=== PATIENT | female | born 1955 | race Caucasian/White ===

== ENCOUNTER → 2016-04-15 | Outpatient (REF) | payer MEDICARE, OTHER ==
[~2016-04-15] MED LIST: /MIRT30TA PO; /ONDA4TA OR; /ONDA4TA PO; /PANT40TA OR; /PANT40TA PO; ACET50TA GT; ACET50TA PO; ACET65TA OR; AMBI10TA OR; AMBI10TA PO; AUGM875T27 PO; BAYE325T13 PO; BUDE150T OR; Bentyl OR; CIPR500T4 OR; CIPR500T89 PO; ESTR1TAB PO; ESTR625TA OR; ESTR62CR PV; FERR325T PO; FLAG500T OR; FLAG500T PO; FLORASTOR PO; HYOMAX OR; LOPE2TAB PO; LOPERAMIDE PO; MAGIC MOUTH WASH PO; MESAPOW PO; MS C15TA5 OR; OXYCODONE PO; PERC7.5T8 OR; POTA20TA2 PO; PRED10TA2 OR; PRED10TA2 PO; PRED20TA OR; PRED20TA PO; PRED5TAB OR; Prednisone OR; SING5CHW PO; TRAM50TA2 PO; TYLE325T5 PO; TYLE650T25 PO; Tylenol PM OR; VANC25CA PO; VICO5TAB OR; VITA-122 PO; VITA25003 SL; VITA500T PO; VITAD1000T OR; VITAMIN B COMPLE1 PO; Vitamin D-3 PO; WELLTAB4 PO; ZANT150T PO; ZOFR4SOL PO; [UNRECOGNIZED DRUG - CODE] PO; [UNRECOGNIZED DRUG - REMARK] OR; asacol PO; bacid PO
== END ==
LOC: M SFHCPLAZ 08:51
PROVIDERS: ATTEND Nurse Practitioner Family
DX: E78.5 Hyperlipidemia, unspecified (principal); E55.9 Vitamin D deficiency, unspecified

== ENCOUNTER → 2016-04-16 | Outpatient (REF) | payer MEDICARE, OTHER ==
[2016-04-16 16:48] LABS: ALBUMIN 4.2 GM/DL (3.2-5.2); ALKALINE PHOSPHATASE 79 U/L (45-117); ALT/SGPT 23 U/L (12-78); ANION GAP 12 MEQ/L (8-16); AST/SGOT 14 U/L (15-37); BILIRUBIN,TOTAL 0.5 MG/DL (0.2-1.0); BLOOD UREA NITROGEN 15 MG/DL (7-18); CARBON DIOXIDE LEVEL 25 MEQ/L (21-32); CHLORIDE LEVEL 105 MEQ/L (98-107); CREATININE FOR GFR 0.79 MG/DL (0.55-1.02); GLOMERULAR FILTRATION RATE > 60.0 (>45); GLUCOSE, FASTING 82 MG/DL (80-110); POTASSIUM SERUM 3.9 MEQ/L (3.5-5.1); SODIUM LEVEL 142 MEQ/L (136-145); TOTAL PROTEIN 7.2 GM/DL (6.4-8.2)
[2016-04-16 16:50] LABS: BASO % 0.3 % (0.0-1.0); EOS # 0.1 K/mm3 (0.0-0.50); EOS % 1.1 % (0.0-3.0); LARGE UNSTAINED CELL # 0.2 K/mm3 (0.0-0.4); LARGE UNSTAINED CELL % 2.1 % (0.0-4.0); LYMPH # 2.5 K/mm3 (1.5-4.5); LYMPH % 32.6 % (24.0-44.0); MEAN CORPUSCULAR HEMOGLOBIN 31.7 pg (27.0-33.0); MEAN CORPUSCULAR HGB CONC 33.9 g/dl (32.0-36.5); MEAN CORPUSCULAR VOLUME 93.4 fl (80.0-96.0); MONO # 0.4 K/mm3 (0.0-0.8); MONO % 5.7 % (0.0-5.0); NEUTROPHILS # 4.5 K/mm3 (1.8-7.7); NEUTROPHILS % 58.2 % (36.0-66.0); PLATELET COUNT, AUTOMATED 244 k/mm3 (150-450); WHITE BLOOD COUNT 7.6 K/mm3 (4.0-10.0)
[2016-04-16 20:00] LABS: ERYTHROCYTE SEDIMENTATION RATE 4 mm/hr (0-30)
== END ==
LOC: M LABDRAW1 15:45
PROVIDERS: ATTEND Psychiatry & Neurology Neurology
DX: G37.9 Demyelinating disease of central nervous system, unspecified (principal); Z79.899 Other long term (current) drug therapy

== ENCOUNTER → 2016-07-17 | Outpatient (CLI) | payer MEDICARE, OTHER ==
--- NOTE | 2016-07-18 09:55 | RADONC ---
RADIATION ONCOLOGY FOLLOWUP NOTE DATE: 07/17/2016 CHART NUMBER: [id number]. DIAGNOSIS: Left breast cancer. STAGE: IIA, [id number]. ECOG PERFORMANCE STATUS: 0. FOLLOWUP NOTE: Ms. Nguyen is a very pleasant, 60-year-old white female with the diagnosis of a stage IIA, [id number] moderately differentiated invasive ductal carcinoma of the left breast who is presenting to us today for routine followup visit 3 years post completion of external beam radiation therapy. The patient presents today reporting that she is doing quite well with no complaints at this time related to her radiation therapy or disease. She has no breast or bone pain. REVIEW OF SYSTEMS: The patient's review of systems is noncontributory. Denies nausea, vomiting, fevers, chills, night sweats, diplopia, headaches, anxiety or depression, anorexia, weight loss, visual disturbances, chest pain, urinary or bowel difficulties, bone pain, or neurological problems. PHYSICAL EXAMINATION: The patient is a well-developed, well-nourished, 60-year-old female in no acute distress. HEENT exam is normocephalic, atraumatic. Extraocular movements are intact. There is no palpable cervical, supraclavicular, infraclavicular, axillary, or inguinal lymphadenopathy present. Lungs are clear to auscultation and percussion. Heart has a regular rate and rhythm. Abdomen is benign with no hepatosplenomegaly, masses, or tenderness. Breast examination reveals no masses or discharge bilaterally. Skeletal examination reveals no tenderness to pressure or percussion of the bony skeleton. Extremities reveal no clubbing, cyanosis, or edema. Neurologic exam is grossly intact, as is the remainder of the physical examination. The patient's review of systems is noncontributory. She denies standard review of systems. ASSESSMENT: The patient is clinically LISA at this time and will be seen by us again in 6 months for further followup. She will also continue to be followed by her other physicians as well. cc: MD Eros Vieira MD *Grover Newman DO
== END ==
LOC: M ONCR 13:34
PROVIDERS: ATTEND Radiology Radiation Oncology
DX: C50.412 Malignant neoplasm of upper-outer quadrant of left female breast (principal)

== ENCOUNTER → 2016-08-29 | Outpatient (REF) | payer MEDICARE, OTHER ==
[2016-08-29 13:43] LABS: BASO % 0.2 % (0.0-1.0); EOS # 0.1 K/mm3 (0.0-0.50); EOS % 1.3 % (0.0-3.0); LARGE UNSTAINED CELL # 0.1 K/mm3 (0.0-0.4); LYMPH # 2.5 K/mm3 (1.5-4.5); LYMPH % 26.6 % (24.0-44.0); MEAN CORPUSCULAR HEMOGLOBIN 31.8 pg (27.0-33.0); MEAN CORPUSCULAR HGB CONC 33.9 g/dl (32.0-36.5); MEAN CORPUSCULAR VOLUME 93.9 fl (80.0-96.0); MONO # 0.5 K/mm3 (0.0-0.8); MONO % 5.5 % (0.0-5.0); NEUTROPHILS % 65.4 % (36.0-66.0); PLATELET COUNT, AUTOMATED 302 k/mm3 (150-450); RED CELL DISTRIBUTION WIDTH 12.1 % (11.5-14.5); WHITE BLOOD COUNT 9.2 K/mm3 (4.0-10.0)
[2016-08-29 14:09] LABS: ALBUMIN 3.7 GM/DL (3.2-5.2); ALBUMIN/GLOBULIN RATIO 1.16 (1.00-1.93); ALKALINE PHOSPHATASE 78 U/L (45-117); ALT/SGPT 23 U/L (12-78); AMYLASE 57 U/L (25-115); ANION GAP 8 MEQ/L (8-16); AST/SGOT 20 U/L (15-37); BILIRUBIN,TOTAL 0.4 MG/DL (0.2-1.0); BLOOD UREA NITROGEN 15 MG/DL (7-18); CALCIUM LEVEL 8.4 MG/DL (8.8-10.2); CARBON DIOXIDE LEVEL 28 MEQ/L (21-32); CHLORIDE LEVEL 103 MEQ/L (98-107); CREATININE FOR GFR 0.85 MG/DL (0.55-1.02); GLOMERULAR FILTRATION RATE > 60.0 (>45); GLUCOSE, FASTING 101 MG/DL (80-110); SODIUM LEVEL 139 MEQ/L (136-145); TOTAL PROTEIN 6.9 GM/DL (6.4-8.2)
== END ==
LOC: M SFHCPLAZ 08-28 16:26
PROVIDERS: ATTEND Nurse Practitioner Family
DX: R10.9 Unspecified abdominal pain (principal); R53.83 Other fatigue

== ENCOUNTER → 2016-09-05 | Outpatient (REF) | payer MEDICARE, OTHER | LOC: M SFHCPLAZ 10:21 | PROVIDERS: ATTEND Nurse Practitioner Family | DX: E55.9 Vitamin D deficiency, unspecified (principal); R53.83 Other fatigue; K51.20 Ulcerative (chronic) proctitis without complications ==

== ENCOUNTER → 2016-10-01 | Outpatient (REF) | payer MEDICARE, OTHER ==
[~2016-10-01] MED LIST changes: +AFLU1INJ; +DULO1CAP2; +NORCOTAB PO; +TAMO20TA4
== END ==
LOC: M SFHCWAGY 12:02
PROVIDERS: ATTEND Nurse Practitioner Family
DX: Z12.72 Encounter for screening for malignant neoplasm of vagina (principal); R87.615 Unsatisfactory cytologic smear of cervix
CPT/HCPCS: 81002; G0101; G0123

== ENCOUNTER → 2016-10-09 | Outpatient (REF) | payer MEDICARE, OTHER | LOC: M SMT 16:52 | PROVIDERS: ATTEND Urology | DX: R31.9 Hematuria, unspecified (principal) | CPT/HCPCS: 81001; 88108; G0463 ==

== ENCOUNTER → 2016-10-17 | Outpatient (CLI) | payer MEDICARE, OTHER ==
[2016-10-17 13:45] LABS: ANION GAP 6 MEQ/L (8-16); BLOOD UREA NITROGEN 12 MG/DL (7-18); CALCIUM LEVEL 8.9 MG/DL (8.8-10.2); CARBON DIOXIDE LEVEL 30 MEQ/L (21-32); CHLORIDE LEVEL 103 MEQ/L (98-107); CREATININE FOR GFR 0.82 MG/DL (0.55-1.02); GLOMERULAR FILTRATION RATE > 60.0 (>45); GLUCOSE, FASTING 105 MG/DL (80-110); POTASSIUM SERUM 4.3 MEQ/L (3.5-5.1); SODIUM LEVEL 139 MEQ/L (136-145)
== END ==
LOC: M SMT 09:14
PROVIDERS: ATTEND Urology
DX: R31.0 Gross hematuria (principal)

== ENCOUNTER → 2016-10-23 | Outpatient (CLI) | payer MEDICARE, OTHER ==
[~2016-10-23] MED LIST changes: +ISOVUE-370 76% 100ML VIAL (Q9967) As Ordered ONE
--- NOTE | 2016-10-23 15:19 | REP ---
CT UROGRAM WITHOUT AND WITH IV CONTRAST: HISTORY: Hematuria. Comparison CT study is from May 10, 2013. CT CONTRAST DOSE: 100 mL of Isovue [address] FINDINGS: Preliminary digital slate picker radiograph is unremarkable. The lung bases are clear. The liver and spleen contain a few granulomatous calcifications but are otherwise intact. There is some layering slightly dense material in the dependent portion the gallbladder suggesting gallstones. This is reported on the right upper quadrant sonography from October 2015. No pancreatic lesion is seen. No adrenal lesion is observed on either side. There is an accessory splenule at the inferior spleen tip unchanged. There is a tiny 2 mm intrarenal calculus at the mid pole level of the right kidney on noncontrast study. No other intrarenal calculus is observed. No hydronephrosis is seen. This calcification is not apparent on the 2013 prior study. The kidneys enhance symmetrically with contrast. There is a tiny 4 mm cyst in the anterior cortex of the mid pole of the right kidney. No renal mass lesion is observed. No ureteral mass is observed. No filling defect is seen in the collecting system on renal delay study. The ureters describe a normal course to the urinary bladder. No bladder mass is apparent. The patient is status post hysterectomy. The patient is also status post colectomy with ileorectal anastomosis. No bony destructive lesion is seen. No abdominal wall defect is observed. IMPRESSION: 1. 2 mm intrarenal calculus mid pole level right kidney seen on noncontrast study. 2. No hydronephrosis. No other urinary tract finding. 3. Status post colectomy. 4.: Cholelithiasis. Signed by Jean Carlos Spear MD 10/23/2016 03:58 P
== END ==
LOC: M RAD 13:45
PROVIDERS: ATTEND Urology
DX: R31.0 Gross hematuria (principal)
CPT/HCPCS: 74178; Q9967

== ENCOUNTER → 2016-12-17 | Outpatient (CLI) | payer MEDICARE, OTHER ==
[~2016-12-17] MED LIST changes: -ISOVUE-370 76% 100ML VIAL (Q9967) As Ordered ONE
--- NOTE | 2017-01-02 00:50 | ECWPNPC ---
PATIENT NAME: RENÉE SOARES : 1955 GENDER: FEMALE VISIT DATE: 12/17/2016 DISCHARGE DATE: 12/17/16 1119 VISIT LOCKED DATE TIME: PHYSICIAN: ROLAND HULL PHYSICIAN PAGER NO: [phone] RESOURCE: ROLAND HULL REASON FOR APPOINTMENT 1. NECK/LBP HISTORY OF PRESENT ILLNESS NEW PATIENT CONSULT: WHEN DID YOUR PAIN FIRST START? . BRIEFLY DESCRIBE HOW YOUR PAIN STARTED? . HOW DOES YOUR PAIN CHANGE WITH TIME? . DOES YOUR PAIN AWAKEN YOU FROM SLEEP? . HOW MANY HOURS OF SLEEP DO YOU NORMALLY GET? . ANY DIAGNOSTIC TESTING? . FACILITY WHERE TESTS WERE DONE? ____. PAIN TREATMENT TREATMENT YES CANCER HAVE YOU EVER HAD ANY TYPE OF CANCER?NO NO. PAIN SCREENING: PATIENT HAS A COMPLAINT OF ACUTE OR CHRONIC PAIN :YES FALL RISK SCREENING: SCREENING :NO FALLS IN THE PAST YEAR BLACKMAN INVENTORY: QUESTIONNAIRE ASSESSEDTBD SCORE VALUE CALCULATED TBD TODAY'S VISIT: NOTES: REFERRED BY DR WAI HURTADO FOR CHRONIC NECK AND LOW BACK PAIN. PCP IS [facility]. ONSET OF PAIN WAS AROUND 2012. INITIALLY PAIN WAS ACHING, AND NOW HAS INCREASED WITH BURNING AND SHOOTING PAIN AND RECENTLY PAIN WAS HAVING SHOOTING PAIN TO RIGHT SHOULDER . WENT TO PT BUT NOT HELPFUL AND DID NOT GET A HEP. TREATES USUALLY WITH HEAT, ICE, IBU. 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 NO SIG RELIEF WHEN LAYING DONE. PAIN IS AFFECTING SLEEP. 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 HAD EPISODES OF ALL OVER PAIN FOR A PERIOD OF TIME. NO SPECIFIC WEAKNESS IN THE UPPER EXTREMITIES. NECK MOVEMENT UNCOMFORTABLE AND FEELS RESTRICTED. CURRENT MEDICATIONS TAKING ZOFRAN ODT 4 MG TABLET DISPERSIBLE 1 TABLET ON THE TONGUE AND ALLOW TO DISSOLVE ORALLY EVERY 8 HRS NEEDED TAKING AMBIEN 5 MG TABLET 1/2 TAB ORAL AT NIGHT TAKING TAMOXIFEN CITRATE 20 MG TABLET 1 TABLET ORALLY ONCE A DAY TAKING LOPERAMIDE HCL 2 MG CAPSULE 2 TABS ORALLY TWICE DAILY NEEED TAKING VITAMIN D-3 5000 UNIT TABLET 1 TAB ORALLY DAILY TAKING IBUPROFEN 800 MG TABLET 1 TABLET WITH FOOD OR MILK ORALLY TWICE A DAY NEEDED TAKING SYMBICORT 80-4.5 MCG/ACT AEROSOL 2 PUFFS INHALATION ONCE DAILY (USES THIS NEEDED) TAKING FLONASE ALLERGY RELIEF 50 MCG/ACT SUSPENSION 1 SPRAY IN EACH NOSTRIL NASALLY ONCE A DAY NEEDED TAKING CYMBALTA 30 MG CAPSULE DELAYED RELEASE PARTICLES 1 CAPSULE ORALLY ONCE A DAY, NOTES: ARONOWITZ/ INCREASED 60 MGS NOT-TAKING ZYRTEC ALLERGY 10 MG TABLET 1 TABLET ORALLY ONCE A DAY NOT-TAKING MACROBID 100 MG CAPSULE 1 CAPSULE WITH FOOD 1 HOUR PRIOR TO YOUR CYSTOSCOPY ORALLY ONCE MEDICATION LIST REVIEWED AND RECONCILED WITH THE PATIENT PAST MEDICAL HISTORY C DIFF COLITIS- DR MEIER (NO LONGER FOLLOWS WITH DR. 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 S/P RESECTION DR CARUSO. CHEMOTHERAPY DR COWAN- COMPLETED 08/10 TREATMENTS. RAD RX PER DR ROMANO ONCOLOGY DR VANN CHRONIC COUGH- DR HUNT 01/17 DONAVAN 02/02/13 NML( FEV1 2.51 (90%)/FVC2.94(82%). PFTS/METHACHOLINE CHALLENGE UNREMARKABLE- NO PULM EXPLANATION FOR COUGH 09/18. COUGH RESOLVED WITH ADVAIR PER CHROSTOWSKI 01/18. PANCREATIC MASS 2.5 CM/PRIOR FNA ATYPICAL CELLS/SUBSEQUENT EUS MASS SMALLER/LAST CT WITH CONTRAST MASS NOT DETECTED- FOLLOWED BY DR MAYORGA- GASTRO MICHAEL. FNA 11/18NEG PER PT CT A&P WITH CONTRAST NO ACUTE PATHOLOGY 05/21 BONE SCAN- OA/FIBROMYALGIA WITH CHRONIC PAIN-LYRICA- PER [facility]- DR SAINI 07/19 DEPRESSION/ANXIETY- ONESIMO LDL 95 04/20 PNEUMOVAX- 2013- [facility] PER PT. CT MAXILLOFACIAL 03/19-MILD MUCOSAL THICKENING MAXILLARY SINUSES CTD/CHRONIC PAIN- [facility] SYR- PLAQUENIL ETT 04/21 [facility]- NEG ISCHEMIA KIDNEY STONE 2015 ALLERGIES SULFA (FOR ALLERGY USE ONLY): FLU LIKE SX'S: ALLERGY AMOXICILLIN: C DIFF: CONTRAINDICATION BACTRIM: ANAPHYLAXIS SURGICAL HISTORY TUBAL LIGATION HYSTERECTOMY WITH BILATERAL OOPHORECTOMY BREAST BIOPSY-LEFT SALPINGECTOMY FOR TUBAL COLONOSCOPY EGD DR MUKESH RODRIGUEZ [address] RITA TUTTLE 04/18 ILEOSTOMY, 3 DIFFERENT OPERATIONS- 06/04/11 REANASTOMOSIS OF SMALL BOWEL. 01/[address] CARUSO 10/2012 LYMPH NODE REMOVAL FROM LEFT BREAST DR CARUSO 11/2012 ILEAL POUCH [id number] 01/26/15 RIGHT ESWL 06/08/15 FAMILY HISTORY FATHER: 66 YRS, PR, HYPERTENSION, IDDM, KIDNEY STONES MOTHER: 86 YRS, MELANOMA, OF COLON CANCER SIBLINGS: 2 SISTERS-LUNG AND PANCREATIC CA 5 BROTHER(S) , 3 SISTER(S) . 1 SON(S) , 1 DAUGHTER(S) - HEALTHY. BROTHER MVA, BROTHER PR @ LATE 40'S, TOBACCO USE. DENIES FAMILY HX OF BREAST OR OVARIAN CANCER. SOCIAL HISTORY GENERAL: TOBACCO USE ARE YOU A:FORMER SMOKER HOW LONG HAS IT BEEN SINCE YOU LAST SMOKED?> 10 YEARS RECREATIONAL DRUG USE DRUG USE?NO CHURCH [id number] SABIANISM LANGUAGE LANGUAGES SPOKEN:FAROESE LEARNING BARRIERS / SPECIAL NEEDS BARRIERS TO LEARNING?NO HEARING IMPAIRED?NO VISION IMPAIRED?YES GLASSES FOR READING COGNITIVELY IMPAIRED?NO READINESS TO LEARN?YES LEARNING PREFERENCES?NO LEARNING CAPABILITIES PRESENT?YES EMOTIONAL BARRIERS?NO SPECIAL DEVICES?NO SCRAP BUNCH MAKER NEEDED?NO PAIN CLINIC PFS, CLERGY, PUBLIC HEALTH REFERRALS PFS REFERRAL NEEDED?NO CLERGY REFERRAL NEEDED?NO PUBLIC HEALTH REFERRAL NEEDED?NO WAS THE PROVIDER NOTIFIED OF ANY PERTINENT INFO?NO HAS THE PATIENT BEEN EDUCATED REGARDING HIS/HER PLAN OF CARE?YES HAS THE PATIENT BEEN EDUCATED REGARDING PAIN, THE RISK FOR PAIN, THE IMPORTANCE OF EFFECTIVE PAIN MANAGEMENT, AND THE PAIN ASSESSMENT PROCESS?YES PATIENT: ____. ADVANCE DIRECTIVES HEALTH CARE PROXY?NO WOULD YOU LIKE MORE INFORMATION?NO DO YOU HAVE A DNR?NO WOULD YOU LIKE MORE INFORMATION?NO LIVING WILL?NO WOULD YOU LIKE MORE INFORMATION?NO POWER OF DISTRIBUTION CENTER SUPERVISOR?NO WOULD YOU LIKE MORE INFORMATION?NO HOSPITALIZATION/MAJOR DIAGNOSTIC PROCEDURE RELATED TO SURGERIES LEUKOPENIA 01/17 REVIEW OF SYSTEMS REVIEWED BY: PROVIDER: ROLAND MOREL . CONSTITUTIONAL: ANY CHANGE IN YOUR MEDICAL CONDITION? NO . CHILLS NO . FEVER NO . INFECTION: DO YOU HAVE NEW INFECTIONS? NO . DO YOU HAVE HISTORY OF MRSA? NO . MUSCULOSKELETAL: ANY NEW PATTERNS OF PAIN OR NUMBNESS? NO . SYTEMIC LUPUS NO . GASTROENTEROLOGY: GENERAL HX OF COLITIS - AGGRAVATED BY DIET. ONSET 2009. HAS SEEN WITH DR ARGUETA IN PAST . ANY NEW CHANGE IN BOWEL CONTROL? NO . BARRETTS ESOPHAGUS NO . CIRRHOSIS NO . HEPATITIS NO . LIVER FAILURE NO . ACID REFLUX NO . UNEXPLAINED WEIGHT LOSS NO . GENITOURINARY: ANY NEW CHANGE IN BLADDER CONTROL? NO . IS THERE A CHANCE YOU COULD BE ? NO . HEMATOLOGY/LYMPH: DO YOU TAKE ANY BLOOD THINNERS? (FOR EXAMPLE- COUMADIN, PLAVIX, AGGRENOX, PLATEL, PRADAXA, OR XARELTO) NO . WHEN WAS YOUR LAST DOSE? DATE: TIME: . LOW PLATELET COUNT NO . SICKLE CELL DISEASE NO . VON WILLIEBRANDS NO . FACTOR V LEIDEN NO . THALLASEMIA NO . ANEMIA NO . EASY BRUISING NO . NEUROLOGY: ANY NEW SEIZURES? NO HX SEIZURES . MYAASTHENIA GRAVIS NO . MIGRAINES INTERMITTANT . CARDIOLOGY: DO YOU HAVE A PACEMAKER OR DEFIBRILLATOR? NO . ANGINA NO . HEART ATTACK NO . HEART SURGERY NO . CONGESTIVE HEART FAILURE/FLUID OVERLOAD NO . CHEST PAIN NO . HIGH BLOOD PRESSURE NO . IRREGULAR HEART BEAT NO . RESPIRATORY: HAVE YOU BEEN SICK IN THE PAST WEEK? NO . FEVER NO . FLU LIKE SYMPTOMS? NO . CPAP NO . BYPAP NO . ASTHMA PROBABLE - ADVAIR HAS CLEARED SYMPTOMS . EMPHYSEMA NO . CHRONIC LUNG DISEASES NO . SHORTNESS OF BREATH ON EXERTION YES . DO YOU USE ANY TYPE OF TOBACCO (SMOKE, SMOKELESS, CHEW)? NO . COUGH YES - THICK GREEN MUCOUS X FEW WEEKS . SNORING NO . INTEGUMENTARY: DO YOU HAVE ANY RASHES OR OPEN SORES? NO . ALLERGIC/IMMUNO: ARE YOU ALLERGIC TO SHELLFISH OR IV DYE? NO . ANY NEW ALLERGIES? NO . PSYCHIATRIC: DO YOU HAVE THOUGHTS OF HURTING YOURSELF OR SOMEONE ELSE? NO . ARE YOU ABUSED, NEGLECTED, OR IN AN UNSAFE ENVIRONMENT? NO . ENDOCRINOLOGY: ARE YOU DIABETIC? NO . THYROID DISORDER NO . OTHER: DO YOU NEED ANY PRESCRIPTIONS? NO . IF YES, PLEASE LIST: ____ . ANY NEW PROBLEMS WITH YOUR MEDICATIONS? NO . WHEN DID YOU LAST EAT? ____ . WHEN DID YOU LAST DRINK? ____ . WHAT DID YOU LAST DRINK? ____ . NAME OF PERSON DRIVING YOU HOME? ____ . DO YOU HAVE ANY OTHER QUESTIONS OR CONCERNS NO . VITAL SIGNS WT 161 LBS, HT 65.5 IN, BMI 26.38 INDEX, BP 161/74 MM HG, HR 90 /MIN, RR 18 /MIN, TEMP 96.9 F, OXYGEN SAT % 97%, SAFE IN ENV? (Y/N) YES, NA INITIALS MI 09:56, REVIEWED BY: ESAU. EXAMINATION GENERAL EXAMINATION: PSYCHALERT , ORIENTED X 3 , APPROPRIATE MOOD AND AFFECT . HEENT:NORMOCEPHALIC, NO LYMPHADENOPATHY, NO THYROMEGLY. LUNGS:CLEAR TO AUSCULTATION BILATERALLY, NO WHEEZES, RALES OR RHONCHI. HEART:HEART RATE REGULAR, NORMAL S1S2, NO MURMURS, CLICK OR RUBS. MUSCULOSKELETAL:MUSCLE STRENGTH TESTING 5/5 BILATERAL UPPER AND LOWER EXTREMITIES., TRIGGER POINTS AND TIGHT FIBROUS BANDS IDENTIFIED BILATERALLY OVER TRAPEZIUS MUSCLES.:R>L . DECREASED ROM WITH NECK FLEXION, EXTENSION AND ROTATION. ABLE TO FLEX SPINE TO 90 DEGREES, EXTEND TO 10 DEGREES. NO PAIN WIT SLR. POSTURE UPRIGHT, GAIT NONANTALGIC.. EXTREMITIES:NO EDEMA. NEUROLOGIC EXAM:CN'S II-XII GROSSLY INTACT DTR'S 3+ BILATERAL UPPER EXTREMITIES /4+ BILATERAL LOWER EXTREMITIES WITH CLONUS . NO SENSORY DEFICEIT. DIAGNOSTIC TESTS REVIEWEDMRI OD CERVICAL SPINE COMPLETED 05/01/16 DEMONSTRATES MODERATE CERVICAL SPONDYLOSIS AT C5-6 AND C6-7. THERE IS DEFORMITY OF THE LEFT SIDE OF THE VENTRAL SPINAL CORD IT CROSSES THE C5-6 LEVEL. THERE IS MODERAT FORAMINAL NARROWING BILATERALLY AT C5-6 AND C6-7 BUT NO OVERT NERVE ROOT COMPRESSION. THERE ARE OSTEOARTHRITIC CHANGES IN THE FACET JOINTS THROUGHOUT THE CERVICAL SPINE. NO EVIDENCE OF MEMYLINATING DISEASE NOTED.. ASSESSMENTS MYALGIA - M79.1 (PRIMARY) ARTHROPATHY OF CERVICAL FACET JOINT - M12.88 TREATMENT MYALGIA TRIGGER POINT 3 + ROLAND BARRETO 12/17/2016 11:07:00 AM > NECK AND SHOULDERS NOTES: DISCUSSION HELD RELATED TO OPTIONS FOR INTERVENTAL TREATMENT. AT THIS TIME PT WOULD LIKE TO TRY TRIGGER POINTS AND SEE HOW THIS HELPS WITH HER PAIN. PREVENTIVE MEDICINE PAIN CLINIC TEACHING: PROCEDURE TEACHING TRIGGER POINT INJECTION TEACHING DONE. QUESTIONS ANSWERED AND PATIENT VERBALIZES UNDERSTANDING.. PROCEDURE CODES FA211 ESTABILISHED PATIENT [facility] CHARGE Y1762 PAIN ASSESS POS TOOL F/U PLAN DOC G8427 DOC MEDS VERIFIED W/PT OR RE DISPOSITION & COMMUNICATION FOLLOW UP AFTER INJECTION - SCHED FOR INJ KARINA (REASON: CHECK AUTH FOR TPI) ELECTRONICALLY SIGNED BY GENOVEVA BENITEZ ON 01/01/2017 AT 08:52 AM EDT DISCLAIMER : THIS IS A VISIT SUMMARY EXTRACTED FROM THE [employer] CHART. IT IS NOT A COPY OF THE [employer] PROGRESS NOTE. BARBARA
== END ==
LOC: M PAIN 10:00
PROVIDERS: ATTEND Nurse Practitioner Family
DX: G89.29 Other chronic pain (principal); M12.88 Other specific arthropathies, not elsewhere classified, other specified site; M79.1 Myalgia; F32.9 Major depressive disorder, single episode, unspecified; E78.5 Hyperlipidemia, unspecified; E55.9 Vitamin D deficiency, unspecified; J30.9 Allergic rhinitis, unspecified; K51.20 Ulcerative (chronic) proctitis without complications; Z88.2 Allergy status to sulfonamides; Z88.1 Allergy status to other antibiotic agents; Z79.899 Other long term (current) drug therapy; Z87.891 Personal history of nicotine dependence

== ENCOUNTER → 2016-12-25 | Outpatient (CLI) | payer MEDICARE, OTHER ==
[~2016-12-25] MED LIST changes: +BUPIVACAINE HCL 0.25% 10 ML VIAL As Ordered ONE; +BUPIVACAINE HCL 0.25% 30 ML VIAL As Ordered ONE; +TRIAMCINOLONE ACETONIDE SUSP 40 MG/ML VIAL (J3301) As Ordered ONE
--- NOTE | 2016-12-25 23:35 | ECWPNPC ---
PATIENT NAME: RENÉE SOARES : 1955 GENDER: FEMALE VISIT DATE: 12/25/2016 DISCHARGE DATE: 12/25/16 1540 VISIT LOCKED DATE TIME: PHYSICIAN: REINA REED PHYSICIAN PAGER NO: [phone] RESOURCE: REINA REED REASON FOR APPOINTMENT 1. TPI, NECK/ SHOULDERS HISTORY OF PRESENT ILLNESS HISTORY OF PRESENT ILLNESS: PAIN THE PATIENT DESCRIBES THE PAIN... FALL RISK SCREENING: SCREENING :NO FALLS IN THE PAST YEAR CURRENT MEDICATIONS TAKING ZOFRAN ODT 4 MG TABLET DISPERSIBLE 1 TABLET ON THE TONGUE AND ALLOW TO DISSOLVE ORALLY EVERY 8 HRS NEEDED, NOTES: > 1 MONTH TAKING AMBIEN 5 MG TABLET 1/2 TAB ORAL AT NIGHT, NOTES: 12/24/162099 TAKING TAMOXIFEN CITRATE 20 MG TABLET 1 TABLET ORALLY ONCE A DAY, NOTES: 12/24/162099 TAKING LOPERAMIDE HCL 2 MG CAPSULE 2 TABS ORALLY TWICE DAILY NEEED, NOTES: 12/25/16 1100 TAKING VITAMIN D-3 5000 UNIT TABLET 1 TAB ORALLY DAILY, NOTES: 12/24/162099 TAKING IBUPROFEN 800 MG TABLET 1 TABLET WITH FOOD OR MILK ORALLY TWICE A DAY NEEDED, NOTES: 12/23/162099 TAKING SYMBICORT 80-4.5 MCG/ACT AEROSOL 2 PUFFS INHALATION ONCE DAILY (USES THIS NEEDED), NOTES: 12/24/162099 TAKING FLONASE ALLERGY RELIEF 50 MCG/ACT SUSPENSION 1 SPRAY IN EACH NOSTRIL NASALLY ONCE A DAY NEEDED, NOTES: 12/23/16 0800 TAKING CYMBALTA 30 MG CAPSULE DELAYED RELEASE PARTICLES 1 CAPSULE ORALLY ONCE A DAY, NOTES: 12/24/162099 NOT-TAKING ZYRTEC ALLERGY 10 MG TABLET 1 TABLET ORALLY ONCE A DAY NOT-TAKING MACROBID 100 MG CAPSULE 1 CAPSULE WITH FOOD 1 HOUR PRIOR TO YOUR CYSTOSCOPY ORALLY ONCE MEDICATION LIST REVIEWED AND RECONCILED WITH THE PATIENT PAST MEDICAL HISTORY C DIFF COLITIS- DR MEIER (NO LONGER FOLLOWS WITH DR. 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 S/P RESECTION DR CARUSO. CHEMOTHERAPY DR COWAN- COMPLETED 5/6 TREATMENTS. RAD RX PER DR ROMANO ONCOLOGY DR VANN CHRONIC COUGH- DR HUNT 01/17 DONAVAN 02/02/13 NML( FEV1 2.51 (90%)/FVC2.94(82%). PFTS/METHACHOLINE CHALLENGE UNREMARKABLE- NO PULM EXPLANATION FOR COUGH 09/18. COUGH RESOLVED WITH ADVAIR PER VANESA 01/18. PANCREATIC MASS 2.5 CM/PRIOR FNA ATYPICAL CELLS/SUBSEQUENT EUS MASS SMALLER/LAST CT WITH CONTRAST MASS NOT DETECTED- FOLLOWED BY DR MAYORGA- GASTRO SYR. FNA 11/18NEG PER PT CT A&P WITH CONTRAST NO ACUTE PATHOLOGY 05/21 BONE SCAN- OA/FIBROMYALGIA WITH CHRONIC PAIN-LYRICA- PER [facility]- DR SAINI 07/19 DEPRESSION/ANXIETY- ALPHONSONOWIVANI LDL 95 04/20 PNEUMOVAX- 2013- [facility] PER PT. CT MAXILLOFACIAL 03/19-MILD MUCOSAL THICKENING MAXILLARY SINUSES CTD/CHRONIC PAIN- RHEUM SYR- PLAQUENIL ETT 04/21 [place]- NEG ISCHEMIA KIDNEY STONE 2015 ALLERGIES SULFA (FOR ALLERGY USE ONLY): FLU LIKE SX'S: ALLERGY AMOXICILLIN: C DIFF: CONTRAINDICATION BACTRIM: ANAPHYLAXIS REVIEW OF SYSTEMS REVIEWED BY: PROVIDER: . CONSTITUTIONAL: ANY CHANGE IN YOUR MEDICAL CONDITION? NO . CHILLS NO . FEVER NO . INFECTION: DO YOU HAVE NEW INFECTIONS? NO . DO YOU HAVE HISTORY OF MRSA? NO . MUSCULOSKELETAL: ANY NEW PATTERNS OF PAIN OR NUMBNESS? NO . GASTROENTEROLOGY: ANY NEW CHANGE IN BOWEL CONTROL? NO . GENITOURINARY: ANY NEW CHANGE IN BLADDER CONTROL? NO . IS THERE A CHANCE YOU COULD BE ? NO . HEMATOLOGY/LYMPH: DO YOU TAKE ANY BLOOD THINNERS? (FOR EXAMPLE- COUMADIN, PLAVIX, AGGRENOX, PLATEL, PRADAXA, OR XARELTO) NO . WHEN WAS YOUR LAST DOSE? DATE: TIME: . NEUROLOGY: HAVE YOU FALLEN IN THE PAST 6 MONTHS? NO . ANY NEW EXTREMITY NUMBNESS OR WEAKNESS? NO . CARDIOLOGY: DO YOU HAVE A PACEMAKER OR DEFIBRILLATOR? NO . RESPIRATORY: HAVE YOU BEEN SICK IN THE PAST WEEK? NO . FEVER NO . FLU LIKE SYMPTOMS? NO . COUGH NO . INTEGUMENTARY: DO YOU HAVE ANY RASHES OR OPEN SORES? NO . ALLERGIC/IMMUNO: ARE YOU ALLERGIC TO SHELLFISH OR IV DYE? NO . ANY NEW ALLERGIES? NO . PSYCHIATRIC: DO YOU HAVE THOUGHTS OF HURTING YOURSELF OR SOMEONE ELSE? NO . ARE YOU ABUSED, NEGLECTED, OR IN AN UNSAFE ENVIRONMENT? NO . ENDOCRINOLOGY: ARE YOU DIABETIC? NO . OTHER: DO YOU NEED ANY PRESCRIPTIONS? NO . IF YES, PLEASE LIST: ____ . ANY NEW PROBLEMS WITH YOUR MEDICATIONS? NO . WHEN DID YOU LAST EAT? ____12/25/16 0700 . WHEN DID YOU LAST DRINK? ____12/25/16 1100 . WHAT DID YOU LAST DRINK? ____WATER . NAME OF PERSON DRIVING YOU HOME? ____CHRISTINA . DO YOU HAVE ANY OTHER QUESTIONS OR CONCERNS NO . VITAL SIGNS WT 160 LBS, HT 65.5 IN, BMI 26.22 INDEX, BP 157/89 MM HG, HR 89 /MIN, RR 18 /MIN, TEMP 98.8 F, OXYGEN SAT % 99%, SAFE IN ENV? (Y/N) YES, NA INITIALS NH 13:33, REVIEWED BY: LEIF. ASSESSMENTS MYALGIA - M79.1 PROCEDURES PN TRIGGER POINT INJECTION WITH STEROIDS PRE PROCEDURE DIAGNOSIS 1. MYALGIA 2. PAIN AT BILATERAL NECK AND SHOULDER POST PROCEDURE DIAGNOSIS 1. MYALGIA 2. PAIN AT BILATERAL NECK AND SHOULDER PROCEDURE TRIGGER POINT INJECTION AT BILATERAL NECK AND SHOULDER SURGEON DR. REINA REED GAS APPLIANCE ADJUSTER NONE ANESTHESIA LOCAL PRE PROCEDURE NOTE 61 YEAR-OLD PATIENT WITH HISTORY OF CHRONIC PAIN AT BILATERAL NECK AND SHOULDER . I EVALUATED THE PATIENT AND REVIEWED THE CHART. THERE IS EVIDENCE OF BANDS OF TISSUE WITH RESTRICTION OF MOVEMENT AND PRESENCE OF TRIGGER POINT AT THE AFFECTED AREA. I WENT OVER THE RISKS, ALTERNATIVES, AND BENEFITS ASSOCIATED WITH THIS PROCEDURE. THE PATIENT WOULD LIKE TO PROCEED AND GAVE CONSENT TO PERFORM THE PROCEDURE. THE PATIENT DENIES UNEXPLAINABLE WEIGHT LOSS, FEVER, CHILLS, OR NEW CHANGES IN URINARY OR BOWEL CONTROL. DESCRIPTION OF PROCEDURE THE PATIENT WAS BROUGHT TO THE PROCEDURE ROOM AND PLACED IN THE SITTING PRONE POSITION. THE AREA WAS CLEANED WITH ALCOHOL. THE PROCEDURE WAS DONE USING ASEPTIC STERILE TECHNIQUE. I CHECKED LATERALITY AND THE LEVEL WHERE THE PROCEDURE WAS GOING TO BE PERFORMED WITH THE PATIENT AND THE SUPPORTING STAFF AT THE MOMENT OF THE TIME OUT IN THE PROCEDURE ROOM. USING A 25-GAUGE NEEDLE, TRIGGER POINTS WERE INJECTED AT BOTH SHOULDERS AND RIGHT AND LEFT NECK AREA WITH A TOTAL OF 40 ML OF BUPIVACAINE 0.25% AND KENALOG 40 MG. THERE WAS NO EVIDENCE OF BLOOD, PARESTHESIA OR CEREBROSPINAL FLUID DURING THE PROCEDURE. THE PATIENT WAS SENT TO THE RECOVERY ROOM. THE PATIENT WAS MOVING THE EXTREMITIES AND DOING WELL. THERE WAS NO COMPLICATION DURING THE PROCEDURE. POST PROCEDURE NOTE THE PATIENT WILL BE SEEN IN A FOLLOW UP IN THE NEXT FEW WEEKS. INSTRUCTIONS WERE GIVEN, QUESTIONS WERE ANSWERED, AND THE PATIENT EXPRESSED UNDERSTANDING AND AGREED WITH THE PLAN. PROCEDURE CODES 78407 INJECT TRIGGER POINTS 3/> DISPOSITION & COMMUNICATION FOLLOW UP 3 WEEKS ELECTRONICALLY SIGNED BY REINA REED MD ON 12/25/2016 AT 09:37 PM EDT DISCLAIMER : THIS IS A VISIT SUMMARY EXTRACTED FROM THE [employer] CHART. IT IS NOT A COPY OF THE [employer] PROGRESS NOTE. BARBARA
== END ==
LOC: M PAIN 13:45
PROVIDERS: ATTEND Anesthesiology
DX: G89.29 Other chronic pain (principal); M54.2 Cervicalgia; M25.511 Pain in right shoulder; M25.512 Pain in left shoulder; M79.1 Myalgia; F32.9 Major depressive disorder, single episode, unspecified; E78.5 Hyperlipidemia, unspecified; E55.9 Vitamin D deficiency, unspecified; J30.9 Allergic rhinitis, unspecified; K51.20 Ulcerative (chronic) proctitis without complications; Z88.2 Allergy status to sulfonamides; Z88.1 Allergy status to other antibiotic agents; Z79.899 Other long term (current) drug therapy
CPT/HCPCS: 20553; J3301

== ENCOUNTER 2017-01-10 07:48 | Emergency (ER) | payer MEDICARE, OTHER ==
[~2017-01-10] VITALS: Ht 165.1 cm; Wt 71.8 kg
[~2017-01-10 07:48] MED LIST changes: -AFLU1INJ; -BUPIVACAINE HCL 0.25% 10 ML VIAL As Ordered ONE; -BUPIVACAINE HCL 0.25% 30 ML VIAL As Ordered ONE; -DULO1CAP2; -NORCOTAB PO; -TAMO20TA4; -TRIAMCINOLONE ACETONIDE SUSP 40 MG/ML VIAL (J3301) As Ordered ONE
[2017-01-10] MEDS ORDERED: TAMO20TA4 (08:02)
[2017-01-10] MEDS ORDERED: AFLU1INJ (08:02)
[2017-01-10] MEDS ORDERED: DULO1CAP2 (08:02)
[2017-01-10] MEDS ORDERED: NS 1,000 ML IV SCH (08:10)
[2017-01-10] MEDS ORDERED: ONDANSETRON 4MG/2ML VIAL (J2405) IV ONE (08:15)
[2017-01-10] MEDS ORDERED: MORPHINE 4 MG/ML 1ML SYRINGE IV PRN (08:15)
[2017-01-10 08:33] LABS: BASO % 0.4 % (0.0-1.0); EOS # 0.1 10^3/uL (0.0-0.50); EOS % 0.8 % (0.0-3.0); IMMATURE GRANULOCYTE % 0.2 % (0-0); LYMPH # 2.7 10^3/uL (1.5-4.5); LYMPH % 31.9 % (24.0-44.0); MEAN CORPUSCULAR HEMOGLOBIN 31.1 pg (27.0-33.0); MEAN CORPUSCULAR HGB CONC 33.7 g/dl (32.0-36.5); MEAN CORPUSCULAR VOLUME 92.4 fl (80.0-96.0); MONO # 0.7 10^3/uL (0.0-0.8); MONO % 8.2 % (0.0-5.0); NEUTROPHILS % 58.5 % (36.0-66.0); PLATELET COUNT, AUTOMATED 239 10^3/uL (150-450); RED CELL DISTRIBUTION WIDTH 12.2 % (11.5-14.5); WHITE BLOOD COUNT 8.6 10^3/uL (4.0-10.0)
[2017-01-10 09:01] LABS: ALBUMIN 3.6 GM/DL (3.2-5.2); ALBUMIN/GLOBULIN RATIO 1.06 (1.00-1.93); ALKALINE PHOSPHATASE 72 U/L (45-117); ALT/SGPT 34 U/L (12-78); ANION GAP 8 MEQ/L (8-16); AST/SGOT 23 U/L (15-37); BILIRUBIN,DIRECT < 0.1 MG/DL (0.0-0.2); BILIRUBIN,TOTAL 0.4 MG/DL (0.2-1.0); BLOOD UREA NITROGEN 14 MG/DL (7-18); CALCIUM LEVEL 8.5 MG/DL (8.8-10.2); CARBON DIOXIDE LEVEL 25 MEQ/L (21-32); CHLORIDE LEVEL 106 MEQ/L (98-107); CREATININE FOR GFR 0.84 MG/DL (0.55-1.02); GLOMERULAR FILTRATION RATE > 60.0 (>45); GLUCOSE, FASTING 85 MG/DL (80-110); SODIUM LEVEL 139 MEQ/L (136-145)
[2017-01-10] MEDS ORDERED: diphenhydrAMINE INJ 50MG/ML VIAL (J1200) IV ONE (09:15)
--- NOTE | 2017-01-10 09:16 | REP ---
Abdominal series: Three views. History: Abdominal pain. Findings: Upright chest radiograph shows no evidence of infiltrate or free subdiaphragmatic air. There is fibrotic tenting and slight elevation of the left hemidiaphragm. There are surgical clips visible in the left axilla. Granulomatous lymph node residuals are seen in the left hilus and left mediastinum. Supine and erect views of the abdomen demonstrate surgical sutures in the central pelvis suggesting previous colectomy. No bowel loop dilation is seen. No air fluid level is seen. Psoas margins and flank stripes are intact. No mass, organomegaly, or pathologic calcification is seen. Impression: Postoperative changes in the abdomen and left axilla. Unremarkable bowel gas pattern otherwise. The patient appears to be status post colectomy. Signed by Jean Carlos Spear MD 01/10/2017 03:49 P
--- NOTE | 2017-01-10 10:09 | REP ---
Abdominal right upper quadrant ultrasound: Comparison is the CT of the abdomen pelvis dated 10/23/2016. There is a negative Narayan's sign to transducer pressure. There are numerous gravel like gallbladder calculi. There is no gallbladder wall thickening or pericholecystic fluid. There is no intrahepatic or extrahepatic biliary duct dilatation, the common duct measures 3.7 mm in diameter. The hepatic parenchyma is mildly echogenic compatible with hepato steatosis. There is no hepatic mass. The pancreas is obscured by bowel gas. The right kidney is normal size measuring 11.4 cm craniocaudad length. The tiny 2 ml nonobstructive right renal calculus identified on the comparison CT is not identified on the ultrasound today. There is questionably a small 1.6 cm parapelvic cyst. There is no right upper quadrant free fluid. Impression: Cholelithiasis. No evidence of acute cholecystitis or biliary duct dilatation by ultrasound. 1.1 cm right renal parapelvic cyst. The nonobstructive right renal calculus identified on the comparison CT is not visualized by ultrasound. Hepato steatosis. Signed by Luis Felipe Bolaños MD 01/10/2017 10:00 A
[2017-01-10] MEDS ORDERED: GASTROGRAFIN SOLUTION 30ML PO ONE (11:25)
[2017-01-10] MEDS ORDERED: GASTROGRAFIN SOLUTION 30ML (Q9963) PO ONE (11:55)
[2017-01-10] MEDS ORDERED: ISOVUE-370 76% 100ML VIAL (Q9967) As Ordered ONE (12:37)
--- NOTE | 2017-01-10 13:13 | REP ---
CT of the abdomen pelvis with IV and oral contrast: Comparison is 10/23/2016. The patient is a history of ulcerative colitis and has had a total colectomy with anastomosis of the small bowel to the rectosigmoid colon. This is unchanged. In addition, the patient's history of breast carcinoma with left axilla lymph node dissection, total hysterectomy and history of pancreatitis. The visualized lung go are clear. The hepatic parenchyma, gallbladder, pancreas and spleen are unremarkable except for calcified granulomas in the spleen. This is unchanged. The adrenals and kidneys are unremarkable. There is no hydronephrosis. The abdominal aorta is unremarkable. There is no aneurysm. There is no bowel distension or obstruction. There is no ascites. No inflammatory changes in the mesentery. Pelvis: The bladder, vaginal cuff and adnexa are unremarkable. The sigmoid at the rectosigmoid area is unremarkable. There is no adenopathy. Impression: There are no inflammatory changes, ascites, adenopathy or mass. There is no bowel distension or obstruction. There are postsurgical changes as described. Otherwise, negative CT study of the abdomen and pelvis. Signed by Luis Felipe Bolaños MD 01/10/2017 01:05 P
[2017-01-10 15:08] LABS: BASO # 0.1 10^3/uL (0.0-0.2); BASO % 0.6 % (0.0-1.0); EOS # 0.1 10^3/uL (0.0-0.50); EOS % 0.9 % (0.0-3.0); IMMATURE GRANULOCYTE % 0.1 % (0-0); LYMPH # 2.9 10^3/uL (1.5-4.5); LYMPH % 33.3 % (24.0-44.0); MEAN CORPUSCULAR HEMOGLOBIN 31.1 pg (27.0-33.0); MEAN CORPUSCULAR HGB CONC 33.1 g/dl (32.0-36.5); MEAN CORPUSCULAR VOLUME 93.9 fl (80.0-96.0); MONO # 0.6 10^3/uL (0.0-0.8); MONO % 7.2 % (0.0-5.0); NEUTROPHILS % 57.9 % (36.0-66.0); PLATELET COUNT, AUTOMATED 218 10^3/uL (150-450); RED CELL DISTRIBUTION WIDTH 12.1 % (11.5-14.5); WHITE BLOOD COUNT 8.7 10^3/uL (4.0-10.0)
[2017-01-10 15:12] LABS: ADD MORPHOLOGY? NO
[2017-01-10] MEDS ORDERED: NORCOTAB PO (15:22)
[2017-01-10 15:45] VITALS: BP 148/70
--- NOTE | 2017-01-11 05:34 | ECGEPIP ---
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
--- NOTE | 2017-01-11 05:36 | ECGEPIP ---
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
== END 2017-01-10 15:48 | disposition home or self-care (01) ==
LOC: M ED 07:48
DX: K80.50 Calculus of bile duct without cholangitis or cholecystitis without obstruction (principal); K76.0 Fatty (change of) liver, not elsewhere classified; Z87.442 Personal history of urinary calculi; J45.909 Unspecified asthma, uncomplicated; Z79.899 Other long term (current) drug therapy; Z88.1 Allergy status to other antibiotic agents; Z88.2 Allergy status to sulfonamides
CPT/HCPCS: 36415; 74022; 74177; 76705; 80048; 80076; 82550; 82553; 83605; 83690; 84484; 85025; 93005; 93041; 96374; 96375; 99285; J1200; J2405; Q9963; Q9967

== ENCOUNTER → 2017-01-22 | Outpatient (CLI) | payer MEDICARE, OTHER ==
[~2017-01-22] MED LIST changes: +AFLU1INJ; +DULO1CAP2; +NORCOTAB PO; +TAMO20TA4
--- NOTE | 2017-01-23 06:14 | RADONC ---
RADIATION ONCOLOGY FOLLOWUP NOTE DATE: 01/22/2017 CHART NUMBER: [id number]. DIAGNOSIS: Left breast cancer. STAGE: IIA, [id number]. ECOG PERFORMANCE STATUS: Zero. FOLLOWUP NOTE: Ms. Nguyen is a very pleasant, 61-year-old white female with the diagnosis of a stage IIA, [id number] moderately differentiated invasive ductal carcinoma of the left breast who is presenting to us today for routine followup visit 3-1/2 years post completion of external beam radiation therapy. The patient presents today reporting that she is doing quite well with no complaints at this time related to her radiation therapy or disease. She has no breast or bone pain. REVIEW OF SYSTEMS: The patient's review of systems is noncontributory. Denies nausea, vomiting, fevers, chills, night sweats, diplopia, headaches, anxiety or depression, anorexia, weight loss, visual disturbances, chest pain, urinary or bowel difficulties, bone pain, or neurological problems. PHYSICAL EXAMINATION: The patient is a well-developed, well-nourished, 61-year-old white female in no acute distress. HEENT exam is normocephalic, atraumatic. Extraocular movements are intact. There is no palpable cervical, supraclavicular, infraclavicular, axillary, or inguinal lymphadenopathy present. Lungs are clear to auscultation and percussion. Heart has a regular rate and rhythm. Abdomen is benign with no hepatosplenomegaly, masses, or tenderness. Breast examination reveals no masses or discharge bilaterally. Skeletal examination reveals no tenderness to pressure or percussion of the bony skeleton. Extremities reveal no clubbing, cyanosis, or edema. Neurologic exam is grossly intact, as is the remainder of the physical examination. ASSESSMENT: The patient is clinically LISA at this time and will be seen by us again in 6 months for further followup. She will also continue be followed by her other physicians as well. cc: MD Eros Vieira MD Joseph Wetterhahn, MD
== END ==
LOC: M ONCR 13:13
PROVIDERS: ATTEND Radiology Radiation Oncology
DX: C50.412 Malignant neoplasm of upper-outer quadrant of left female breast (principal)

== ENCOUNTER → 2017-02-05 | Outpatient (CLI) | payer MEDICARE, OTHER ==
--- NOTE | 2017-03-06 02:09 | ECWPNPC ---
PATIENT NAME: RENÉE SOARES : 1955 GENDER: FEMALE VISIT DATE: 02/05/2017 DISCHARGE DATE: 02/05/17 1456 VISIT LOCKED DATE TIME: PHYSICIAN: ROLAND HULL PHYSICIAN PAGER NO: [phone] RESOURCE: ROLAND HULL REASON FOR APPOINTMENT 1. POST TPI HISTORY OF PRESENT ILLNESS TODAY'S VISIT: NOTES: S/P TPI 12/25/16 NOTED IMPROVEMT IN BURNING AT 100% X 5 DAYS THEN STARTED TO SLOWLY RETURN. PAIN IS THE WORST WHEN REACHING FORWARD, OR WITH OVER THE COMPUTER. NO CHANGE IN SLEEP. . CURRENT MEDICATIONS TAKING ZOFRAN ODT 4 MG TABLET DISPERSIBLE 1 TABLET ON THE TONGUE AND ALLOW TO DISSOLVE ORALLY EVERY 8 HRS NEEDED TAKING AMBIEN 5 MG TABLET 1/2 TAB ORAL AT NIGHT TAKING TAMOXIFEN CITRATE 20 MG TABLET 1 TABLET ORALLY ONCE A DAY TAKING LOPERAMIDE HCL 2 MG CAPSULE 2 TABS ORALLY TWICE DAILY NEEED TAKING VITAMIN D-3 5000 UNIT TABLET 1 TAB ORALLY DAILY TAKING IBUPROFEN 800 MG TABLET 1 TABLET WITH FOOD OR MILK ORALLY TWICE A DAY NEEDED TAKING SYMBICORT 80-4.5 MCG/ACT AEROSOL 2 PUFFS INHALATION ONCE DAILY (USES THIS NEEDED) TAKING FLONASE ALLERGY RELIEF 50 MCG/ACT SUSPENSION 1 SPRAY IN EACH NOSTRIL NASALLY ONCE A DAY NEEDED TAKING CYMBALTA 30 MG CAPSULE DELAYED RELEASE PARTICLES 1 CAPSULE ORALLY ONCE A DAY TAKING ZYRTEC ALLERGY 10 MG TABLET 1 TABLET ORALLY ONCE A DAY TAKING MACROBID 100 MG CAPSULE 1 CAPSULE WITH FOOD 1 HOUR PRIOR TO YOUR CYSTOSCOPY ORALLY ONCE MEDICATION LIST REVIEWED AND RECONCILED WITH THE PATIENT PAST MEDICAL HISTORY C DIFF COLITIS- DR MEIER (NO LONGER FOLLOWS WITH DR. 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 S/P RESECTION DR CARUSO. CHEMOTHERAPY DR COWAN- COMPLETED 5/6 TREATMENTS. RAD RX PER DR ROMANO ONCOLOGY DR VANN CHRONIC COUGH- DR HUNT 01/17 DONAVAN 02/02/13 NML( FEV1 2.51 (90%)/FVC2.94(82%). PFTS/METHACHOLINE CHALLENGE UNREMARKABLE- NO PULM EXPLANATION FOR COUGH 09/18. COUGH RESOLVED WITH ADVAIR PER VANESA 01/18. PANCREATIC MASS 2.5 CM/PRIOR FNA ATYPICAL CELLS/SUBSEQUENT EUS MASS SMALLER/LAST CT WITH CONTRAST MASS NOT DETECTED- FOLLOWED BY DR MAYORGA- GASTRO SYR. FNA 11/18NEG PER PT CT A&P WITH CONTRAST NO ACUTE PATHOLOGY 05/21 BONE SCAN- OA/FIBROMYALGIA WITH CHRONIC PAIN-[place]RICA- PER [facility]- DR SAINI 07/19 DEPRESSION/ANXIETY- ARONOWIVANI LDL 95 04/20 PNEUMOVAX- 2013- [facility] PER PT. CT MAXILLOFACIAL 03/19-MILD MUCOSAL THICKENING MAXILLARY SINUSES CTD/CHRONIC PAIN- RHEUM SYR- PLAQUENIL ETT 04/21 [place]- NEG ISCHEMIA KIDNEY STONE 2016 GALL STONES 2016 ALLERGIES SULFA (FOR ALLERGY USE ONLY): FLU LIKE SX'S: ALLERGY AMOXICILLIN: C DIFF: CONTRAINDICATION BACTRIM: ANAPHYLAXIS SURGICAL HISTORY TUBAL LIGATION HYSTERECTOMY WITH BILATERAL OOPHORECTOMY BREAST BIOPSY-LEFT SALPINGECTOMY FOR TUBAL COLONOSCOPY EGD DR MUKESH RODRIGUEZ 2011 TOTAL COLECTOMY [facility] 04/18 ILEOSTOMY, 3 DIFFERENT OPERATIONS- 06/04/11 REANASTOMOSIS OF SMALL BOWEL. 01/[address] CARUSO 10/2012 LYMPH NODE REMOVAL FROM LEFT BREAST DR CARUSO 11/2012 ILEAL POUCH [id number] 01/26/15 RIGHT ESWL 06/08/15 HOSPITALIZATION/MAJOR DIAGNOSTIC PROCEDURE RELATED TO SURGERIES LEUKOPENIA 01/17 REVIEW OF SYSTEMS FOLLOW-UP ROS: CARDIOLOGY: NO LEG SWELLING, NEGATIVE FOR, CHEST PAIN . GI/ NEGATIVE FOR LOSS OF BOWEL OR BALDDER CONTROL . PSYCHOLOGY: SLEEP DISTURBANCE . PULMONOLOGY: NEGATIVE FOR, COUGH, SHORTNESS OF BREATH . VITAL SIGNS WT 158 LBS, HT 65.5 IN, BMI 25.89 INDEX, BP 149/76 MM HG, HR 86 /MIN, RR 18 /MIN, TEMP 98.2 F, OXYGEN SAT % 96, REVIEWED BY: NL. EXAMINATION GENERAL EXAMINATION: PSYCHALERT , ORIENTED X 3 , APPROPRIATE MOOD AND AFFECT . LUNGS:CLEAR TO AUSCULTATION BILATERALLY, NO WHEEZES, RALES OR RHONCHI. HEART:HEART RATE REGULAR, NORMAL S1S2, NO MURMURS, CLICK OR RUBS. MUSCULOSKELETAL:MUSCLE STRENGTH TESTING 5/5 BILATERAL UPPER AND LOWER EXTREMITIES., TRIGGER POINTS AND TIGHT FIBROUS BANDS IDENTIFIED BILATERALLY OVER TRAPEZIUS MUSCLES.:R>L . DECREASED ROM WITH NECK FLEXION, EXTENSION AND ROTATION. . ASSESSMENTS MYALGIA - M79.1 (PRIMARY) ARTHROPATHY OF CERVICAL FACET JOINT - M12.88 TREATMENT MYALGIA CERVICAL FACET JOINT RIGHT NOTES: DO EXERCISES AND STRETCHES. DO MASSAGE.,FACET JOINT INJECTION MATERIAL WAS PRINTED,FACET JOINT INJECTION: YOUR EXPERIENCE MATERIAL WAS PRINTED. PREVENTIVE MEDICINE PAIN CLINIC TEACHING: PROCEDURE TEACHING PRE-PROCEDURE TEACHING DONE. QUESTIONS ANSWERED AND PATIENT VERBALIZES UNDERSTANDING.. PROCEDURE CODES FA211 ESTABILISHED PATIENT [facility] CHARGE G8730 PAIN ASSESS POS TOOL F/U PLAN DOC G8427 DOC MEDS VERIFIED W/PT OR RE DISPOSITION & COMMUNICATION FOLLOW UP AFTER INJECTION (REASON: CHECK AIT FOR CERVICAL FACET BLOCK) ELECTRONICALLY SIGNED BY GENOVEVA BENITEZ ON 03/03/2017 AT 07:22 PM EST DISCLAIMER : THIS IS A VISIT SUMMARY EXTRACTED FROM THE [employer] CHART. IT IS NOT A COPY OF THE [employer] PROGRESS NOTE. BARBARA
== END | disposition home or self-care (01) ==
LOC: M PAIN 13:30
PROVIDERS: ATTEND Nurse Practitioner Family
DX: G89.29 Other chronic pain (principal); M79.1 Myalgia; M12.88 Other specific arthropathies, not elsewhere classified, other specified site; Z79.899 Other long term (current) drug therapy; Z79.51 Long term (current) use of inhaled steroids; Z88.1 Allergy status to other antibiotic agents; Z88.2 Allergy status to sulfonamides

== ENCOUNTER → 2017-02-17 | Outpatient (CLI) | payer MEDICARE, OTHER ==
[~2017-02-17] MED LIST changes: +BUPIVACAINE HCL 0.25% 30 ML VIAL As Ordered ONE; +ISOVUE-M 300 61% 15ML VIAL (Q9967) As Ordered ONE; +LIDOCAINE 1% SDV INJ 30 ML VIAL As Ordered ONE; +TRIAMCINOLONE ACETONIDE SUSP 40 MG/ML VIAL (J3301) As Ordered ONE; +diazePAM 5 MG TAB As Ordered ONE; +oxyCODONE 5MG TAB As Ordered ONE
--- NOTE | 2017-02-17 17:36 | REP ---
C-ARM VIEWS CERVICAL SPINE: CLINICAL HISTORY: Pain. Two C-ARM views are performed during injection by Dr. Becerra. Two needles are seen in the cervical region on the right and two are seen on the left. 29 seconds of fluoroscopy time was utilized. Signed by Luis Felipe Pena MD 02/18/2017 01:22 P
--- NOTE | 2017-03-04 01:57 | ECWPNPC ---
PATIENT NAME: RENÉE SOARES : 1955 GENDER: FEMALE VISIT DATE: 02/17/2017 DISCHARGE DATE: 02/17/17 1325 VISIT LOCKED DATE TIME: PHYSICIAN: REINA REED PHYSICIAN PAGER NO: [phone] RESOURCE: REINA REED REASON FOR APPOINTMENT 1. CERVICAL FACET HISTORY OF PRESENT ILLNESS HISTORY OF PRESENT ILLNESS: PAIN THE PATIENT DESCRIBES THE PAIN... FALL RISK SCREENING: SCREENING :NO FALLS IN THE PAST YEAR CURRENT MEDICATIONS TAKING ZOFRAN ODT 4 MG TABLET DISPERSIBLE 1 TABLET ON THE TONGUE AND ALLOW TO DISSOLVE ORALLY EVERY 8 HRS NEEDED, NOTES: 02-16-172099 TAKING AMBIEN 5 MG TABLET 1/2 TAB ORAL AT NIGHT, NOTES: 02-16-172099 TAKING TAMOXIFEN CITRATE 20 MG TABLET 1 TABLET ORALLY ONCE A DAY, NOTES: 02-16-172099 TAKING LOPERAMIDE HCL 2 MG CAPSULE 2 TABS ORALLY TWICE DAILY NEEED, NOTES: 02-17-17899 TAKING VITAMIN D-3 5000 UNIT TABLET 1 TAB ORALLY DAILY, NOTES: 02-16-172099 TAKING IBUPROFEN 800 MG TABLET 1 TABLET WITH FOOD OR MILK ORALLY TWICE A DAY NEEDED, NOTES: 02-15-172099 TAKING SYMBICORT 80-4.5 MCG/ACT AEROSOL 2 PUFFS INHALATION ONCE DAILY (USES THIS NEEDED), NOTES: 02-16-172099 TAKING FLONASE ALLERGY RELIEF 50 MCG/ACT SUSPENSION 1 SPRAY IN EACH NOSTRIL NASALLY ONCE A DAY NEEDED, NOTES: 02-16-17899 TAKING CYMBALTA 30 MG CAPSULE DELAYED RELEASE PARTICLES 1 CAPSULE ORALLY ONCE A DAY, NOTES: 02-16-17899 TAKING ZYRTEC ALLERGY 10 MG TABLET 1 TABLET ORALLY ONCE A DAY, NOTES: 02-15-17 08 NOT-TAKING MACROBID 100 MG CAPSULE 1 CAPSULE WITH FOOD 1 HOUR PRIOR TO YOUR CYSTOSCOPY ORALLY ONCE MEDICATION LIST REVIEWED AND RECONCILED WITH THE PATIENT PAST MEDICAL HISTORY C DIFF COLITIS- DR MEIER (NO LONGER FOLLOWS WITH DR. 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 S/P RESECTION DR CARUSO. CHEMOTHERAPY DR COWAN- COMPLETED 5/6 TREATMENTS. RAD RX PER DR ROMANO ONCOLOGY DR VANN CHRONIC COUGH- DR HUNT 01/17 DONAVAN 02/02/13 NML( FEV1 2.51 (90%)/FVC2.94(82%). PFTS/METHACHOLINE CHALLENGE UNREMARKABLE- NO PULM EXPLANATION FOR COUGH 09/18. COUGH RESOLVED WITH ADVAIR PER VANESA 01/18. PANCREATIC MASS 2.5 CM/PRIOR FNA ATYPICAL CELLS/SUBSEQUENT EUS MASS SMALLER/LAST CT WITH CONTRAST MASS NOT DETECTED- FOLLOWED BY DR MAYORGA- GASTRO SYR. FNA 11/18NEG PER PT CT A&P WITH CONTRAST NO ACUTE PATHOLOGY 05/21 BONE SCAN- OA/FIBROMYALGIA WITH CHRONIC PAIN-LYRICA- PER [facility] SYR- DR SAINI 07/19 DEPRESSION/ANXIETY- ONESIMO LDL 95 04/20 PNEUMOVAX- 2013- [facility] PER PT. CT MAXILLOFACIAL 03/19-MILD MUCOSAL THICKENING MAXILLARY SINUSES CTD/CHRONIC PAIN- RHEUM SYR- PLAQUENIL ETT 04/21 [facility]- NEG ISCHEMIA KIDNEY STONE 2016 GALL STONES 2016 ALLERGIES SULFA (FOR ALLERGY USE ONLY): FLU LIKE SX'S: ALLERGY AMOXICILLIN: C DIFF: CONTRAINDICATION BACTRIM: ANAPHYLAXIS REVIEW OF SYSTEMS REVIEWED BY: PROVIDER: . CONSTITUTIONAL: ANY CHANGE IN YOUR MEDICAL CONDITION? NO . CHILLS NO . FEVER NO . INFECTION: DO YOU HAVE NEW INFECTIONS? NO . DO YOU HAVE HISTORY OF MRSA? NO . MUSCULOSKELETAL: ANY NEW PATTERNS OF PAIN OR NUMBNESS? NO . GASTROENTEROLOGY: ANY NEW CHANGE IN BOWEL CONTROL? NO . GENITOURINARY: ANY NEW CHANGE IN BLADDER CONTROL? NO . IS THERE A CHANCE YOU COULD BE ? NO . HEMATOLOGY/LYMPH: DO YOU TAKE ANY BLOOD THINNERS? (FOR EXAMPLE- COUMADIN, PLAVIX, AGGRENOX, PLATEL, PRADAXA, OR XARELTO) NO . WHEN WAS YOUR LAST DOSE? DATE: TIME: . NEUROLOGY: HAVE YOU FALLEN IN THE PAST 6 MONTHS? YES . ANY NEW EXTREMITY NUMBNESS OR WEAKNESS? NO . CARDIOLOGY: DO YOU HAVE A PACEMAKER OR DEFIBRILLATOR? NO . RESPIRATORY: HAVE YOU BEEN SICK IN THE PAST WEEK? NO . FEVER NO . FLU LIKE SYMPTOMS? NO . COUGH NO . INTEGUMENTARY: DO YOU HAVE ANY RASHES OR OPEN SORES? NO . ALLERGIC/IMMUNO: ARE YOU ALLERGIC TO SHELLFISH OR IV DYE? NO . ANY NEW ALLERGIES? NO . PSYCHIATRIC: DO YOU HAVE THOUGHTS OF HURTING YOURSELF OR SOMEONE ELSE? NO . ARE YOU ABUSED, NEGLECTED, OR IN AN UNSAFE ENVIRONMENT? NO . ENDOCRINOLOGY: ARE YOU DIABETIC? NO . OTHER: DO YOU NEED ANY PRESCRIPTIONS? NO . IF YES, PLEASE LIST: ____ . ANY NEW PROBLEMS WITH YOUR MEDICATIONS? NO . WHEN DID YOU LAST EAT? 2100 . WHEN DID YOU LAST DRINK? 0830 . WHAT DID YOU LAST DRINK? WATER . NAME OF PERSON DRIVING YOU HOME? RAMON . DO YOU HAVE ANY OTHER QUESTIONS OR CONCERNS NO . VITAL SIGNS WT 159 LBS, HT 65.5 IN, BMI 26.05 INDEX, BP 149/84 MM HG, HR 89 /MIN, RR 18 /MIN, TEMP 98.6 F, OXYGEN SAT % 97%, NA INITIALS SC 10:57, REVIEWED BY: LS. ASSESSMENTS SPONDYLOSIS OF CERVICAL REGION WITHOUT MYELOPATHY OR RADICULOPATHY - M47.812 (PRIMARY) PROCEDURES PN CERVICAL FACET BLOCK LOW BILATERAL CERVICAL PRE PROCEDURE DIAGNOSIS CERVICAL SPONDYLOSIS POST PROCEDURE DIAGNOSIS CERVICAL SPONDYLOSIS PROCEDURE BILATERAL C5-C6 AND BILATERAL C6-C7 CERVICAL FACET BLOCK SURGEON DR. 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 I EVALUATE THE PATIENT AND REVIEWED THE CHART. I WENT OVER THE RISKS, ALTERNATIVES, AND BENEFITS ASSOCIATED WITH THIS PROCEDURE. THE PATIENT WOULD LIKE TO PROCEED AND GIVE CONSENT TO PERFORMED THE PROCEDURE. THE PATIENT DENIES UNEXPLAINABLE WEIGHT LOSS, FEVER, CHILLS, OR NEW CHANGES IN URINARY OR BOWEL CONTROL. DESCRIPTION OF PROCEDURE THE PATIENT WAS BROUGHT TO THE PROCEDURE ROOM AND PLACED IN THE PRONE POSITION. THE CERVICOTHORACIC AREA WAS CLEANED WITH CHLORAPREP SOLUTION AND DRAPED ASEPTICALLY. THE PROCEDURE WAS DONE UNDER STERILE CONDITIONS. I CHECKED LATERALITY AND THE LEVEL WHERE THE PROCEDURE WAS GOING TO BE PERFORMED WITH THE PATIENT AND THE SUPPORTING STAFF AT THE MOMENT OF THE TIME OUT IN THE PROCEDURE ROOM. UNDER FLUOROSCOPIC GUIDANCE, TARGET POINT WAS SELECTED AT THE RIGHT AND LEFT C5-C6 AND RIGHT AND LEFT C6-C7 CERVICAL FACET JOINT. TARGET POINTS WERE SELECTED AFTER LATERAL ROTATION AND TILT OF THE MAGNIFIER OF THE C-ARM. LIDOCAINE 0.5% WAS USED TO NUMB THE SKIN AND THE SUBCUTANEOUS TISSUE BELOW IT. SPINAL NEEDLES, 22-GAUGE, WERE ADVANCED UNDER FLUOROSCOPIC GUIDANCE AND FOLLOWING PATIENT FEEDBACK UNTIL THE TARGETS WERE TOUCHED. THE POSITION OF THE NEEDLES WAS VERIFIED WITH AP AND LATERAL VIEWS. AFTER PROPER POSITION OF THE NEEDLES WAS ACHIEVED, ISOVUE M DYE 30, 0.1 ML WAS INJECTED SHOWING SPREAD OF THE DYE. THEN A SOLUTION OF 0.9 ML OF BUPIVACAINE 0.125% AND KENALOG 10 MG WAS INJECTED AT EACH SITE. THERE WAS NO EVIDENCE OF BLOOD, PARESTHESIA OR CEREBROSPINAL FLUID DURING THE PROCEDURE. THE PATIENT WAS SENT TO THE RECOVERY ROOM. THE PATIENT WAS MOVING THE EXTREMITIES AND DOING WELL. THERE WAS NO COMPLICATION DURING THE PROCEDURE. FLUOROSCOPY TIME WAS 29 SECONDS POST PROCEDURE NOTE THE PATIENT WILL BE SEEN IN A FOLLOW UP IN THE NEXT FEW WEEKS. INSTRUCTIONS WERE GIVEN, QUESTIONS WERE ANSWERED, AND THE PATIENT EXPRESSED UNDERSTANDING AND AGREES WITH THE PLAN. I, JODY JONAS, DOCUMENTED THE ABOVE INFORMATION ACTING A SCRIBE FOR DR. REED. I HAVE REVIEWED THE ABOVE DOCUMENT, WRITTEN BY JODY COTTRELLIBVeronica AND I VERIFY THAT IT IS [facility]NO[facility] FACET BLOCK (PAIN)[id number] PROCEDURE CODES 29268 INJ PARAVERT F JNT C/T 1 LEV, MODIFIERS: 50 12019 INJ PARAVERT F JNT C/T 2 LEV, MODIFIERS: 50 6045F RADXPS IN END [id number] PXD DISPOSITION & COMMUNICATION FOLLOW UP 3 WEEKS ELECTRONICALLY SIGNED BY REINA REED MD ON 03/03/2017 AT 11:06 AM EST DISCLAIMER : THIS IS A VISIT SUMMARY EXTRACTED FROM THE [employer] CHART. IT IS NOT A COPY OF THE [employer] PROGRESS NOTE. MTDD
== END ==
LOC: M PAIN 10:45
PROVIDERS: ATTEND Anesthesiology
DX: G89.29 Other chronic pain (principal); M47.812 Spondylosis without myelopathy or radiculopathy, cervical region; K51.90 Ulcerative colitis, unspecified, without complications; D64.9 Anemia, unspecified; Z85.3 Personal history of malignant neoplasm of breast; Z92.21 Personal history of antineoplastic chemotherapy; Z92.3 Personal history of irradiation; R05 Cough; F41.9 Anxiety disorder, unspecified; F32.9 Major depressive disorder, single episode, unspecified; Z87.442 Personal history of urinary calculi; Z88.2 Allergy status to sulfonamides; Z88.0 Allergy status to penicillin; Z88.1 Allergy status to other antibiotic agents; Z79.899 Other long term (current) drug therapy
CPT/HCPCS: 64490; 64491; J3301; Q9967

== ENCOUNTER → 2017-03-03 | Outpatient (CLI) | payer MEDICARE, OTHER ==
[~2017-03-03] MED LIST changes: -BUPIVACAINE HCL 0.25% 30 ML VIAL As Ordered ONE; -ISOVUE-M 300 61% 15ML VIAL (Q9967) As Ordered ONE; -LIDOCAINE 1% SDV INJ 30 ML VIAL As Ordered ONE; -TRIAMCINOLONE ACETONIDE SUSP 40 MG/ML VIAL (J3301) As Ordered ONE; -diazePAM 5 MG TAB As Ordered ONE; -oxyCODONE 5MG TAB As Ordered ONE
--- NOTE | 2017-03-22 00:36 | ECWPNPC ---
PATIENT NAME: RENÉE SOARES : 1955 GENDER: FEMALE VISIT DATE: 03/03/2017 DISCHARGE DATE: 03/03/17 1218 VISIT LOCKED DATE TIME: PHYSICIAN: ORLAND HULL PHYSICIAN PAGER NO: [phone] RESOURCE: ROLAND HULL REASON FOR APPOINTMENT 1. POST FACET HISTORY OF PRESENT ILLNESS HISTORY OF PRESENT ILLNESS: PAIN THE PATIENT DESCRIBES THE PAIN... FALL RISK SCREENING: SCREENING :NO FALLS IN THE PAST YEAR TODAY'S VISIT: NOTES: S/P BILATERAL CERVICAL THORACIC FACET BLOCK COMPLETED ON 02/17/17. PAIN LEVEL PRIOR 05/17 AND POST 0. HAS NO ADVERSE EFFECTS FROM INJECTIONS. NOTES IMPROVEMENT IN NECK FLEXION/EXTENSION AND ROTATIONDID NOTE ELEVATED BLOOD PRESSURE.. CURRENT MEDICATIONS TAKING ZOFRAN ODT 4 MG TABLET DISPERSIBLE 1 TABLET ON THE TONGUE AND ALLOW TO DISSOLVE ORALLY EVERY 8 HRS NEEDED, NOTES: 02-16-172099 TAKING AMBIEN 5 MG TABLET 1/2 TAB ORAL AT NIGHT, NOTES: 02-16-172099 TAKING TAMOXIFEN CITRATE 20 MG TABLET 1 TABLET ORALLY ONCE A DAY, NOTES: 02-16-172099 TAKING LOPERAMIDE HCL 2 MG CAPSULE 2 TABS ORALLY TWICE DAILY NEEED, NOTES: 02-17-17899 TAKING VITAMIN D-3 5000 UNIT TABLET 1 TAB ORALLY DAILY, NOTES: 02-16-172099 TAKING IBUPROFEN 800 MG TABLET 1 TABLET WITH FOOD OR MILK ORALLY TWICE A DAY NEEDED, NOTES: 02-15-172099 TAKING SYMBICORT 80-4.5 MCG/ACT AEROSOL 2 PUFFS INHALATION ONCE DAILY (USES THIS NEEDED), NOTES: 02-16-172099 TAKING FLONASE ALLERGY RELIEF 50 MCG/ACT SUSPENSION 1 SPRAY IN EACH NOSTRIL NASALLY ONCE A DAY NEEDED, NOTES: 02-16-17899 TAKING CYMBALTA 30 MG CAPSULE DELAYED RELEASE PARTICLES 1 CAPSULE ORALLY ONCE A DAY, NOTES: 02-16-17899 TAKING ZYRTEC ALLERGY 10 MG TABLET 1 TABLET ORALLY ONCE A DAY, NOTES: 02-15-17799 UNKNOWN MACROBID 100 MG CAPSULE 1 CAPSULE WITH FOOD 1 HOUR PRIOR TO YOUR CYSTOSCOPY ORALLY ONCE PAST MEDICAL HISTORY C DIFF COLITIS- DR MEIER (NO LONGER FOLLOWS WITH DR. 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 S/P RESECTION DR CARUSO. CHEMOTHERAPY DR COWAN- COMPLETED 5 TREATMENTS. RAD RX PER DR ROMANO ONCOLOGY DR VANN CHRONIC COUGH- DR HUNT 01/17 DONAVAN 02/02/13 NML( FEV1 2.51 (90%)/FVC2.94(82%). PFTS/METHACHOLINE CHALLENGE UNREMARKABLE- NO PULM EXPLANATION FOR COUGH 09/18. COUGH RESOLVED WITH ADVAIR PER VANESA 01/18. PANCREATIC MASS 2.5 CM/PRIOR FNA ATYPICAL CELLS/SUBSEQUENT EUS MASS SMALLER/LAST CT WITH CONTRAST MASS NOT DETECTED- FOLLOWED BY DR MAYORGA- GASTRO SYR. FNA 11/18NEG PER PT CT A&P WITH CONTRAST NO ACUTE PATHOLOGY 05/21 BONE SCAN- OA/FIBROMYALGIA WITH CHRONIC PAIN-LYRICA- PER [facility]- DR SAINI 07/19 DEPRESSION/ANXIETY- ALPHONSONOWITZ LDL 95 04/20 PNEUMOVAX- 2013- [facility] PER PT. CT MAXILLOFACIAL 03/19-MILD MUCOSAL THICKENING MAXILLARY SINUSES CTD/CHRONIC PAIN- RHEUM SYR- PLAQUENIL ETT 04/21 [facility]- NEG ISCHEMIA KIDNEY STONE 2016 GALL STONES 2017 ALLERGIES SULFA (FOR ALLERGY USE ONLY): FLU LIKE SX'S: ALLERGY AMOXICILLIN: C DIFF: CONTRAINDICATION BACTRIM: ANAPHYLAXIS SOCIAL HISTORY GENERAL: TOBACCO USE ARE YOU A:FORMER SMOKER HOW LONG HAS IT BEEN SINCE YOU LAST SMOKED?> 10 YEARS ALCOHOL SCREENING DID YOU HAVE A DRINK CONTAINING ALCOHOL IN THE PAST YEAR?YES HOW OFTEN DID YOU HAVE A DRINK CONTAINING ALCOHOL IN THE PAST YEAR?MONTHLY OR LESS (1 POINT) HOW MANY DRINKS DID YOU HAVE ON A TYPICAL DAY WHEN YOU WERE DRINKING IN THE PAST YEAR?3 OR 4 (1 POINT) HOW OFTEN DID YOU HAVE SIX OR MORE DRINKS ON ONE OCCASION IN THE PAST YEAR?NEVER (0 POINTS) POINTS2 INTERPRETATIONNEGATIVE RECREATIONAL DRUG USE DRUG USE?NO CAFFEINE CAFFEINE USE?YES HOW OFTEN AND HOW MUCH? COFFEE 2 CUPS IN THE AM OCCUPATION: RETIRED. DIET: REGULAR. EXERCISE: NO REGULAR EXERCISE. MARITAL STATUS: . TAOISM [id number] JEW LANGUAGE LANGUAGES SPOKEN:TURKMEN EDUCATION LEVEL OF EDUCATION:NOT FINISHED COLLEGE LEARNING BARRIERS / SPECIAL NEEDS BARRIERS TO LEARNING?NO HEARING IMPAIRED?NO VISION IMPAIRED?YES GLASSES FOR READING COGNITIVELY IMPAIRED?NO READINESS TO LEARN?YES LEARNING PREFERENCES?NO LEARNING CAPABILITIES PRESENT?YES EMOTIONAL BARRIERS?NO SPECIAL DEVICES?NO STEAM TABLE WORKER NEEDED?NO PAIN CLINIC PFS, CLERGY, PUBLIC HEALTH REFERRALS PFS REFERRAL NEEDED?NO CLERGY REFERRAL NEEDED?NO PUBLIC HEALTH REFERRAL NEEDED?NO WAS THE PROVIDER NOTIFIED OF ANY PERTINENT INFO?NO HAS THE PATIENT BEEN EDUCATED REGARDING HIS/HER PLAN OF CARE?YES HAS THE PATIENT BEEN EDUCATED REGARDING PAIN, THE RISK FOR PAIN, THE IMPORTANCE OF EFFECTIVE PAIN MANAGEMENT, AND THE PAIN ASSESSMENT PROCESS?YES PATIENT: ____. ADVANCE DIRECTIVES HEALTH CARE PROXY?NO WOULD YOU LIKE MORE INFORMATION?NO DO YOU HAVE A DNR?NO WOULD YOU LIKE MORE INFORMATION?NO LIVING WILL?NO WOULD YOU LIKE MORE INFORMATION?NO POWER OF IRRIGATION TECHNICIAN?NO WOULD YOU LIKE MORE INFORMATION?NO TRAVEL OUTSIDE US: NO. DOMESTIC VIOLENCE DO YOU FEEL SAFE IN YOUR ENVIRONMENT?YES REVIEW OF SYSTEMS FOLLOW-UP ROS: PSYCHOLOGY: SLEEP DISTURBANCE - AWAKENS FREQ EVEN WITH AMBIEN . REVIEWED BY: PROVIDER: . CONSTITUTIONAL: ANY CHANGE IN YOUR MEDICAL CONDITION? NO . CHILLS NO . FEVER NO . INFECTION: DO YOU HAVE NEW INFECTIONS? NO . DO YOU HAVE HISTORY OF MRSA? NO . MUSCULOSKELETAL: ANY NEW PATTERNS OF PAIN OR NUMBNESS? NO . GASTROENTEROLOGY: ANY NEW CHANGE IN BOWEL CONTROL? NO . GENITOURINARY: ANY NEW CHANGE IN BLADDER CONTROL? NO . IS THERE A CHANCE YOU COULD BE ? NO . HEMATOLOGY/LYMPH: DO YOU TAKE ANY BLOOD THINNERS? (FOR EXAMPLE- COUMADIN, PLAVIX, AGGRENOX, PLATEL, PRADAXA, OR XARELTO) NO . WHEN WAS YOUR LAST DOSE? DATE: TIME: . NEUROLOGY: HAVE YOU FALLEN IN THE PAST 6 MONTHS? NO . ANY NEW EXTREMITY NUMBNESS OR WEAKNESS? NO . CARDIOLOGY: DO YOU HAVE A PACEMAKER OR DEFIBRILLATOR? NO . RESPIRATORY: HAVE YOU BEEN SICK IN THE PAST WEEK? NO . FEVER NO . FLU LIKE SYMPTOMS? NO . COUGH NO . INTEGUMENTARY: DO YOU HAVE ANY RASHES OR OPEN SORES? NO . ALLERGIC/IMMUNO: ARE YOU ALLERGIC TO SHELLFISH OR IV DYE? NO . ANY NEW ALLERGIES? NO . PSYCHIATRIC: DO YOU HAVE THOUGHTS OF HURTING YOURSELF OR SOMEONE ELSE? NO . ARE YOU ABUSED, NEGLECTED, OR IN AN UNSAFE ENVIRONMENT? NO . ENDOCRINOLOGY: ARE YOU DIABETIC? NO . OTHER: DO YOU NEED ANY PRESCRIPTIONS? NO . IF YES, PLEASE LIST: ____ . ANY NEW PROBLEMS WITH YOUR MEDICATIONS? NO . WHEN DID YOU LAST EAT? ____ . WHEN DID YOU LAST DRINK? ____ . WHAT DID YOU LAST DRINK? ____ . NAME OF PERSON DRIVING YOU HOME? ____ . DO YOU HAVE ANY OTHER QUESTIONS OR CONCERNS NO . VITAL SIGNS WT 159.0 LBS, HT 65.5 IN, BMI 26.05 INDEX, BP 176/82 MM HG, HR 76 /MIN, RR 16 /MIN, TEMP 98.6 F, OXYGEN SAT % 99%, NA INITIALS TL 1153ELEVATED BP 176/82, RN N.L. AWARE- TLBP RECHECK 188/89 PT IS F/U WITH DEMAND PLANNER. EXAMINATION GENERAL EXAMINATION: PSYCHALERT , ORIENTED X 3 , APPROPRIATE MOOD AND AFFECT . LUNGS:CLEAR TO AUSCULTATION BILATERALLY, NO WHEEZES, RALES OR RHONCHI. HEART:HEART RATE REGULAR, NORMAL S1S2, NO MURMURS, CLICK OR RUBS. MUSCULOSKELETAL:MUSCLE STRENGTH TESTING 5/5 BILATERAL UPPER AND LOWER EXTREMITIES. TENDERNESS BILATERALLY OVER TRAPEZIUS MUSCLES.:R>L . IMPROVED ROM WITH NECK FLEXION, EXTENSION AND ROTATION. . ASSESSMENTS MYALGIA - M79.1 (PRIMARY) ARTHROPATHY OF CERVICAL FACET JOINT - M12.88 TREATMENT MYALGIA NOTES: CONTINUE GENTLE STRETCHES AND EXERCISE. PROCEDURE CODES FA211 ESTABILISHED PATIENT [facility] CHARGE G8730 PAIN ASSESS POS TOOL F/U PLAN DOC G8427 DOC MEDS VERIFIED W/PT OR RE DISPOSITION & COMMUNICATION FOLLOW UP SEPTEMBER (REASON: NECK PAIN) ELECTRONICALLY SIGNED BY GENOVEVA BENITEZ ON 03/21/2017 AT 07:44 PM EST DISCLAIMER : THIS IS A VISIT SUMMARY EXTRACTED FROM THE [employer] CHART. IT IS NOT A COPY OF THE [employer] PROGRESS NOTE. BARBARA
== END ==
LOC: M PAIN 11:15
PROVIDERS: ATTEND Nurse Practitioner Family
DX: G89.29 Other chronic pain (principal); M47.812 Spondylosis without myelopathy or radiculopathy, cervical region; M12.88 Other specific arthropathies, not elsewhere classified, other specified site; M79.1 Myalgia; F32.9 Major depressive disorder, single episode, unspecified; E78.5 Hyperlipidemia, unspecified; E55.9 Vitamin D deficiency, unspecified; J30.9 Allergic rhinitis, unspecified; K51.20 Ulcerative (chronic) proctitis without complications; I10 Essential (primary) hypertension; Z88.1 Allergy status to other antibiotic agents; Z88.2 Allergy status to sulfonamides; Z79.1 Long term (current) use of non-steroidal anti-inflammatories (NSAID); Z79.899 Other long term (current) drug therapy; Z87.891 Personal history of nicotine dependence

== ENCOUNTER → 2017-03-17 | Outpatient (REF) | payer MEDICARE, OTHER ==
[2017-03-17 13:26] LABS: ALBUMIN 3.8 GM/DL (3.2-5.2); ALBUMIN/GLOBULIN RATIO 1.31 (1.00-1.93); ALKALINE PHOSPHATASE 64 U/L (45-117); ALT/SGPT 29 U/L (12-78); ANION GAP 10 MEQ/L (8-16); AST/SGOT 18 U/L (7-37); BILIRUBIN,TOTAL 0.6 MG/DL (0.2-1.0); BLOOD UREA NITROGEN 16 MG/DL (7-18); CALCIUM LEVEL 8.5 MG/DL (8.8-10.2); CARBON DIOXIDE LEVEL 23 MEQ/L (21-32); CHLORIDE LEVEL 107 MEQ/L (98-107); CREATININE FOR GFR 0.89 MG/DL (0.55-1.02); GLOMERULAR FILTRATION RATE > 60.0 (>45); GLUCOSE, FASTING 88 MG/DL (80-110); MAGNESIUM LEVEL 2.2 MG/DL (1.8-2.4); POTASSIUM SERUM 4.2 MEQ/L (3.5-5.1); SODIUM LEVEL 140 MEQ/L (136-145); TOTAL PROTEIN 6.7 GM/DL (6.4-8.2)
== END ==
LOC: M LABDRAW1 11:42
PROVIDERS: ATTEND Nurse Practitioner Family
DX: I10 Essential (primary) hypertension (principal)

== ENCOUNTER → 2017-03-21 | Outpatient (REF) | payer MEDICARE, OTHER ==
[2017-03-21 12:37] LABS: FREE T4 0.93 NG/DL (0.76-1.46)
== END ==
LOC: M SFHCPLAZ 09:59
PROVIDERS: ATTEND Nurse Practitioner Family
DX: R31.9 Hematuria, unspecified (principal); E55.9 Vitamin D deficiency, unspecified; I10 Essential (primary) hypertension; R25.2 Cramp and spasm

== ENCOUNTER → 2017-04-14 | Outpatient (REF) | payer MEDICARE, OTHER | LOC: M LAB REF 13:45 | DX: C83.10 Mantle cell lymphoma, unspecified site (principal); E55.9 Vitamin D deficiency, unspecified | CPT/HCPCS: 82306 ==

== ENCOUNTER → 2017-04-17 | Outpatient (CLI) | payer MEDICARE, OTHER | LOC: M WHC 10:18 | DX: Z13.820 Encounter for screening for osteoporosis (principal); M81.8 Other osteoporosis without current pathological fracture | CPT/HCPCS: 77080 ==

== ENCOUNTER → 2017-04-18 | Outpatient (REF) | payer MEDICARE, OTHER ==
[2017-04-18 13:49] LABS: BASO % 0.3 % (0.0-1.0); EOS # 0.1 10^3/uL (0.0-0.50); EOS % 0.9 % (0.0-3.0); HEMATOCRIT 42.9 % (36.0-47.0); HEMOGLOBIN 14.1 g/dl (12.0-16.0); IMMATURE GRANULOCYTE % 0.2 % (0-0); LYMPH # 2.7 10^3/uL (1.5-4.5); LYMPH % 30.5 % (24.0-44.0); MEAN CORPUSCULAR HEMOGLOBIN 31.5 pg (27.0-33.0); MEAN CORPUSCULAR HGB CONC 32.9 g/dl (32.0-36.5); MEAN CORPUSCULAR VOLUME 95.8 fl (80.0-96.0); MONO # 0.6 10^3/uL (0.0-0.8); MONO % 7.2 % (0.0-5.0); NEUTROPHILS # 5.4 10^3/uL (1.8-7.7); NEUTROPHILS % 60.9 % (36.0-66.0); PLATELET COUNT, AUTOMATED 288 10^3/uL (150-450); RED BLOOD COUNT 4.48 10^6/uL (4.00-5.40); RED CELL DISTRIBUTION WIDTH 12.6 % (11.5-14.5); WHITE BLOOD COUNT 8.9 10^3/uL (4.0-10.0)
[2017-04-18 14:00] LABS: ALBUMIN 4.3 GM/DL (3.2-5.2); ALBUMIN/GLOBULIN RATIO 1.23 (1.00-1.93); ALKALINE PHOSPHATASE 73 U/L (45-117); ALT/SGPT 29 U/L (12-78); ANION GAP 9 MEQ/L (8-16); AST/SGOT 20 U/L (7-37); BILIRUBIN,TOTAL 0.5 MG/DL (0.2-1.0); BLOOD UREA NITROGEN 14 MG/DL (7-18); CARBON DIOXIDE LEVEL 29 MEQ/L (21-32); CHLORIDE LEVEL 102 MEQ/L (98-107); CREATININE FOR GFR 0.83 MG/DL (0.55-1.02); GLOMERULAR FILTRATION RATE > 60.0 (>45); GLUCOSE, FASTING 75 MG/DL (80-110); POTASSIUM SERUM 4.2 MEQ/L (3.5-5.1); SODIUM LEVEL 140 MEQ/L (136-145); TOTAL PROTEIN 7.8 GM/DL (6.4-8.2)
[2017-04-18 16:49] LABS: TOTAL 25(OH) VITAMIN D 39.8 NG/ML (30.0-100.0)
[2017-04-18 16:50] LABS: VITAMIN B12 LEVEL 666 PG/ML (247-911)
== END ==
LOC: M SFHCPLAZ 10:35
DX: I10 Essential (primary) hypertension (principal); R41.3 Other amnesia; E55.9 Vitamin D deficiency, unspecified; R53.83 Other fatigue
CPT/HCPCS: 82607

== ENCOUNTER → 2017-06-09 | Outpatient (REF) | payer MEDICARE, OTHER ==
[2017-06-09 11:50] LABS: BASO % 0.5 % (0.0-1.0); EOS # 0.1 10^3/uL (0.0-0.50); EOS % 1.1 % (0.0-3.0); HEMATOCRIT 40.1 % (36.0-47.0); HEMOGLOBIN 13.3 g/dl (12.0-16.0); IMMATURE GRANULOCYTE % 0.1 % (0-3.0); LYMPH # 2.8 10^3/uL (1.5-4.5); LYMPH % 31.8 % (24.0-44.0); MEAN CORPUSCULAR HEMOGLOBIN 31.5 pg (27.0-33.0); MEAN CORPUSCULAR HGB CONC 33.2 g/dl (32.0-36.5); MONO # 0.7 10^3/uL (0.0-0.8); MONO % 7.7 % (0.0-5.0); NEUTROPHILS # 5.2 10^3/uL (1.8-7.7); NEUTROPHILS % 58.8 % (36.0-66.0); PLATELET COUNT, AUTOMATED 237 10^3/uL (150-450); RED BLOOD COUNT 4.22 10^6/uL (4.00-5.40); RED CELL DISTRIBUTION WIDTH 12.2 % (11.5-14.5); WHITE BLOOD COUNT 8.8 10^3/uL (4.0-10.0)
[2017-06-09 12:03] LABS: D-DIMER QUANT 287.7 ng/ml (<500)
[2017-06-09 12:29] LABS: CHOLESTEROL LEVEL 188 MG/DL (<200); CHOLESTEROL RISK RATIO 3.357 (<5); FREE T4 0.88 NG/DL (0.76-1.46); HDL CHOLESTEROL 56 MG/DL (>40); LDL CHOLESTEROL 96.2 MG/DL (<100); NON-HDL-C 132 MG/DL; TRIGLYCERIDES LEVEL 179 MG/DL (<150)
[2017-06-09 12:56] LABS: TOTAL 25(OH) VITAMIN D 28.7 NG/ML (30.0-100.0)
== END ==
LOC: M SFHCPLAZ 10:42
DX: R07.89 Other chest pain (principal); E78.5 Hyperlipidemia, unspecified; R53.83 Other fatigue; E55.9 Vitamin D deficiency, unspecified
CPT/HCPCS: 84443

== ENCOUNTER → 2017-06-24 | Outpatient (CLI) | payer MEDICARE, OTHER | LOC: M PAIN 14:00 | DX: M79.1 Myalgia (principal); M12.88 Other specific arthropathies, not elsewhere classified, other specified site; M79.602 Pain in left arm; E78.5 Hyperlipidemia, unspecified; I10 Essential (primary) hypertension; F32.9 Major depressive disorder, single episode, unspecified; F41.9 Anxiety disorder, unspecified; K86.89 Other specified diseases of pancreas; K51.919 Ulcerative colitis, unspecified with unspecified complications; E55.9 Vitamin D deficiency, unspecified; Z79.899 Other long term (current) drug therapy; Z88.8 Allergy status to other drugs, medicaments and biological substances; Z86.19 Personal history of other infectious and parasitic diseases; Z87.891 Personal history of nicotine dependence; Z85.3 Personal history of malignant neoplasm of breast | CPT/HCPCS: G0463 ==

== ENCOUNTER 2017-06-25 08:34 | Outpatient (RCR) | payer MEDICARE, OTHER | END 2017-07-05 | LOC: M PT 08:34 | DX: Z51.89 Encounter for other specified aftercare (principal); R60.0 Localized edema; Z85.3 Personal history of malignant neoplasm of breast | CPT/HCPCS: 97110 ==

== ENCOUNTER → 2017-06-26 | Outpatient (CLI) | payer MEDICARE, OTHER | LOC: M RAD 12:02 | DX: I82.612 Acute embolism and thrombosis of superficial veins of left upper extremity (principal) | CPT/HCPCS: 93971 ==

== ENCOUNTER 2017-07-07 09:51 | Outpatient (RCR) | payer MEDICARE, OTHER | END 2017-08-04 | LOC: M PT 09:51 | DX: Z51.89 Encounter for other specified aftercare (principal); R60.0 Localized edema | CPT/HCPCS: 97110 ==

== ENCOUNTER → 2017-07-14 | Outpatient (CLI) | payer MEDICARE, OTHER ==
[~2017-07-14] MED LIST changes: -/MIRT30TA PO; -/ONDA4TA OR; -/ONDA4TA PO; -/PANT40TA OR; -/PANT40TA PO; -ACET50TA GT; -ACET50TA PO; -ACET65TA OR; -AFLU1INJ; -AMBI10TA OR; -AMBI10TA PO; -AUGM875T27 PO; -BAYE325T13 PO; -BUDE150T OR; +BUPIVACAINE HCL 0.25% 30 ML VIAL As Ordered; -Bentyl OR; -CIPR500T4 OR; -CIPR500T89 PO; -DULO1CAP2; -ESTR1TAB PO; -ESTR625TA OR; -ESTR62CR PV; -FERR325T PO; -FLAG500T OR; -FLAG500T PO; -FLORASTOR PO; -HYOMAX OR; +ISOVUE-M 300 61% 15ML VIAL (Q9967) As Ordered; +LIDOCAINE 1% SDV INJ 30 ML VIAL As Ordered; -LOPE2TAB PO; -LOPERAMIDE PO; -MAGIC MOUTH WASH PO; -MESAPOW PO; -MS C15TA5 OR; -NORCOTAB PO; -OXYCODONE PO; -PERC7.5T8 OR; -POTA20TA2 PO; -PRED10TA2 OR; -PRED10TA2 PO; -PRED20TA OR; -PRED20TA PO; -PRED5TAB OR; -Prednisone OR; -SING5CHW PO; -TAMO20TA4; -TRAM50TA2 PO; +TRIAMCINOLONE ACETONIDE SUSP 40 MG/ML VIAL (J3301) As Ordered; -TYLE325T5 PO; -TYLE650T25 PO; -Tylenol PM OR; -VANC25CA PO; -VICO5TAB OR; -VITA-122 PO; -VITA25003 SL; -VITA500T PO; -VITAD1000T OR; -VITAMIN B COMPLE1 PO; -Vitamin D-3 PO; -WELLTAB4 PO; -ZANT150T PO; -ZOFR4SOL PO; -[UNRECOGNIZED DRUG - CODE] PO; -[UNRECOGNIZED DRUG - REMARK] OR; -asacol PO; -bacid PO; +diazePAM 5 MG TAB As Ordered; +diphenhydrAMINE 25 MG CAP As Ordered; +oxyCODONE 5MG TAB As Ordered
== END ==
LOC: M PAIN 13:45
DX: G89.29 Other chronic pain (principal); M47.812 Spondylosis without myelopathy or radiculopathy, cervical region; M79.7 Fibromyalgia; F41.9 Anxiety disorder, unspecified; F32.9 Major depressive disorder, single episode, unspecified; Z79.82 Long term (current) use of aspirin; Z79.899 Other long term (current) drug therapy; Z88.1 Allergy status to other antibiotic agents; Z88.2 Allergy status to sulfonamides; Z85.3 Personal history of malignant neoplasm of breast
CPT/HCPCS: J3301

== ENCOUNTER → 2017-07-23 | Outpatient (CLI) | payer MEDICARE, OTHER | LOC: M ONCR 14:03 | DX: C50.412 Malignant neoplasm of upper-outer quadrant of left female breast (principal) | CPT/HCPCS: G0463 ==

== ENCOUNTER → 2017-07-28 | Outpatient (CLI) | payer MEDICARE, OTHER | LOC: M PAIN 09:30 | DX: M47.812 Spondylosis without myelopathy or radiculopathy, cervical region (principal); F41.9 Anxiety disorder, unspecified; F32.9 Major depressive disorder, single episode, unspecified; Z79.82 Long term (current) use of aspirin; Z79.899 Other long term (current) drug therapy; Z88.1 Allergy status to other antibiotic agents; Z88.2 Allergy status to sulfonamides; Z87.891 Personal history of nicotine dependence; Z85.3 Personal history of malignant neoplasm of breast | CPT/HCPCS: G0463 ==

== ENCOUNTER → 2017-08-11 | Outpatient (REF) | payer MEDICARE, OTHER ==
[2017-08-11 12:53] LABS: BASO % 0.4 % (0.0-1.0); EOS # 0.1 10^3/uL (0.0-0.50); EOS % 1.1 % (0.0-3.0); HEMATOCRIT 41.5 % (36.0-47.0); HEMOGLOBIN 13.6 g/dl (12.0-15.5); IMMATURE GRANULOCYTE % 0.1 % (0-3.0); LYMPH % 35.6 % (24.0-44.0); MEAN CORPUSCULAR HEMOGLOBIN 31.9 pg (27.0-33.0); MEAN CORPUSCULAR HGB CONC 32.8 g/dl (32.0-36.5); MEAN CORPUSCULAR VOLUME 97.2 fl (80.0-96.0); MONO # 0.8 10^3/uL (0.0-0.8); MONO % 9.4 % (0.0-5.0); NEUTROPHILS # 4.6 10^3/uL (1.8-7.7); NEUTROPHILS % 53.4 % (36.0-66.0); PLATELET COUNT, AUTOMATED 264 10^3/uL (150-450); RED BLOOD COUNT 4.27 10^6/uL (4.00-5.40); RED CELL DISTRIBUTION WIDTH 12.9 % (11.5-14.5); WHITE BLOOD COUNT 8.5 10^3/uL (4.0-10.0)
[2017-08-11 13:16] LABS: AMYLASE 52 U/L (25-115)
[2017-08-11 13:16] LABS: LIPASE 108 U/L (73-393)
[2017-08-11 13:18] LABS: ALBUMIN/GLOBULIN RATIO 1.21 (1.00-1.93); ALKALINE PHOSPHATASE 73 U/L (45-117); ALT/SGPT 27 U/L (12-78); ANION GAP 7 MEQ/L (8-16); AST/SGOT 19 U/L (7-37); BILIRUBIN,TOTAL 0.3 MG/DL (0.2-1.0); BLOOD UREA NITROGEN 11 MG/DL (7-18); CALCIUM LEVEL 8.8 MG/DL (8.8-10.2); CARBON DIOXIDE LEVEL 27 MEQ/L (21-32); CHLORIDE LEVEL 109 MEQ/L (98-107); GLOMERULAR FILTRATION RATE > 60.0 (>45); GLUCOSE, FASTING 88 MG/DL (70-100); POTASSIUM SERUM 4.1 MEQ/L (3.5-5.1); SODIUM LEVEL 143 MEQ/L (136-145); TOTAL PROTEIN 7.3 GM/DL (6.4-8.2)
[2017-08-11 13:33] LABS: TOTAL 25(OH) VITAMIN D 34.2 NG/ML (30.0-100.0)
== END ==
LOC: M SFHCPLAZ 09:24
DX: I10 Essential (primary) hypertension (principal); K80.20 Calculus of gallbladder without cholecystitis without obstruction; Z79.899 Other long term (current) drug therapy
CPT/HCPCS: 82150

== ENCOUNTER → 2017-08-22 | Outpatient (CLI) | payer MEDICARE, OTHER | LOC: M RAD 07:50 | DX: K80.20 Calculus of gallbladder without cholecystitis without obstruction (principal) | CPT/HCPCS: 76705 ==

== ENCOUNTER → 2017-09-17 | Outpatient (CLI) | payer MEDICARE, OTHER ==
[~2017-09-17] MED LIST changes: -diphenhydrAMINE 25 MG CAP As Ordered
== END ==
LOC: M PAIN 08:30
DX: G89.29 Other chronic pain (principal); M47.812 Spondylosis without myelopathy or radiculopathy, cervical region; M54.2 Cervicalgia; I10 Essential (primary) hypertension; J45.909 Unspecified asthma, uncomplicated; E55.9 Vitamin D deficiency, unspecified; Z79.82 Long term (current) use of aspirin; Z79.899 Other long term (current) drug therapy; Z88.8 Allergy status to other drugs, medicaments and biological substances; Z85.3 Personal history of malignant neoplasm of breast
CPT/HCPCS: J3301

== ENCOUNTER → 2017-11-05 | Outpatient (CLI) | payer MEDICARE, OTHER | LOC: M PAIN 09:15 | DX: M47.812 Spondylosis without myelopathy or radiculopathy, cervical region (principal); M79.7 Fibromyalgia; F32.9 Major depressive disorder, single episode, unspecified; F41.9 Anxiety disorder, unspecified; J45.20 Mild intermittent asthma, uncomplicated; Z79.82 Long term (current) use of aspirin; Z79.899 Other long term (current) drug therapy; Z88.1 Allergy status to other antibiotic agents; Z88.2 Allergy status to sulfonamides; Z92.21 Personal history of antineoplastic chemotherapy; Z85.3 Personal history of malignant neoplasm of breast; Z87.19 Personal history of other diseases of the digestive system; Z90.710 Acquired absence of both cervix and uterus; Z87.891 Personal history of nicotine dependence | CPT/HCPCS: G0463 ==

== ENCOUNTER → 2018-01-12 | Outpatient (CLI) | payer MEDICARE, OTHER ==
[2018-01-12 11:06] LABS: BASO % 0.4 % (0.0-1.0); EOS # 0.1 10^3/uL (0.0-0.50); EOS % 1.2 % (0.0-3.0); HEMATOCRIT 42.8 % (36.0-47.0); IMMATURE GRANULOCYTE % 0.3 % (0-3.0); LYMPH # 2.7 10^3/uL (1.5-4.5); LYMPH % 28.2 % (24.0-44.0); MEAN CORPUSCULAR HEMOGLOBIN 31.3 pg (27.0-33.0); MEAN CORPUSCULAR HGB CONC 32.7 g/dl (32.0-36.5); MEAN CORPUSCULAR VOLUME 95.7 fl (80.0-96.0); MONO # 0.7 10^3/uL (0.0-0.8); MONO % 7.8 % (0.0-5.0); NEUTROPHILS # 5.9 10^3/uL (1.8-7.7); NEUTROPHILS % 62.1 % (36.0-66.0); PLATELET COUNT, AUTOMATED 310 10^3/uL (150-450); RED BLOOD COUNT 4.47 10^6/uL (4.00-5.40); RED CELL DISTRIBUTION WIDTH 11.8 % (11.5-14.5); WHITE BLOOD COUNT 9.5 10^3/uL (4.0-10.0)
[2018-01-12 11:36] LABS: ALBUMIN 3.8 GM/DL (3.2-5.2); ALBUMIN/GLOBULIN RATIO 1.12 (1.00-1.93); ALKALINE PHOSPHATASE 71 U/L (45-117); ALT/SGPT 28 U/L (12-78); ANION GAP 5 MEQ/L (8-16); AST/SGOT 18 U/L (7-37); BILIRUBIN,TOTAL 0.5 MG/DL (0.2-1.0); BLOOD UREA NITROGEN 13 MG/DL (7-18); CALCIUM LEVEL 9.1 MG/DL (8.8-10.2); CARBON DIOXIDE LEVEL 31 MEQ/L (21-32); CHLORIDE LEVEL 106 MEQ/L (98-107); CREATININE FOR GFR 0.74 MG/DL (0.55-1.30); FREE THYROXINE INDEX 2.5 % (1.3-4.8); GLOMERULAR FILTRATION RATE > 60.0 (>45); GLUCOSE, FASTING 82 MG/DL (70-100); POTASSIUM SERUM 4.6 MEQ/L (3.5-5.1); SODIUM LEVEL 142 MEQ/L (136-145); T UPTAKE 29 % (30-39); THYROXINE (T4) 8.5 UG/DL (4.5-12.0); TOTAL PROTEIN 7.2 GM/DL (6.4-8.2)
[2018-01-12 12:08] LABS: CONTROL LINE MONO RF C INT CTR LINE PRESENT; MONO REFLEX EBV COMP NEGATIVE (NEGATIVE)
[2018-01-14 00:07] LABS: EBV AB TO NUCLEAR ANTIGEN <18.0 U/mL (0.0-17.9); EBV VIRAL CAPSID AG IgG >600.0 U/mL (0.0-17.9); EBV VIRAL CAPSID AG IgM <36.0 U/mL (0.0-35.9); Lyme Disease IgG/IgM Antibodie <0.91 ISR (0.00-0.90); Lyme Disease IgM Ab Quantitati <0.80 index (0.00-0.79)
== END ==
LOC: M LAB 10:02
DX: M79.10 Myalgia, unspecified site (principal); Z79.899 Other long term (current) drug therapy
CPT/HCPCS: 84443

== ENCOUNTER → 2018-01-12 | Outpatient (CLI) | payer MEDICARE, OTHER | LOC: M PAIN 08:30 | DX: M79.18 Myalgia, other site (principal); D64.9 Anemia, unspecified; J45.909 Unspecified asthma, uncomplicated; Z85.3 Personal history of malignant neoplasm of breast; Z92.3 Personal history of irradiation; Z92.21 Personal history of antineoplastic chemotherapy; F32.9 Major depressive disorder, single episode, unspecified; F41.9 Anxiety disorder, unspecified; Z88.0 Allergy status to penicillin; Z88.2 Allergy status to sulfonamides; Z79.899 Other long term (current) drug therapy | CPT/HCPCS: 84443; G0463 ==

== ENCOUNTER → 2018-01-14 | Outpatient (CLI) | payer MEDICARE, OTHER | LOC: M ONCR 13:18 | DX: C50.412 Malignant neoplasm of upper-outer quadrant of left female breast (principal) | CPT/HCPCS: G0463 ==

== ENCOUNTER → 2018-02-04 | Outpatient (CLI) | payer MEDICARE, OTHER | LOC: M PAIN 09:30 | DX: M50.20 Other cervical disc displacement, unspecified cervical region (principal); M47.812 Spondylosis without myelopathy or radiculopathy, cervical region; M54.12 Radiculopathy, cervical region; K51.20 Ulcerative (chronic) proctitis without complications; M79.7 Fibromyalgia; G47.33 Obstructive sleep apnea (adult) (pediatric); F32.9 Major depressive disorder, single episode, unspecified; F41.9 Anxiety disorder, unspecified; J45.20 Mild intermittent asthma, uncomplicated; Z79.899 Other long term (current) drug therapy; Z88.1 Allergy status to other antibiotic agents; Z88.2 Allergy status to sulfonamides; Z85.3 Personal history of malignant neoplasm of breast; Z92.3 Personal history of irradiation; Z87.891 Personal history of nicotine dependence | CPT/HCPCS: G0463 ==

== ENCOUNTER → 2018-02-24 | Outpatient (CLI) | payer MEDICARE, OTHER | LOC: M PAIN 11:15 | DX: M47.812 Spondylosis without myelopathy or radiculopathy, cervical region (principal); K51.90 Ulcerative colitis, unspecified, without complications; D64.9 Anemia, unspecified; Z85.3 Personal history of malignant neoplasm of breast; Z92.21 Personal history of antineoplastic chemotherapy; Z92.3 Personal history of irradiation; R05 Cough; M79.7 Fibromyalgia; F41.9 Anxiety disorder, unspecified; F32.9 Major depressive disorder, single episode, unspecified; Z87.442 Personal history of urinary calculi; J45.909 Unspecified asthma, uncomplicated; Z90.49 Acquired absence of other specified parts of digestive tract; Z87.891 Personal history of nicotine dependence; Z98.0 Intestinal bypass and anastomosis status; Z88.0 Allergy status to penicillin; Z88.2 Allergy status to sulfonamides; Z79.899 Other long term (current) drug therapy | CPT/HCPCS: J3301 ==

== ENCOUNTER → 2018-04-13 | Outpatient (CLI) | payer MEDICARE, OTHER ==
[~2018-04-13] MED LIST changes: +/MIRT30TA PO; +/ONDA4TA OR; +/ONDA4TA PO; +/PANT40TA OR; +/PANT40TA PO; +ACET50TA GT; +ACET50TA PO; +ACET65TA OR; +AFLU1INJ; +AMBI10TA OR; +AMBI10TA PO; +ANAS1TAB2 PO; +AUGM875T27 PO; +BAYE325T13 PO; +BUDE150T OR; -BUPIVACAINE HCL 0.25% 30 ML VIAL As Ordered; +Bentyl OR; +CIPR500T4 OR; +CIPR500T89 PO; +DULO1CAP2; +DULO1CAP3 PO; +ESTR1TAB PO; +ESTR625TA OR; +ESTR62CR PV; +FERR325T PO; +FLAG500T OR; +FLAG500T PO; +FLORASTOR PO; +GABA-843 PO; +HYOMAX OR; -ISOVUE-M 300 61% 15ML VIAL (Q9967) As Ordered; -LIDOCAINE 1% SDV INJ 30 ML VIAL As Ordered; +LISI10TA4 PO; +LOPE2CAP PO; +LOPE2TAB PO; +LOPERAMIDE PO; +MAGIC MOUTH WASH PO; +MESAPOW PO; +MS C15TA5 OR; +NORCOTAB PO; +ONDA4TAB5 PO; +OXYCODONE PO; +PERC7.5T8 OR; +POTA20TA2 PO; +PRED10TA2 OR; +PRED10TA2 PO; +PRED20TA OR; +PRED20TA PO; +PRED5TAB OR; +Prednisone OR; +SING5CHW PO; +TAMO20TA8; +TRAM50TA2 PO; -TRIAMCINOLONE ACETONIDE SUSP 40 MG/ML VIAL (J3301) As Ordered; +TYLE325T5 PO; +TYLE650T25 PO; +Tylenol PM OR; +VANC25CA PO; +VICO5TAB OR; +VITA-122 PO; +VITA25003 SL; +VITA500T PO; +VITAD1000T OR; +VITAD1000T PO; +VITAMIN B COMPLE1 PO; +Vitamin D-3 PO; +WELLTAB4 PO; +ZANT150T PO; +ZOFR4SOL PO; +ZOLP5TAB PO; +[UNRECOGNIZED DRUG - CODE] PO; +[UNRECOGNIZED DRUG - REMARK] OR; +asacol PO; +bacid PO; -diazePAM 5 MG TAB As Ordered; -oxyCODONE 5MG TAB As Ordered
--- NOTE | 2018-04-13 13:34 | REP ---
WHOLE BODY RADIONUCLIDE BONE SCAN: HISTORY: Breast carcinoma. Bone pain. Bilateral alcantara to ankle pain. COMPARISON STUDY: May 19, 2013. TECHNIQUE: 22.0 mCi technetium 99m MDP is injected and standard whole body bone scan imaging was acquired. SCINTIGRAPHIC FINDINGS: There is a normal distribution of skeletal tracer with uptake in bilateral kidneys and in the urinary bladder. Mild arthritic uptake is seen in the acromioclavicular joints bilaterally. There is mild arthritic uptake in the left ankle. These findings are unchanged. There is no evidence to suggest skeletal metastatic disease. IMPRESSION: No evidence of bony metastasis. Electronically Signed by Jean Carlos Spear MD 04/13/2018 07:27 P
== END ==
LOC: M RAD 08:28
PROVIDERS: ATTEND Internal Medicine Medical Oncology
DX: C50.919 Malignant neoplasm of unspecified site of unspecified female breast (principal); M89.9 Disorder of bone, unspecified
CPT/HCPCS: 78306; A9503

== ENCOUNTER → 2018-05-05 | Outpatient (CLI) | payer MEDICARE, OTHER ==
--- NOTE | 2018-05-18 00:25 | ECWPNPC ---
PATIENT NAME: RENÉE SOARES : 1955 GENDER: FEMALE VISIT DATE: 05/05/2018 DISCHARGE DATE: 05/05/18 1029 VISIT LOCKED DATE TIME: PHYSICIAN: ZANDRA CHRISTIANSEN RESOURCE: ZANDRA CHRISTIANSEN HISTORY OF PRESENT ILLNESS HISTORY OF PRESENT ILLNESS: HERE FOR POST PROCEDURE F/U.HAD BILAT. C3/4 C4/5 THERAPEUTIC BLOCK ON 2017.REPORTING SIGNIFICANT REDUCTION IN PAIN THAT CONTINUES TODAY.SHE FEELS PAIN IS GRADUALLY RETURNING TO BASELINE.RATING PAIN VAS 3/10. PAIN THE PATIENT DESCRIBES THE PAIN... FALL RISK SCREENING: SCREENING :NO FALLS IN THE PAST YEAR CURRENT MEDICATIONS TAKING LOPERAMIDE HCL 2 MG CAPSULE 2 TABS ORALLY TWICE DAILY NEEED TAKING VITAMIN D (CHOLECALCIFEROL) 1000 UNIT CAPSULE 1 CAPSULE ORALLY ONCE A DAY TAKING AMBIEN 5 MG TABLET 1/2 TAB ORAL AT NIGHT TAKING ANASTROZOLE 1 MG TABLET 1 TABLET ORALLY ONCE A DAY TAKING LISINOPRIL 10 MG TABLET 1 TABLET ORALLY ONCE A DAY TAKING CYMBALTA 30 MG CAPSULE DELAYED RELEASE PARTICLES 1 CAPSULE ORALLY ONCE A DAY TDD=90 MG TAKING DULOXETINE HCL 60 MG CAPSULE DELAYED RELEASE PARTICLES 1 CAPSULE ORALLY ONCE A DAY TDD=90 MG TAKING GABAPENTIN 300 MG CAPSULE TAKE ONE TABLET BY MOUTH AT NIGHT FOR FIVE DAYS THEN TWICE A DAY FOR FIVE DAYS THEN ONE TABLET THREE TIMES A DAY. ORAL TID NOT-TAKING VSL#3 - PACKET ORALLY NOT-TAKING GABAPENTIN 100 MG CAPSULE 1 CAPSULE ORALLY THREE TIMES A DAY, NOTES: 02/24/18 AM DISCONTINUED LISINOPRIL 10MG TABLET TAKE 1 TABLET DAILY MEDICATION LIST REVIEWED AND RECONCILED WITH THE PATIENT PAST MEDICAL HISTORY C DIFF COLITIS- DR MEIER (NO LONGER FOLLOWS WITH DR. 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 S/P RESECTION DR CARUSO. CHEMOTHERAPY DR COWAN- COMPLETED 5/6 TREATMENTS. RAD RX PER DR ROMANO ONCOLOGY DR VANN CHRONIC COUGH- DR HUNT 01/17 DONAVAN 02/02/13 NML( FEV1 2.51 (90%)/FVC2.94(82%). PFTS/METHACHOLINE CHALLENGE UNREMARKABLE- NO PULM EXPLANATION FOR COUGH 09/18. COUGH RESOLVED WITH ADVAIR PER VANESA 01/18. PANCREATIC MASS 2.5 CM/PRIOR FNA ATYPICAL CELLS/SUBSEQUENT EUS MASS SMALLER/LAST CT WITH CONTRAST MASS NOT DETECTED- FOLLOWED BY DR MAYORGA- GASTRO SYR. FNA 11/18NEG PER PT CT A&P WITH CONTRAST NO ACUTE PATHOLOGY 05/21 BONE SCAN- OA/FIBROMYALGIA WITH CHRONIC PAIN-LYRICA- PER [facility]- DR SAINI 07/19 DEPRESSION/ANXIETY- ALPHONSONOWIVANI LDL 95 04/20 PNEUMOVAX- 2013- [facility] PER PT. CT MAXILLOFACIAL 03/19-MILD MUCOSAL THICKENING MAXILLARY SINUSES CTD/CHRONIC PAIN- RHEUM SYR (NO LONGER FOLLOWS) ETT 04/21 [facility]- NEG ISCHEMIA KIDNEY STONE 2015 GALL STONES 2016 NEUROLOGY: DR. Milton BEE SMALL VESSEL ISCHEMIC DISEASE MILD ASTHMA- FOLLOWS WITH DR. ALEXIS ALLERGIES SULFA (FOR ALLERGY USE ONLY): FLU LIKE SX'S: ALLERGY AMOXICILLIN: C DIFF: CONTRAINDICATION BACTRIM: ANAPHYLAXIS SURGICAL HISTORY TUBAL LIGATION HYSTERECTOMY WITH BILATERAL OOPHORECTOMY BREAST BIOPSY-LEFT SALPINGECTOMY FOR TUBAL COLONOSCOPY EGD DR MUKESH RODRIGUEZ [address] SALINAS [place] 04/18 ILEOSTOMY, 3 DIFFERENT OPERATIONS- 06/04/11 REANASTOMOSIS OF SMALL BOWEL. 01/[address] CARUSO 10/2012 LYMPH NODE REMOVAL FROM LEFT BREAST DR CARUSO 11/2012 ILEAL POUCH [id number] 01/26/15 RIGHT ESWL 06/08/15 POUCH ENDOSCOPY-DR. SALINAS, REPEAT 2 YEARS 01/2018 FAMILY HISTORY FATHER: 66 YRS, [place], HYPERTENSION, IDDM, KIDNEY STONES MOTHER: 86 YRS, MELAN[place], OF COLON CANCER SIBLINGS: 2 SISTERS-LUNG AND PANCREATIC CA 5 BROTHER(S) , 3 SISTER(S) . 1 SON(S) , 1 DAUGHTER(S) - HEALTHY. BROTHER MVA, BROTHER [place] @ LATE 40'S, TOBACCO USE. DENIES FAMILY HX OF BREAST OR OVARIAN CANCER. SOCIAL HISTORY GENERAL: TOBACCO USE ARE YOU A:FORMER SMOKER HOW LONG HAS IT BEEN SINCE YOU LAST SMOKED?> 10 YEARS ALCOHOL SCREENING DID YOU HAVE A DRINK CONTAINING ALCOHOL IN THE PAST YEAR?YES HOW OFTEN DID YOU HAVE SIX OR MORE DRINKS ON ONE OCCASION IN THE PAST YEAR?NEVER (0 POINTS) HOW MANY DRINKS DID YOU HAVE ON A TYPICAL DAY WHEN YOU WERE DRINKING IN THE PAST YEAR?3 OR 4 (1 POINT) HOW OFTEN DID YOU HAVE A DRINK CONTAINING ALCOHOL IN THE PAST YEAR?MONTHLY OR LESS (1 POINT) POINTS2 INTERPRETATIONNEGATIVE RECREATIONAL DRUG USE DRUG USE?NO CAFFEINE CAFFEINE USE?YES HOW OFTEN AND HOW MUCH? COFFEE 2 CUPS IN THE AM SEXUAL HX HAD SEX IN THE LAST 12 MONTHS (VAGINAL, ORAL, OR ANAL)?NO LMP:N/A HAVE YOU EVER HAD AN STD?YES OTHER?NO HERPES?YES SYPHILIS?NO GC?NO CHLAMYDIA?NO HIV / HEP-C SCREENING HIV TEST OFFERED TO PATIENT:YES DATE OFFERED:08/28/2016 TEST ACCEPTED:NO HEP-C TEST OFFERED TO PATIENT:YES DATE OFFERED:08/28/2016 REASON:PATIENT DECLINED TEST ACCEPTED:NO REASON:PATIENT DECLINED MUSLIM [id number] CHRISTIANITY LANGUAGE LANGUAGES SPOKEN:MOHAWK EDUCATION LEVEL OF EDUCATION:NOT FINISHED COLLEGE LEARNING BARRIERS / SPECIAL NEEDS CHANGE FROM LAST VISIT?NO BARRIERS TO LEARNING?NO HEARING IMPAIRED?NO VISION IMPAIRED?YES GLASSES FOR READING COGNITIVELY IMPAIRED?NO READINESS TO LEARN?YES LEARNING PREFERENCES?NO LEARNING CAPABILITIES PRESENT?YES EMOTIONAL BARRIERS?NO SPECIAL DEVICES?NO OPTICAL STORE MANAGER NEEDED?NO DOMESTIC VIOLENCE DO YOU FEEL SAFE IN YOUR ENVIRONMENT?YES OCCUPATION: RETIRED. DIET: REGULAR. EXERCISE: NO REGULAR EXERCISE. MARITAL STATUS: . PAIN CLINIC PFS, CLERGY, PUBLIC HEALTH REFERRALS PFS REFERRAL NEEDED?NO CLERGY REFERRAL NEEDED?NO PUBLIC HEALTH REFERRAL NEEDED?NO WAS THE PROVIDER NOTIFIED OF ANY PERTINENT INFO? N/A HAS THE PATIENT BEEN EDUCATED REGARDING HIS/HER PLAN OF CARE?YES HAS THE PATIENT BEEN EDUCATED REGARDING PAIN, THE RISK FOR PAIN, THE IMPORTANCE OF EFFECTIVE PAIN MANAGEMENT, AND THE PAIN ASSESSMENT PROCESS?YES ADVANCE DIRECTIVE ADVANCE DIRECTIVE DISCUSSED WITH PATIENT:YES PT. HAS HCP--, BRIGID [phone] 02/24/18 REVIEWED WITH PT. AD. HOSPITALIZATION/MAJOR DIAGNOSTIC PROCEDURE RELATED TO SURGERIES LEUKOPENIA 01/17 REVIEW OF SYSTEMS REVIEWED BY: PROVIDER: ZANDRA MOREL . CONSTITUTIONAL: ANY CHANGE IN YOUR MEDICAL CONDITION? NO . CHILLS NO . FEVER NO . INFECTION: DO YOU HAVE NEW INFECTIONS? NO . DO YOU HAVE HISTORY OF MRSA? NO . MUSCULOSKELETAL: ANY NEW PATTERNS OF PAIN OR NUMBNESS? NO . GASTROENTEROLOGY: ANY NEW CHANGE IN BOWEL CONTROL? NO . GENITOURINARY: ANY NEW CHANGE IN BLADDER CONTROL? YES, PT C/O URGENCY X MONTHS GETTING WORSE, NOT EVEYDAY. PT STATES SHE HAS APPT W WOMAN TO WOMAN TO ADDRESS THIS ISSUE . IS THERE A CHANCE YOU COULD BE ? NO . HEMATOLOGY/LYMPH: DO YOU TAKE ANY BLOOD THINNERS? (FOR EXAMPLE- COUMADIN, PLAVIX, AGGRENOX, PLATEL, PRADAXA, OR XARELTO) NO . WHEN WAS YOUR LAST DOSE? DATE: TIME: . NEUROLOGY: HAVE YOU FALLEN IN THE PAST 12 MONTHS? NO . ANY NEW EXTREMITY NUMBNESS OR WEAKNESS? NO . CARDIOLOGY: DO YOU HAVE A PACEMAKER OR DEFIBRILLATOR? NO . RESPIRATORY: HAVE YOU BEEN SICK IN THE PAST WEEK? NO . FEVER NO . FLU LIKE SYMPTOMS? NO . COUGH NO . INTEGUMENTARY: DO YOU HAVE ANY RASHES OR OPEN SORES? NO . ALLERGIC/IMMUNO: ARE YOU ALLERGIC TO IV DYE? NO . ANY NEW ALLERGIES? NO . PSYCHIATRIC: DO YOU HAVE THOUGHTS OF HURTING YOURSELF OR SOMEONE ELSE? NO . ARE YOU ABUSED, NEGLECTED, OR IN AN UNSAFE ENVIRONMENT? NO . ENDOCRINOLOGY: ARE YOU DIABETIC? NO . OTHER: DO YOU NEED ANY PRESCRIPTIONS? NO . IF YES, PLEASE LIST: ____ . ANY NEW PROBLEMS WITH YOUR MEDICATIONS? NO . WHEN DID YOU LAST EAT? ____ . WHEN DID YOU LAST DRINK? ____ . WHAT DID YOU LAST DRINK? ____ . NAME OF PERSON DRIVING YOU HOME? ____ . DO YOU HAVE ANY OTHER QUESTIONS OR CONCERNS NO . VITAL SIGNS WT 160 LBS, HT 65.5 IN, BMI 26.22 INDEX, BP 137/66 MM HG, HR 84 /MIN, RR 16 /MIN, TEMP 98.9 F, OXYGEN SAT % 98%, NA INITIALS SC 09:18, REVIEWED BY: EM. EXAMINATION GENERAL EXAMINATION: LUNGS:LUNG SOUNDS ARE CLEAR . HEART:HEART RATE REGULAR . MUSCULOSKELETAL:*, MUSCLE STRENGTH TESTING 5/5 BILATERAL UPPER EXTREMITIES. . CERVICAL+ FOR PAIN WITH PALPATION OF CERVICAL SPINE. + FOR PAIN WITH PALPATION OF CERVICAL PARASPINALS.SPECIFIC POINT TENDERNESS NOTED OV C4/5-/C5/6 CERVICAL FACETS WITH EXTENSION AND FACET LOADING. . DIAGNOSTIC TESTS REVIEWEDCERVICAL MRI -05/01/16. ASSESSMENTS SPONDYLOSIS OF CERVICAL REGION WITHOUT MYELOPATHY OR RADICULOPATHY - M47.812 (PRIMARY) TREATMENT SPONDYLOSIS OF CERVICAL REGION WITHOUT MYELOPATHY OR RADICULOPATHY NOTES: C4/5-C6/7 BILAT. THERAPEUTIC FACET BLOCK. PREVENTIVE MEDICINE PAIN CLINIC TEACHING: PROCEDURE TEACHING REVIEWED INFORMATION ON FACET BLOCK PROCEDURE WITH PATIENT. ALSO REVIEWED PRE-PROCEDURE INSTRUCTIONS. PATIENT VERBALIZED AN UNDERSTANDING. JEFEROSITA Thrasher 05/05/2018 10:25:39 AM > . PROCEDURE CODES FA211 ESTABILISHED PATIENT [facility] CHARGE DISPOSITION & COMMUNICATION FOLLOW UP POST (REASON: C4/5-C6/7 BILAT. THERAPEUTIC FACET BLOCK) ELECTRONICALLY SIGNED BY MARIA TERESA LITTLE ON 05/17/2018 AT 02:34 PM EST DISCLAIMER : THIS IS A VISIT SUMMARY EXTRACTED FROM THE [employer] CHART. IT IS NOT A COPY OF THE [employer] PROGRESS NOTE. BARBARA
== END ==
LOC: M PAIN 09:30
PROVIDERS: ATTEND Nurse Practitioner Family
DX: M47.812 Spondylosis without myelopathy or radiculopathy, cervical region (principal); D64.9 Anemia, unspecified; Z85.3 Personal history of malignant neoplasm of breast; R05 Cough; F32.9 Major depressive disorder, single episode, unspecified; F41.9 Anxiety disorder, unspecified; Z87.442 Personal history of urinary calculi; Z90.49 Acquired absence of other specified parts of digestive tract; Z90.710 Acquired absence of both cervix and uterus; Z87.891 Personal history of nicotine dependence; Z88.0 Allergy status to penicillin; Z88.2 Allergy status to sulfonamides; Z79.899 Other long term (current) drug therapy

== ENCOUNTER → 2018-05-19 | Outpatient (CLI) | payer MEDICARE, OTHER ==
[~2018-05-19] MED LIST changes: +BUPIVACAINE HCL 0.25% 30 ML VIAL As Ordered ONE; +EFFE37.5 PO; +ISOVUE-M 300 61% 15ML VIAL (Q9967) As Ordered ONE; +LIDOCAINE 1% SDV INJ 30 ML VIAL As Ordered ONE; +TRIAMCINOLONE ACETONIDE SUSP 40 MG/ML VIAL (J3301) As Ordered ONE; +diazePAM 5 MG TAB As Ordered ONE; +oxyCODONE 5MG TAB As Ordered ONE
--- NOTE | 2018-05-20 13:46 | REP ---
FLUOROSCOPIC GUIDANCE FOR BILATERAL CERVICAL FACET BLOCK: 05/19/2018. Clinical history: Neck pain. Findings: Two images from C-arm fluoroscopy provided to Dr. Dennison of the pain clinic for bilateral cervical facet block at C5-6 and C6-7 levels with contrast adjacent to the needle tips. Fluoroscopy time: 4 seconds. Electronically Signed by Jamin Garcias MD 05/20/2018 03:27 P
--- NOTE | 2018-06-03 23:52 | ECWPNPC ---
PATIENT NAME: RENÉE SOARES : 1955 GENDER: FEMALE VISIT DATE: 05/19/2018 DISCHARGE DATE: 05/19/18 1034 VISIT LOCKED DATE TIME: PHYSICIAN: REINA REED MD RESOURCE: REINA REED MD REASON FOR APPOINTMENT 1. CERVICAL THERAPEUTIC FACET BLOCK HISTORY OF PRESENT ILLNESS HISTORY OF PRESENT ILLNESS: PAIN THE PATIENT DESCRIBES THE PAIN... FALL RISK SCREENING: SCREENING :NO FALLS IN THE PAST YEAR CURRENT MEDICATIONS TAKING LOPERAMIDE HCL 2 MG CAPSULE 2 TABS ORALLY TWICE DAILY NEEED, NOTES: 05/18 2099 TAKING VITAMIN D (CHOLECALCIFEROL) 1000 UNIT CAPSULE 1 CAPSULE ORALLY ONCE A DAY, NOTES: 05/18 799 TAKING AMBIEN 5 MG TABLET 1/2 TAB ORAL AT NIGHT, NOTES: 05/18 2114 TAKING ANASTROZOLE 1 MG TABLET 1 TABLET ORALLY ONCE A DAY, NOTES: 05/18 799 TAKING LISINOPRIL 10 MG TABLET 1 TABLET ORALLY ONCE A DAY, NOTES: 05/18 799 TAKING CYMBALTA 30 MG CAPSULE DELAYED RELEASE PARTICLES 1 CAPSULE ORALLY ONCE A DAY TDD=90 MG, NOTES: 05/18 2099 TAKING DULOXETINE HCL 60 MG CAPSULE DELAYED RELEASE PARTICLES 1 CAPSULE ORALLY ONCE A DAY TDD=90 MG, NOTES: 05/18 2099 TAKING GABAPENTIN 300 MG CAPSULE TAKE ONE TABLET BY MOUTH AT NIGHT FOR FIVE DAYS THEN TWICE A DAY FOR FIVE DAYS THEN ONE TABLET THREE TIMES A DAY. ORAL TID, NOTES: 05/18 2099 DISCONTINUED VSL#3 - PACKET ORALLY DISCONTINUED GABAPENTIN 100 MG CAPSULE 1 CAPSULE ORALLY THREE TIMES A DAY, NOTES: 02/24/18 AM MEDICATION LIST REVIEWED AND RECONCILED WITH THE PATIENT PAST MEDICAL HISTORY C DIFF COLITIS- DR MEIER (NO LONGER FOLLOWS WITH DR. 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 S/P RESECTION DR CARUSO. CHEMOTHERAPY DR COWAN- COMPLETED 5/6 TREATMENTS. RAD RX PER DR ROMANO ONCOLOGY DR VANN CHRONIC COUGH- DR HUNT 01/17 DONAVAN 02/02/13 NML( FEV1 2.51 (90%)/FVC2.94(82%). PFTS/METHACHOLINE CHALLENGE UNREMARKABLE- NO PULM EXPLANATION FOR COUGH 09/18. COUGH RESOLVED WITH ADVAIR PER CHROSTOWSKI 01/18. PANCREATIC MASS 2.5 CM/PRIOR FNA ATYPICAL CELLS/SUBSEQUENT EUS MASS SMALLER/LAST CT WITH CONTRAST MASS NOT DETECTED- FOLLOWED BY DR MAYORGA- GASTRO SYR. FNA 11/18NEG PER PT CT A&P WITH CONTRAST NO ACUTE PATHOLOGY 05/21 BONE SCAN- OA/FIBROMYALGIA WITH CHRONIC PAIN-[place]RICA- PER [facility]- DR SAINI 07/19 DEPRESSION/ANXIETY- ONESIMO LDL 95 04/20 PNEUMOVAX- 2013- [facility] PER PT. CT MAXILLOFACIAL 03/19-MILD MUCOSAL THICKENING MAXILLARY SINUSES CTD/CHRONIC PAIN- RHEUM SYR (NO LONGER FOLLOWS) ETT 04/21 [facility]- NEG ISCHEMIA KIDNEY STONE 2015 GALL STONES 2016 NEUROLOGY: DR. Milton BEE SMALL VESSEL ISCHEMIC DISEASE MILD ASTHMA- FOLLOWS WITH DR. ALEXIS CERVIAL DISC DISPLACEMENT , CERVICAL RADICULOPATHY MERMORY IMPAIRMENT PAIN LEFT ARM LYMPHYDEMA AND DVT LEFT ARM ALLERGIES SULFA (FOR ALLERGY USE ONLY): FLU LIKE SX'S: ALLERGY AMOXICILLIN: C DIFF: CONTRAINDICATION BACTRIM: ANAPHYLAXIS SURGICAL HISTORY TUBAL LIGATION HYSTERECTOMY WITH BILATERAL OOPHORECTOMY BREAST BIOPSY-LEFT SALPINGECTOMY FOR TUBAL COLONOSCOPY EGD DR MUKESH RODRIGUEZ [address] SALINAS LAMBROOK 04/18 ILEOSTOMY, 3 DIFFERENT OPERATIONS- 06/04/11 REANASTOMOSIS OF SMALL BOWEL. 01/[address] CARUSO 10/2012 LYMPH NODE REMOVAL FROM LEFT BREAST DR CARUSO 11/2012 ILEAL POUCH [id number] 01/26/15 RIGHT ESWL 06/08/15 POUCH ENDOSCOPY-DR. SALINAS, REPEAT 2 YEARS 01/2018 FAMILY HISTORY FATHER: 66 YRS, [place], HYPERTENSION, IDDM, KIDNEY STONES MOTHER: 86 YRS, MELANOMA, OF COLON CANCER SIBLINGS: 2 SISTERS-LUNG AND PANCREATIC CA 5 BROTHER(S) , 3 SISTER(S) . 1 SON(S) , 1 DAUGHTER(S) - HEALTHY. BROTHER MVA, BROTHER IA @ LATE 40'S, TOBACCO USE. DENIES FAMILY HX OF BREAST OR OVARIAN CANCER. SOCIAL HISTORY GENERAL: TOBACCO USE ARE YOU A:FORMER SMOKER HOW LONG HAS IT BEEN SINCE YOU LAST SMOKED?> 10 YEARS ALCOHOL SCREENING DID YOU HAVE A DRINK CONTAINING ALCOHOL IN THE PAST YEAR?YES HOW OFTEN DID YOU HAVE SIX OR MORE DRINKS ON ONE OCCASION IN THE PAST YEAR?NEVER (0 POINTS) HOW MANY DRINKS DID YOU HAVE ON A TYPICAL DAY WHEN YOU WERE DRINKING IN THE PAST YEAR?3 OR 4 (1 POINT) HOW OFTEN DID YOU HAVE A DRINK CONTAINING ALCOHOL IN THE PAST YEAR?MONTHLY OR LESS (1 POINT) POINTS2 INTERPRETATIONNEGATIVE RECREATIONAL DRUG USE DRUG USE?NO CAFFEINE CAFFEINE USE?YES HOW OFTEN AND HOW MUCH? COFFEE 2 CUPS IN THE AM SEXUAL HX HAD SEX IN THE LAST 12 MONTHS (VAGINAL, ORAL, OR ANAL)?NO LMP:N/A HAVE YOU EVER HAD AN STD?YES OTHER?NO HERPES?YES SYPHILIS?NO GC?NO CHLAMYDIA?NO HIV / HEP-C SCREENING HIV TEST OFFERED TO PATIENT:YES DATE OFFERED:08/28/2016 TEST ACCEPTED:NO HEP-C TEST OFFERED TO PATIENT:YES DATE OFFERED:08/28/2016 REASON:PATIENT DECLINED TEST ACCEPTED:NO REASON:PATIENT DECLINED CAODAISM [id number] MUSLIM LANGUAGE LANGUAGES SPOKEN:SLOVENIAN EDUCATION LEVEL OF EDUCATION:NOT FINISHED COLLEGE LEARNING BARRIERS / SPECIAL NEEDS CHANGE FROM LAST VISIT?NO BARRIERS TO LEARNING?NO HEARING IMPAIRED?NO VISION IMPAIRED?YES GLASSES FOR READING COGNITIVELY IMPAIRED?NO READINESS TO LEARN?YES LEARNING PREFERENCES?NO LEARNING CAPABILITIES PRESENT?YES EMOTIONAL BARRIERS?NO SPECIAL DEVICES?NO ENTERPRISE INFRASTRUCTURE ARCHITECT NEEDED?NO DOMESTIC VIOLENCE DO YOU FEEL SAFE IN YOUR ENVIRONMENT?YES OCCUPATION: RETIRED. DIET: REGULAR. EXERCISE: NO REGULAR EXERCISE. MARITAL STATUS: . PAIN CLINIC PFS, CLERGY, PUBLIC HEALTH REFERRALS PFS REFERRAL NEEDED?NO CLERGY REFERRAL NEEDED?NO PUBLIC HEALTH REFERRAL NEEDED?NO WAS THE PROVIDER NOTIFIED OF ANY PERTINENT INFO? N/A HAS THE PATIENT BEEN EDUCATED REGARDING HIS/HER PLAN OF CARE?YES HAS THE PATIENT BEEN EDUCATED REGARDING PAIN, THE RISK FOR PAIN, THE IMPORTANCE OF EFFECTIVE PAIN MANAGEMENT, AND THE PAIN ASSESSMENT PROCESS?YES ADVANCE DIRECTIVE ADVANCE DIRECTIVE DISCUSSED WITH PATIENT:YES PT. HAS HCP--, BRIGID [phone] 02/24/18 REVIEWED WITH PT. AD05/19/18 REVIEWED WITH PT. AD. HOSPITALIZATION/MAJOR DIAGNOSTIC PROCEDURE RELATED TO SURGERIES LEUKOPENIA 01/17 REVIEW OF SYSTEMS REVIEWED BY: PROVIDER: . CONSTITUTIONAL: ANY CHANGE IN YOUR MEDICAL CONDITION? NO . CHILLS NO . FEVER NO . INFECTION: DO YOU HAVE NEW INFECTIONS? NO . DO YOU HAVE HISTORY OF MRSA? NO . MUSCULOSKELETAL: ANY NEW PATTERNS OF PAIN OR NUMBNESS? NO . GASTROENTEROLOGY: ANY NEW CHANGE IN BOWEL CONTROL? NO . GENITOURINARY: ANY NEW CHANGE IN BLADDER CONTROL? NO . IS THERE A CHANCE YOU COULD BE ? NO . HEMATOLOGY/LYMPH: DO YOU TAKE ANY BLOOD THINNERS? (FOR EXAMPLE- COUMADIN, PLAVIX, AGGRENOX, PLATEL, PRADAXA, OR XARELTO) NO . WHEN WAS YOUR LAST DOSE? DATE: TIME: . NEUROLOGY: HAVE YOU FALLEN IN THE PAST 12 MONTHS? NO . ANY NEW EXTREMITY NUMBNESS OR WEAKNESS? YES, INCREASE IN STIFFNESS IN HANDS FOR THE PAST 2 WEEKS . CARDIOLOGY: DO YOU HAVE A PACEMAKER OR DEFIBRILLATOR? NO . RESPIRATORY: HAVE YOU BEEN SICK IN THE PAST WEEK? NO . FEVER NO . FLU LIKE SYMPTOMS? NO . COUGH NO . INTEGUMENTARY: DO YOU HAVE ANY RASHES OR OPEN SORES? NO . ALLERGIC/IMMUNO: ARE YOU ALLERGIC TO IV DYE? NO . ANY NEW ALLERGIES? NO . PSYCHIATRIC: DO YOU HAVE THOUGHTS OF HURTING YOURSELF OR SOMEONE ELSE? NO . ARE YOU ABUSED, NEGLECTED, OR IN AN UNSAFE ENVIRONMENT? NO . ENDOCRINOLOGY: ARE YOU DIABETIC? NO . OTHER: DO YOU NEED ANY PRESCRIPTIONS? NO . IF YES, PLEASE LIST: ____ . ANY NEW PROBLEMS WITH YOUR MEDICATIONS? NO . WHEN DID YOU LAST EAT? 05/18 1829 . WHEN DID YOU LAST DRINK? 05/18 2114 . WHAT DID YOU LAST DRINK? WATER . NAME OF PERSON DRIVING YOU HOME? MARSHALL . DO YOU HAVE ANY OTHER QUESTIONS OR CONCERNS NO . VITAL SIGNS WT 164.8 LBS, HT 65.5 IN, BMI 27.00 INDEX, BP 171/76 MM HG, HR 82 /MIN, RR 16 /MIN, TEMP 97.5 F, OXYGEN SAT % 100, SAFE IN ENV? (Y/N) Y, NA INITIALS SC, REVIEWED BY: AD. ASSESSMENTS SPONDYLOSIS OF CERVICAL REGION WITHOUT MYELOPATHY OR RADICULOPATHY - M47.812 (PRIMARY) TREATMENT SPONDYLOSIS OF CERVICAL REGION WITHOUT MYELOPATHY OR RADICULOPATHY [facility] FACET BLOCK (PAIN)[id number] PROCEDURES PN CERVICAL FACET BLOCK LOW BILATERAL CERVICAL PRE PROCEDURE DIAGNOSIS CERVICAL SPONDYLOSIS POST PROCEDURE DIAGNOSIS CERVICAL SPONDYLOSIS PROCEDURE BILATERAL C4-C5 AND BILATERAL C5-C6 CERVICAL FACET BLOCK SURGEON DR. 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 I EVALUATE THE PATIENT AND REVIEWED THE CHART. I WENT OVER THE RISKS, ALTERNATIVES, AND BENEFITS ASSOCIATED WITH THIS PROCEDURE. THE PATIENT WOULD LIKE TO PROCEED AND GIVE CONSENT TO PERFORMED THE PROCEDURE. THE PATIENT DENIES UNEXPLAINABLE WEIGHT LOSS, FEVER, CHILLS, OR NEW CHANGES IN URINARY OR BOWEL CONTROL. DESCRIPTION OF PROCEDURE THE PATIENT WAS BROUGHT TO THE PROCEDURE ROOM AND PLACED IN THE PRONE POSITION. THE CERVICOTHORACIC AREA WAS CLEANED WITH CHLORAPREP SOLUTION AND DRAPED ASEPTICALLY. THE PROCEDURE WAS DONE UNDER STERILE CONDITIONS. I CHECKED LATERALITY AND THE LEVEL WHERE THE PROCEDURE WAS GOING TO BE PERFORMED WITH THE PATIENT AND THE SUPPORTING STAFF AT THE MOMENT OF THE TIME OUT IN THE PROCEDURE ROOM. UNDER FLUOROSCOPIC GUIDANCE, TARGET POINT WAS SELECTED AT THE RIGHT AND LEFT C4-C5 AND RIGHT AND LEFT C5-C6 CERVICAL FACET JOINT. TARGET POINTS WERE SELECTED AFTER LATERAL ROTATION AND TILT OF THE MAGNIFIER OF THE C-ARM. LIDOCAINE 0.5% WAS USED TO NUMB THE SKIN AND THE SUBCUTANEOUS TISSUE BELOW IT. SPINAL NEEDLES, 22-GAUGE, WERE ADVANCED UNDER FLUOROSCOPIC GUIDANCE AND FOLLOWING PATIENT FEEDBACK UNTIL THE TARGETS WERE TOUCHED. THE POSITION OF THE NEEDLES WAS VERIFIED WITH AP AND LATERAL VIEWS. AFTER PROPER POSITION OF THE NEEDLES WAS ACHIEVED, ISOVUE M DYE 30, 0.1 ML WAS INJECTED SHOWING SPREAD OF THE DYE. THEN A SOLUTION OF 0.9 ML OF BUPIVACAINE 0.125% AND KENALOG 10 MG WAS INJECTED AT EACH SITE. THERE WAS NO EVIDENCE OF BLOOD, PARESTHESIA OR CEREBROSPINAL FLUID DURING THE PROCEDURE. THE PATIENT WAS SENT TO THE RECOVERY ROOM. THE PATIENT WAS MOVING THE EXTREMITIES AND DOING WELL. THERE WAS NO COMPLICATION DURING THE PROCEDURE. FLUOROSCOPY TIME WAS 10 SECONDS POST PROCEDURE NOTE THE PATIENT WILL BE SEEN IN A FOLLOW UP IN THE NEXT FEW WEEKS. INSTRUCTIONS WERE GIVEN, QUESTIONS WERE ANSWERED, AND THE PATIENT EXPRESSED UNDERSTANDING AND AGREES WITH THE PLAN. I, MYRANDA LISA, DOCUMENTED THE ABOVE INFORMATION ACTING A SCRIBE FOR DR. REED. I HAVE REVIEWED THE ABOVE DOCUMENT, WRITTEN BY MYRANDA LISA SCRIBVeronica AND I VERIFY THAT IT IS ACCURATE. PROCEDURE CODES 6045F RADXPS IN END [id number] PXD [id number] INJ PARAVERT F JNT C/T 1 LEV, MODIFIERS: 50 [id number] INJ PARAVERT F JNT C/T 2 LEV, MODIFIERS: 50 DISPOSITION & COMMUNICATION FOLLOW UP 3 WEEKS ELECTRONICALLY SIGNED BY REINA REED MD, MD ON 06/03/2018 AT 06:38 AM EST DISCLAIMER : THIS IS A VISIT SUMMARY EXTRACTED FROM THE [email or web address] CHART. IT IS NOT A COPY OF THE [email or web address] PROGRESS NOTE. BARBARA
== END ==
LOC: M PAIN 08:45
PROVIDERS: ATTEND Anesthesiology
DX: G89.29 Other chronic pain (principal); M47.812 Spondylosis without myelopathy or radiculopathy, cervical region; F32.9 Major depressive disorder, single episode, unspecified; F41.9 Anxiety disorder, unspecified; J45.20 Mild intermittent asthma, uncomplicated; Z88.8 Allergy status to other drugs, medicaments and biological substances; Z88.1 Allergy status to other antibiotic agents; Z88.2 Allergy status to sulfonamides; Z87.891 Personal history of nicotine dependence; Z92.21 Personal history of antineoplastic chemotherapy; Z85.3 Personal history of malignant neoplasm of breast; Z87.19 Personal history of other diseases of the digestive system
CPT/HCPCS: 64490; 64491; J3301; Q9967

== ENCOUNTER → 2018-07-01 | Outpatient (REF) | payer MEDICARE, OTHER ==
[~2018-07-01] MED LIST changes: -/MIRT30TA PO; -/ONDA4TA OR; -/ONDA4TA PO; -/PANT40TA OR; -/PANT40TA PO; -ACET50TA GT; -ACET50TA PO; -BUPIVACAINE HCL 0.25% 30 ML VIAL As Ordered ONE; +HYDR-3715 PO; -ISOVUE-M 300 61% 15ML VIAL (Q9967) As Ordered ONE; -LIDOCAINE 1% SDV INJ 30 ML VIAL As Ordered ONE; +MAPA500T17 GT; +MAPA500T17 PO; +MIRT1TAB21 PO; -NORCOTAB PO; +ONDA-1 OR; +ONDA-1 PO; +PROT1TAB2 OR; +PROT1TAB2 PO; -TRIAMCINOLONE ACETONIDE SUSP 40 MG/ML VIAL (J3301) As Ordered ONE; -diazePAM 5 MG TAB As Ordered ONE; -oxyCODONE 5MG TAB As Ordered ONE
[2018-07-01 12:29] LABS: ALBUMIN 4.4 GM/DL (3.2-5.2); ALT/SGPT 32 U/L (12-78); BILIRUBIN,TOTAL 0.7 MG/DL (0.2-1.0); BLOOD UREA NITROGEN 18 MG/DL (7-18); CALCIUM LEVEL 9.4 MG/DL (8.8-10.2); CARBON DIOXIDE LEVEL 29 MEQ/L (21-32); CHLORIDE LEVEL 104 MEQ/L (98-107); CHOLESTEROL LEVEL 289 MG/DL (<200); CHOLESTEROL RISK RATIO 3.524 (<5); CREATININE FOR GFR 0.85 MG/DL (0.55-1.30); GLOMERULAR FILTRATION RATE > 60.0 (>45); GLUCOSE, FASTING 97 MG/DL (70-100); HDL CHOLESTEROL 82 MG/DL (>40); LDL CHOLESTEROL 177 MG/DL (<100); NON-HDL-C 207 MG/DL; POTASSIUM SERUM 4.2 MEQ/L (3.5-5.1); SODIUM LEVEL 140 MEQ/L (136-145); TOTAL PROTEIN 7.6 GM/DL (6.4-8.2); TRIGLYCERIDES LEVEL 148 MG/DL (<150)
[2018-07-01 12:37] LABS: TOTAL 25(OH) VITAMIN D 31.3 NG/ML (30.0-100.0)
== END ==
LOC: M SFHCPLAZ 08:43
PROVIDERS: ATTEND Nurse Practitioner Family
DX: Z01.419 Encounter for gynecological examination (general) (routine) without abnormal findings (principal); I10 Essential (primary) hypertension; E78.5 Hyperlipidemia, unspecified; E55.9 Vitamin D deficiency, unspecified
CPT/HCPCS: 36415; 80053; 80061; 82306; G0101

== ENCOUNTER → 2018-07-16 | Outpatient (CLI) | payer MEDICARE, OTHER ==
--- NOTE | 2018-08-03 00:21 | ECWPNPC ---
PATIENT NAME: RENÉE SOARES : 1955 GENDER: FEMALE VISIT DATE: 07/16/2018 DISCHARGE DATE: 07/16/18 1015 VISIT LOCKED DATE TIME: PHYSICIAN: ZANDRA CHRISTIANSEN RESOURCE: ZANDRA CHRISTIANSEN REASON FOR APPOINTMENT 1. NECK HISTORY OF PRESENT ILLNESS HISTORY OF PRESENT ILLNESS: HERE FOR POST PROCEDURE F/U.HAD BILAT. C4/5-C5/6 THERAPEUTIC FACET BLOCK ON 05/19/18.REPORTING SIGNIFICANT REDUCTION IN NECK PAIN CONTINUES TODAY.RATING NECK PAIN 10.CHIEF AREA OF PAIN IS RIGHT HIP.PAIN IS AGGREATED BY WALKING.DENIES INJURY. PAIN THE PATIENT DESCRIBES THE PAIN... FALL RISK SCREENING: SCREENING :NO FALLS REPORTED IN THE LAST YEAR CURRENT MEDICATIONS TAKING AMBIEN 5 MG TABLET 1/2 TAB ORAL AT NIGHT TAKING GABAPENTIN 300 MG CAPSULE TAKE ONE TABLET BY MOUTH AT NIGHT FOR FIVE DAYS THEN TWICE A DAY FOR FIVE DAYS THEN ONE TABLET THREE TIMES A DAY. ORAL TID TAKING DULOXETINE HCL 60 MG CAPSULE DELAYED RELEASE PARTICLES 1 CAPSULE ORALLY ONCE A DAY TDD=90 MG TAKING ONE DAILY FOR WOMEN - TABLET DIRECTED ORALLY TAKING LOPERAMIDE HCL 2 MG CAPSULE 2 TABS ORALLY TWICE DAILY NEEED TAKING CYMBALTA 30 MG CAPSULE DELAYED RELEASE PARTICLES 1 CAPSULE ORALLY ONCE A DAY TAKING VITAMIN D (CHOLECALCIFEROL) 1000 UNIT CAPSULE 1 CAPSULE ORALLY ONCE A DAY TAKING LISINOPRIL 10 MG TABLET 1 TABLET ORALLY ONCE A DAY NOT-TAKING ANASTROZOLE 1 MG TABLET 1 TABLET ORALLY ONCE A DAY NOT-TAKING TAMIFLU 75 MG CAPSULE 1 CAPSULE ORALLY DAILY MEDICATION LIST REVIEWED AND RECONCILED WITH THE PATIENT PAST MEDICAL HISTORY C DIFF COLITIS- DR MEIER (NO LONGER FOLLOWS WITH DR. 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 S/P RESECTION DR CARUSO. CHEMOTHERAPY DR COWAN- COMPLETED 5 TREATMENTS. RAD RX PER DR ROMANO ONCOLOGY DR VANN CHRONIC COUGH- DR HUNT 01/17 DONAVAN 02/02/13 NML( FEV1 2.51 (90%)/FVC2.94(82%). PFTS/METHACHOLINE CHALLENGE UNREMARKABLE- NO PULM EXPLANATION FOR COUGH 09/18. COUGH RESOLVED WITH ADVAIR PER VANESA 01/18. PANCREATIC MASS 2.5 CM/PRIOR FNA ATYPICAL CELLS/SUBSEQUENT EUS MASS SMALLER/LAST CT WITH CONTRAST MASS NOT DETECTED- FOLLOWED BY DR MAYORGA- GASTRO SYR. FNA 11/18NEG PER PT CT A&P WITH CONTRAST NO ACUTE PATHOLOGY 05/21 BONE SCAN- OA/FIBROMYALGIA WITH CHRONIC PAIN-[place]- PER [facility]- DR SAINI 07/19 DEPRESSION/ANXIETY- ALPHONSONOWIVANI LDL 95 04/20 PNEUMOVAX- 2013- [facility] PER PT. CT MAXILLOFACIAL 03/19-MILD MUCOSAL THICKENING MAXILLARY SINUSES CTD/CHRONIC PAIN- RHEUM SYR (NO LONGER FOLLOWS) ETT 04/21 [place]- NEG ISCHEMIA KIDNEY STONE 2015 GALL STONES 2016 NEUROLOGY: DR. Milton BEE SMALL VESSEL ISCHEMIC DISEASE MILD ASTHMA- FOLLOWS WITH DR. ALEXIS CERVIAL DISC DISPLACEMENT , CERVICAL RADICULOPATHY MERMORY IMPAIRMENT LYMPHYDEMA AND DVT LEFT ARM POUCH ENDOSCOPY: 2018 DR. SALINAS-Q 2 YEARS; BIOPSY NEGATIVE DYSTHYMIA OTHER AND UNSPECIFIED HYPERLIPIDEMIA DEPRESSIVE DISORDER, NOT ELSEWHERE CLASSIFIED ILEOSTOMY STATUS ULCERATIVE (CHRONIC) PROCTITIS CHRONIC PAIN COUGH CHRONIC COUGH UNSPECIFIED DIFFUSE CONNECTIVE TISSUE DISEASE ALLERGIES SULFA (FOR ALLERGY USE ONLY): FLU LIKE SX'S - ALLERGY AMOXICILLIN: C DIFF - CONTRAINDICATION BACTRIM: ANAPHYLAXIS SURGICAL HISTORY TUBAL LIGATION HYSTERECTOMY WITH BILATERAL OOPHORECTOMY BREAST BIOPSY-LEFT SALPINGECTOMY FOR TUBAL COLONOSCOPY EGD DR MUKESH RODRIUGEZ [address] SALINAS ROSICLARE 04/18 ILEOSTOMY, 3 DIFFERENT OPERATIONS- 06/04/11 REANASTOMOSIS OF SMALL BOWEL. 01/[address] CARUSO 10/2012 LYMPH NODE REMOVAL FROM LEFT BREAST DR CARUSO 11/2012 ILEAL POUCH [id number] 01/26/15 RIGHT ESWL 06/08/15 POUCH ENDOSCOPY-DR. SALINAS, REPEAT 2 YEARS 01/2018 FAMILY HISTORY FATHER: 66 YRS, [place], HYPERTENSION, IDDM, KIDNEY STONES MOTHER: 86 YRS, MELANOMA, OF COLON CANCER 70'S SIBLINGS: 2 SISTERS-LUNG AND PANCREAS 70'S 5 BROTHER(S) , 3 SISTER(S) . 1 SON(S) , 1 DAUGHTER(S) - HEALTHY. BROTHER MVA, BROTHER UT @ LATE 40\\\\\\\\\\\\\\\'S, TOBACCO USE. DENIES FAMILY HX OF BREAST OR OVARIAN CANCER. SOCIAL HISTORY GENERAL: TOBACCO USE ARE YOU A:FORMER SMOKER HOW LONG HAS IT BEEN SINCE YOU LAST SMOKED?> 10 YEARS LATEX QUESTIONNAIRE LATEX ALLERGY : HAVE YOU EVER DEVELOPED ANY TYPE OF REACTION AFTER HANDLING LATEX PRODUCTS SUCH RUBBER GLOVES, CONDOMS, DIAPHRAGMS, BALLOONS, SOCKS, OR UNDERWEAR?NO LATEX ALLERGY : HAVE YOU EVER DEVELOPED ANY TYPE OF REACTION DURING OR AFTER DENTAL APPOINTMENT, VAGINAL/RECTAL EXAMINATION, SURGICAL PROCEDURE, OR ANY OTHER EXPOSURE?NO DATE ASKED : 07/08/2018 LATEX RISK : HAVE YOU EVER HAD ANY DIFFICULTY BREATHING OR HIVES AFTER EATING OR HANDLING ANY FRUITS, OR VEGETABLES; SUCH KIWI, BANANAS, STONE FRUITS, OR CHESTNUTSNO LATEX RISK : DO YOU HAVE A PREVIOUS PERSONAL HISTORY OF MORE THAN NINE SURGERIES, SPINA BIFIDA, OR REPEATED CATHERTIZATIONS? NO LATEX RISK : ARE YOU FREQUENTLY EXPOSED TO LATEX PRODUCTS IN YOUR OCCUPATION?NO ALCOHOL SCREENING DID YOU HAVE A DRINK CONTAINING ALCOHOL IN THE PAST YEAR?YES HOW OFTEN DID YOU HAVE SIX OR MORE DRINKS ON ONE OCCASION IN THE PAST YEAR?NEVER (0 POINTS) HOW MANY DRINKS DID YOU HAVE ON A TYPICAL DAY WHEN YOU WERE DRINKING IN THE PAST YEAR?3 OR 4 (1 POINT) HOW OFTEN DID YOU HAVE A DRINK CONTAINING ALCOHOL IN THE PAST YEAR?MONTHLY OR LESS (1 POINT) POINTS2 INTERPRETATIONNEGATIVE RECREATIONAL DRUG USE DRUG USE?NO CAFFEINE CAFFEINE USE?YES 1 CUP COFFEE SEXUAL HX HAD SEX IN THE LAST 12 MONTHS (VAGINAL, ORAL, OR ANAL)?NO LMP:N/A HAVE YOU EVER HAD AN STD?YES OTHER?NO HERPES?YES SYPHILIS?NO GC?NO CHLAMYDIA?NO HIV / HEP-C SCREENING HIV TEST OFFERED TO PATIENT:YES DATE OFFERED:08/28/2016 TEST ACCEPTED:NO HEP-C TEST OFFERED TO PATIENT:YES DATE OFFERED:08/28/2016 REASON:PATIENT DECLINED TEST ACCEPTED:NO REASON:PATIENT DECLINED RESTORATIONISM [id number] CONFUCIANIST LANGUAGE LANGUAGES SPOKEN:SAMI EDUCATION LEVEL OF EDUCATION:NOT FINISHED COLLEGE LEARNING BARRIERS / SPECIAL NEEDS CHANGE FROM LAST VISIT?NO BARRIERS TO LEARNING?NO HEARING IMPAIRED?YES HAS NOTICED SOME HEARING LOSS VISION IMPAIRED?YES GLASSES FOR READING COGNITIVELY IMPAIRED?NO READINESS TO LEARN?YES LEARNING PREFERENCES?NO LEARNING CAPABILITIES PRESENT?YES EMOTIONAL BARRIERS?NO SPECIAL DEVICES?NO MARKET MASTER NEEDED?NO DOMESTIC VIOLENCE DO YOU FEEL SAFE IN YOUR ENVIRONMENT?YES OCCUPATION: RETIRED. DIET: REGULAR. EXERCISE: YOGA. MARITAL STATUS: . 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 PAIN CLINIC PFS, CLERGY, PUBLIC HEALTH REFERRALS PFS REFERRAL NEEDED?NO CLERGY REFERRAL NEEDED?NO PUBLIC HEALTH REFERRAL NEEDED?NO WAS THE PROVIDER NOTIFIED OF ANY PERTINENT INFO? N/A HAS THE PATIENT BEEN EDUCATED REGARDING HIS/HER PLAN OF CARE?YES HAS THE PATIENT BEEN EDUCATED REGARDING PAIN, THE RISK FOR PAIN, THE IMPORTANCE OF EFFECTIVE PAIN MANAGEMENT, AND THE PAIN ASSESSMENT PROCESS?YES ADVANCE DIRECTIVE ADVANCE DIRECTIVE DISCUSSED WITH PATIENT:YES PT. HAS HCP--, BRIGID [phone] 02/24/18 REVIEWED WITH PT. AD05/19/18 REVIEWED WITH PT. BRUNAEVIEWED WITH PATIENT 07/16/18 0941 JS. HOSPITALIZATION/MAJOR DIAGNOSTIC PROCEDURE RELATED TO SURGERIES LEUKOPENIA 01/17 REVIEW OF SYSTEMS REVIEWED BY: PROVIDER: ZANDRA MOREL . CONSTITUTIONAL: ANY CHANGE IN YOUR MEDICAL CONDITION? NO . CHILLS NO . FEVER NO . INFECTION: DO YOU HAVE NEW INFECTIONS? NO . DO YOU HAVE HISTORY OF MRSA? NO . MUSCULOSKELETAL: ANY NEW PATTERNS OF PAIN OR NUMBNESS? YES, STATES NEW PAIN TO RIGHT HIP . GASTROENTEROLOGY: ANY NEW CHANGE IN BOWEL CONTROL? NO . GENITOURINARY: ANY NEW CHANGE IN BLADDER CONTROL? NO . IS THERE A CHANCE YOU COULD BE ? NO . HEMATOLOGY/LYMPH: DO YOU TAKE ANY BLOOD THINNERS? (FOR EXAMPLE- COUMADIN, PLAVIX, AGGRENOX, PLATEL, PRADAXA, OR XARELTO) NO . WHEN WAS YOUR LAST DOSE? DATE: TIME: . NEUROLOGY: HAVE YOU FALLEN IN THE PAST 12 MONTHS? NO . ANY NEW EXTREMITY NUMBNESS OR WEAKNESS? NO . CARDIOLOGY: DO YOU HAVE A PACEMAKER OR DEFIBRILLATOR? NO . RESPIRATORY: HAVE YOU BEEN SICK IN THE PAST WEEK? NO . FEVER NO . FLU LIKE SYMPTOMS? NO . COUGH NO . INTEGUMENTARY: DO YOU HAVE ANY RASHES OR OPEN SORES? NO . ALLERGIC/IMMUNO: ARE YOU ALLERGIC TO IV DYE? NO . ANY NEW ALLERGIES? NO . PSYCHIATRIC: DO YOU HAVE THOUGHTS OF HURTING YOURSELF OR SOMEONE ELSE? NO . ARE YOU ABUSED, NEGLECTED, OR IN AN UNSAFE ENVIRONMENT? NO . ENDOCRINOLOGY: ARE YOU DIABETIC? NO . OTHER: DO YOU NEED ANY PRESCRIPTIONS? NO . IF YES, PLEASE LIST: ____ . ANY NEW PROBLEMS WITH YOUR MEDICATIONS? NO . WHEN DID YOU LAST EAT? ____ . WHEN DID YOU LAST DRINK? ____ . WHAT DID YOU LAST DRINK? ____ . NAME OF PERSON DRIVING YOU HOME? ____ . DO YOU HAVE ANY OTHER QUESTIONS OR CONCERNS YES, STATES SHE CONCERNED ABOUT NEW RIGHT HIP PAIN THAT STARTED ABOUT 2 WEEKS AGO. STATES IT IS INTERMITTENT BUT DOES WAKE HER AT NIGHT . VITAL SIGNS WT 161.8 LBS, HT 65.5 IN, BMI 26.51 INDEX, BP 131/71 MM HG, HR 94 /MIN, RR 18 /MIN, TEMP 97.8 F, OXYGEN SAT % 97%, SAFE IN ENV? (Y/N) YES, NA INITIALS SC 09:40, REVIEWED BY: STACIA. EXAMINATION GENERAL EXAMINATION: GENERAL APPEARANCE:AWAKE,ALERT ,PLEAASANT . PSYCHAFFECT NORMAL . LUNGS:LUNG WATSON ARE CLEAR TO AUSCULTATION BILATERALLY. GOOD MOVEMENT OF AIR . HEART:S1, S2 IN A REGULAR RATE AND RHYTHM. NO SIGNIFICANT MURMURS, RUBS OR GALLOPS NOTED . HIP / THIGH: HIP: RIGHT. INSPECTION: UNREMARKABLE. PALPATION: TENDERNESS OVER TROCHANTERIC BURSA. ASSESSMENTS TROCHANTERIC BURSITIS OF RIGHT HIP - M70.61 (PRIMARY) SPONDYLOSIS OF CERVICAL REGION WITHOUT MYELOPATHY OR RADICULOPATHY - M47.812 TREATMENT TROCHANTERIC BURSITIS OF RIGHT HIP GIANLUCA HIP COMPLETE (AP/LAT)[id number] NOTES: TAKE IBUPROFEN 800MG 3X DAILY W FOOD X 10DAYS. PROCEDURE CODES FA211 ESTABILISHED PATIENT [facility] CHARGE DISPOSITION & COMMUNICATION FOLLOW UP 6WKS ELECTRONICALLY SIGNED BY MARIA TERESA LITTLE ON 08/02/2018 AT 11:34 AM EDT DISCLAIMER : THIS IS A VISIT SUMMARY EXTRACTED FROM THE [employer] CHART. IT IS NOT A COPY OF THE [employer] PROGRESS NOTE. BARBARA
== END ==
LOC: M PAIN 09:15
PROVIDERS: ATTEND Nurse Practitioner Family
DX: M70.61 Trochanteric bursitis, right hip (principal); M47.812 Spondylosis without myelopathy or radiculopathy, cervical region; M79.7 Fibromyalgia; F32.9 Major depressive disorder, single episode, unspecified; F41.9 Anxiety disorder, unspecified; I67.9 Cerebrovascular disease, unspecified; E78.5 Hyperlipidemia, unspecified; Z79.899 Other long term (current) drug therapy; Z88.1 Allergy status to other antibiotic agents; Z88.2 Allergy status to sulfonamides; Z86.19 Personal history of other infectious and parasitic diseases; Z87.19 Personal history of other diseases of the digestive system; Z85.3 Personal history of malignant neoplasm of breast; Z92.21 Personal history of antineoplastic chemotherapy; Z92.3 Personal history of irradiation; Z93.2 Ileostomy status; Z87.891 Personal history of nicotine dependence

== ENCOUNTER → 2018-08-20 | Outpatient (REF) | payer MEDICARE, OTHER | LOC: M SFHCPLAZ 18:12 | PROVIDERS: ATTEND Dermatology | DX: L57.0 Actinic keratosis (principal) ==

== ENCOUNTER → 2018-09-03 | Outpatient (CLI) | payer MEDICARE, OTHER ==
--- NOTE | 2018-09-15 02:51 | ECWPNPC ---
PATIENT NAME: RENÉE SOARES : 1955 GENDER: FEMALE VISIT DATE: 09/03/2018 DISCHARGE DATE: 09/03/18 1022 VISIT LOCKED DATE TIME: PHYSICIAN: ZANDRA CHRISTIANSEN RESOURCE: ZANDRA CHRISTIANSEN REASON FOR APPOINTMENT 1. NECK HISTORY OF PRESENT ILLNESS HISTORY OF PRESENT ILLNESS: HERE FOR F/U OF CHRONIC NECK AND LBP.PAIN HAS FLARED UP IN LOW BACK AND NECK OVER THE PAST MONTH.RATING PAIN VAS 8/10.ASKING FOR INJECTIONS.CHIEF AREA OF PAIN IS LOW BACK W RADIATION INTO LEFT THIGH.REVIEWED MRI L/S SPINE AND DISCUSSED TREATMENT OPTIONS. PAIN THE PATIENT DESCRIBES THE PAIN... FALL RISK SCREENING: SCREENING :NO FALLS REPORTED IN THE LAST YEAR CURRENT MEDICATIONS TAKING AMBIEN 5 MG TABLET 1/2 TAB ORAL AT NIGHT TAKING GABAPENTIN 300 MG CAPSULE TAKE ONE TABLET BY MOUTH AT NIGHT FOR FIVE DAYS THEN TWICE A DAY FOR FIVE DAYS THEN ONE TABLET THREE TIMES A DAY. ORAL TID TAKING ONE DAILY FOR WOMEN - TABLET DIRECTED ORALLY TAKING LOPERAMIDE HCL 2 MG CAPSULE 2 TABS ORALLY TWICE DAILY NEEED TAKING VITAMIN D (CHOLECALCIFEROL) 1000 UNIT CAPSULE 1 CAPSULE ORALLY ONCE A DAY TAKING LISINOPRIL 10 MG TABLET 1 TABLET ORALLY ONCE A DAY TAKING DULOXETINE HCL 60 MG CAPSULE DELAYED RELEASE PARTICLES 1 CAPSULE ORALLY ONCE A DAY TDD=90 MG TAKING CYMBALTA 30 MG CAPSULE DELAYED RELEASE PARTICLES 1 CAPSULE ORALLY ONCE A DAY TAKING EFUDEX 5 % CREAM 1 APPLICATION TO AFFECTED AREA EXTERNALLY TWICE A DAY TO NOSE LESION X 2 WEEKS THEN STOP NOT-TAKING ANASTROZOLE 1 MG TABLET 1 TABLET ORALLY ONCE A DAY NOT-TAKING TAMIFLU 75 MG CAPSULE 1 CAPSULE ORALLY DAILY MEDICATION LIST REVIEWED AND RECONCILED WITH THE PATIENT PAST MEDICAL HISTORY C DIFF COLITIS- DR MEIER (NO LONGER FOLLOWS WITH DR. 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 S/P RESECTION DR CARUSO. CHEMOTHERAPY DR COWAN- COMPLETED 5/6 TREATMENTS. RAD RX PER DR ROMANO ONCOLOGY DR VANN CHRONIC COUGH- DR HUNT 01/17 DONAVAN 02/02/13 NML( FEV1 2.51 (90%)/FVC2.94(82%). PFTS/METHACHOLINE CHALLENGE UNREMARKABLE- NO PULM EXPLANATION FOR COUGH 09/18. COUGH RESOLVED WITH ADVAIR PER VANESA 01/18. PANCREATIC MASS 2.5 CM/PRIOR FNA ATYPICAL CELLS/SUBSEQUENT EUS MASS SMALLER/LAST CT WITH CONTRAST MASS NOT DETECTED- FOLLOWED BY DR MAYORGA- GASTRO SYR. FNA 11/18NEG PER PT CT A&P WITH CONTRAST NO ACUTE PATHOLOGY 05/21 BONE SCAN- OA/FIBROMYALGIA WITH CHRONIC PAIN-LYRICA- PER [facility] SYR- DR SAINI 07/19 DEPRESSION/ANXIETY- ALPHONSONOWIVANI LDL 95 04/20 PNEUMOVAX- 2013- [facility] PER PT. CT MAXILLOFACIAL 03/19-MILD MUCOSAL THICKENING MAXILLARY SINUSES CTD/CHRONIC PAIN- RHEUM SYR (NO LONGER FOLLOWS) ETT 04/21 [facility]- NEG ISCHEMIA KIDNEY STONE 2015 GALL STONES 2016 NEUROLOGY: DR. Milton BEE SMALL VESSEL ISCHEMIC DISEASE MILD ASTHMA- FOLLOWS WITH DR. ALEXIS CERVIAL DISC DISPLACEMENT , CERVICAL RADICULOPATHY MERMORY IMPAIRMENT LYMPHYDEMA AND DVT LEFT ARM POUCH ENDOSCOPY: 2018 DR. SALINAS-Q 2 YEARS; BIOPSY NEGATIVE DYSTHYMIA OTHER AND UNSPECIFIED HYPERLIPIDEMIA DEPRESSIVE DISORDER, NOT ELSEWHERE CLASSIFIED ILEOSTOMY STATUS ULCERATIVE (CHRONIC) PROCTITIS CHRONIC PAIN COUGH CHRONIC COUGH UNSPECIFIED DIFFUSE CONNECTIVE TISSUE DISEASE ALLERGIES SULFA (FOR ALLERGY USE ONLY): FLU LIKE SX'S - ALLERGY AMOXICILLIN: C DIFF - CONTRAINDICATION BACTRIM: ANAPHYLAXIS SURGICAL HISTORY TUBAL LIGATION HYSTERECTOMY WITH BILATERAL OOPHORECTOMY BREAST BIOPSY-LEFT SALPINGECTOMY FOR TUBAL COLONOSCOPY EGD DR MUKESH RODRIGUEZ [address] SALINAS [place] 04/18 ILEOSTOMY, 3 DIFFERENT OPERATIONS- 06/04/11 REANASTOMOSIS OF SMALL BOWEL. 01/[address] CARUSO 10/2012 LYMPH NODE REMOVAL FROM LEFT BREAST DR CARUSO 11/2012 ILEAL POUCH [id number] 01/26/15 RIGHT ESWL 06/08/15 POUCH ENDOSCOPY-DR. SALINAS, REPEAT 2 YEARS 01/2018 PRECANCEROUS LESION REMOVED FROM NOSE 08/2018 FAMILY HISTORY FATHER: 66 YRS, NV, HYPERTENSION, IDDM, KIDNEY STONES MOTHER: 86 YRS, MELANOMA, OF COLON CANCER 70'S SIBLINGS: 2 SISTERS-LUNG AND PANCREAS 70'S 5 BROTHER(S) , 3 SISTER(S) . 1 SON(S) , 1 DAUGHTER(S) - HEALTHY. BROTHER MVA, BROTHER NV @ LATE 40\\\\\\\\\\\\\\\'S, TOBACCO USE. DENIES FAMILY HX OF BREAST OR OVARIAN CANCER.DENIES FAMILY HX OF MELANOMA. SISTER HAD PANCREATIC CANCER. SOCIAL HISTORY GENERAL: TOBACCO USE ARE YOU A:FORMER SMOKER HOW LONG HAS IT BEEN SINCE YOU LAST SMOKED?> 10 YEARS HIV / HEP-C SCREENING HIV TEST OFFERED TO PATIENT:YES DATE OFFERED:08/28/2016 TEST ACCEPTED:NO HEP-C TEST OFFERED TO PATIENT:YES DATE OFFERED:08/28/2016 REASON:PATIENT DECLINED TEST ACCEPTED:NO REASON:PATIENT DECLINED OTHERS AT HOME: SPOUSE, DAUGHTER R DEVELOPER. EDUCATION LEVEL OF EDUCATION:NOT FINISHED COLLEGE DIET: REGULAR. LANGUAGE LANGUAGES SPOKEN:PORTUGUESE DOMESTIC VIOLENCE DO YOU FEEL SAFE IN YOUR ENVIRONMENT?YES RECREATIONAL DRUG USE DRUG USE?NO EXERCISE: YOGA. LEARNING BARRIERS / SPECIAL NEEDS CHANGE FROM LAST VISIT?NO BARRIERS TO LEARNING?NO HEARING IMPAIRED?YES HAS NOTICED SOME HEARING LOSS VISION IMPAIRED?YES GLASSES FOR READING COGNITIVELY IMPAIRED?NO READINESS TO LEARN?YES LEARNING PREFERENCES?NO LEARNING CAPABILITIES PRESENT?YES EMOTIONAL BARRIERS?NO SPECIAL DEVICES?NO CYCLE CONSULTANT NEEDED?NO PAIN CLINIC PFS, CLERGY, PUBLIC HEALTH REFERRALS PFS REFERRAL NEEDED?NO CLERGY REFERRAL NEEDED?NO PUBLIC HEALTH REFERRAL NEEDED?NO WAS THE PROVIDER NOTIFIED OF ANY PERTINENT INFO? N/A HAS THE PATIENT BEEN EDUCATED REGARDING HIS/HER PLAN OF CARE?YES HAS THE PATIENT BEEN EDUCATED REGARDING PAIN, THE RISK FOR PAIN, THE IMPORTANCE OF EFFECTIVE PAIN MANAGEMENT, AND THE PAIN ASSESSMENT PROCESS?YES LATEX QUESTIONNAIRE LATEX ALLERGY : HAVE YOU EVER DEVELOPED ANY TYPE OF REACTION AFTER HANDLING LATEX PRODUCTS SUCH RUBBER GLOVES, CONDOMS, DIAPHRAGMS, BALLOONS, SOCKS, OR UNDERWEAR?NO LATEX ALLERGY : HAVE YOU EVER DEVELOPED ANY TYPE OF REACTION DURING OR AFTER DENTAL APPOINTMENT, VAGINAL/RECTAL EXAMINATION, SURGICAL PROCEDURE, OR ANY OTHER EXPOSURE?NO DATE ASKED : 07/08/2018 LATEX RISK : HAVE YOU EVER HAD ANY DIFFICULTY BREATHING OR HIVES AFTER EATING OR HANDLING ANY FRUITS, OR VEGETABLES; SUCH KIWI, BANANAS, STONE FRUITS, OR CHESTNUTSNO LATEX RISK : DO YOU HAVE A PREVIOUS PERSONAL HISTORY OF MORE THAN NINE SURGERIES, SPINA BIFIDA, OR REPEATED CATHERTIZATIONS? NO LATEX RISK : ARE YOU FREQUENTLY EXPOSED TO LATEX PRODUCTS IN YOUR OCCUPATION?NO CAFFEINE CAFFEINE USE?YES 1 CUP COFFEE ADVANCE DIRECTIVE ADVANCE DIRECTIVE DISCUSSED WITH PATIENT:YES PT. 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 ALCOHOL SCREENING DID YOU HAVE A DRINK CONTAINING ALCOHOL IN THE PAST YEAR?YES HOW OFTEN DID YOU HAVE SIX OR MORE DRINKS ON ONE OCCASION IN THE PAST YEAR?NEVER (0 POINTS) HOW MANY DRINKS DID YOU HAVE ON A TYPICAL DAY WHEN YOU WERE DRINKING IN THE PAST YEAR?3 OR 4 (1 POINT) HOW OFTEN DID YOU HAVE A DRINK CONTAINING ALCOHOL IN THE PAST YEAR?MONTHLY OR LESS (1 POINT) POINTS2 INTERPRETATIONNEGATIVE OCCUPATION: RETIRED. SEXUAL HX HAD SEX IN THE LAST 12 MONTHS (VAGINAL, ORAL, OR ANAL)?NO LMP:N/A HAVE YOU EVER HAD AN STD?YES OTHER?NO HERPES?YES SYPHILIS?NO GC?NO CHLAMYDIA?NO 02/24/18 REVIEWED WITH PT. AD05/19/18 REVIEWED WITH PT. KRUNAL WITH PATIENT 07/16/18 0941 JS. HOSPITALIZATION/MAJOR DIAGNOSTIC PROCEDURE RELATED TO SURGERIES LEUKOPENIA 01/17 REVIEW OF SYSTEMS REVIEWED BY: PROVIDER: ZANDRA MOREL . CONSTITUTIONAL: ANY CHANGE IN YOUR MEDICAL CONDITION? YES, PRECANCEROUS LESION REMOVED FROM NOSE 08/2018 . CHILLS NO . FEVER NO . INFECTION: DO YOU HAVE NEW INFECTIONS? NO . DO YOU HAVE HISTORY OF MRSA? NO . MUSCULOSKELETAL: ANY NEW PATTERNS OF PAIN OR NUMBNESS? YES, BILAT HAND NUMBNESS . GASTROENTEROLOGY: ANY NEW CHANGE IN BOWEL CONTROL? YES, LEAKAGE UNEXPECTEDLY, S/P LARGE INTESINE REMOVED . GENITOURINARY: ANY NEW CHANGE IN BLADDER CONTROL? YES, URGENCY S/P LARGE BOWEL REMOVED. PT STATES SHE SAW OBGYN FOR THIS AND WAS TOLD HER BLADDER SINKING DOWN . IS THERE A CHANCE YOU COULD BE ? NO . HEMATOLOGY/LYMPH: DO YOU TAKE ANY BLOOD THINNERS? (FOR EXAMPLE- COUMADIN, PLAVIX, AGGRENOX, PLATEL, PRADAXA, OR XARELTO) NO . WHEN WAS YOUR LAST DOSE? DATE: TIME: . NEUROLOGY: HAVE YOU FALLEN IN THE PAST 12 MONTHS? NO . ANY NEW EXTREMITY NUMBNESS OR WEAKNESS? YES, BILAT HAND NUMBNESS, BILAT LEG WEAKNESS. PT C/O LEFT SCIATICA PAIN . CARDIOLOGY: DO YOU HAVE A PACEMAKER OR DEFIBRILLATOR? NO . RESPIRATORY: HAVE YOU BEEN SICK IN THE PAST WEEK? NO . FEVER NO . FLU LIKE SYMPTOMS? NO . COUGH NO . INTEGUMENTARY: DO YOU HAVE ANY RASHES OR OPEN SORES? YES, ON BUTTOCKS PT STATES FROM LEAKAGE . ALLERGIC/IMMUNO: ARE YOU ALLERGIC TO IV DYE? NO . ANY NEW ALLERGIES? NO . PSYCHIATRIC: DO YOU HAVE THOUGHTS OF HURTING YOURSELF OR SOMEONE ELSE? NO . ARE YOU ABUSED, NEGLECTED, OR IN AN UNSAFE ENVIRONMENT? NO . ENDOCRINOLOGY: ARE YOU DIABETIC? NO . OTHER: DO YOU NEED ANY PRESCRIPTIONS? NO . IF YES, PLEASE LIST: ____ . ANY NEW PROBLEMS WITH YOUR MEDICATIONS? NO . WHEN DID YOU LAST EAT? ____ . WHEN DID YOU LAST DRINK? ____ . WHAT DID YOU LAST DRINK? ____ . NAME OF PERSON DRIVING YOU HOME? ____ . DO YOU HAVE ANY OTHER QUESTIONS OR CONCERNS YES, RECEIVED SHINGLES 07/2018, WHY DO I HAVE SO MUCH PAIN WHEN I TAKE SO MUCH MEDICINE? . VITAL SIGNS WT 161 LBS, HT 65.5 IN, BMI 26.38 [place] [address] MM HG, HR 92 /MIN, RR 18 /MIN, TEMP 98.1 F, OXYGEN SAT % 98%, NA INITIALS AW 0931, REVIEWED BY: EM. EXAMINATION GENERAL EXAMINATION: LUNGS: LUNG SOUNDS ARE CLEAR . HEART: HEART RATE REGULAR . MUSCULOSKELETAL:*, MUSCLE STRENGTH TESTING 5/5 BILATERAL LOWER EXTREMITIES., ,PALPATION: POSITIVE FOR PAIN OVER L/S SPINE. POSITIVE FOR PAIN OVER L/S PARSPINALS.SPECIFIC POINT TENDERNESS OVER BILAT L4/5-L5/S1 LUMBR FACETS WITH FACET LOADING . DIAGNOSTIC TESTS REVIEWED MRI L/S SPINE-05/01/16. 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 PROCEDURE CODES FA211 ESTABILISHED PATIENT [facility] FAC[facility] CHARGE DISPOSITION & COMMUNICATION FOLLOW UP PUT ON CX LIST-F/U POST Melonie DE PAZ (REASON: BILAT L4/5-L5/S1 THERAPEUTIC BLOCK) ELECTRONICALLY SIGNED BY MARIA TERESA LITTLE ON 09/14/2018 AT 07:58 AM EDT DISCLAIMER : THIS IS A VISIT SUMMARY EXTRACTED FROM THE [employer] CHART. IT IS NOT A COPY OF THE [employer] PROGRESS NOTE. MTDD
== END ==
LOC: M PAIN 09:15
PROVIDERS: ATTEND Nurse Practitioner Family
DX: M43.07 Spondylolysis, lumbosacral region (principal); G89.29 Other chronic pain; Z86.19 Personal history of other infectious and parasitic diseases; M79.7 Fibromyalgia; Z86.59 Personal history of other mental and behavioral disorders; J45.909 Unspecified asthma, uncomplicated; Z87.891 Personal history of nicotine dependence; Z88.1 Allergy status to other antibiotic agents; Z88.2 Allergy status to sulfonamides; Z79.899 Other long term (current) drug therapy

== ENCOUNTER → 2018-09-09 | Outpatient (CLI) | payer MEDICARE, OTHER ==
--- NOTE | 2018-09-09 11:20 | RADONC ---
RADIATION THERAPY FOLLOWUP NOTE: DATE: 09/09/2018 CHART NUMBER: [id number] DIAGNOSIS: Left breast cancer. STAGE: II A, T1C N1a M0 ECOG PERFORMANCE STATUS: 0. Mrs. Nguyen is a very pleasant 63-year-old lady with a diagnosis of stage II A, T1c N1a M0 moderately differentiated invasive ductal carcinoma of the left breast who presents today for followup visit 5-1/2 years status post completion of her external adjuvant radiotherapy. She has no complaints referable to her disease or to her treatments. REVIEW OF SYSTEMS: She specifically denies any nausea, vomiting, coughing, sputum production or hemoptysis. Her energy level is excellent. She is able to maintain most day-to-day activities without any alteration of her lifestyle. She also denies fevers, chills, night sweats, diplopia, headaches, anxiety, depression, anorexia, weight loss, visual disturbances, chest pain, urinary or bowel difficulties, bone pain. But she does note a very transient occasional left breast sharp pain, which lasts only a few seconds and most likely represents healing. EXAMINATION FINDINGS: She is a well-developed, well-nourished female in no acute distress. HEENT: Normocephalic. EOMs intact. PERRLA. Fundi benign. LYMPHATICS: No palpable peripheral lymphadenopathy is appreciated. BREASTS EXAMINATION: Breasts are bilaterally symmetric with no dominant masses. LUNGS: Clear to auscultation and percussion. HEART: Regular without murmurs. ABDOMEN: Without evidence of hepatomegaly, masses, deep abdominal tenderness. EXTREMITIES: Without cyanosis, clubbing to edema. NEUROLOGIC: Examination grossly physiologic and nonfocal. IMPRESSION: No evidence of disease. Her most recent mammogram on 09/29/2017 showed no evidence of tumor recurrence. PLAN: We would like her to return on a p.r.n. basis and we have given her a prescription to obtain a bilateral screening mammography as a followup. It is also my understanding that she will reconnect with medical oncology with an appointment to see a physician in that department. Thank you for allowing us the opportunity of participation in the joint followup care of this lyndon lady. cc: MD Eros Canseco MD Joseph F. Wetterhahn, MD MTDD
== END ==
LOC: M ONCR 08:59
PROVIDERS: ATTEND Radiology Radiation Oncology
DX: C50.412 Malignant neoplasm of upper-outer quadrant of left female breast (principal)

== ENCOUNTER → 2018-10-02 | Outpatient (CLI) | payer MEDICARE, OTHER ==
--- NOTE | 2018-10-02 10:38 | REP ---
BILATERAL SCREENING DIGITAL MAMMOGRAM WITH 3D TOMOSYNTHESIS: There are no palpable abnormalities or other breast complaints. The the patient states she had a clinical breast examination in August 2018. The patient underwent a lumpectomy in the left breast for breast carcinoma in November 2012, followed by chemo radiation. The Tyrer Cuzick Score is: NA. Comparison is 09/21/2013. The The breasts are heterogeneously dense, which could obscure small masses. There is no dominant mass, micro calcific cluster or architectural distortion that would indicate malignancy. There is chronic postsurgical and postradiation deformity of the left breast, unchanged. There is chronic left breast skin thickening, likely postradiation change. There are no additional findings on 3D tomosynthesiss. There is no change from the prior study. Impression: BIRADS/ACR category 2 mammogram, benign findings. Recommendation: Routine annual screening mammography. This mammogram was interpreted with the aid of a FDA approved computer-aided detection system. A. Negative mammogram reports should not delay biopsy if a dominant or clinically suspicious mass is present. B. Not all breast cancers are identified by mammography or tomosynthesis. C. Adenosis and dense breasts may obscure an underlying neoplasm. Patient letter M1 dense breasts. Electronically Signed by Luis Felipe Bolaños MD 10/02/2018 10:29 A
== END ==
LOC: M RAD 09:28
PROVIDERS: ATTEND Internal Medicine Medical Oncology
DX: Z12.31 Encounter for screening mammogram for malignant neoplasm of breast (principal); Z86.018 Personal history of other benign neoplasm; Z92.21 Personal history of antineoplastic chemotherapy

== ENCOUNTER → 2018-11-10 | Outpatient (CLI) | payer MEDICARE, OTHER ==
[~2018-11-10] MED LIST changes: +BUPIVACAINE HCL 0.25% 30 ML VIAL As Ordered ONE; +CHOL100029 PO; +DIPH2.5T15 PO; -DULO1CAP2; -DULO1CAP3 PO; +DULO1CAP5; +DULO1CAP6 PO; +ISOVUE-M 200 41% 20ML VIAL (Q9966) As Ordered ONE; +LIDOCAINE 1% SDV INJ 30 ML VIAL As Ordered ONE; +ONDA-83 PO; -ONDA4TAB5 PO; +TRIAMCINOLONE ACETONIDE SUSP 40 MG/ML VIAL (J3301) As Ordered ONE; -VITAD1000T PO; +diazePAM 5 MG TAB As Ordered ONE; +oxyCODONE 5MG TAB As Ordered ONE
--- NOTE | 2018-11-11 07:32 | REP ---
C-ARM VIEWS, LOWER LUMBAR SPINE: CLINICAL HISTORY: Pain. Two C-ARM views are performed during injection by Dr. Becerra. Two needles are seen along the lower lumbar facets and contrast is injected. 34 seconds of fluoroscopy time is utilized. Electronically Signed by Luis Felipe Pena MD 11/12/2018 12:15 A
--- NOTE | 2018-11-18 01:17 | ECWPNPC ---
PATIENT NAME: RENÉE SOARES : 1955 GENDER: FEMALE VISIT DATE: 11/10/2018 DISCHARGE DATE: 11/10/18 1426 VISIT LOCKED DATE TIME: PHYSICIAN: REINA REED MD RESOURCE: REINA REED MD REASON FOR APPOINTMENT 1. BILAT L4/5-L5/S1 THERAPEUTIC BLOCK HISTORY OF PRESENT ILLNESS HISTORY OF PRESENT ILLNESS: PAIN THE PATIENT DESCRIBES THE PAIN... FALL RISK SCREENING: SCREENING :NO FALLS REPORTED IN THE LAST YEAR CURRENT MEDICATIONS TAKING GABAPENTIN 300 MG CAPSULE TAKE ONE TABLET BY MOUTH AT NIGHT FOR FIVE DAYS THEN TWICE A DAY FOR FIVE DAYS THEN ONE TABLET THREE TIMES A DAY. ORAL TID, NOTES: 11-10-18599 TAKING LOPERAMIDE HCL 2 MG CAPSULE 3 TABS ORALLY THREE DAILY NEEED, NOTES: 11-10-18599 TAKING VITAMIN D (CHOLECALCIFEROL) 1000 UNIT CAPSULE 1 CAPSULE ORALLY ONCE A DAY, NOTES: 11-09-182099 TAKING LISINOPRIL 10 MG TABLET 1 TABLET ORALLY ONCE A DAY, NOTES: 11-09-182099 TAKING DULOXETINE HCL 60 MG CAPSULE DELAYED RELEASE PARTICLES 1 CAPSULE ORALLY ONCE A DAY TDD=90 MG, NOTES: 11-10-18599 TAKING CYMBALTA 30 MG CAPSULE DELAYED RELEASE PARTICLES 1 CAPSULE ORALLY ONCE A DAY, NOTES: 11-09-182099 TAKING MELATONIN ER 10 MG TABLET EXTENDED RELEASE DIRECTED ORALLY , NOTES: 11-09-182099 TAKING VENLAFAXINE HCL 37.5 MG TABLET 1 TABLET WITH FOOD ORALLY ONCE A DAY, NOTES: 11-09-182099 TAKING IBUPROFEN 800 MG TABLET 1 TABLET WITH FOOD OR MILK NEEDED ORALLY TWO TIMES A DAY NEEDED, NOTES: 11-09-18899 TAKING PANTOTHENIC ACID 500 MG TABLET DIRECTED ORALLY DAILY, NOTES: 11-10-18599 NOT-TAKING AMBIEN 5 MG TABLET 1/2 TAB ORAL AT NIGHT NOT-TAKING ONE DAILY FOR WOMEN - TABLET DIRECTED ORALLY NOT-TAKING EFUDEX 5 % CREAM 1 APPLICATION TO AFFECTED AREA EXTERNALLY TWICE A DAY TO NOSE LESION X 2 WEEKS THEN STOP NOT-TAKING LISINOPRIL 10 MG TABLET TAKE 1 TABLET DAILY NOT-TAKING ANASTROZOLE 1 MG TABLET 1 TABLET ORALLY ONCE A DAY NOT-TAKING TAMIFLU 75 MG CAPSULE 1 CAPSULE ORALLY DAILY MEDICATION LIST REVIEWED AND RECONCILED WITH THE PATIENT PAST MEDICAL HISTORY C DIFF COLITIS- DR MEIER (NO LONGER FOLLOWS WITH DR. 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 S/P RESECTION DR CARUSO. CHEMOTHERAPY DR COWAN- COMPLETED 08/10 TREATMENTS. RAD RX PER DR ROMANO ONCOLOGY DR VANN CHRONIC COUGH- DR HUNT 01/17 DONAVAN 02/02/13 NML( FEV1 2.51 (90%)/FVC2.94(82%). PFTS/METHACHOLINE CHALLENGE UNREMARKABLE- NO PULM EXPLANATION FOR COUGH 09/18. COUGH RESOLVED WITH ADVAIR PER VANESA 01/18. PANCREATIC MASS 2.5 CM/PRIOR FNA ATYPICAL CELLS/SUBSEQUENT EUS MASS SMALLER/LAST CT WITH CONTRAST MASS NOT DETECTED- FOLLOWED BY DR MAYORGA- GASTRO SYR. FNA 11/18NEG PER PT CT A&P WITH CONTRAST NO ACUTE PATHOLOGY 05/21 BONE SCAN- OA/FIBROMYALGIA WITH CHRONIC PAIN-[place]- PER [facility] S[facility]- DR SAINI 07/19 DEPRESSION/ANXIETY- ALPHONSONOWIVANI LDL 95 04/20 PNEUMOVAX- 2013- [facility] PER PT. CT MAXILLOFACIAL 03/19-MILD MUCOSAL THICKENING MAXILLARY SINUSES CTD/CHRONIC PAIN- RHEUM SYR (NO LONGER FOLLOWS) ETT 04/21 [facility]- NEG ISCHEMIA KIDNEY STONE 2016 GALL STONES 2016 NEUROLOGY: DR. Milton BEE SMALL VESSEL ISCHEMIC DISEASE MILD ASTHMA- FOLLOWS WITH DR. ALEXIS CERVIAL DISC DISPLACEMENT , CERVICAL RADICULOPATHY MERMORY IMPAIRMENT LYMPHYDEMA AND DVT LEFT ARM POUCH ENDOSCOPY: 2018 DR. SALINAS-Q 2 YEARS; BIOPSY NEGATIVE DYSTHYMIA OTHER AND UNSPECIFIED HYPERLIPIDEMIA DEPRESSIVE DISORDER, NOT ELSEWHERE CLASSIFIED ILEOSTOMY STATUS ULCERATIVE (CHRONIC) PROCTITIS CHRONIC PAIN COUGH CHRONIC COUGH UNSPECIFIED DIFFUSE CONNECTIVE TISSUE DISEASE ALLERGIES SULFA (FOR ALLERGY USE ONLY): FLU LIKE SX'S - ALLERGY AMOXICILLIN: C DIFF - CONTRAINDICATION BACTRIM: ANAPHYLAXIS SURGICAL HISTORY TUBAL LIGATION HYSTERECTOMY WITH BILATERAL OOPHORECTOMY BREAST BIOPSY-LEFT SALPINGECTOMY FOR TUBAL COLONOSCOPY EGD DR MUKESH RODRIGUEZ [address] RITA TUTTLE 04/18 ILEOSTOMY, 3 DIFFERENT OPERATIONS- 06/04/11 REANASTOMOSIS OF SMALL BOWEL. 01/[address] CARUSO 10/2012 LYMPH NODE REMOVAL FROM LEFT BREAST DR CARUSO 11/2012 ILEAL POUCH [id number] 01/26/15 RIGHT ESWL 06/08/15 POUCH ENDOSCOPY-DR. SALINAS, REPEAT 2 YEARS 01/2018 PRECANCEROUS LESION REMOVED FROM NOSE 08/2018 FAMILY HISTORY FATHER: 66 YRS, [place], HYPERTENSION, IDDM, KIDNEY STONES MOTHER: 86 YRS, MELANOMA, OF COLON CANCER 70'S SIBLINGS: 2 SISTERS-LUNG AND PANCREAS 70'S 5 BROTHER(S) , 3 SISTER(S) . 1 SON(S) , 1 DAUGHTER(S) - HEALTHY. BROTHER MVA, BROTHER [place] @ LATE 40\\\\\\\\\\\\\\\'S, TOBACCO USE. DENIES FAMILY HX OF BREAST OR OVARIAN CANCER.DENIES FAMILY HX OF MELANOMA. SISTER HAD PANCREATIC CANCER. SOCIAL HISTORY GENERAL: TOBACCO USE ARE YOU A:FORMER SMOKER HOW LONG HAS IT BEEN SINCE YOU LAST SMOKED?> 10 YEARS HIV / HEP-C SCREENING HIV TEST OFFERED TO PATIENT:YES DATE OFFERED:08/28/2016 TEST ACCEPTED:NO HEP-C TEST OFFERED TO PATIENT:YES DATE OFFERED:08/28/2016 REASON:PATIENT DECLINED TEST ACCEPTED:NO REASON:PATIENT DECLINED OTHERS AT HOME: SPOUSE, DAUGHTER CHARGE MANAGER. EDUCATION LEVEL OF EDUCATION:NOT FINISHED COLLEGE DIET: REGULAR. LANGUAGE LANGUAGES SPOKEN:KYRGYZ DOMESTIC VIOLENCE DO YOU FEEL SAFE IN YOUR ENVIRONMENT?YES RECREATIONAL DRUG USE DRUG USE?NO EXERCISE: YOGA. LEARNING BARRIERS / SPECIAL NEEDS CHANGE FROM LAST VISIT?NO BARRIERS TO LEARNING?NO HEARING IMPAIRED?YES HAS NOTICED SOME HEARING LOSS VISION IMPAIRED?YES GLASSES FOR READING COGNITIVELY IMPAIRED?NO READINESS TO LEARN?YES LEARNING PREFERENCES?NO LEARNING CAPABILITIES PRESENT?YES EMOTIONAL BARRIERS?NO SPECIAL DEVICES?NO RETAIL CASHIER NEEDED?NO PAIN CLINIC PFS, CLERGY, PUBLIC HEALTH REFERRALS PFS REFERRAL NEEDED?NO CLERGY REFERRAL NEEDED?NO PUBLIC HEALTH REFERRAL NEEDED?NO WAS THE PROVIDER NOTIFIED OF ANY PERTINENT INFO? N/A HAS THE PATIENT BEEN EDUCATED REGARDING HIS/HER PLAN OF CARE?YES HAS THE PATIENT BEEN EDUCATED REGARDING PAIN, THE RISK FOR PAIN, THE IMPORTANCE OF EFFECTIVE PAIN MANAGEMENT, AND THE PAIN ASSESSMENT PROCESS?YES LATEX QUESTIONNAIRE LATEX ALLERGY : HAVE YOU EVER DEVELOPED ANY TYPE OF REACTION AFTER HANDLING LATEX PRODUCTS SUCH RUBBER GLOVES, CONDOMS, DIAPHRAGMS, BALLOONS, SOCKS, OR UNDERWEAR?NO LATEX ALLERGY : HAVE YOU EVER DEVELOPED ANY TYPE OF REACTION DURING OR AFTER DENTAL APPOINTMENT, VAGINAL/RECTAL EXAMINATION, SURGICAL PROCEDURE, OR ANY OTHER EXPOSURE?NO DATE ASKED : 07/08/2018 LATEX RISK : HAVE YOU EVER HAD ANY DIFFICULTY BREATHING OR HIVES AFTER EATING OR HANDLING ANY FRUITS, OR VEGETABLES; SUCH KIWI, BANANAS, STONE FRUITS, OR CHESTNUTSNO LATEX RISK : DO YOU HAVE A PREVIOUS PERSONAL HISTORY OF MORE THAN NINE SURGERIES, SPINA BIFIDA, OR REPEATED CATHERIZATIONS? NO LATEX RISK : ARE YOU FREQUENTLY EXPOSED TO LATEX PRODUCTS IN YOUR OCCUPATION?NO CAFFEINE CAFFEINE USE?NO ADVANCE DIRECTIVE ADVANCE DIRECTIVE DISCUSSED WITH PATIENT:YES PT. HAS HCP--, BRIGID [phone] RESTORATIONISM [id number] RESTORATION MARITAL STATUS: . ALCOHOL SCREENING DID YOU HAVE A DRINK CONTAINING ALCOHOL IN THE PAST YEAR?YES HOW OFTEN DID YOU HAVE SIX OR MORE DRINKS ON ONE OCCASION IN THE PAST YEAR?NEVER (0 POINTS) HOW MANY DRINKS DID YOU HAVE ON A TYPICAL DAY WHEN YOU WERE DRINKING IN THE PAST YEAR?3 OR 4 (1 POINT) HOW OFTEN DID YOU HAVE A DRINK CONTAINING ALCOHOL IN THE PAST YEAR?MONTHLY OR LESS (1 POINT) POINTS2 INTERPRETATIONNEGATIVE OCCUPATION: RETIRED. SEXUAL HX HAD SEX IN THE LAST 12 MONTHS (VAGINAL, ORAL, OR ANAL)?NO LMP:N/A HAVE YOU EVER HAD AN STD?YES OTHER?NO HERPES?YES SYPHILIS?NO GC?NO CHLAMYDIA?NO 02/24/18 REVIEWED WITH PT. AD05/19/18 REVIEWED WITH PTRandee HECTOR WITH PATIENT 07/16/18 0941 JS. HOSPITALIZATION/MAJOR DIAGNOSTIC PROCEDURE RELATED TO SURGERIES LEUKOPENIA 01/17 REVIEW OF SYSTEMS REVIEWED BY: PROVIDER: . CONSTITUTIONAL: ANY CHANGE IN YOUR MEDICAL CONDITION? NO . CHILLS NO . FEVER NO . INFECTION: DO YOU HAVE NEW INFECTIONS? NO . DO YOU HAVE HISTORY OF MRSA? NO . MUSCULOSKELETAL: ANY NEW PATTERNS OF PAIN OR NUMBNESS? YES - BOTH ARMS . GASTROENTEROLOGY: ANY NEW CHANGE IN BOWEL CONTROL? YES - INCREASED FREQUENCY. REPORTED TO DR. REED. . GENITOURINARY: ANY NEW CHANGE IN BLADDER CONTROL? YES - INCREASED URGENCY. REPORTED TO DR. REED. . IS THERE A CHANCE YOU COULD BE ? NO . HEMATOLOGY/LYMPH: DO YOU TAKE ANY BLOOD THINNERS? (FOR EXAMPLE- COUMADIN, PLAVIX, AGGRENOX, PLATEL, PRADAXA, OR XARELTO) NO . WHEN WAS YOUR LAST DOSE? DATE: TIME: . NEUROLOGY: HAVE YOU FALLEN IN THE PAST 12 MONTHS? NO . ANY NEW EXTREMITY NUMBNESS OR WEAKNESS? YES - BILATERAL ARM NUMBNESS. REPORTED TO DR. REED. . CARDIOLOGY: DO YOU HAVE A PACEMAKER OR DEFIBRILLATOR? NO . RESPIRATORY: HAVE YOU BEEN SICK IN THE PAST WEEK? NO . FEVER NO . FLU LIKE SYMPTOMS? NO . COUGH NO . INTEGUMENTARY: DO YOU HAVE ANY RASHES OR OPEN SORES? YES - PERIANAL AREA REDDENED. REPORTED TO DR. REED. . ALLERGIC/IMMUNO: ARE YOU ALLERGIC TO IV DYE? NO . ANY NEW ALLERGIES? NO. HAD SECOND SHINGLES VACCINE EARLY OCTOBER. WANTS TO HAVE PROCEDURE TODAY. . PSYCHIATRIC: DO YOU HAVE THOUGHTS OF HURTING YOURSELF OR SOMEONE ELSE? NO . ARE YOU ABUSED, NEGLECTED, OR IN AN UNSAFE ENVIRONMENT? NO . ENDOCRINOLOGY: ARE YOU DIABETIC? NO . OTHER: DO YOU NEED ANY PRESCRIPTIONS? NO . IF YES, PLEASE LIST: ____ . ANY NEW PROBLEMS WITH YOUR MEDICATIONS? NO . WHEN DID YOU LAST EAT? 11-09-181999 . WHEN DID YOU LAST DRINK? 11-10-181044 . WHAT DID YOU LAST DRINK? WATER . NAME OF PERSON DRIVING YOU HOME? DAUGHTER . DO YOU HAVE ANY OTHER QUESTIONS OR CONCERNS NO . VITAL SIGNS WT 158 LBS, HT 65.5 IN, BMI 25.89 INDEX, BP 112/62 MM HG, HR 94 /MIN, RR 18 /MIN, TEMP 96.0 F, OXYGEN SAT % 97%, NA INITIALS SC 11:25, REVIEWED BY: LS. ASSESSMENTS SPONDYLOSIS OF LUMBAR REGION WITHOUT MYELOPATHY OR RADICULOPATHY - M47.816 (PRIMARY) SPONDYLOSIS OF LUMBOSACRAL REGION WITHOUT MYELOPATHY OR RADICULOPATHY - M47.817 PROCEDURES PN LUMBAR FACET BLOCK THERAPEUTIC PRE PROCEDURE DIAGNOSIS LUMBAR SPONDYLOSIS, LUMBOSACRAL SPONDYLOSIS POST PROCEDURE DIAGNOSIS LUMBAR SPONDYLOSIS, LUMBOSACRAL SPONDYLOSIS PROCEDURE BILATERAL L4-L5 AND BILATERAL L5-S1 LUMBAR FACET THERAPEUTIC BLOCK SURGEON DR. REINA REED HIGHWAY CONSTRUCTION INSPECTOR NONE ANESTHESIA LOCAL PRE PROCEDURE NOTE THE PATIENT HAS A HISTORY OF CHRONIC LOW BACK PAIN. I EVALUATE THE PATIENT AND REVIEWED THE CHART. I WENT OVER THE RISKS, ALTERNATIVES, AND BENEFITS ASSOCIATED WITH THIS PROCEDURE. THE PATIENT WOULD LIKE TO PROCEED AND GIVE CONSENT TO PERFORMED THE PROCEDURE. THE PATIENT DENIES UNEXPLAINABLE WEIGHT LOSS, FEVER, CHILLS, OR NEW CHANGES IN URINARY OR BOWEL CONTROL DESCRIPTION OF PROCEDURE THE PATIENT WAS BROUGHT TO THE PROCEDURE ROOM AND PLACED IN THE PRONE POSITION. THE LUMBOSACRAL AREA WAS CLEANED WITH CHLORAPREP SOLUTION AND DRAPED ASEPTICALLY. THE PROCEDURE WAS DONE UNDER STERILE CONDITIONS. I CHECKED LATERALITY AND THE LEVEL WHERE THE PROCEDURE WAS GOING TO BE PERFORMED WITH THE PATIENT AND THE SUPPORTING STAFF AT THE MOMENT OF THE TIME OUT IN THE PROCEDURE ROOM. UNDER FLUOROSCOPIC GUIDANCE, THE TARGET POINT WAS SELECTED AT THE RIGHT AND LEFT L4-L5 AND RIGHT AND LEFT L5-S1 FACET JOINT. TARGET POINT WAS SELECTED AFTER LATERAL ROTATION AND TILT OF THE MAGNIFIER OF THE C-ARM. LIDOCAINE 0.5% WAS USED TO NUMB THE SKIN AND THE SUBCUTANEOUS TISSUE BELOW IT. SPINAL NEEDLES, 22-GAUGE, WERE ADVANCED UNDER FLUOROSCOPIC GUIDANCE AND FOLLOWING PATIENT FEEDBACK UNTIL THE TARGETS WERE TOUCHED. THE POSITION OF THE NEEDLES WAS VERIFIED WITH AP AND LATERAL VIEWS. AFTER PROPER POSITION OF THE NEEDLES WAS ACHIEVED, ISOVUE M-200 DYE WAS INJECTED SHOWING ADEQUATE SPREAD OF THE DYE. THEN A SOLUTION OF 1.9 ML OF BUPIVACAINE 0.125% OF KENALOG 10 MG WAS INJECTED AT EACH SITE. THERE WAS NO EVIDENCE OF BLOOD, PARESTHESIA OR CEREBROSPINAL FLUID DURING THE PROCEDURE. THE PATIENT WAS SENT TO THE RECOVERY ROOM. THE PATIENT WAS MOVING THE EXTREMITIES AND DOING WELL. THERE WAS NO COMPLICATION DURING THE PROCEDURE. FLUOROSCOPY TIME WAS 34 SECONDS POST PROCEDURE NOTE THE PATIENT WILL BE SEEN IN A FOLLOW UP IN THE NEXT FEW WEEKS. INSTRUCTIONS WERE GIVEN, QUESTIONS WERE ANSWERED, AND THE PATIENT EXPRESSED UNDERSTANDING AND AGREES WITH THE PLAN. I, MYRANDA LISA, DOCUMENTED THE ABOVE INFORMATION ACTING A SCRIBE FOR DR. REED. I HAVE REVIEWED THE ABOVE DOCUMENT, WRITTEN BY MYRANDA LISA SCRIBVeronica AND I VERIFY THAT IT IS ACCURATE. DIAGNOSTIC IMAGING [facility] FACET BLOCK (PAIN)[id number] PROCEDURE CODES 6045F RADXPS IN END [id number] PXD [id number] INJ PARAVERT F JNT L/S 1 LEV, MODIFIERS: 50 [id number] INJ PARAVERT F JNT L/S 2 LEV, MODIFIERS: 50 DISPOSITION & COMMUNICATION FOLLOW UP 3 WEEKS ELECTRONICALLY SIGNED BY REINA REED MD, MD ON 11/17/2018 AT 01:48 PM EDT DISCLAIMER : THIS IS A VISIT SUMMARY EXTRACTED FROM THE [employer] CHART. IT IS NOT A COPY OF THE [employer] PROGRESS NOTE. MYRAD
== END ==
LOC: M PAIN 11:15
PROVIDERS: ATTEND Anesthesiology
DX: M47.816 Spondylosis without myelopathy or radiculopathy, lumbar region (principal); M47.817 Spondylosis without myelopathy or radiculopathy, lumbosacral region; K51.90 Ulcerative colitis, unspecified, without complications; Z85.3 Personal history of malignant neoplasm of breast; Z92.21 Personal history of antineoplastic chemotherapy; Z92.3 Personal history of irradiation; R05 Cough; M79.7 Fibromyalgia; F32.9 Major depressive disorder, single episode, unspecified; F41.9 Anxiety disorder, unspecified; J45.909 Unspecified asthma, uncomplicated; M50.20 Other cervical disc displacement, unspecified cervical region; F34.1 Dysthymic disorder; E78.5 Hyperlipidemia, unspecified; Z87.442 Personal history of urinary calculi; Z93.2 Ileostomy status; Z90.49 Acquired absence of other specified parts of digestive tract; Z90.710 Acquired absence of both cervix and uterus; Z87.891 Personal history of nicotine dependence; Z88.2 Allergy status to sulfonamides; Z88.0 Allergy status to penicillin; Z79.899 Other long term (current) drug therapy
CPT/HCPCS: 64493; 64494; J3301; Q9966

== ENCOUNTER → 2018-11-25 | Outpatient (CLI) | payer MEDICARE, OTHER ==
[~2018-11-25] MED LIST changes: -BUPIVACAINE HCL 0.25% 30 ML VIAL As Ordered ONE; -CHOL100029 PO; -DIPH2.5T15 PO; -ISOVUE-M 200 41% 20ML VIAL (Q9966) As Ordered ONE; -LIDOCAINE 1% SDV INJ 30 ML VIAL As Ordered ONE; -ONDA-83 PO; +ONDA4TAB5 PO; -TRIAMCINOLONE ACETONIDE SUSP 40 MG/ML VIAL (J3301) As Ordered ONE; +VITAD1000T PO; -diazePAM 5 MG TAB As Ordered ONE; -oxyCODONE 5MG TAB As Ordered ONE
--- NOTE | 2018-11-27 01:56 | ECWPNPC ---
PATIENT NAME: RENÉE SOARES : 1955 GENDER: FEMALE VISIT DATE: 11/25/2018 DISCHARGE DATE: 11/25/18 1112 VISIT LOCKED DATE TIME: PHYSICIAN: ISHA BENNETT RESOURCE: ISHA BENNETT REASON FOR APPOINTMENT 1. POST PROC HISTORY OF PRESENT ILLNESS HISTORY OF PRESENT ILLNESS: PAIN THE PATIENT DESCRIBES THE PAIN... 63 YEAR OLD FEMALE IN FOR POST FACET BLOCK FOLLOW UP. PRIOR TO THE PROCEDURE SHE WOULD RATE HER PAIN AT A 10/10 AND AFTER IT WENT DOWN TO A 0/10. SHE RATES HER PAIN AT A 2/10 CURRENTLY AND DESCRIBES IT ACHING. FALL RISK SCREENING: SCREENING :NO FALLS REPORTED IN THE LAST YEAR CURRENT MEDICATIONS TAKING GABAPENTIN 300 MG CAPSULE TAKE ONE TABLET BY MOUTH AT NIGHT FOR FIVE DAYS THEN TWICE A DAY FOR FIVE DAYS THEN ONE TABLET THREE TIMES A DAY. ORAL TID TAKING LOPERAMIDE HCL 2 MG CAPSULE 3 TABS ORALLY THREE DAILY NEEED TAKING VITAMIN D (CHOLECALCIFEROL) 1000 UNIT CAPSULE 1 CAPSULE ORALLY ONCE A DAY TAKING LISINOPRIL 10 MG TABLET 1 TABLET ORALLY ONCE A DAY TAKING DULOXETINE HCL 60 MG CAPSULE DELAYED RELEASE PARTICLES 1 CAPSULE ORALLY ONCE A DAY TDD=90 MG TAKING CYMBALTA 30 MG CAPSULE DELAYED RELEASE PARTICLES 1 CAPSULE ORALLY ONCE A DAY TAKING MELATONIN ER 10 MG TABLET EXTENDED RELEASE DIRECTED ORALLY TAKING VENLAFAXINE HCL 37.5 MG TABLET 1 TABLET WITH FOOD ORALLY ONCE A DAY TAKING IBUPROFEN 800 MG TABLET 1 TABLET WITH FOOD OR MILK NEEDED ORALLY TWO TIMES A DAY NEEDED TAKING PANTOTHENIC ACID 500 MG TABLET DIRECTED ORALLY DAILY NOT-TAKING AMBIEN 5 MG TABLET 1/2 TAB ORAL AT NIGHT NOT-TAKING ONE DAILY FOR WOMEN - TABLET DIRECTED ORALLY NOT-TAKING EFUDEX 5 % CREAM 1 APPLICATION TO AFFECTED AREA EXTERNALLY TWICE A DAY TO NOSE LESION X 2 WEEKS THEN STOP NOT-TAKING LISINOPRIL 10 MG TABLET TAKE 1 TABLET DAILY NOT-TAKING ANASTROZOLE 1 MG TABLET 1 TABLET ORALLY ONCE A DAY NOT-TAKING TAMIFLU 75 MG CAPSULE 1 CAPSULE ORALLY DAILY MEDICATION LIST REVIEWED AND RECONCILED WITH THE PATIENT PAST MEDICAL HISTORY C DIFF COLITIS- DR MEIER (NO LONGER FOLLOWS WITH DR. 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 S/P RESECTION DR CARUSO. CHEMOTHERAPY DR COWAN- COMPLETED 5 TREATMENTS. RAD RX PER DR ROMANO ONCOLOGY DR VANN CHRONIC COUGH- DR HUNT 01/17 DONAVAN 02/02/13 NML( FEV1 2.51 (90%)/FVC2.94(82%). PFTS/METHACHOLINE CHALLENGE UNREMARKABLE- NO PULM EXPLANATION FOR COUGH 09/18. COUGH RESOLVED WITH ADVAIR PER VANESA 01/18. PANCREATIC MASS 2.5 CM/PRIOR FNA ATYPICAL CELLS/SUBSEQUENT EUS MASS SMALLER/LAST CT WITH CONTRAST MASS NOT DETECTED- FOLLOWED BY DR MAYORGA- GASTRO SYR. FNA 11/18NEG PER PT CT A&P WITH CONTRAST NO ACUTE PATHOLOGY 05/21 BONE SCAN- OA/FIBROMYALGIA WITH CHRONIC PAIN-[place]- PER [facility]- DR SAINI 07/19 DEPRESSION/ANXIETY- ONESIMO LDL 95 04/20 PNEUMOVAX- 2012- [facility] PER PT. CT MAXILLOFACIAL 03/19-MILD MUCOSAL THICKENING MAXILLARY SINUSES CTD/CHRONIC PAIN- RHEUM SYR (NO LONGER FOLLOWS) ETT 04/21 [facility]- NEG ISCHEMIA KIDNEY STONE 2016 GALL STONES 2016 NEUROLOGY: DR. Milton BEE SMALL VESSEL ISCHEMIC DISEASE MILD ASTHMA- FOLLOWS WITH DR. ALEXIS CERVIAL DISC DISPLACEMENT , CERVICAL RADICULOPATHY MERMORY IMPAIRMENT LYMPHYDEMA AND DVT LEFT ARM POUCH ENDOSCOPY: 2018 DR. SALINAS-Q 2 YEARS; BIOPSY NEGATIVE DYSTHYMIA OTHER AND UNSPECIFIED HYPERLIPIDEMIA DEPRESSIVE DISORDER, NOT ELSEWHERE CLASSIFIED ILEOSTOMY STATUS ULCERATIVE (CHRONIC) PROCTITIS CHRONIC PAIN COUGH CHRONIC COUGH UNSPECIFIED DIFFUSE CONNECTIVE TISSUE DISEASE ALLERGIES SULFA (FOR ALLERGY USE ONLY): FLU LIKE SX'S - ALLERGY AMOXICILLIN: C DIFF - CONTRAINDICATION BACTRIM: ANAPHYLAXIS SURGICAL HISTORY TUBAL LIGATION HYSTERECTOMY WITH BILATERAL OOPHORECTOMY BREAST BIOPSY-LEFT SALPINGECTOMY FOR TUBAL COLONOSCOPY EGD DR MUKESH RODRIGUEZ [address] SALINAS DILLEY 04/18 ILEOSTOMY, 3 DIFFERENT OPERATIONS- 06/04/11 REANASTOMOSIS OF SMALL BOWEL. 01/[address] CARUSO 10/2012 LYMPH NODE REMOVAL FROM LEFT BREAST DR CARUSO 11/2012 ILEAL POUCH [id number] 01/26/15 RIGHT ESWL 06/08/15 POUCH ENDOSCOPY-DR. SALINAS, REPEAT 2 YEARS 01/2018 PRECANCEROUS LESION REMOVED FROM NOSE 08/2018 FAMILY HISTORY FATHER: 66 YRS, [place], HYPERTENSION, IDDM, KIDNEY STONES MOTHER: 86 YRS, MELANOMA, OF COLON CANCER 70'S SIBLINGS: 2 SISTERS-LUNG AND PANCREAS 70'S 5 BROTHER(S) , 3 SISTER(S) . 1 SON(S) , 1 DAUGHTER(S) - HEALTHY. BROTHER MVA, BROTHER [place] @ LATE 40\\\\\\\\\\\\\\\'S, TOBACCO USE. DENIES FAMILY HX OF BREAST OR OVARIAN CANCER.DENIES FAMILY HX OF MELANOMA. SISTER HAD PANCREATIC CANCER. 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 EDUCATION LEVEL OF EDUCATION:NOT FINISHED COLLEGE DIET: REGULAR. LANGUAGE LANGUAGES SPOKEN:BRITISH DOMESTIC VIOLENCE DO YOU FEEL SAFE IN YOUR ENVIRONMENT?YES RECREATIONAL DRUG USE DRUG USE?NO EXERCISE: YOGA. LEARNING BARRIERS / SPECIAL NEEDS CHANGE FROM LAST VISIT?NO BARRIERS TO LEARNING?NO HEARING IMPAIRED?YES HAS NOTICED SOME HEARING LOSS VISION IMPAIRED?YES GLASSES FOR READING COGNITIVELY IMPAIRED?NO READINESS TO LEARN?YES LEARNING PREFERENCES?NO LEARNING CAPABILITIES PRESENT?YES EMOTIONAL BARRIERS?NO SPECIAL DEVICES?NO STAFF DEVELOPER NEEDED?NO PAIN CLINIC PFS, CLERGY, PUBLIC HEALTH REFERRALS PFS REFERRAL NEEDED?NO CLERGY REFERRAL NEEDED?NO PUBLIC HEALTH REFERRAL NEEDED?NO WAS THE PROVIDER NOTIFIED OF ANY PERTINENT INFO? N/A HAS THE PATIENT BEEN EDUCATED REGARDING HIS/HER PLAN OF CARE?YES HAS THE PATIENT BEEN EDUCATED REGARDING PAIN, THE RISK FOR PAIN, THE IMPORTANCE OF EFFECTIVE PAIN MANAGEMENT, AND THE PAIN ASSESSMENT PROCESS?YES LATEX QUESTIONNAIRE LATEX ALLERGY : HAVE YOU EVER DEVELOPED ANY TYPE OF REACTION AFTER HANDLING LATEX PRODUCTS SUCH RUBBER GLOVES, CONDOMS, DIAPHRAGMS, BALLOONS, SOCKS, OR UNDERWEAR?NO LATEX ALLERGY : HAVE YOU EVER DEVELOPED ANY TYPE OF REACTION DURING OR AFTER DENTAL APPOINTMENT, VAGINAL/RECTAL EXAMINATION, SURGICAL PROCEDURE, OR ANY OTHER EXPOSURE?NO DATE ASKED : 07/08/2018 LATEX RISK : HAVE YOU EVER HAD ANY DIFFICULTY BREATHING OR HIVES AFTER EATING OR HANDLING ANY FRUITS, OR VEGETABLES; SUCH KIWI, BANANAS, STONE FRUITS, OR CHESTNUTSNO LATEX RISK : DO YOU HAVE A PREVIOUS PERSONAL HISTORY OF MORE THAN NINE SURGERIES, SPINA BIFIDA, OR REPEATED CATHERIZATIONS? NO LATEX RISK : ARE YOU FREQUENTLY EXPOSED TO LATEX PRODUCTS IN YOUR OCCUPATION?NO CAFFEINE CAFFEINE USE?NO ADVANCE DIRECTIVE ADVANCE DIRECTIVE DISCUSSED WITH PATIENT:YES PT. HAS HCP--, BRIGID [phone] MANDAEN [id number] CHRISTIAN MARITAL STATUS: . ALCOHOL SCREENING DID YOU HAVE A DRINK CONTAINING ALCOHOL IN THE PAST YEAR?YES HOW OFTEN DID YOU HAVE SIX OR MORE DRINKS ON ONE OCCASION IN THE PAST YEAR?NEVER (0 POINTS) HOW MANY DRINKS DID YOU HAVE ON A TYPICAL DAY WHEN YOU WERE DRINKING IN THE PAST YEAR?3 OR 4 (1 POINT) HOW OFTEN DID YOU HAVE A DRINK CONTAINING ALCOHOL IN THE PAST YEAR?MONTHLY OR LESS (1 POINT) POINTS2 INTERPRETATIONNEGATIVE OCCUPATION: RETIRED. SEXUAL HX HAD SEX IN THE LAST 12 MONTHS (VAGINAL, ORAL, OR ANAL)?NO LMP:N/A HAVE YOU EVER HAD AN STD?YES OTHER?NO HERPES?YES SYPHILIS?NO GC?NO CHLAMYDIA?NO 02/24/18 REVIEWED WITH PT. AD05/19/18 REVIEWED WITH PT. ADRRONDAIEWED WITH PATIENT 07/16/18 0941 JSREVIEWED WITH PATIENT 11/24/18 1038 NLJ. HOSPITALIZATION/MAJOR DIAGNOSTIC PROCEDURE RELATED TO SURGERIES LEUKOPENIA 01/17 REVIEW OF SYSTEMS REVIEWED BY: PROVIDER: MILTON TOMAS . CONSTITUTIONAL: ANY CHANGE IN YOUR MEDICAL CONDITION? NO . CHILLS NO . FEVER NO . INFECTION: DO YOU HAVE NEW INFECTIONS? NO . DO YOU HAVE HISTORY OF MRSA? NO . MUSCULOSKELETAL: ANY NEW PATTERNS OF PAIN OR NUMBNESS? NO . GASTROENTEROLOGY: ANY NEW CHANGE IN BOWEL CONTROL? NO . GENITOURINARY: ANY NEW CHANGE IN BLADDER CONTROL? NO . IS THERE A CHANCE YOU COULD BE ? NO . HEMATOLOGY/LYMPH: DO YOU TAKE ANY BLOOD THINNERS? (FOR EXAMPLE- COUMADIN, PLAVIX, AGGRENOX, PLATEL, PRADAXA, OR XARELTO) NO . WHEN WAS YOUR LAST DOSE? DATE: TIME: . NEUROLOGY: HAVE YOU FALLEN IN THE PAST 12 MONTHS? NO . ANY NEW EXTREMITY NUMBNESS OR WEAKNESS? NO . CARDIOLOGY: DO YOU HAVE A PACEMAKER OR DEFIBRILLATOR? NO . RESPIRATORY: HAVE YOU BEEN SICK IN THE PAST WEEK? NO . FEVER NO . FLU LIKE SYMPTOMS? NO . COUGH NO . INTEGUMENTARY: DO YOU HAVE ANY RASHES OR OPEN SORES? NO . ALLERGIC/IMMUNO: ARE YOU ALLERGIC TO IV DYE? NO . ANY NEW ALLERGIES? NO . PSYCHIATRIC: DO YOU HAVE THOUGHTS OF HURTING YOURSELF OR SOMEONE ELSE? NO . ARE YOU ABUSED, NEGLECTED, OR IN AN UNSAFE ENVIRONMENT? NO . ENDOCRINOLOGY: ARE YOU DIABETIC? NO . OTHER: DO YOU NEED ANY PRESCRIPTIONS? YES . IF YES, PLEASE LIST: ____GABAPENTIN AND DULOXETINE . ANY NEW PROBLEMS WITH YOUR MEDICATIONS? NO . WHEN DID YOU LAST EAT? ____ . WHEN DID YOU LAST DRINK? ____ . WHAT DID YOU LAST DRINK? ____ . NAME OF PERSON DRIVING YOU HOME? ____ . DO YOU HAVE ANY OTHER QUESTIONS OR CONCERNS NO- STATES LESI WORKED WELL, STATES PAIN STILL REMIANS 0/10 IN BACK . VITAL SIGNS WT 158.6 LBS, HT 65.5 IN, BMI 25.99 INDEX, BP 135/75 MM HG, HR 83 /MIN, RR 18 /MIN, TEMP 96.4 F, OXYGEN SAT % 97%, SAFE IN ENV? (Y/N) YES, NA INITIALS AW 1039, REVIEWED BY: SILVANO. EXAMINATION GENERAL EXAMINATION: GENERALNO ACUTE DISTRESS, WELL NOURISHED AND HYDRATED. PSYCHAPPROPRIATE MOOD AND AFFECT . LUNGS:CLEAR TO AUSCULTATION BILATERALLY, NO WHEEZES, RHONCHI, RALES. HEART:NO MURMURS, REGULAR RATE AND RHYTHM. ASSESSMENTS SPONDYLOSIS OF LUMBOSACRAL REGION WITHOUT MYELOPATHY OR RADICULOPATHY - M47.817 (PRIMARY) CERVICAL DISC DISPLACEMENT - M50.20 TREATMENT SPONDYLOSIS OF LUMBOSACRAL REGION WITHOUT MYELOPATHY OR RADICULOPATHY CLINICAL NOTES: 63 YEAR OLD FEMALE IN FOR POST FACET BLOCK FOLLOW UP. GIVEN PRESENTING SYMPTOMS AND RESULTS OF PHYSICAL EXAMINATION RECOMMENDED FOLLOW UP IN 2 MONTHS. PATIENT HAS EXPRESSED UNDERSTANDING OF AND WAS IN AGREEMENT WITH TREATMENT PLAN. GIVEN TIME TO ASK QUESTIONS AND EXPRESS CONCERNS. CERVICAL DISC DISPLACEMENT REFILL DULOXETINE HCL CAPSULE DELAYED RELEASE PARTICLES, 60 MG, 1 CAPSULE, ORALLY, ONCE A DAY TDD=90 MG, 30 DAY(S), 30, REFILLS 3 OTHERS REFILL GABAPENTIN CAPSULE, 300 MG, 1 CAPSULE, ORAL, TID, 30 DAYS, 90 CAPSULE PROCEDURE CODES FA211 ESTABILISHED PATIENT FORMERLY [facility] CHARGE DISPOSITION & COMMUNICATION FOLLOW UP 2 MONTHS (REASON: CHRONIC PAIN ) ELECTRONICALLY SIGNED BY MARIA TERESA GARCIA ON 11/26/2018 AT 08:56 AM EDT DISCLAIMER : THIS IS A VISIT SUMMARY EXTRACTED FROM THE [employer] CHART. IT IS NOT A COPY OF THE [employer] PROGRESS NOTE. BARBARA
== END ==
LOC: M PAIN 10:30
PROVIDERS: ATTEND Family Medicine
DX: M47.817 Spondylosis without myelopathy or radiculopathy, lumbosacral region (principal); M50.20 Other cervical disc displacement, unspecified cervical region; Z86.59 Personal history of other mental and behavioral disorders; J45.909 Unspecified asthma, uncomplicated; Z87.891 Personal history of nicotine dependence; Z88.1 Allergy status to other antibiotic agents; Z88.2 Allergy status to sulfonamides; Z79.899 Other long term (current) drug therapy

== ENCOUNTER → 2019-01-07 | Outpatient (CLI) | payer MEDICARE, OTHER ==
[~2019-01-07] MED LIST changes: +CHOL100029 PO; +DIPH2.5T15 PO; +ONDA-83 PO; -ONDA4TAB5 PO; -VITAD1000T PO
[2019-01-07 14:15] LABS: BLOOD UREA NITROGEN 18 MG/DL (7-18); CALCIUM LEVEL 9.2 MG/DL (8.8-10.2); CARBON DIOXIDE LEVEL 28 MEQ/L (21-32); CHLORIDE LEVEL 104 MEQ/L (98-107); CHOLESTEROL LEVEL 239 MG/DL (<200); CHOLESTEROL RISK RATIO 3.676 (<5); CREATININE FOR GFR 0.79 MG/DL (0.55-1.30); GLOMERULAR FILTRATION RATE > 60.0 (>45); GLUCOSE, FASTING 85 MG/DL (70-100); HDL CHOLESTEROL 65 MG/DL (>40); LDL CHOLESTEROL 148 MG/DL (<100); NON-HDL-C 174 MG/DL; POTASSIUM SERUM 4.4 MEQ/L (3.5-5.1); SODIUM LEVEL 139 MEQ/L (136-145); TOTAL 25(OH) VITAMIN D 36.7 NG/ML (30.0-100.0); TRIGLYCERIDES LEVEL 129 MG/DL (<150)
== END ==
LOC: M LAB 12:39
PROVIDERS: ATTEND Nurse Practitioner Family
DX: E78.5 Hyperlipidemia, unspecified (principal); I10 Essential (primary) hypertension; E55.9 Vitamin D deficiency, unspecified

== ENCOUNTER → 2019-01-11 | Outpatient (REF) | payer MEDICARE, OTHER ==
[~2019-01-11] MED LIST changes: -DIPH2.5T15 PO; -ONDA-83 PO; +ONDA4TAB5 PO
[2019-01-11 13:53] LABS: MALB URINE SIEMENS 81.8 MG/L
== END ==
LOC: M LABDRAWP 09:33
PROVIDERS: ATTEND Nurse Practitioner Family
DX: I10 Essential (primary) hypertension (principal)
CPT/HCPCS: 82043; G0463

== ENCOUNTER → 2019-01-25 | Outpatient (CLI) | payer MEDICARE, OTHER ==
--- NOTE | 2019-01-27 01:33 | ECWPNPC ---
PATIENT NAME: RENÉE SOARES : 1955 GENDER: FEMALE VISIT DATE: 01/25/2019 DISCHARGE DATE: 01/25/19943 VISIT LOCKED DATE TIME: PHYSICIAN: ISHA BENNETT RESOURCE: ISHA BENNETT REASON FOR APPOINTMENT 1. MEDICARE/ BACK, STUCK IN TRAFFIC- SHE IS ON HER WAY HISTORY OF PRESENT ILLNESS HISTORY OF PRESENT ILLNESS: PAIN THE PATIENT DESCRIBES THE PAIN... 63-YEAR-OLD FEMALE IN FOR CHRONIC PAIN FOLLOW-UP. SHE RATES HER PAIN CURRENTLY AT A 3 OUT OF 10 AND DESCRIBES IT ACHING, AND SORE. SHE FEELS THE FACET BLOCK THAT WAS DONE ON HER BACK IS STILL WORKING WELL HOWEVER THE FACET BLOCK THAT WAS DONE ON HER NECK IS STARTING TO WEAR OFF ALTHOUGH SHE DECLINES PROCEDURES AT THIS TIME. FALL RISK SCREENING: SCREENING :NO FALLS REPORTED IN THE LAST YEAR CURRENT MEDICATIONS TAKING CYMBALTA 30 MG CAPSULE DELAYED RELEASE PARTICLES 1 CAPSULE ORALLY ONCE A DAY TAKING VITAMIN D (CHOLECALCIFEROL) 1000 UNIT CAPSULE 1 CAPSULE ORALLY ONCE A DAY TAKING LISINOPRIL 10 MG TABLET 1 TABLET ORALLY ONCE A DAY TAKING MELATONIN ER 10 MG TABLET EXTENDED RELEASE DIRECTED ORALLY TAKING VENLAFAXINE HCL 37.5 MG TABLET 1 TABLET WITH FOOD ORALLY ONCE A DAY TAKING IBUPROFEN 800 MG TABLET 1 TABLET WITH FOOD OR MILK NEEDED ORALLY TWO TIMES A DAY NEEDED TAKING DULOXETINE HCL 60 MG CAPSULE DELAYED RELEASE PARTICLES 1 CAPSULE ORALLY ONCE A DAY TDD=90 MG TAKING GABAPENTIN 300 MG CAPSULE 1 CAPSULE ORAL TID TAKING LOMOTIL 2.5-0.025 MG TABLET 1 TABLET NEEDED ORALLY FOUR TIMES A DAY TAKING FIBER - TABLET DIRECTED ORALLY NOT-TAKING ONE DAILY FOR WOMEN - TABLET DIRECTED ORALLY NOT-TAKING EFUDEX 5 % CREAM 1 APPLICATION TO AFFECTED AREA EXTERNALLY TWICE A DAY TO NOSE LESION X 2 WEEKS THEN STOP DISCONTINUED LOPERAMIDE HCL 2 MG CAPSULE 2 TABS ORALLY TWICE DAILY NEEED MEDICATION LIST REVIEWED AND RECONCILED WITH THE PATIENT PAST MEDICAL HISTORY C DIFF COLITIS- DR MEIER (NO LONGER FOLLOWS WITH DR. 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 S/P RESECTION DR CARUSO. CHEMOTHERAPY DR COWAN- COMPLETED 5/6 TREATMENTS. RAD RX PER DR ROMANO ONCOLOGY DR VANN CHRONIC COUGH- DR HUNT 01/17 DONAVAN 02/02/13 NML( FEV1 2.51 (90%)/FVC2.94(82%). PFTS/METHACHOLINE CHALLENGE UNREMARKABLE- NO PULM EXPLANATION FOR COUGH 09/18. COUGH RESOLVED WITH ADVAIR PER VANESA 01/18. PANCREATIC MASS 2.5 CM/PRIOR FNA ATYPICAL CELLS/SUBSEQUENT EUS MASS SMALLER/LAST CT WITH CONTRAST MASS NOT DETECTED- FOLLOWED BY DR MAYORGA- GASTRO SYR. FNA 11/18NEG PER PT CT A&P WITH CONTRAST NO ACUTE PATHOLOGY 05/21 BONE SCAN- OA/FIBROMYALGIA WITH CHRONIC PAIN-[place]- PER [facility] SYR- DR SAINI 07/19 DEPRESSION/ANXIETY- ARONOWITZ LDL 95 04/20 PNEUMOVAX- 2012- [facility] PER PT. CT MAXILLOFACIAL 03/19-MILD MUCOSAL THICKENING MAXILLARY SINUSES CTD/CHRONIC PAIN- RHEUM SYR (NO LONGER FOLLOWS) ETT 04/21 [place]- NEG ISCHEMIA KIDNEY STONE 2015 GALL STONES 2016 NEUROLOGY: DR. Milton BEE SMALL VESSEL ISCHEMIC DISEASE MILD ASTHMA- FOLLOWS WITH DR. ALEXIS CERVIAL DISC DISPLACEMENT , CERVICAL RADICULOPATHY MERMORY IMPAIRMENT LYMPHYDEMA AND DVT LEFT ARM POUCH ENDOSCOPY: 2018 DR. SALINAS-Q 2 YEARS; BIOPSY NEGATIVE DYSTHYMIA OTHER AND UNSPECIFIED HYPERLIPIDEMIA ULCERATIVE (CHRONIC) PROCTITIS CHRONIC PAIN CHRONIC COUGH UNSPECIFIED DIFFUSE CONNECTIVE TISSUE DISEASE ALLERGIES SULFA (FOR ALLERGY USE ONLY): FLU LIKE SX'S - ALLERGY SURGICAL HISTORY TUBAL LIGATION HYSTERECTOMY WITH BILATERAL OOPHORECTOMY BREAST BIOPSY-LEFT SALPINGECTOMY FOR TUBAL COLONOSCOPY EGD DR MUKESH RODRIGUEZ [address] SALINAS [place] 04/18 ILEOSTOMY, 3 DIFFERENT OPERATIONS- 06/04/11 REANASTOMOSIS OF SMALL BOWEL. 01/[address] CARUSO 10/2012 LYMPH NODE REMOVAL FROM LEFT BREAST DR CARUSO 11/2012 ILEAL POUCH [id number] 01/26/15 RIGHT ESWL 06/08/15 POUCH ENDOSCOPY-DR. SALINAS, REPEAT 2 YEARS 01/2018 PRECANCEROUS LESION REMOVED FROM NOSE 08/2018 FAMILY HISTORY FATHER: 66 YRS, [place], HYPERTENSION, IDDM, KIDNEY STONES MOTHER: 86 YRS, MELANOMA, OF COLON CANCER 70'S SIBLINGS: 2 SISTERS-LUNG AND PANCREAS 70'S 5 BROTHER(S) , 3 SISTER(S) . 1 SON(S) , 1 DAUGHTER(S) - HEALTHY. BROTHER MVA, BROTHER [place] @ LATE 40'S, TOBACCO USE. DENIES FAMILY HX OF BREAST OR OVARIAN CANCER.DENIES FAMILY HX OF MELANOMA. SISTER HAD PANCREATIC CANCER. SOCIAL HISTORY GENERAL: TOBACCO USE ARE YOU A:FORMER SMOKER HOW LONG HAS IT BEEN SINCE YOU LAST SMOKED?> 10 YEARS HIV / HEP-C SCREENING HIV TEST OFFERED TO PATIENT:YES DATE OFFERED:08/28/2016 TEST ACCEPTED:NO HEP-C TEST OFFERED TO PATIENT:YES DATE OFFERED:08/28/2016 REASON:PATIENT DECLINED TEST ACCEPTED:NO REASON:PATIENT DECLINED OTHERS AT HOME: SPOUSE, DAUGHTER WRINKLE CHASER. EDUCATION LEVEL OF EDUCATION:NOT FINISHED COLLEGE DIET: REGULAR. LANGUAGE LANGUAGES SPOKEN:[place] DOMESTIC VIOLENCE DO YOU FEEL SAFE IN YOUR ENVIRONMENT?YES RECREATIONAL DRUG USE DRUG USE?NO EXERCISE: YOGA. LEARNING BARRIERS / SPECIAL NEEDS CHANGE FROM LAST VISIT?NO BARRIERS TO LEARNING?NO HEARING IMPAIRED?YES HAS NOTICED SOME HEARING LOSS VISION IMPAIRED?YES GLASSES FOR READING COGNITIVELY IMPAIRED?NO READINESS TO LEARN?YES LEARNING PREFERENCES?NO LEARNING CAPABILITIES PRESENT?YES EMOTIONAL BARRIERS?NO SPECIAL DEVICES?NO ONLINE MARKETING COORDINATOR NEEDED?NO PAIN CLINIC PFS, CLERGY, PUBLIC HEALTH REFERRALS PFS REFERRAL NEEDED?NO CLERGY REFERRAL NEEDED?NO PUBLIC HEALTH REFERRAL NEEDED?NO WAS THE PROVIDER NOTIFIED OF ANY PERTINENT INFO? N/A HAS THE PATIENT BEEN EDUCATED REGARDING HIS/HER PLAN OF CARE?YES HAS THE PATIENT BEEN EDUCATED REGARDING PAIN, THE RISK FOR PAIN, THE IMPORTANCE OF EFFECTIVE PAIN MANAGEMENT, AND THE PAIN ASSESSMENT PROCESS?YES LATEX QUESTIONNAIRE LATEX ALLERGY : HAVE YOU EVER DEVELOPED ANY TYPE OF REACTION AFTER HANDLING LATEX PRODUCTS SUCH RUBBER GLOVES, CONDOMS, DIAPHRAGMS, BALLOONS, SOCKS, OR UNDERWEAR?NO LATEX ALLERGY : HAVE YOU EVER DEVELOPED ANY TYPE OF REACTION DURING OR AFTER DENTAL APPOINTMENT, VAGINAL/RECTAL EXAMINATION, SURGICAL PROCEDURE, OR ANY OTHER EXPOSURE?NO DATE ASKED : 07/08/2018 LATEX RISK : HAVE YOU EVER HAD ANY DIFFICULTY BREATHING OR HIVES AFTER EATING OR HANDLING ANY FRUITS, OR VEGETABLES; SUCH KIWI, BANANAS, STONE FRUITS, OR CHESTNUTSNO LATEX RISK : DO YOU HAVE A PREVIOUS PERSONAL HISTORY OF MORE THAN NINE SURGERIES, SPINA BIFIDA, OR REPEATED CATHERIZATIONS? NO LATEX RISK : ARE YOU FREQUENTLY EXPOSED TO LATEX PRODUCTS IN YOUR OCCUPATION?NO CAFFEINE CAFFEINE USE?NO ADVANCE DIRECTIVE ADVANCE DIRECTIVE DISCUSSED WITH PATIENT:YES PT. HAS HCP--, BRIGID [phone] YAZIDI [id number] HOLINESS MARITAL STATUS: . ALCOHOL SCREENING DID YOU HAVE A DRINK CONTAINING ALCOHOL IN THE PAST YEAR?YES HOW OFTEN DID YOU HAVE SIX OR MORE DRINKS ON ONE OCCASION IN THE PAST YEAR?NEVER (0 POINTS) HOW MANY DRINKS DID YOU HAVE ON A TYPICAL DAY WHEN YOU WERE DRINKING IN THE PAST YEAR?3 OR 4 (1 POINT) HOW OFTEN DID YOU HAVE A DRINK CONTAINING ALCOHOL IN THE PAST YEAR?MONTHLY OR LESS (1 POINT) POINTS2 INTERPRETATIONNEGATIVE OCCUPATION: RETIRED. SEXUAL HX HAD SEX IN THE LAST 12 MONTHS (VAGINAL, ORAL, OR ANAL)?NO LMP:N/A HAVE YOU EVER HAD AN STD?YES OTHER?NO HERPES?YES SYPHILIS?NO GC?NO CHLAMYDIA?NO 02/24/18 REVIEWED WITH PT. AD05/19/18 REVIEWED WITH PT. ADREVIEWED WITH PATIENT 07/16/18 0941 JSREVIEWED WITH PATIENT 11/24/18 1038 NLJ. HOSPITALIZATION/MAJOR DIAGNOSTIC PROCEDURE RELATED TO SURGERIES LEUKOPENIA 01/17 REVIEW OF SYSTEMS REVIEWED BY: PROVIDER: MILTON MOREL-Alexus . CONSTITUTIONAL: ANY CHANGE IN YOUR MEDICAL CONDITION? NO . CHILLS NO . FEVER NO . INFECTION: DO YOU HAVE NEW INFECTIONS? NO . DO YOU HAVE HISTORY OF MRSA? NO . MUSCULOSKELETAL: ANY NEW PATTERNS OF PAIN OR NUMBNESS? NO . GASTROENTEROLOGY: ANY NEW CHANGE IN BOWEL CONTROL? NO . GENITOURINARY: ANY NEW CHANGE IN BLADDER CONTROL? NO . IS THERE A CHANCE YOU COULD BE ? NO . HEMATOLOGY/LYMPH: DO YOU TAKE ANY BLOOD THINNERS? (FOR EXAMPLE- COUMADIN, PLAVIX, AGGRENOX, PLATEL, PRADAXA, OR XARELTO) NO . WHEN WAS YOUR LAST DOSE? DATE: TIME: . NEUROLOGY: HAVE YOU FALLEN IN THE PAST 12 MONTHS? NO . ANY NEW EXTREMITY NUMBNESS OR WEAKNESS? NO . CARDIOLOGY: DO YOU HAVE A PACEMAKER OR DEFIBRILLATOR? NO . RESPIRATORY: HAVE YOU BEEN SICK IN THE PAST WEEK? NO . FEVER NO . FLU LIKE SYMPTOMS? NO . COUGH NON-PRODUCTIVE . INTEGUMENTARY: DO YOU HAVE ANY RASHES OR OPEN SORES? NO . ALLERGIC/IMMUNO: ARE YOU ALLERGIC TO IV DYE? NO . ANY NEW ALLERGIES? NO . PSYCHIATRIC: DO YOU HAVE THOUGHTS OF HURTING YOURSELF OR SOMEONE ELSE? NO . ARE YOU ABUSED, NEGLECTED, OR IN AN UNSAFE ENVIRONMENT? NO . ENDOCRINOLOGY: ARE YOU DIABETIC? NO . OTHER: DO YOU NEED ANY PRESCRIPTIONS? YES, CYMBALTA 30/60,EDDIE . IF YES, PLEASE LIST: ____ . ANY NEW PROBLEMS WITH YOUR MEDICATIONS? NO . WHEN DID YOU LAST EAT? ____ . WHEN DID YOU LAST DRINK? ____ . WHAT DID YOU LAST DRINK? ____ . NAME OF PERSON DRIVING YOU HOME? ____ . DO YOU HAVE ANY OTHER QUESTIONS OR CONCERNS NO . VITAL SIGNS WT 156 LBS, HT 65.5 IN, BMI 25.56 INDEX, BP 122/71 MM HG, HR 83 /MIN, RR 16 /MIN, TEMP 96.9 F, OXYGEN SAT % 99%, NA INITIALS SC 09:20, REVIEWED BY: SUNDAY. EXAMINATION GENERAL EXAMINATION: GENERALNO ACUTE DISTRESS, WELL NOURISHED AND HYDRATED. PSYCHAPPROPRIATE MOOD AND AFFECT . LUNGS:CLEAR TO AUSCULTATION BILATERALLY, NO WHEEZES, RHONCHI, RALES. HEART:NO MURMURS, REGULAR RATE AND RHYTHM. ASSESSMENTS SPONDYLOSIS OF CERVICAL REGION WITHOUT MYELOPATHY OR RADICULOPATHY - M47.812 (PRIMARY) SPONDYLOSIS OF LUMBAR REGION WITHOUT MYELOPATHY OR RADICULOPATHY - M47.816 TREATMENT SPONDYLOSIS OF CERVICAL REGION WITHOUT MYELOPATHY OR RADICULOPATHY REFILL CYMBALTA CAPSULE DELAYED RELEASE PARTICLES, 30 MG, 1 CAPSULE, ORALLY, ONCE A DAY, 30 DAYS, 30 CAPSULE, REFILLS 3 REFILL DULOXETINE HCL CAPSULE DELAYED RELEASE PARTICLES, 60 MG, 1 CAPSULE, ORALLY, ONCE A DAY TDD=90 MG, 30 DAY(S), 30, REFILLS 3 REFILL GABAPENTIN CAPSULE, 300 MG, 1 CAPSULE, ORAL, TID, 30 DAYS, 90 CAPSULE, REFILLS 0 CLINICAL NOTES: 63-YEAR-OLD FEMALE IN FOR CHRONIC PAIN FOLLOW-UP. GIVEN PRESENTING SYMPTOMS AND RESULTS OF PHYSICAL EXAMINATION RECOMMENDED FOLLOW-UP IN ONE MONTH. AT FOLLOW-UP WE WILL DISCUSS POTENTIAL CERVICAL FACET BLOCK. PATIENT HAS EXPRESSED UNDERSTANDING OF AND WAS IN AGREEMENT WITH TREATMENT PLAN. GIVEN TIME TO ASK QUESTIONS AND EXPRESS CONCERNS. PROCEDURE CODES FA211 ESTABILISHED PATIENT [facility] CHARGE DISPOSITION & COMMUNICATION FOLLOW UP 4 WEEKS (REASON: CHRONIC PAIN) ELECTRONICALLY SIGNED BY MARIA TERESA GARCIA ON 01/26/2019 AT 08:47 AM EDT DISCLAIMER : THIS IS A VISIT SUMMARY EXTRACTED FROM THE [employer] CHART. IT IS NOT A COPY OF THE [employer] PROGRESS NOTE. BARBARA
== END ==
LOC: M PAIN 09:00
PROVIDERS: ATTEND Family Medicine
DX: M47.812 Spondylosis without myelopathy or radiculopathy, cervical region (principal); M47.816 Spondylosis without myelopathy or radiculopathy, lumbar region; G89.29 Other chronic pain; Z86.59 Personal history of other mental and behavioral disorders; J45.909 Unspecified asthma, uncomplicated; Z87.891 Personal history of nicotine dependence; Z88.2 Allergy status to sulfonamides; Z79.899 Other long term (current) drug therapy

== ENCOUNTER → 2019-03-08 | Outpatient (CLI) | payer MEDICARE, OTHER ==
--- NOTE | 2019-03-11 00:12 | ECWPNPC ---
PATIENT NAME: RENÉE SOARES : 1955 GENDER: FEMALE VISIT DATE: 03/08/2019 DISCHARGE DATE: 03/08/19 1008 VISIT LOCKED DATE TIME: PHYSICIAN: ISHA BENNETT RESOURCE: ISHA BENNETT REASON FOR APPOINTMENT 1. 4 WEEKS HISTORY OF PRESENT ILLNESS HISTORY OF PRESENT ILLNESS: PAIN THE PATIENT DESCRIBES THE PAIN... 63-YEAR-OLD FEMALE IN FOR CHRONIC PAIN FOLLOW-UP. SHE RATES HER PAIN CURRENTLY AT A 3 OUT OF 10 AND DESCRIBES IT ACHING, AND BURNING. SHE FURTHER STATES HER PAIN LASTS ALL DAY AND INCREASES WHEN SHE IS DOING HOUSEWORK. PATIENT WOULD LIKE TO DISCUSS A CERVICAL THERAPEUTIC FACET BLOCK. SHE HAS HAD THESE IN THE PAST AND RECEIVED GOOD RELIEF WITH THEM. FALL RISK SCREENING: SCREENING :NO FALLS REPORTED IN THE LAST YEAR CURRENT MEDICATIONS TAKING VITAMIN D (CHOLECALCIFEROL) 1000 UNIT CAPSULE 1 CAPSULE ORALLY ONCE A DAY TAKING LISINOPRIL 10 MG TABLET 1 TABLET ORALLY ONCE A DAY TAKING MELATONIN ER 10 MG TABLET EXTENDED RELEASE DIRECTED ORALLY TAKING VENLAFAXINE HCL 37.5 MG TABLET 1 TABLET WITH FOOD ORALLY ONCE A DAY TAKING IBUPROFEN 800 MG TABLET 1 TABLET WITH FOOD OR MILK NEEDED ORALLY TWO TIMES A DAY NEEDED TAKING LOMOTIL 2.5-0.025 MG TABLET 1 TABLET NEEDED ORALLY FOUR TIMES A DAY TAKING FIBER - TABLET DIRECTED ORALLY TAKING CYMBALTA 30 MG CAPSULE DELAYED RELEASE PARTICLES 1 CAPSULE ORALLY ONCE A DAY TAKING DULOXETINE HCL 60 MG CAPSULE DELAYED RELEASE PARTICLES 1 CAPSULE ORALLY ONCE A DAY TDD=90 MG TAKING GABAPENTIN 300 MG CAPSULE 1 CAPSULE ORAL TID TAKING VITAMIN B12 100 MCG TABLET DIRECTED ORALLY NOT-TAKING ONE DAILY FOR WOMEN - TABLET DIRECTED ORALLY NOT-TAKING EFUDEX 5 % CREAM 1 APPLICATION TO AFFECTED AREA EXTERNALLY TWICE A DAY TO NOSE LESION X 2 WEEKS THEN STOP MEDICATION LIST REVIEWED AND RECONCILED WITH THE PATIENT PAST MEDICAL HISTORY C DIFF COLITIS- DR MEIER (NO LONGER FOLLOWS WITH DR. 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 S/P RESECTION DR CARUSO. CHEMOTHERAPY DR COWAN- COMPLETED 5/6 TREATMENTS. RAD RX PER DR ROMANO ONCOLOGY DR VANN CHRONIC COUGH- DR HUNT 01/17 DONAVAN 02/02/13 NML( FEV1 2.51 (90%)/FVC2.94(82%). PFTS/METHACHOLINE CHALLENGE UNREMARKABLE- NO PULM EXPLANATION FOR COUGH 09/18. COUGH RESOLVED WITH ADVAIR PER VANESA 01/18. PANCREATIC MASS 2.5 CM/PRIOR FNA ATYPICAL CELLS/SUBSEQUENT EUS MASS SMALLER/LAST CT WITH CONTRAST MASS NOT DETECTED- FOLLOWED BY DR MAYORGA- GASTRO SYR. FNA 11/18NEG PER PT CT A&P WITH CONTRAST NO ACUTE PATHOLOGY 05/21 BONE SCAN- OA/FIBROMYALGIA WITH CHRONIC PAIN-[place]- PER [facility]- DR SAINI 07/19 DEPRESSION/ANXIETY- ARONOWIVANI LDL 95 04/20 PNEUMOVAX- 2012- [facility] PER PT. CT MAXILLOFACIAL 03/19-MILD MUCOSAL THICKENING MAXILLARY SINUSES CTD/CHRONIC PAIN- RHEUM SYR (NO LONGER FOLLOWS) ETT 04/21 [facility]- NEG ISCHEMIA KIDNEY STONE 2015 GALL STONES 2016 NEUROLOGY: DR. Milton BEE SMALL VESSEL ISCHEMIC DISEASE MILD ASTHMA- FOLLOWS WITH DR. ALEXIS CERVIAL DISC DISPLACEMENT , CERVICAL RADICULOPATHY MERMORY IMPAIRMENT LYMPHYDEMA AND DVT LEFT ARM POUCH ENDOSCOPY: 2018 DR. SALINAS-Q 2 YEARS; BIOPSY NEGATIVE DYSTHYMIA OTHER AND UNSPECIFIED HYPERLIPIDEMIA ULCERATIVE (CHRONIC) PROCTITIS CHRONIC PAIN CHRONIC COUGH UNSPECIFIED DIFFUSE CONNECTIVE TISSUE DISEASE ALLERGIES SULFA (FOR ALLERGY USE ONLY): FLU LIKE SX'S - ALLERGY SURGICAL HISTORY TUBAL LIGATION HYSTERECTOMY WITH BILATERAL OOPHORECTOMY BREAST BIOPSY-LEFT SALPINGECTOMY FOR TUBAL COLONOSCOPY EGD DR MUKESH RODRIGUEZ [address] SALINAS [place] 04/18 ILEOSTOMY, 3 DIFFERENT OPERATIONS- 06/04/11 REANASTOMOSIS OF SMALL BOWEL. 01/[address] CARUSO 10/2012 LYMPH NODE REMOVAL FROM LEFT BREAST DR CARUSO 11/2012 ILEAL POUCH [id number] 01/26/15 RIGHT ESWL 06/08/15 POUCH ENDOSCOPY-DR. SALINAS, REPEAT 2 YEARS 01/2018 PRECANCEROUS LESION REMOVED FROM NOSE 08/2018 FAMILY HISTORY FATHER: 66 YRS, [place], HYPERTENSION, IDDM, KIDNEY STONES MOTHER: 86 YRS, MELANOMA, OF COLON CANCER 70'S SIBLINGS: 2 SISTERS-LUNG AND PANCREAS 70'S 5 BROTHER(S) , 3 SISTER(S) . 1 SON(S) , 1 DAUGHTER(S) - HEALTHY. BROTHER MVA, BROTHER [place] @ LATE 40'S, TOBACCO USE. DENIES FAMILY HX OF BREAST OR OVARIAN CANCER.DENIES FAMILY HX OF MELANOMA. SISTER HAD PANCREATIC CANCER. 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 EDUCATION LEVEL OF EDUCATION:NOT FINISHED COLLEGE DIET: REGULAR. LANGUAGE LANGUAGES SPOKEN:JAPANESE DOMESTIC VIOLENCE DO YOU FEEL SAFE IN YOUR ENVIRONMENT?YES RECREATIONAL DRUG USE DRUG USE?NO EXERCISE: YOGA. LEARNING BARRIERS / SPECIAL NEEDS CHANGE FROM LAST VISIT?NO BARRIERS TO LEARNING?NO HEARING IMPAIRED?YES HAS NOTICED SOME HEARING LOSS VISION IMPAIRED?YES GLASSES FOR READING COGNITIVELY IMPAIRED?NO READINESS TO LEARN?YES LEARNING PREFERENCES?NO LEARNING CAPABILITIES PRESENT?YES EMOTIONAL BARRIERS?NO SPECIAL DEVICES?NO GLOST KILN PLACER NEEDED?NO PAIN CLINIC PFS, CLERGY, PUBLIC HEALTH REFERRALS PFS REFERRAL NEEDED?NO CLERGY REFERRAL NEEDED?NO PUBLIC HEALTH REFERRAL NEEDED?NO WAS THE PROVIDER NOTIFIED OF ANY PERTINENT INFO? N/A HAS THE PATIENT BEEN EDUCATED REGARDING HIS/HER PLAN OF CARE?YES HAS THE PATIENT BEEN EDUCATED REGARDING PAIN, THE RISK FOR PAIN, THE IMPORTANCE OF EFFECTIVE PAIN MANAGEMENT, AND THE PAIN ASSESSMENT PROCESS?YES LATEX QUESTIONNAIRE LATEX ALLERGY : HAVE YOU EVER DEVELOPED ANY TYPE OF REACTION AFTER HANDLING LATEX PRODUCTS SUCH RUBBER GLOVES, CONDOMS, DIAPHRAGMS, BALLOONS, SOCKS, OR UNDERWEAR?NO LATEX ALLERGY : HAVE YOU EVER DEVELOPED ANY TYPE OF REACTION DURING OR AFTER DENTAL APPOINTMENT, VAGINAL/RECTAL EXAMINATION, SURGICAL PROCEDURE, OR ANY OTHER EXPOSURE?NO DATE ASKED : 07/08/2018 LATEX RISK : HAVE YOU EVER HAD ANY DIFFICULTY BREATHING OR HIVES AFTER EATING OR HANDLING ANY FRUITS, OR VEGETABLES; SUCH KIWI, BANANAS, STONE FRUITS, OR CHESTNUTSNO LATEX RISK : DO YOU HAVE A PREVIOUS PERSONAL HISTORY OF MORE THAN NINE SURGERIES, SPINA BIFIDA, OR REPEATED CATHERIZATIONS? NO LATEX RISK : ARE YOU FREQUENTLY EXPOSED TO LATEX PRODUCTS IN YOUR OCCUPATION?NO CAFFEINE CAFFEINE USE?NO ADVANCE DIRECTIVE ADVANCE DIRECTIVE DISCUSSED WITH PATIENT:YES PT. HAS HCP--, BRIGID [phone] TAOISM [id number] YAZIDISM MARITAL STATUS: . ALCOHOL SCREENING DID YOU HAVE A DRINK CONTAINING ALCOHOL IN THE PAST YEAR?YES HOW OFTEN DID YOU HAVE SIX OR MORE DRINKS ON ONE OCCASION IN THE PAST YEAR?NEVER (0 POINTS) HOW MANY DRINKS DID YOU HAVE ON A TYPICAL DAY WHEN YOU WERE DRINKING IN THE PAST YEAR?3 OR 4 (1 POINT) HOW OFTEN DID YOU HAVE A DRINK CONTAINING ALCOHOL IN THE PAST YEAR?MONTHLY OR LESS (1 POINT) POINTS2 INTERPRETATIONNEGATIVE OCCUPATION: RETIRED. SEXUAL HX HAD SEX IN THE LAST 12 MONTHS (VAGINAL, ORAL, OR ANAL)?NO LMP:N/A HAVE YOU EVER HAD AN STD?YES OTHER?NO HERPES?YES SYPHILIS?NO GC?NO CHLAMYDIA?NO 02/24/18 REVIEWED WITH PT. AD05/19/18 REVIEWED WITH PT. EMANUELD WITH PATIENT 07/16/18 0941 JSREVIEWED WITH PATIENT 11/24/18 1038 NLJREVIEWED WITH PATIENT 03/08/19 03/08/19 0921. HOSPITALIZATION/MAJOR DIAGNOSTIC PROCEDURE RELATED TO SURGERIES LEUKOPENIA 01/17 REVIEW OF SYSTEMS REVIEWED BY: PROVIDER: MILTON MOREL-Alexus . CONSTITUTIONAL: ANY CHANGE IN YOUR MEDICAL CONDITION? NO . CHILLS NO . FEVER NO . INFECTION: DO YOU HAVE NEW INFECTIONS? NO . DO YOU HAVE HISTORY OF MRSA? NO . MUSCULOSKELETAL: ANY NEW PATTERNS OF PAIN OR NUMBNESS? YES- PAIN IN NECK IS WORSE THAN LOWER BACK, STATES THAT NECK IS REALLY BAD WITH ANY ACTIVITY, STATES SHE HAS BEEN WAKING UP FROM SLEEP WITH HANDS TINGLING . GASTROENTEROLOGY: ANY NEW CHANGE IN BOWEL CONTROL? NO . GENITOURINARY: ANY NEW CHANGE IN BLADDER CONTROL? NO . IS THERE A CHANCE YOU COULD BE ? NO . HEMATOLOGY/LYMPH: DO YOU TAKE ANY BLOOD THINNERS? (FOR EXAMPLE- COUMADIN, PLAVIX, AGGRENOX, PLATEL, PRADAXA, OR XARELTO) NO . WHEN WAS YOUR LAST DOSE? DATE: TIME: . NEUROLOGY: HAVE YOU FALLEN IN THE PAST 12 MONTHS? NO . ANY NEW EXTREMITY NUMBNESS OR WEAKNESS? NO . CARDIOLOGY: DO YOU HAVE A PACEMAKER OR DEFIBRILLATOR? NO . RESPIRATORY: HAVE YOU BEEN SICK IN THE PAST WEEK? NO . FEVER NO . FLU LIKE SYMPTOMS? NO . COUGH NO . INTEGUMENTARY: DO YOU HAVE ANY RASHES OR OPEN SORES? NO . ALLERGIC/IMMUNO: ARE YOU ALLERGIC TO IV DYE? NO . ANY NEW ALLERGIES? NO . PSYCHIATRIC: DO YOU HAVE THOUGHTS OF HURTING YOURSELF OR SOMEONE ELSE? NO . ARE YOU ABUSED, NEGLECTED, OR IN AN UNSAFE ENVIRONMENT? NO . ENDOCRINOLOGY: ARE YOU DIABETIC? NO . OTHER: DO YOU NEED ANY PRESCRIPTIONS? NO . IF YES, PLEASE LIST: ____ . ANY NEW PROBLEMS WITH YOUR MEDICATIONS? NO . WHEN DID YOU LAST EAT? ____ . WHEN DID YOU LAST DRINK? ____ . WHAT DID YOU LAST DRINK? ____ . NAME OF PERSON DRIVING YOU HOME? ____ . DO YOU HAVE ANY OTHER QUESTIONS OR CONCERNS NO- HAD FLU SHOT ONE MONTH AGO AND IS CHECKING TO SEE IF SHE NEEDS PNEUMONIA SHOT . VITAL SIGNS WT 163.8 LBS, HT 65.5 IN, BMI 26.84 INDEX, BP 127/68 MM HG, HR 100 /MIN, RR 18 /MIN, TEMP 96.6 F, OXYGEN SAT % 99%, SAFE IN ENV? (Y/N) YES, NA INITIALS MI 09:20, REVIEWED BY: SILVANO. EXAMINATION GENERAL EXAMINATION: GENERALNO ACUTE DISTRESS, WELL NOURISHED AND HYDRATED. PSYCHAPPROPRIATE MOOD AND AFFECT . NECK:DENIES POINT TENDER ALONG CERVICAL SPINE, SURROUNDING SKIN SHOWS NO ERYTHEMA, ECCHYMOSIS, INCREASED WARMTH, AND/OR SKIN ERUPTIONS NOTED. . LUNGS:CLEAR TO AUSCULTATION BILATERALLY, NO WHEEZES, RHONCHI, RALES. HEART:NO MURMURS, REGULAR RATE AND RHYTHM. ASSESSMENTS SPONDYLOSIS OF CERVICAL REGION WITHOUT MYELOPATHY OR RADICULOPATHY - M47.812 (PRIMARY) TREATMENT SPONDYLOSIS OF CERVICAL REGION WITHOUT MYELOPATHY OR RADICULOPATHY NOTES: BILATERAL THERAPEUTIC CERVICAL FACET C5-C6 C6-C7. CLINICAL NOTES: 63-YEAR-OLD FEMALE IN FOR CHRONIC PAIN FOLLOW-UP. GIVEN PRESENTING SYMPTOMS AND RESULTS OF PHYSICAL EXAMINATION RECOMMENDED THERAPEUTIC CERVICAL FACET BLOCK WITH POSTPROCEDURAL FOLLOW-UP. PATIENT HAS EXPRESSED UNDERSTANDING OF AND WAS IN AGREEMENT WITH TREATMENT PLAN. GIVEN TIME TO ASK QUESTIONS AND EXPRESS CONCERNS. OTHERS NOTES: FACET JOINT INJECTION MATERIAL WAS PRINTED. PREVENTIVE MEDICINE PAIN CLINIC TEACHING: PROCEDURE TEACHING CERVICAL FACET BLOCK INFORMATION PRINTED AND REVIEWED WITH PATIENT 03/08/19 0954 SILVANO. PROCEDURE CODES FA211 ESTABILISHED PATIENT [facility] FACILITY CHARGE DISPOSITION & COMMUNICATION FOLLOW UP POSTPROCEDURE (REASON: BILATERAL THERAPEUTIC CERVICAL FACET C4-C5, C5-C6) ELECTRONICALLY SIGNED BY MARIA TERESA GARCIA ON 03/10/2019 AT 11:36 AM EST DISCLAIMER : THIS IS A VISIT SUMMARY EXTRACTED FROM THE [employer] CHART. IT IS NOT A COPY OF THE [employer] PROGRESS NOTE. MYRAD
== END ==
LOC: M PAIN 09:15
PROVIDERS: ATTEND Family Medicine
DX: M47.812 Spondylosis without myelopathy or radiculopathy, cervical region (principal)

== ENCOUNTER → 2019-04-28 | Outpatient (REF) | payer MEDICARE, OTHER ==
[~2019-04-28] MED LIST changes: +DIPH2.5T15 PO; +ONDA-83 PO; -ONDA4TAB5 PO
== END ==
LOC: M LAB REF 17:02
PROVIDERS: ATTEND Surgery
DX: L72.0 Epidermal cyst (principal)

== ENCOUNTER → 2019-07-19 | Outpatient (CLI) | payer MEDICARE, OTHER ==
--- NOTE | 2019-07-20 23:32 | ECWPNPC ---
PATIENT NAME: RENÉE SOARES : 1955 GENDER: FEMALE VISIT DATE: 07/19/2019 DISCHARGE DATE: 07/19/19 1603 VISIT LOCKED DATE TIME: PHYSICIAN: ISHA BENNETT RESOURCE: ISHA BENNETT REASON FOR APPOINTMENT 1. MED REVIEW DISCUSS PROCEDURE OPTIONS [phone] HISTORY OF PRESENT ILLNESS HISTORY OF PRESENT ILLNESS: PAIN THE PATIENT DESCRIBES THE PAIN... PERMISSION REQUESTED AND RECEIVED FROM PATIENT TO PERFORM TELEPHONE VISIT. 63 OLD FEMALE IN FOR CHRONIC PAIN FOLLOW-UP. SHE RATES HER PAIN CURRENTLY AT A 5 OUT OF 10. SHE FEELS HER MEDICATIONS ARE HELPFUL AND DENIES MED SIDE EFFECTS AT THIS TIME. FALL RISK SCREENING: SCREENING :NO FALLS REPORTED IN THE LAST YEAR CURRENT MEDICATIONS TAKING VITAMIN D (CHOLECALCIFEROL) 1000 UNIT CAPSULE 1 CAPSULE ORALLY ONCE A DAY TAKING MELATONIN ER 10 MG TABLET EXTENDED RELEASE DIRECTED ORALLY TAKING VENLAFAXINE HCL 37.5 MG TABLET 1 TABLET WITH FOOD ORALLY ONCE A DAY TAKING LOMOTIL 2.5-0.025 MG TABLET 1 TABLET NEEDED ORALLY FOUR TIMES A DAY TAKING FIBER - TABLET DIRECTED ORALLY TAKING DULOXETINE HCL 60 MG CAPSULE DELAYED RELEASE PARTICLES 1 CAPSULE ORALLY ONCE A DAY TDD=90 MG TAKING VITAMIN B12 100 MCG TABLET DIRECTED ORALLY TAKING LISINOPRIL 10 MG TABLET 1 TABLET ORALLY ONCE A DAY TAKING GABAPENTIN 300 MG CAPSULE 1 CAPSULE ORAL TID TAKING CYMBALTA 30 MG CAPSULE DELAYED RELEASE PARTICLES 1 CAPSULE ORALLY ONCE A DAY NOT-TAKING IBUPROFEN 800 MG TABLET 1 TABLET WITH FOOD OR MILK NEEDED ORALLY TWO TIMES A DAY NEEDED NOT-TAKING ONE DAILY FOR WOMEN - TABLET DIRECTED ORALLY NOT-TAKING EFUDEX 5 % CREAM 1 APPLICATION TO AFFECTED AREA EXTERNALLY TWICE A DAY TO NOSE LESION X 2 WEEKS THEN STOP MEDICATION LIST REVIEWED AND RECONCILED WITH THE PATIENT PAST MEDICAL HISTORY C DIFF COLITIS- DR MEIER (NO LONGER FOLLOWS WITH DR. 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 S/P RESECTION DR CARUSO. CHEMOTHERAPY DR COWAN- COMPLETED 5/ TREATMENTS. RAD RX PER DR ROMANO ONCOLOGY DR VANN CHRONIC COUGH- DR HUNT 01/17 DONAVAN 02/02/13 NML( FEV1 2.51 (90%)/FVC2.94(82%). PFTS/METHACHOLINE CHALLENGE UNREMARKABLE- NO PULM EXPLANATION FOR COUGH 09/18. COUGH RESOLVED WITH ADVAIR PER VANESA 01/18. PANCREATIC MASS 2.5 CM/PRIOR FNA ATYPICAL CELLS/SUBSEQUENT EUS MASS SMALLER/LAST CT WITH CONTRAST MASS NOT DETECTED- FOLLOWED BY DR MAYORGA- GASTRO SYR. FNA 11/18NEG PER PT CT A&P WITH CONTRAST NO ACUTE PATHOLOGY 05/21 BONE SCAN- OA/FIBROMYALGIA WITH CHRONIC PAIN-[place]- PER [facility]- DR SAINI 07/19 DEPRESSION/ANXIETY- ARONOWIVANI LDL 95 04/20 PNEUMOVAX- 2013- [facility] PER PT. CT MAXILLOFACIAL 03/19-MILD MUCOSAL THICKENING MAXILLARY SINUSES CTD/CHRONIC PAIN- RHEUM SYR (NO LONGER FOLLOWS) ETT 04/21 [facility]- NEG ISCHEMIA KIDNEY STONE 2015 GALL STONES 2016 NEUROLOGY: DR. Milton BEE SMALL VESSEL ISCHEMIC DISEASE MILD ASTHMA- FOLLOWS WITH DR. ALEXIS CERVIAL DISC DISPLACEMENT , CERVICAL RADICULOPATHY MERMORY IMPAIRMENT LYMPHYDEMA AND DVT LEFT ARM POUCH ENDOSCOPY: 2018 DR. SALINAS-Q 2 YEARS; BIOPSY NEGATIVE DYSTHYMIA OTHER AND UNSPECIFIED HYPERLIPIDEMIA ULCERATIVE (CHRONIC) PROCTITIS CHRONIC PAIN CHRONIC COUGH UNSPECIFIED DIFFUSE CONNECTIVE TISSUE DISEASE ALLERGIES SULFA (FOR ALLERGY USE ONLY): FLU LIKE SX'S - ALLERGY SURGICAL HISTORY TUBAL LIGATION HYSTERECTOMY WITH BILATERAL OOPHORECTOMY BREAST BIOPSY-LEFT SALPINGECTOMY FOR TUBAL COLONOSCOPY EGD DR MUKESH RODRIGUEZ [address] SALINAS WINN 04/18 ILEOSTOMY, 3 DIFFERENT OPERATIONS- 06/04/11 REANASTOMOSIS OF SMALL BOWEL. 01/[address] CARUSO 10/2012 LYMPH NODE REMOVAL FROM LEFT BREAST DR CARUSO 11/2012 ILEAL POUCH [id number] 01/26/15 RIGHT ESWL 06/08/15 POUCH ENDOSCOPY-DR. SALINAS, REPEAT 2 YEARS 01/2018 PRECANCEROUS LESION REMOVED FROM NOSE 08/2018 FAMILY HISTORY FATHER: 66 YRS, [place], HYPERTENSION, IDDM, KIDNEY STONES MOTHER: 86 YRS, MELANOMA, OF COLON CANCER 70'S SIBLINGS: 2 SISTERS-LUNG AND PANCREAS 70'S 5 BROTHER(S) , 3 SISTER(S) . 1 SON(S) , 1 DAUGHTER(S) - HEALTHY. BROTHER MVA, BROTHER IA @ LATE 40'S, TOBACCO USE. DENIES FAMILY HX OF BREAST OR OVARIAN CANCER.DENIES FAMILY HX OF MELANOMA. SISTER HAD PANCREATIC CANCER. 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 EDUCATION LEVEL OF EDUCATION:NOT FINISHED COLLEGE DIET: REGULAR. LANGUAGE LANGUAGES SPOKEN:BURKINAN DOMESTIC VIOLENCE DO YOU FEEL SAFE IN YOUR ENVIRONMENT?YES NEW PATIENT PAIN DIARY PATIENT DESCRIBES PAIN :ACHING, HAVE IT ALL THE TIME FROM 0-10, WHAT LEVEL IS YOUR PAIN TODAY?5 PRECIPITATING FACTORS STANDING ALLEVIATING FACTORS LAYING DOWN RESTING IMPACT ON FUNCTION YES RECREATIONAL DRUG USE DRUG USE?NO EXERCISE: YOGA. LEARNING BARRIERS / SPECIAL NEEDS CHANGE FROM LAST VISIT?NO BARRIERS TO LEARNING?NO HEARING IMPAIRED?YES HAS NOTICED SOME HEARING LOSS VISION IMPAIRED?YES GLASSES FOR READING COGNITIVELY IMPAIRED?NO READINESS TO LEARN?YES LEARNING PREFERENCES?NO LEARNING CAPABILITIES PRESENT?YES EMOTIONAL BARRIERS?NO SPECIAL DEVICES?NO TELESALES CONSULTANT NEEDED?NO PAIN CLINIC PFS, CLERGY, PUBLIC HEALTH REFERRALS PFS REFERRAL NEEDED?NO CLERGY REFERRAL NEEDED?NO PUBLIC HEALTH REFERRAL NEEDED?NO WAS THE PROVIDER NOTIFIED OF ANY PERTINENT INFO? N/A HAS THE PATIENT BEEN EDUCATED REGARDING HIS/HER PLAN OF CARE?YES HAS THE PATIENT BEEN EDUCATED REGARDING PAIN, THE RISK FOR PAIN, THE IMPORTANCE OF EFFECTIVE PAIN MANAGEMENT, AND THE PAIN ASSESSMENT PROCESS?YES LATEX QUESTIONNAIRE LATEX ALLERGY : HAVE YOU EVER DEVELOPED ANY TYPE OF REACTION AFTER HANDLING LATEX PRODUCTS SUCH RUBBER GLOVES, CONDOMS, DIAPHRAGMS, BALLOONS, SOCKS, OR UNDERWEAR?NO LATEX ALLERGY : HAVE YOU EVER DEVELOPED ANY TYPE OF REACTION DURING OR AFTER DENTAL APPOINTMENT, VAGINAL/RECTAL EXAMINATION, SURGICAL PROCEDURE, OR ANY OTHER EXPOSURE?NO DATE ASKED : 07/08/2018 LATEX RISK : HAVE YOU EVER HAD ANY DIFFICULTY BREATHING OR HIVES AFTER EATING OR HANDLING ANY FRUITS, OR VEGETABLES; SUCH KIWI, BANANAS, STONE FRUITS, OR CHESTNUTSNO LATEX RISK : DO YOU HAVE A PREVIOUS PERSONAL HISTORY OF MORE THAN NINE SURGERIES, SPINA BIFIDA, OR REPEATED CATHERIZATIONS? NO LATEX RISK : ARE YOU FREQUENTLY EXPOSED TO LATEX PRODUCTS IN YOUR OCCUPATION?NO CAFFEINE CAFFEINE USE?NO ADVANCE DIRECTIVE ADVANCE DIRECTIVE DISCUSSED WITH PATIENT:YES PT. 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 ALCOHOL SCREENING DID YOU HAVE A DRINK CONTAINING ALCOHOL IN THE PAST YEAR?YES HOW OFTEN DID YOU HAVE SIX OR MORE DRINKS ON ONE OCCASION IN THE PAST YEAR?NEVER (0 POINTS) HOW MANY DRINKS DID YOU HAVE ON A TYPICAL DAY WHEN YOU WERE DRINKING IN THE PAST YEAR?3 OR 4 (1 POINT) HOW OFTEN DID YOU HAVE A DRINK CONTAINING ALCOHOL IN THE PAST YEAR?MONTHLY OR LESS (1 POINT) POINTS2 INTERPRETATIONNEGATIVE OCCUPATION: RETIRED. SEXUAL HX HAD SEX IN THE LAST 12 MONTHS (VAGINAL, ORAL, OR ANAL)?NO LMP:N/A HAVE YOU EVER HAD AN STD?YES OTHER?NO HERPES?YES SYPHILIS?NO GC?NO CHLAMYDIA?NO 02/24/18 REVIEWED WITH PT. AD05/19/18 REVIEWED WITH PT. ADREVIEWED WITH PATIENT 07/16/18 0941 JSREVIEWED WITH PATIENT 11/24/18 1038 NLJREVIEWED WITH PATIENT 03/08/19 03/08/19 0921. HOSPITALIZATION/MAJOR DIAGNOSTIC PROCEDURE RELATED TO SURGERIES LEUKOPENIA 01/17 REVIEW OF SYSTEMS REVIEWED BY: PROVIDER: MILTON TOMAS . CONSTITUTIONAL: ANY CHANGE IN YOUR MEDICAL CONDITION? NO . CHILLS NO . FEVER NO . INFECTION: DO YOU HAVE NEW INFECTIONS? YES,06/2019 S/P LEFT EAR INFECTION, SINUSITIS, RIGHT EYE STYE, UTI, ALL RESOLVING . DO YOU HAVE HISTORY OF MRSA? NO . MUSCULOSKELETAL: ANY NEW PATTERNS OF PAIN OR NUMBNESS? NO . GASTROENTEROLOGY: ANY NEW CHANGE IN BOWEL CONTROL? NO . GENITOURINARY: ANY NEW CHANGE IN BLADDER CONTROL? YES, RESOLVED UTI . IS THERE A CHANCE YOU COULD BE ? NO . HEMATOLOGY/LYMPH: DO YOU TAKE ANY BLOOD THINNERS? (FOR EXAMPLE- COUMADIN, PLAVIX, AGGRENOX, PLATEL, PRADAXA, OR XARELTO) NO . WHEN WAS YOUR LAST DOSE? DATE: TIME: . NEUROLOGY: HAVE YOU FALLEN IN THE PAST 12 MONTHS? NO . ANY NEW EXTREMITY NUMBNESS OR WEAKNESS? NO . CARDIOLOGY: DO YOU HAVE A PACEMAKER OR DEFIBRILLATOR? NO . RESPIRATORY: HAVE YOU BEEN SICK IN THE PAST WEEK? NO . FEVER NO . FLU LIKE SYMPTOMS? NO . COUGH NO . INTEGUMENTARY: DO YOU HAVE ANY RASHES OR OPEN SORES? NO . ALLERGIC/IMMUNO: ARE YOU ALLERGIC TO IV DYE? NO . ANY NEW ALLERGIES? NO . PSYCHIATRIC: DO YOU HAVE THOUGHTS OF HURTING YOURSELF OR SOMEONE ELSE? NO . ARE YOU ABUSED, NEGLECTED, OR IN AN UNSAFE ENVIRONMENT? NO . ENDOCRINOLOGY: ARE YOU DIABETIC? NO . OTHER: DO YOU NEED ANY PRESCRIPTIONS? YES, EDDIE 300, . IF YES, PLEASE LIST: ____ . ANY NEW PROBLEMS WITH YOUR MEDICATIONS? NO . WHEN DID YOU LAST EAT? ____ . WHEN DID YOU LAST DRINK? ____ . WHAT DID YOU LAST DRINK? ____ . NAME OF PERSON DRIVING YOU HOME? ____ . DO YOU HAVE ANY OTHER QUESTIONS OR CONCERNS NO . EXAMINATION GENERAL EXAMINATION: PSYCHAPPROPRIATE MOOD AND AFFECT , ORIENTED X 3 . ASSESSMENTS SPONDYLOSIS OF CERVICAL REGION WITHOUT MYELOPATHY OR RADICULOPATHY - M47.812 TREATMENT SPONDYLOSIS OF CERVICAL REGION WITHOUT MYELOPATHY OR RADICULOPATHY REFILL GABAPENTIN CAPSULE, 300 MG, 1 CAPSULE, ORAL, TID, 30 DAYS, 90 OTHERS CLINICAL NOTES: 63-YEAR-OLD FEMALE IN FOR CHRONIC PAIN FOLLOW-UP. GIVEN PRESENTING SYMPTOMS RECOMMEND FOLLOW-UP IN CLINIC IN 4 WEEKS TO DISCUSS POTENTIAL CERVICAL FACET BLOCK. PATIENT HAS EXPRESSED UNDERSTANDING OF AND WAS IN AGREEMENT WITH TREATMENT PLAN. GIVEN TIME TO ASK QUESTIONS AND EXPRESS CONCERNS.VISIT TO BE BILLED BASED ON TIME SPENT WITH PATIENT. TIME SPENT WITH PATIENT 11 MINUTES. DISPOSITION & COMMUNICATION FOLLOW UP 4 WEEKS (REASON: SPONDYLOSIS OF CERVICAL REGION) ELECTRONICALLY SIGNED BY MARIA TERESA GARCIA ON 07/20/2019 AT 08:31 AM EDT DISCLAIMER : THIS IS A VISIT SUMMARY EXTRACTED FROM THE [employer] CHART. IT IS NOT A COPY OF THE [employer] PROGRESS NOTE. BARBARA
== END ==
LOC: M PAIN 10:30
PROVIDERS: ATTEND Family Medicine
DX: M47.812 Spondylosis without myelopathy or radiculopathy, cervical region (principal); I10 Essential (primary) hypertension; Z79.899 Other long term (current) drug therapy; Z87.891 Personal history of nicotine dependence; Z88.2 Allergy status to sulfonamides

== ENCOUNTER → 2019-08-17 | Outpatient (CLI) | payer MEDICARE, OTHER ==
--- NOTE | 2019-08-19 02:42 | ECWPNPC ---
PATIENT NAME: RENÉE SOARES : 1955 GENDER: FEMALE VISIT DATE: 08/17/2019 DISCHARGE DATE: 08/17/19 1001 VISIT LOCKED DATE TIME: PHYSICIAN: ISHA BENNETT RESOURCE: ISHA BENNETT REASON FOR APPOINTMENT 1. MEDS-PHYSICAL VISIT PAT DONE HISTORY OF PRESENT ILLNESS HISTORY OF PRESENT ILLNESS: PAIN THE PATIENT DESCRIBES THE PAINDURING THE LAST MONTH SEVERITY - PAIN SCORE OF5/10 LOCATIONSLOWER BACK QUALITYACHING DURATIONCONTINUOUS, CONSTANT, ALL DAY PAIN IS INCREASED BY:ACTIVITIES, PROLONGED STANDING PAIN IS DECREASED BY: LYING DOWN, HEATING PAD 63-YEAR-OLD FEMALE IN FOR CHRONIC PAIN FOLLOW-UP. SHE RATES HER PAIN CURRENTLY AT A 5 OUT OF 10 AND DESCRIBES IT ACHING. PATIENT HAD A BILATERAL THERAPEUTIC LUMBAR FACET BLOCK DONE IN NOVEMBER OF LAST YEAR AND PER HER REPORT RECEIVED GOOD RESULTS WITH IT AND SHE WOULD LIKE TO DISCUSS A REPEAT PROCEDURE TODAY. FALL RISK SCREENING: SCREENING :NO FALLS REPORTED IN THE LAST YEAR CURRENT MEDICATIONS TAKING VITAMIN D (CHOLECALCIFEROL) 1000 UNIT CAPSULE 1 CAPSULE ORALLY ONCE A DAY TAKING MELATONIN ER 10 MG TABLET EXTENDED RELEASE DIRECTED ORALLY TAKING LOMOTIL 2.5-0.025 MG TABLET 1 TABLET NEEDED ORALLY FOUR TIMES A DAY TAKING FIBER - TABLET DIRECTED ORALLY TAKING DULOXETINE HCL 60 MG CAPSULE DELAYED RELEASE PARTICLES 1 CAPSULE ORALLY ONCE A DAY TDD=90 MG TAKING VITAMIN B12 100 MCG TABLET DIRECTED ORALLY TAKING CYMBALTA 30 MG CAPSULE DELAYED RELEASE PARTICLES 1 CAPSULE ORALLY ONCE A DAY TAKING GABAPENTIN 300 MG CAPSULE 1 CAPSULE ORAL TID TAKING LISINOPRIL 10 MG TABLET 1 TABLET ORALLY ONCE A DAY NOT-TAKING VENLAFAXINE HCL 37.5 MG TABLET 1 TABLET WITH FOOD ORALLY ONCE A DAY NOT-TAKING IBUPROFEN 800 MG TABLET 1 TABLET WITH FOOD OR MILK NEEDED ORALLY TWO TIMES A DAY NEEDED NOT-TAKING ONE DAILY FOR WOMEN - TABLET DIRECTED ORALLY NOT-TAKING EFUDEX 5 % CREAM 1 APPLICATION TO AFFECTED AREA EXTERNALLY TWICE A DAY TO NOSE LESION X 2 WEEKS THEN STOP MEDICATION LIST REVIEWED AND RECONCILED WITH THE PATIENT PAST MEDICAL HISTORY C DIFF COLITIS- DR MEIER (NO LONGER FOLLOWS WITH DR. 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 S/P RESECTION DR CARUSO. CHEMOTHERAPY DR COWAN- COMPLETED 5/6 TREATMENTS. RAD RX PER DR ROMANO ONCOLOGY DR VANN CHRONIC COUGH- DR HUNT 01/17 DONAVAN 02/02/13 NML( FEV1 2.51 (90%)/FVC2.94(82%). PFTS/METHACHOLINE CHALLENGE UNREMARKABLE- NO PULM EXPLANATION FOR COUGH 09/18. COUGH RESOLVED WITH ADVAIR PER VANESA 01/18. PANCREATIC MASS 2.5 CM/PRIOR FNA ATYPICAL CELLS/SUBSEQUENT EUS MASS SMALLER/LAST CT WITH CONTRAST MASS NOT DETECTED- FOLLOWED BY DR MAYORGA- GASTRO SYR. FNA 11/18NEG PER PT CT A&P WITH CONTRAST NO ACUTE PATHOLOGY 05/21 BONE SCAN- OA/FIBROMYALGIA WITH CHRONIC PAIN-[place]- PER [facility]- DR SAINI 07/19 DEPRESSION/ANXIETY- ALPHONSONORENETTA LDL 95 04/20 PNEUMOVAX- 2012- [facility] PER PT. CT MAXILLOFACIAL 03/19-MILD MUCOSAL THICKENING MAXILLARY SINUSES CTD/CHRONIC PAIN- RHEUM SYR (NO LONGER FOLLOWS) ETT 04/21 [facility]- NEG ISCHEMIA KIDNEY STONE 2016 GALL STONES 2016 NEUROLOGY: DR. Milton BEE SMALL VESSEL ISCHEMIC DISEASE MILD ASTHMA- FOLLOWS WITH DR. ALEXIS CERVIAL DISC DISPLACEMENT , CERVICAL RADICULOPATHY MERMORY IMPAIRMENT LYMPHYDEMA AND DVT LEFT ARM POUCH ENDOSCOPY: 2018 DR. SALINAS-Q 2 YEARS; BIOPSY NEGATIVE DYSTHYMIA OTHER AND UNSPECIFIED HYPERLIPIDEMIA ULCERATIVE (CHRONIC) PROCTITIS CHRONIC PAIN CHRONIC COUGH UNSPECIFIED DIFFUSE CONNECTIVE TISSUE DISEASE ALLERGIES SULFA (FOR ALLERGY USE ONLY): FLU LIKE SX'S - ALLERGY SURGICAL HISTORY TUBAL LIGATION HYSTERECTOMY WITH BILATERAL OOPHORECTOMY BREAST BIOPSY-LEFT SALPINGECTOMY FOR TUBAL COLONOSCOPY EGD DR MUKESH RODRIGUEZ [address] SALINAS [place] 04/18 ILEOSTOMY, 3 DIFFERENT OPERATIONS- 06/04/11 REANASTOMOSIS OF SMALL BOWEL. 01/[address] CARUSO 10/2012 LYMPH NODE REMOVAL FROM LEFT BREAST DR CARUSO 11/2012 ILEAL POUCH [id number] 01/26/15 RIGHT ESWL 06/08/15 POUCH ENDOSCOPY-DR. SALINAS, REPEAT 2 YEARS 01/2018 PRECANCEROUS LESION REMOVED FROM NOSE 08/2018 FAMILY HISTORY FATHER: 66 YRS, [place], HYPERTENSION, IDDM, KIDNEY STONES MOTHER: 86 YRS, MELANOMA, OF COLON CANCER 70'S SIBLINGS: 2 SISTERS-LUNG AND PANCREAS 70'S 5 BROTHER(S) , 3 SISTER(S) . 1 SON(S) , 1 DAUGHTER(S) - HEALTHY. BROTHER MVA, BROTHER MO @ LATE 40'S, TOBACCO USE. DENIES FAMILY HX OF BREAST OR OVARIAN CANCER.DENIES FAMILY HX OF MELANOMA. SISTER HAD PANCREATIC CANCER. SOCIAL HISTORY GENERAL: TOBACCO USE ARE YOU A:FORMER SMOKER HOW LONG HAS IT BEEN SINCE YOU LAST SMOKED?> 10 YEARS LATEX QUESTIONNAIRE LATEX ALLERGY : HAVE YOU EVER DEVELOPED ANY TYPE OF REACTION AFTER HANDLING LATEX PRODUCTS SUCH RUBBER GLOVES, CONDOMS, DIAPHRAGMS, BALLOONS, SOCKS, OR UNDERWEAR?NO LATEX ALLERGY : HAVE YOU EVER DEVELOPED ANY TYPE OF REACTION DURING OR AFTER DENTAL APPOINTMENT, VAGINAL/RECTAL EXAMINATION, SURGICAL PROCEDURE, OR ANY OTHER EXPOSURE?NO LATEX RISK : HAVE YOU EVER HAD ANY DIFFICULTY BREATHING OR HIVES AFTER EATING OR HANDLING ANY FRUITS, OR VEGETABLES; SUCH KIWI, BANANAS, STONE FRUITS, OR CHESTNUTSNO LATEX RISK : DO YOU HAVE A PREVIOUS PERSONAL HISTORY OF MORE THAN NINE SURGERIES, SPINA BIFIDA, OR REPEATED CATHERIZATIONS? NO LATEX RISK : ARE YOU FREQUENTLY EXPOSED TO LATEX PRODUCTS IN YOUR OCCUPATION?NO DATE ASKED : 08/16/2019 ALCOHOL SCREENING DID YOU HAVE A DRINK CONTAINING ALCOHOL IN THE PAST YEAR?YES HOW OFTEN DID YOU HAVE SIX OR MORE DRINKS ON ONE OCCASION IN THE PAST YEAR?NEVER (0 POINTS) HOW MANY DRINKS DID YOU HAVE ON A TYPICAL DAY WHEN YOU WERE DRINKING IN THE PAST YEAR?3 OR 4 (1 POINT) HOW OFTEN DID YOU HAVE A DRINK CONTAINING ALCOHOL IN THE PAST YEAR?MONTHLY OR LESS (1 POINT) POINTS2 INTERPRETATIONNEGATIVE RECREATIONAL DRUG USE DRUG USE?NO CAFFEINE CAFFEINE USE?NO SEXUAL HX HAD SEX IN THE LAST 12 MONTHS (VAGINAL, ORAL, OR ANAL)?NO LMP:N/A HAVE YOU EVER HAD AN STD?YES OTHER?NO HERPES?YES SYPHILIS?NO GC?NO CHLAMYDIA?NO HIV / HEP-C SCREENING HIV TEST OFFERED TO PATIENT:YES DATE OFFERED:08/28/2016 TEST ACCEPTED:NO HEP-C TEST OFFERED TO PATIENT:YES DATE OFFERED:08/28/2016 REASON:PATIENT DECLINED TEST ACCEPTED:NO REASON:PATIENT DECLINED EVANGELICAL [id number] SAMARITAN LANGUAGE LANGUAGES SPOKEN:UPPER SORBIAN EDUCATION LEVEL OF EDUCATION:NOT FINISHED COLLEGE LEARNING BARRIERS / SPECIAL NEEDS CHANGE FROM LAST VISIT?NO BARRIERS TO LEARNING?NO HEARING IMPAIRED?YES HAS NOTICED SOME HEARING LOSS VISION IMPAIRED?YES GLASSES FOR READING COGNITIVELY IMPAIRED?NO READINESS TO LEARN?YES LEARNING PREFERENCES?NO LEARNING CAPABILITIES PRESENT?YES EMOTIONAL BARRIERS?NO SPECIAL DEVICES?NO CAM MAKER NEEDED?NO DOMESTIC VIOLENCE DO YOU FEEL SAFE IN YOUR ENVIRONMENT?YES OCCUPATION: RETIRED. DIET: REGULAR. EXERCISE: YOGA. MARITAL STATUS: . 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 NEW PATIENT PAIN DIARY TODAY'S VISIT 08/16/19 PATIENT DESCRIBES PAIN :ACHING, HAVE IT ALL THE TIME FROM 0-10, WHAT LEVEL IS YOUR PAIN TODAY?7 PRECIPITATING FACTORS STANDING ALLEVIATING FACTORS LAYING DOWN RESTING IMPACT ON FUNCTION YES PAIN CLINIC PFS, CLERGY, PUBLIC HEALTH REFERRALS PFS REFERRAL NEEDED?NO CLERGY REFERRAL NEEDED?NO PUBLIC HEALTH REFERRAL NEEDED?NO WAS THE PROVIDER NOTIFIED OF ANY PERTINENT INFO?YES N/A HAS THE PATIENT BEEN EDUCATED REGARDING HIS/HER PLAN OF CARE?YES HAS THE PATIENT BEEN EDUCATED REGARDING PAIN, THE RISK FOR PAIN, THE IMPORTANCE OF EFFECTIVE PAIN MANAGEMENT, AND THE PAIN ASSESSMENT PROCESS?YES ADVANCE DIRECTIVE ADVANCE DIRECTIVE DISCUSSED WITH PATIENT:YES PT. HAS HCP--, BRIGID [phone] HOSPITALIZATION/MAJOR DIAGNOSTIC PROCEDURE RELATED TO SURGERIES LEUKOPENIA 01/17 REVIEW OF SYSTEMS REVIEWED BY: PROVIDER: MILTON TOMAS . CONSTITUTIONAL: ANY CHANGE IN YOUR MEDICAL CONDITION? NO . CHILLS NO . FEVER NO . INFECTION: DO YOU HAVE NEW INFECTIONS? NO . DO YOU HAVE HISTORY OF MRSA? NO . MUSCULOSKELETAL: ANY NEW PATTERNS OF PAIN OR NUMBNESS? NO . GASTROENTEROLOGY: ANY NEW CHANGE IN BOWEL CONTROL? NO . GENITOURINARY: ANY NEW CHANGE IN BLADDER CONTROL? NO . IS THERE A CHANCE YOU COULD BE ? NO . HEMATOLOGY/LYMPH: DO YOU TAKE ANY BLOOD THINNERS? (FOR EXAMPLE- COUMADIN, PLAVIX, AGGRENOX, PLATEL, PRADAXA, OR XARELTO) NO . WHEN WAS YOUR LAST DOSE? DATE: TIME: . NEUROLOGY: HAVE YOU FALLEN IN THE PAST 12 MONTHS? NO . ANY NEW EXTREMITY NUMBNESS OR WEAKNESS? NO . CARDIOLOGY: DO YOU HAVE A PACEMAKER OR DEFIBRILLATOR? NO . RESPIRATORY: HAVE YOU BEEN SICK IN THE PAST WEEK? NO . FEVER NO . FLU LIKE SYMPTOMS? NO . COUGH NO . INTEGUMENTARY: DO YOU HAVE ANY RASHES OR OPEN SORES? NO . ALLERGIC/IMMUNO: ARE YOU ALLERGIC TO IV DYE? NO . ANY NEW ALLERGIES? NO . PSYCHIATRIC: DO YOU HAVE THOUGHTS OF HURTING YOURSELF OR SOMEONE ELSE? NO . ARE YOU ABUSED, NEGLECTED, OR IN AN UNSAFE ENVIRONMENT? NO . ENDOCRINOLOGY: ARE YOU DIABETIC? NO . OTHER: DO YOU NEED ANY PRESCRIPTIONS? NO . IF YES, PLEASE LIST: ____ . ANY NEW PROBLEMS WITH YOUR MEDICATIONS? NO . WHEN DID YOU LAST EAT? ____ . WHEN DID YOU LAST DRINK? ____ . WHAT DID YOU LAST DRINK? ____ . NAME OF PERSON DRIVING YOU HOME? ____ . DO YOU HAVE ANY OTHER QUESTIONS OR CONCERNS NO . VITAL SIGNS WT 156.6 LBS, HT 65.5 IN, BMI 25.66 INDEX, BP 125/60 MM HG, HR 99 /MIN, RR 18 /MIN, TEMP 98.0 F, OXYGEN SAT % 98%, SAFE IN ENV? 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 EXAMINATION GENERAL EXAMINATION: GENERALNO ACUTE DISTRESS, WELL NOURISHED AND HYDRATED. PSYCHAPPROPRIATE MOOD AND AFFECT . LUNGS:CLEAR TO AUSCULTATION BILATERALLY, NO WHEEZES, RHONCHI, RALES. HEART:NO MURMURS, REGULAR RATE AND RHYTHM. BACK:DENIES POINT TENDERNESS ALONG LUMBAR SPINE, SURROUNDING SKIN SHOWS NO ERYTHEMA, ECCHYMOSIS, INCREASED WARMTH, AND/OR SKIN ERUPTIONS NOTED. . MUSCULOSKELETAL:EQUAL STRENGTH OF THE LOWER EXTREMITIES BILATERALLY . ASSESSMENTS SPONDYLOSIS OF LUMBOSACRAL REGION WITHOUT MYELOPATHY OR RADICULOPATHY - M47.817 (PRIMARY) TREATMENT SPONDYLOSIS OF LUMBOSACRAL REGION WITHOUT MYELOPATHY OR RADICULOPATHY NOTES: THERAPEUTIC BILATERAL FACET BLOCK L4-L5 L5-S1. CLINICAL NOTES: BILATERAL THERAPEUTIC FACET BLOCK L4-L5 L5-S1 WITH POSTPROCEDURAL FOLLOW-UP. PATIENT HAS EXPRESSED UNDERSTANDING OF AND WAS IN AGREEMENT WITH TREATMENT PLAN. GIVEN TIME TO ASK QUESTIONS AND EXPRESS CONCERNS. OTHERS NOTES: FACET JOINT INJECTION MATERIAL WAS PRINTED. PROCEDURE CODES FA211 ESTABILISHED PATIENT [facility] CHARGE DISPOSITION & COMMUNICATION FOLLOW UP POSTPROCEDURE (REASON: THERAPEUTICALLY BILATERAL FACET BLOCK L4-L5 L5-S1) ELECTRONICALLY SIGNED BY MARIA TERESA GARCIA ON 08/18/2019 AT 01:42 PM EDT DISCLAIMER : THIS IS A VISIT SUMMARY EXTRACTED FROM THE [employer] CHART. IT IS NOT A COPY OF THE [employer] PROGRESS NOTE. BARBARA
== END ==
LOC: M PAIN 09:30
PROVIDERS: ATTEND Family Medicine
DX: M47.817 Spondylosis without myelopathy or radiculopathy, lumbosacral region (principal); G89.29 Other chronic pain; Z86.19 Personal history of other infectious and parasitic diseases; Z86.59 Personal history of other mental and behavioral disorders; J45.909 Unspecified asthma, uncomplicated; Z87.891 Personal history of nicotine dependence; Z88.2 Allergy status to sulfonamides; Z79.899 Other long term (current) drug therapy

== ENCOUNTER → 2019-08-31 | Outpatient (CLI) | payer MEDICARE, OTHER | LOC: M LABSMTC 10:01 | PROVIDERS: ATTEND Anesthesiology | DX: Z03.818 Encounter for observation for suspected exposure to other biological agents ruled out (principal); Z11.59 Encounter for screening for other viral diseases | CPT/HCPCS: C9803; U0003 ==

== ENCOUNTER → 2019-09-03 | Outpatient (CLI) | payer MEDICARE, OTHER ==
[~2019-09-03] MED LIST changes: +BUPIVACAINE HCL 0.25% 30ML VIAL As Ordered ONE; +ISOVUE-M 300 61% 15ML VIAL As Ordered ONE; +LIDOCAINE 1% SDV 30ML VIAL As Ordered ONE; +dexameTHASONE 10MG/1ML VIAL PRES.FREE (J1100 PER 1MG) As Ordered ONE; +diazePAM 5 MG TAB As Ordered ONE; +oxyCODONE 5MG TAB As Ordered ONE
--- NOTE | 2019-09-03 11:11 | REP ---
C-ARM VIEWS OF THE LOWER LUMBAR SPINE: CLINICAL HISTORY: Pain. Two C-arm views of the lower lumbar spine performed during bilateral facet injection by Dr. Becerra. Two needles are seen along the lower facets bilaterally and a small amount of contrast is injected. 28 seconds of fluoroscopy time utilized. Electronically Signed by Luis Felipe Pena MD 09/03/2019 11:43 A
--- NOTE | 2019-09-07 02:01 | ECWPNPC ---
PATIENT NAME: RENÉE SOARES : 1955 GENDER: FEMALE VISIT DATE: 09/03/2019 DISCHARGE DATE: 09/03/19 1022 VISIT LOCKED DATE TIME: PHYSICIAN: REINA REED MD RESOURCE: REINA REED MD REASON FOR APPOINTMENT 1. THERAPEUTIC BILAT FACET BLK L4-L5 L5-S1 HISTORY OF PRESENT ILLNESS GENERAL: -. FALL RISK SCREENING: SCREENING :NO FALLS REPORTED IN THE LAST YEAR PAIN SCREENING: PATIENT HAS A COMPLAINT OF ACUTE OR CHRONIC PAIN :YES INTENSITY OF PAIN (SCALE OF 1 TO 10):5 2-10 RANGE OF PAIN WHAT DOES YOUR PAIN FEEL LIKE:ACHING, INTERMITTENT, STABBING PAIN IS INCREASED BY: WALKING, STANDING PAIN IS DECREASED BY: HEATING PAD, ELEVATING FEET NURSING NOTE: -. PAIN CENTER INTAKE QUESTIONS: DO YOU HAVE A HISTORY OF MRSA? :NO DO YOU TAKE A BLOOD THINNERS? :NO DO YOU HAVE ANY BLEEDING DISORDERS? :NO ANY NEW NUMBNESS OR WEAKNESS IN YOUR LEGS OR ARMS? :YES HANDS GO NUMB UPON AWAKENING ANY PACEMAKER,DEFIBRILLATOR, OR DORSAL COLUMN STIMULATOR? :NO DO YOU HAVE ANY RASHES OR OPEN SORES? :NO ARE YOU ALLERGIC TO IV DYE? :NO ARE YOU DIABETIC? :NO ANY NEW PROBLEMS WITH YOUR MEDICATIONS? :NO HAVE YOU RECEIVED A VACCINE IN THE PAST 30 DAYS? :NO DO YOU PLAN TO RECEIVE A VACCINE IN THE NEXT 21 DAYS? :NO ANY HISTORY OF SEIZURES? :NO ANY HISTORY OF CARDIAC ISSUES OR EVENTS? :NO DO YOU HAVE SLEEP APNEA? :NO ANY RECENT HEAD INJURY? :NO DO YOU HAVE ANY NEW INFECTIONS? :NO WHEN DID YOU LAST EAT? : 09/02/2019 190 WHEN DID YOU LAST DRINK? : 09/03/2019 0650 WHAT DID YOU LAST DRINK? : WATER NAME OF PERSON DRIVING YOU HOME? : - DO YOU HAVE ANY OTHER QUESTIONS OR CONCERNS? : - CURRENT MEDICATIONS TAKING VITAMIN D (CHOLECALCIFEROL) 1000 UNIT CAPSULE 1 CAPSULE ORALLY ONCE A DAY, NOTES: 09/02/20191999 TAKING MELATONIN ER 10 MG TABLET EXTENDED RELEASE DIRECTED ORALLY , NOTES: 09/02/20191999 TAKING LOMOTIL 2.5-0.025 MG TABLET 1 TABLET NEEDED ORALLY FOUR TIMES A DAY, NOTES: 09/03/2019 0650 TAKING FIBER - TABLET DIRECTED ORALLY , NOTES: 09/03/2019 0650 TAKING DULOXETINE HCL 60 MG CAPSULE DELAYED RELEASE PARTICLES 1 CAPSULE ORALLY ONCE A DAY TDD=90 MG, NOTES: 09/02/20191999 TAKING VITAMIN B12 100 MCG TABLET DIRECTED ORALLY , NOTES: 09/03/2019 0650 TAKING CYMBALTA 30 MG CAPSULE DELAYED RELEASE PARTICLES 1 CAPSULE ORALLY ONCE A DAY, NOTES: 09/03/2019 0650 TAKING GABAPENTIN 300 MG CAPSULE 1 CAPSULE ORAL TID, NOTES: 09/03/2019 0650 TAKING LISINOPRIL 10 MG TABLET 1 TABLET ORALLY ONCE A DAY, NOTES: 09/02/20191999 TAKING IBUPROFEN 800 MG TABLET 1 TABLET WITH FOOD OR MILK NEEDED ORALLY THREE TIMES A DAY, NOTES: PRN TAKING FISH OIL 1000 MG CAPSULE 1 CAPSULE ORALLY ONCE A DAY, NOTES: 09/03/2019 0650 NOT-TAKING VENLAFAXINE HCL 37.5 MG TABLET 1 TABLET WITH FOOD ORALLY ONCE A DAY NOT-TAKING IBUPROFEN 800 MG TABLET 1 TABLET WITH FOOD OR MILK NEEDED ORALLY TWO TIMES A DAY NEEDED NOT-TAKING ONE DAILY FOR WOMEN - TABLET DIRECTED ORALLY NOT-TAKING EFUDEX 5 % CREAM 1 APPLICATION TO AFFECTED AREA EXTERNALLY TWICE A DAY TO NOSE LESION X 2 WEEKS THEN STOP MEDICATION LIST REVIEWED AND RECONCILED WITH THE PATIENT PAST MEDICAL HISTORY C DIFF COLITIS- DR MEIER (NO LONGER FOLLOWS WITH DR. 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 S/P RESECTION DR CARUSO. CHEMOTHERAPY DR COWAN- COMPLETED 5/6 TREATMENTS. RAD RX PER DR ROMANO ONCOLOGY DR VANN CHRONIC COUGH- DR HUNT 01/17 DONAVAN 02/02/13 NML( FEV1 2.51 (90%)/FVC2.94(82%). PFTS/METHACHOLINE CHALLENGE UNREMARKABLE- NO PULM EXPLANATION FOR COUGH 09/18. COUGH RESOLVED WITH ADVAIR PER [facility]AN[facility] 01/18. PANCREATIC MASS 2.5 CM/PRIOR FNA ATYPICAL CELLS/SUBSEQUENT EUS MASS SMALLER/LAST CT WITH CONTRAST MASS NOT DETECTED- FOLLOWED BY DR MAYORGA- GASTRO SYR. FNA 11/18NEG PER PT CT A&P WITH CONTRAST NO ACUTE PATHOLOGY 05/21 BONE SCAN- OA/FIBROMYALGIA WITH CHRONIC PAIN-LYRICA- PER [facility] SYR- DR SAINI 07/19 DEPRESSION/ANXIETY- ONESIMO LDL 95 1/14 PNEUMOVAX- 2012- [facility] PER PT. CT MAXILLOFACIAL 03/19-MILD MUCOSAL THICKENING MAXILLARY SINUSES CTD/CHRONIC PAIN- RHEUM SYR (NO LONGER FOLLOWS) ETT 04/21 [facility]- NEG ISCHEMIA KIDNEY STONE 2016 GALL STONES 2016 NEUROLOGY: DR. Milton BEE SMALL VESSEL ISCHEMIC DISEASE MILD ASTHMA- FOLLOWS WITH DR. ALEXIS CERVIAL DISC DISPLACEMENT , CERVICAL RADICULOPATHY MERMORY IMPAIRMENT LYMPHYDEMA AND DVT LEFT ARM POUCH ENDOSCOPY: 2018 DR. SALINAS-Q 2 YEARS; BIOPSY NEGATIVE DYSTHYMIA OTHER AND UNSPECIFIED HYPERLIPIDEMIA ULCERATIVE (CHRONIC) PROCTITIS CHRONIC PAIN CHRONIC COUGH UNSPECIFIED DIFFUSE CONNECTIVE TISSUE DISEASE ALLERGIES SULFA (FOR ALLERGY USE ONLY): FLU LIKE SX'S - ALLERGY AMOXICILLIN: CAUSES C-DIFF - ALLERGY SURGICAL HISTORY TUBAL LIGATION HYSTERECTOMY WITH BILATERAL OOPHORECTOMY BREAST BIOPSY-LEFT SALPINGECTOMY FOR TUBAL COLONOSCOPY EGD DR MUKESH RODRIGUEZ [address] SALINAS [place]ORSE 04/18 ILEOSTOMY, 3 DIFFERENT OPERATIONS- 06/04/11 REANASTOMOSIS OF SMALL BOWEL. 01/[address] CARUSO 10/2012 LYMPH NODE REMOVAL FROM LEFT BREAST DR CARUSO 11/2012 ILEAL POUCH [id number] 01/26/15 RIGHT ESWL 06/08/15 POUCH ENDOSCOPY-DR. SALINAS, REPEAT 2 YEARS 01/2018 PRECANCEROUS LESION REMOVED FROM NOSE 08/2018 FAMILY HISTORY FATHER: 66 YRS, NV, HYPERTENSION, IDDM, KIDNEY STONES MOTHER: 86 YRS, MELANOMA, OF COLON CANCER 70'S SIBLINGS: 2 SISTERS-LUNG AND PANCREAS 70'S 5 BROTHER(S) , 3 SISTER(S) . 1 SON(S) , 1 DAUGHTER(S) - HEALTHY. BROTHER MVA, BROTHER NV @ LATE 40'S, TOBACCO USE. DENIES FAMILY HX OF BREAST OR OVARIAN CANCER.DENIES FAMILY HX OF MELANOMA. SISTER HAD PANCREATIC CANCER. SOCIAL HISTORY GENERAL: TOBACCO USE ARE YOU A:FORMER SMOKER HOW LONG HAS IT BEEN SINCE YOU LAST SMOKED?> 10 YEARS LATEX QUESTIONNAIRE LATEX ALLERGY : HAVE YOU EVER DEVELOPED ANY TYPE OF REACTION AFTER HANDLING LATEX PRODUCTS SUCH RUBBER GLOVES, CONDOMS, DIAPHRAGMS, BALLOONS, SOCKS, OR UNDERWEAR?NO LATEX ALLERGY : HAVE YOU EVER DEVELOPED ANY TYPE OF REACTION DURING OR AFTER DENTAL APPOINTMENT, VAGINAL/RECTAL EXAMINATION, SURGICAL PROCEDURE, OR ANY OTHER EXPOSURE?NO DATE ASKED : 08/16/2019 LATEX RISK : HAVE YOU EVER HAD ANY DIFFICULTY BREATHING OR HIVES AFTER EATING OR HANDLING ANY FRUITS, OR VEGETABLES; SUCH KIWI, BANANAS, STONE FRUITS, OR CHESTNUTSNO LATEX RISK : DO YOU HAVE A PREVIOUS PERSONAL HISTORY OF MORE THAN NINE SURGERIES, SPINA BIFIDA, OR REPEATED CATHERIZATIONS? NO LATEX RISK : ARE YOU FREQUENTLY EXPOSED TO LATEX PRODUCTS IN YOUR OCCUPATION?NO ALCOHOL SCREENING DID YOU HAVE A DRINK CONTAINING ALCOHOL IN THE PAST YEAR?YES HOW OFTEN DID YOU HAVE SIX OR MORE DRINKS ON ONE OCCASION IN THE PAST YEAR?NEVER (0 POINTS) HOW MANY DRINKS DID YOU HAVE ON A TYPICAL DAY WHEN YOU WERE DRINKING IN THE PAST YEAR?3 OR 4 (1 POINT) HOW OFTEN DID YOU HAVE A DRINK CONTAINING ALCOHOL IN THE PAST YEAR?MONTHLY OR LESS (1 POINT) POINTS2 INTERPRETATIONNEGATIVE RECREATIONAL DRUG USE DRUG USE?NO CAFFEINE CAFFEINE USE?NO SEXUAL HX HAD SEX IN THE LAST 12 MONTHS (VAGINAL, ORAL, OR ANAL)?NO LMP:N/A HAVE YOU EVER HAD AN STD?YES OTHER?NO HERPES?YES SYPHILIS?NO GC?NO CHLAMYDIA?NO HIV / HEP-C SCREENING HIV TEST OFFERED TO PATIENT:YES DATE OFFERED:08/28/2016 TEST ACCEPTED:NO HEP-C TEST OFFERED TO PATIENT:YES DATE OFFERED:08/28/2016 REASON:PATIENT DECLINED TEST ACCEPTED:NO REASON:PATIENT DECLINED BAPTISM [id number] JEW LANGUAGE LANGUAGES SPOKEN:[place] EDUCATION LEVEL OF EDUCATION:NOT FINISHED COLLEGE LEARNING BARRIERS / SPECIAL NEEDS CHANGE FROM LAST VISIT?NO BARRIERS TO LEARNING?NO HEARING IMPAIRED?YES HAS NOTICED SOME HEARING LOSS VISION IMPAIRED?YES GLASSES FOR READING COGNITIVELY IMPAIRED?NO READINESS TO LEARN?YES LEARNING PREFERENCES?NO LEARNING CAPABILITIES PRESENT?YES EMOTIONAL BARRIERS?NO SPECIAL DEVICES?NO MEDICAID SPECIALIST NEEDED?NO DOMESTIC VIOLENCE DO YOU FEEL SAFE IN YOUR ENVIRONMENT?YES OCCUPATION: RETIRED. DIET: REGULAR. EXERCISE: YOGA. MARITAL STATUS: . 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 NEW PATIENT PAIN DIARY TODAY'S VISIT 08/16/19 PATIENT DESCRIBES PAIN :ACHING, HAVE IT ALL THE TIME FROM 0-10, WHAT LEVEL IS YOUR PAIN TODAY?7 PRECIPITATING FACTORS STANDING ALLEVIATING FACTORS LAYING DOWN RESTING IMPACT ON FUNCTION YES PAIN CLINIC PFS, CLERGY, PUBLIC HEALTH REFERRALS PFS REFERRAL NEEDED?NO CLERGY REFERRAL NEEDED?NO PUBLIC HEALTH REFERRAL NEEDED?NO WAS THE PROVIDER NOTIFIED OF ANY PERTINENT INFO?YES N/A HAS THE PATIENT BEEN EDUCATED REGARDING HIS/HER PLAN OF CARE?YES HAS THE PATIENT BEEN EDUCATED REGARDING PAIN, THE RISK FOR PAIN, THE IMPORTANCE OF EFFECTIVE PAIN MANAGEMENT, AND THE PAIN ASSESSMENT PROCESS?YES ADVANCE DIRECTIVE ADVANCE DIRECTIVE DISCUSSED WITH PATIENT:YES PT. HAS HCP--, BRIGID [phone] HOSPITALIZATION/MAJOR DIAGNOSTIC PROCEDURE RELATED TO SURGERIES LEUKOPENIA 01/17 VITAL SIGNS WT 152.2 LBS, HT 65.5 IN, BMI 24.94 INDEX, BP 141/67 MM HG, HR 81 /MIN, RR 16 /MIN, TEMP 98.3 F, OXYGEN SAT % 98%, NA INITIALS TL 0902. EXAMINATION GENERAL EXAMINATION: THE PATIENT IS ALERT, ORIENTED TIMES THREE AND COOPERATIVE. HEART SHOWS REGULAR RHYTHM, NO MURMURS AND NO GALLOPS. LUNGS ARE CLEAR TO AUSCULTATION. ASSESSMENTS SPONDYLOSIS WITHOUT MYELOPATHY OR RADICULOPATHY, LUMBAR REGION - M47.816 (PRIMARY) SPONDYLOSIS OF LUMBOSACRAL REGION WITHOUT MYELOPATHY OR RADICULOPATHY - M47.817 TREATMENT SPONDYLOSIS OF LUMBOSACRAL REGION WITHOUT MYELOPATHY OR RADICULOPATHY SMC FACET BLOCK (PAIN)[id number] OTHERS CLINICAL NOTES: PRE SCREENING CALL DONE. 09/02/19 EM. PROCEDURES PN LUMBAR FACET BLOCK THERAPEUTIC PRE PROCEDURE DIAGNOSIS LUMBAR SPONDYLOSIS, LUMBOSACRAL SPONDYLOSIS POST PROCEDURE DIAGNOSIS LUMBAR SPONDYLOSIS, LUMBOSACRAL SPONDYLOSIS PROCEDURE BILATERAL L4-L5 AND BILATERAL L5-S1 LUMBAR FACET THERAPEUTIC BLOCK SURGEON DR. REINA REED PLATE MOLDER NONE ANESTHESIA LOCAL PRE PROCEDURE NOTE THE PATIENT HAS A HISTORY OF CHRONIC LOW BACK PAIN. I EVALUATED THE PATIENT AND REVIEWED THE CHART. I WENT OVER THE RISKS, ALTERNATIVES, AND BENEFITS ASSOCIATED WITH THIS PROCEDURE. I DISCUSSED THAT THE USE OF STEROIDS MAY CONTRIBUTE TO IMMUNOSUPPRESSION OF THE PATIENT'S BODY AGAINST INFECTIONS SUCH THE HOLT VIRUS, COVID-19. THE PATIENT IS AWARE OF THE POTENTIAL COMPLICATIONS ASSOCIATED WITH AN INFECTION OF THIS VIRUS INCLUDING . THE PATIENT WOULD LIKE TO PROCEED AND GIVES CONSENT TO PERFORM THE PROCEDURE. THE PATIENT DENIES UNEXPLAINABLE WEIGHT LOSS, FEVER, CHILLS, OR NEW CHANGES IN URINARY OR BOWEL CONTROL. THE PATIENT IS COVID-19 NEGATIVE DESCRIPTION OF PROCEDURE THE PATIENT WAS BROUGHT TO THE PROCEDURE ROOM AND PLACED IN THE PRONE POSITION. THE LUMBOSACRAL AREA WAS CLEANED WITH CHLORAPREP SOLUTION AND DRAPED ASEPTICALLY. THE PROCEDURE WAS DONE UNDER STERILE CONDITIONS. I CHECKED LATERALITY AND THE LEVEL WHERE THE PROCEDURE WAS GOING TO BE PERFORMED WITH THE PATIENT AND THE SUPPORTING STAFF AT THE MOMENT OF THE TIME OUT IN THE PROCEDURE ROOM. UNDER FLUOROSCOPIC GUIDANCE, THE TARGET POINT WAS SELECTED AT THE RIGHT AND LEFT L4-L5 AND RIGHT AND LEFT L5-S1 FACET JOINTS. TARGET POINT WAS SELECTED AFTER LATERAL ROTATION AND TILT OF THE MAGNIFIER OF THE C-ARM. LIDOCAINE 0.5% WAS USED TO NUMB THE SKIN AND THE SUBCUTANEOUS TISSUE BELOW IT. SPINAL NEEDLES, 22-GAUGE, WERE ADVANCED UNDER FLUOROSCOPIC GUIDANCE AND FOLLOWING PATIENT FEEDBACK UNTIL THE TARGETS WERE TOUCHED. THE POSITION OF THE NEEDLES WAS VERIFIED WITH AP AND LATERAL VIEWS. AFTER PROPER POSITION OF THE NEEDLES WAS ACHIEVED, ISOVUE-M DYE 30%, 0.1 ML, WAS INJECTED SHOWING ADEQUATE SPREAD OF THE DYE. THEN A SOLUTION OF 1.0 ML OF BUPIVACAINE 0.125% OF DEXAMETHASONE 5 MG WAS INJECTED AT EACH SITE. THERE WAS NO EVIDENCE OF BLOOD, PARESTHESIA OR CEREBROSPINAL FLUID DURING THE PROCEDURE. THE PATIENT WAS SENT TO THE RECOVERY ROOM. THE PATIENT WAS MOVING THE EXTREMITIES AND DOING WELL. THERE WAS NO COMPLICATION DURING THE PROCEDURE. FLUOROSCOPY TIME WAS 28 SECONDS POST PROCEDURE NOTE THE PATIENT WILL BE SEEN IN A FOLLOW UP IN THE NEXT FEW WEEKS. I AM LOOKING FOR LONG LASTING RELIEF FOR THE PATIENT WITH THIS INTERVENTION. INSTRUCTIONS WERE GIVEN, QUESTIONS WERE ANSWERED, AND THE PATIENT EXPRESSED UNDERSTANDING AND AGREES WITH THE PLAN. THE PATIENT IS AWARE TO STAY HOME FOR THE NEXT WEEK, IF POSSIBLE, DUE TO COVID-19. I, BLANCHE CARO, DOCUMENTED THE ABOVE INFORMATION ACTING A SCRIBE FOR DR. REED. I HAVE REVIEWED THE ABOVE DOCUMENT, WRITTEN BY BLANCHE CARO, HEMATOLOGIST ONCOLOGIST, AND I VERIFY THAT IT IS ACCURATE PROCEDURE CODES 66134 INJ PARAVERT F JNT L/S 1 LEV, MODIFIERS: 50 [id number] INJ PARAVERT F JNT L/S 2 LEV, MODIFIERS: 50 DISPOSITION & COMMUNICATION FOLLOW UP F/UP WITH [employer] SALES REPRESENTATIVE (REASON: POST LFBT YEIMY L4-L5, L5-S1) ELECTRONICALLY SIGNED BY REINA REED MD, MD ON 09/06/2019 AT 10:13 AM EDT DISCLAIMER : THIS IS A VISIT SUMMARY EXTRACTED FROM THE [employer] CHART. IT IS NOT A COPY OF THE [facility] PROGRESS NOTE. MTDD
== END ==
LOC: M PAIN 09:00
PROVIDERS: ATTEND Anesthesiology
DX: M47.816 Spondylosis without myelopathy or radiculopathy, lumbar region (principal); M47.817 Spondylosis without myelopathy or radiculopathy, lumbosacral region
CPT/HCPCS: 64493; 64494; J1100; Q9967

== ENCOUNTER → 2019-09-16 | Outpatient (REF) | payer MEDICARE, OTHER ==
[~2019-09-16] MED LIST changes: -BUPIVACAINE HCL 0.25% 30ML VIAL As Ordered ONE; -ISOVUE-M 300 61% 15ML VIAL As Ordered ONE; -LIDOCAINE 1% SDV 30ML VIAL As Ordered ONE; -dexameTHASONE 10MG/1ML VIAL PRES.FREE (J1100 PER 1MG) As Ordered ONE; -diazePAM 5 MG TAB As Ordered ONE; -oxyCODONE 5MG TAB As Ordered ONE
== END ==
LOC: M LAB REF 17:39
PROVIDERS: ATTEND Dermatology
DX: D22.71 Melanocytic nevi of right lower limb, including hip (principal)
CPT/HCPCS: 11102; 11900; 88305; J3301

== ENCOUNTER → 2019-10-04 | Outpatient (CLI) | payer MEDICARE, OTHER ==
--- NOTE | 2019-10-05 08:56 | REPMRS ---
Patient History Family history of breast cancer in sister, colorectal cancer in mother. Malignant radio exam breast specimen, November 26, 2012. Malignant localization of breast nodule of the left breast, November 26, 2012. Malignant excisional biopsy of the left breast, November 26, 2012. US Guided Breast Biopsy of the left breast, November 16, 2012. Radiation therapy of the left breast, 2012. Benign core biopsy. Took unspecified hormones for 10 years. Diagnostic Bilateral Mammo: October 04, 2019 - Exam #: [id number] Bilateral CC and MLO view(s) were taken. Technologist: Malgorzata Carrasco, Technologist Prior study comparison: October 02, 2018, bilateral digital mammo screening bilat, performed at [facility]. September 25, 2015, bilateral digital mammo screening bilat, performed at [facility]. September 22, 2014, digital woman screen mammo performed at [facility]. FINDINGS: There are scattered fibroglandular densities. The Volpara volumetric breast density category is: B. There are stable post-treatment changes on the left. There is a moderate amount of residual fibroglandular tissue which is fairly symmetric. There is no interval development of dominant mass, architectural distortion, or grouped microcalcification typical of malignancy. There has been no change in the appearance of the mammogram from the prior studies. 3-D tomosynthesis shows no additional findings. Assessment: BI-RADS/ACR category 2 mammogram. Benign Findings. Recommendation Routine screening mammogram of both breasts in 1 year (for women over age 40). This mammogram was interpreted with the aid of an FDA-approved computer-aided dectection system. Electronically Signed By: Elpidio Spear MD 10/04/19 [id number]
== END ==
LOC: M WHC 11:16
PROVIDERS: ATTEND Internal Medicine Hematology & Oncology
DX: Z12.31 Encounter for screening mammogram for malignant neoplasm of breast (principal)
CPT/HCPCS: 77066; G0279

== ENCOUNTER → 2019-10-06 | Outpatient (CLI) | payer MEDICARE, OTHER ==
--- NOTE | 2019-10-08 05:26 | ECWPNPC ---
PATIENT NAME: RENÉE SOARES : 1955 GENDER: FEMALE VISIT DATE: 10/06/2019 DISCHARGE DATE: 10/06/19 1000 VISIT LOCKED DATE TIME: PHYSICIAN: ISHA BENNETT RESOURCE: ISHA BENNETT REASON FOR APPOINTMENT 1. POST THERA BILAT FACET BLOCK L4-L5 L5-S1 HISTORY OF PRESENT ILLNESS GENERAL: 63 YEAR OLD FEMALE IN FOR POST FACET BLOCK FOLLOW UP. WHEN ASKED SHE REPORTS GREATER THAN 80% PAIN RELIEF WITH PROCEDURE. SHE FURTHER STATES THE PROCEDURE CONTINUES TO HELP HER TODAY SHE REPORTS NO PAIN -. FALL RISK SCREENING: SCREENING :NO FALLS REPORTED IN THE LAST YEAR PAIN SCREENING: PATIENT HAS A COMPLAINT OF ACUTE OR CHRONIC PAIN :NO NURSING NOTE: -. PAIN CENTER INTAKE QUESTIONS: DO YOU HAVE A HISTORY OF MRSA? :NO DO YOU TAKE A BLOOD THINNERS? :NO DO YOU HAVE ANY BLEEDING DISORDERS? :NO ANY NEW NUMBNESS OR WEAKNESS IN YOUR LEGS OR ARMS? :NO ANY PACEMAKER,DEFIBRILLATOR, OR DORSAL COLUMN STIMULATOR? :NO DO YOU HAVE ANY RASHES OR OPEN SORES? :YES REDDENED AREA ON BILATERAL BUTTOCKS ARE YOU ALLERGIC TO IV DYE? :NO ARE YOU DIABETIC? :NO ANY NEW PROBLEMS WITH YOUR MEDICATIONS? :NO HAVE YOU RECEIVED A VACCINE IN THE PAST 30 DAYS? :NO DO YOU PLAN TO RECEIVE A VACCINE IN THE NEXT 21 DAYS? :NO DO YOU NEED ANY PRESCRIPTION? :NO DO YOU TAKE ANY IMMUNOSUPPRESSIVE MEDICATIONS? :NO ANY HISTORY OF SEIZURES? :NO ANY HISTORY OF CARDIAC ISSUES OR EVENTS? :NO DO YOU HAVE SLEEP APNEA? :NO ANY RECENT HEAD INJURY? :NO IS THERE A CHANCE YOU COULD BE ? :NO ARE YOU BREAST FEEDING? :NO CURRENT MEDICATIONS TAKING VITAMIN D (CHOLECALCIFEROL) 1000 UNIT CAPSULE 1 CAPSULE ORALLY ONCE A DAY TAKING MELATONIN ER 10 MG TABLET EXTENDED RELEASE DIRECTED ORALLY TAKING LOMOTIL 2.5-0.025 MG TABLET 1 TABLET NEEDED ORALLY FOUR TIMES A DAY TAKING FIBER - TABLET DIRECTED ORALLY TAKING VITAMIN B12 100 MCG TABLET DIRECTED ORALLY DAILY TAKING CYMBALTA 30 MG CAPSULE DELAYED RELEASE PARTICLES 1 CAPSULE ORALLY ONCE A DAY TAKING GABAPENTIN 300 MG CAPSULE 1 CAPSULE ORAL TID TAKING LISINOPRIL 10 MG TABLET 1 TABLET ORALLY ONCE A DAY TAKING IBUPROFEN 800 MG TABLET 1 TABLET WITH FOOD OR MILK NEEDED ORALLY THREE TIMES A DAY, NOTES: PRN TAKING DULOXETINE HCL 60 MG CAPSULE DELAYED RELEASE PARTICLES 1 CAPSULE ORALLY ONCE A DAY TDD=90 MG NOT-TAKING FISH OIL 1000 MG CAPSULE 1 CAPSULE ORALLY ONCE A DAY, NOTES: 09/03/2019 0650 MEDICATION LIST REVIEWED AND RECONCILED WITH THE PATIENT PAST MEDICAL HISTORY C DIFF COLITIS- DR MEIER (NO LONGER FOLLOWS WITH DR. 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 S/P RESECTION DR CARUSO. CHEMOTHERAPY DR COWAN- COMPLETED 5 TREATMENTS. RAD RX PER DR ROMANO ONCOLOGY DR VANN CHRONIC COUGH- DR HUNT 01/17 DONAVAN 02/02/13 NML( FEV1 2.51 (90%)/FVC2.94(82%). PFTS/METHACHOLINE CHALLENGE UNREMARKABLE- NO PULM EXPLANATION FOR COUGH 09/18. COUGH RESOLVED WITH ADVAIR PER VANESA 01/18. PANCREATIC MASS 2.5 CM/PRIOR FNA ATYPICAL CELLS/SUBSEQUENT EUS MASS SMALLER/LAST CT WITH CONTRAST MASS NOT DETECTED- FOLLOWED BY DR MAYORGA- GASTRO SYR. FNA 11/18NEG PER PT CT A&P WITH CONTRAST NO ACUTE PATHOLOGY 05/21 BONE SCAN- OA/FIBROMYALGIA WITH CHRONIC PAIN-[place]- PER [facility] SYR- DR SAINI 07/19 DEPRESSION/ANXIETY- ONESIMO LDL 95 04/20 PNEUMOVAX- 2013- [facility] PER PT. CT MAXILLOFACIAL 03/19-MILD MUCOSAL THICKENING MAXILLARY SINUSES CTD/CHRONIC PAIN- RHEUM SYR (NO LONGER FOLLOWS) ETT 04/21 [facility]- NEG ISCHEMIA KIDNEY STONE 2015 GALL STONES 2016 NEUROLOGY: DR. Milton BEE SMALL VESSEL ISCHEMIC DISEASE MILD ASTHMA- FOLLOWS WITH DR. ALEXIS CERVIAL DISC DISPLACEMENT , CERVICAL RADICULOPATHY MERMORY IMPAIRMENT LYMPHYDEMA AND DVT LEFT ARM POUCH ENDOSCOPY: 2018 DR. SALINAS-Q 2 YEARS; BIOPSY NEGATIVE DYSTHYMIA OTHER AND UNSPECIFIED HYPERLIPIDEMIA ULCERATIVE (CHRONIC) PROCTITIS CHRONIC PAIN CHRONIC COUGH UNSPECIFIED DIFFUSE CONNECTIVE TISSUE DISEASE ALLERGIES SULFA (FOR ALLERGY USE ONLY): FLU LIKE SX'S - ALLERGY AMOXICILLIN: CAUSES C-DIFF - ALLERGY SURGICAL HISTORY TUBAL LIGATION HYSTERECTOMY WITH BILATERAL OOPHORECTOMY BREAST BIOPSY-LEFT SALPINGECTOMY FOR TUBAL COLONOSCOPY EGD DR MUKESH RODRIGUEZ [address] SALINAS [place] 04/18 ILEOSTOMY, 3 DIFFERENT OPERATIONS- 06/04/11 REANASTOMOSIS OF SMALL BOWEL. 01/[address] CARUSO 10/2012 LYMPH NODE REMOVAL FROM LEFT BREAST DR CARUSO 11/2012 ILEAL POUCH [id number] 01/26/15 RIGHT ESWL 06/08/15 POUCH ENDOSCOPY-DR. SALINAS, REPEAT 2 YEARS 01/2018 PRECANCEROUS LESION REMOVED FROM NOSE 08/2018 FAMILY HISTORY FATHER: 66 YRS, [place], HYPERTENSION, IDDM, KIDNEY STONES MOTHER: 86 YRS, MELANOMA, OF COLON CANCER 70'S SIBLINGS: 2 SISTERS-LUNG AND PANCREAS 70'S 5 BROTHER(S) , 3 SISTER(S) . 1 SON(S) , 1 DAUGHTER(S) - HEALTHY. BROTHER MVA, BROTHER [place] @ LATE 40'S, TOBACCO USE. DENIES FAMILY HX OF BREAST OR OVARIAN CANCER.DENIES FAMILY HX OF MELANOMA. SISTER HAD PANCREATIC CANCER. SOCIAL HISTORY GENERAL: TOBACCO USE ARE YOU A:FORMER SMOKER HOW LONG HAS IT BEEN SINCE YOU LAST SMOKED?> 10 YEARS LATEX QUESTIONNAIRE LATEX ALLERGY : HAVE YOU EVER DEVELOPED ANY TYPE OF REACTION AFTER HANDLING LATEX PRODUCTS SUCH RUBBER GLOVES, CONDOMS, DIAPHRAGMS, BALLOONS, SOCKS, OR UNDERWEAR?NO LATEX ALLERGY : HAVE YOU EVER DEVELOPED ANY TYPE OF REACTION DURING OR AFTER DENTAL APPOINTMENT, VAGINAL/RECTAL EXAMINATION, SURGICAL PROCEDURE, OR ANY OTHER EXPOSURE?NO LATEX RISK : HAVE YOU EVER HAD ANY DIFFICULTY BREATHING OR HIVES AFTER EATING OR HANDLING ANY FRUITS, OR VEGETABLES; SUCH KIWI, BANANAS, STONE FRUITS, OR CHESTNUTSNO LATEX RISK : DO YOU HAVE A PREVIOUS PERSONAL HISTORY OF MORE THAN NINE SURGERIES, SPINA BIFIDA, OR REPEATED CATHERIZATIONS? NO LATEX RISK : ARE YOU FREQUENTLY EXPOSED TO LATEX PRODUCTS IN YOUR OCCUPATION?NO DATE ASKED : 10/06/2019 ALCOHOL SCREENING DID YOU HAVE A DRINK CONTAINING ALCOHOL IN THE PAST YEAR?YES HOW OFTEN DID YOU HAVE SIX OR MORE DRINKS ON ONE OCCASION IN THE PAST YEAR?NEVER (0 POINTS) HOW MANY DRINKS DID YOU HAVE ON A TYPICAL DAY WHEN YOU WERE DRINKING IN THE PAST YEAR?3 OR 4 (1 POINT) HOW OFTEN DID YOU HAVE A DRINK CONTAINING ALCOHOL IN THE PAST YEAR?MONTHLY OR LESS (1 POINT) POINTS2 INTERPRETATIONNEGATIVE RECREATIONAL DRUG USE DRUG USE?NO CAFFEINE CAFFEINE USE?NO SEXUAL HX HAD SEX IN THE LAST 12 MONTHS (VAGINAL, ORAL, OR ANAL)?NO LMP:N/A HAVE YOU EVER HAD AN STD?YES OTHER?NO HERPES?YES SYPHILIS?NO GC?NO CHLAMYDIA?NO HIV / HEP-C SCREENING HIV TEST OFFERED TO PATIENT:YES DATE OFFERED:08/28/2016 TEST ACCEPTED:NO HEP-C TEST OFFERED TO PATIENT:YES DATE OFFERED:08/28/2016 REASON:PATIENT DECLINED TEST ACCEPTED:NO REASON:PATIENT DECLINED ANGLICAN [id number] HINDU LANGUAGE LANGUAGES SPOKEN:UPPER SORBIAN EDUCATION LEVEL OF EDUCATION:NOT FINISHED COLLEGE LEARNING BARRIERS / SPECIAL NEEDS CHANGE FROM LAST VISIT?NO 09/16/19 BARRIERS TO LEARNING?NO HEARING IMPAIRED?YES HAS NOTICED SOME HEARING LOSS VISION IMPAIRED?YES GLASSES FOR READING COGNITIVELY IMPAIRED?NO READINESS TO LEARN?YES LEARNING PREFERENCES?NO LEARNING CAPABILITIES PRESENT?YES EMOTIONAL BARRIERS?NO SPECIAL DEVICES?NO MATH AND PHYSICS INSTRUCTOR NEEDED?NO DOMESTIC VIOLENCE DO YOU FEEL SAFE IN YOUR ENVIRONMENT?YES OCCUPATION: RETIRED. DIET: REGULAR. EXERCISE: YOGA. MARITAL STATUS: . 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 NEW PATIENT PAIN DIARY TODAY'S VISIT 08/16/19, PATIENT DESCRIBES PAIN : ACHING, HAVE IT ALL THE TIME, FROM 0-10, WHAT LEVEL IS YOUR PAIN TODAY? 7, PRECIPITATING FACTORS STANDING, ALLEVIATING FACTORS LAYING DOWN RESTING, IMPACT ON FUNCTION YES. PAIN CLINIC PFS, CLERGY, PUBLIC HEALTH REFERRALS PFS REFERRAL NEEDED?NO CLERGY REFERRAL NEEDED?NO PUBLIC HEALTH REFERRAL NEEDED?NO WAS THE PROVIDER NOTIFIED OF ANY PERTINENT INFO?YES N/A HAS THE PATIENT BEEN EDUCATED REGARDING HIS/HER PLAN OF CARE?YES HAS THE PATIENT BEEN EDUCATED REGARDING PAIN, THE RISK FOR PAIN, THE IMPORTANCE OF EFFECTIVE PAIN MANAGEMENT, AND THE PAIN ASSESSMENT PROCESS?YES ADVANCE DIRECTIVE ADVANCE DIRECTIVE DISCUSSED WITH PATIENT:YES PT. HAS HCP--, BRIGID [phone] HOSPITALIZATION/MAJOR DIAGNOSTIC PROCEDURE RELATED TO SURGERIES LEUKOPENIA 01/17 REVIEW OF SYSTEMS CONSTITUTIONAL: ANY RECENT FEVER NO . CHILLS NO . WEIGHT CHANGE OF UNKNOWN REASONS NO . GASTROENTEROLOGY: NEW UNEXPLAINABLE CHANGES IN BOWEL CONTROL NO . CONSTIPATION NO . GENITOURINARY: ANY NEW CHANGE IN BLADDER CONTROL? NO . NEUROLOGY: NEW ONSET DIZZINESS OR NEUROLOGICAL CHANGES NOT MENTIONED NO . NEW NUMBNESS OR PAIN PATTERNS NOT MENTIONED AND PERTINENT TO TODAY'S VISIT NO . CARDIOLOGY: NEW CHEST PRESSURE NO . NEW CHEST PAIN NO . RESPIRATORY: UNEXPLAINABLE COUGH NO . NEW SHORTNESS OF BREATH NO . VITAL SIGNS WT 151.8 LBS, HT 65.5 IN, BMI 24.87 INDEX, BP 112/55 MM HG, HR 80 /MIN, RR 18 /MIN, TEMP 98.1 F, OXYGEN SAT % 97%, SAFE IN ENV? (Y/N) YES, NA INITIALS AW 0909, REVIEWED BY: SILVANO. EXAMINATION GENERAL EXAMINATION: GENERALNO ACUTE DISTRESS, WELL NOURISHED AND HYDRATED. PSYCHAPPROPRIATE MOOD AND AFFECT . LUNGS:CLEAR TO AUSCULTATION BILATERALLY, NO WHEEZES, RHONCHI, RALES. HEART:NO MURMURS, REGULAR RATE AND RHYTHM. ASSESSMENTS SPONDYLOSIS OF LUMBOSACRAL REGION WITHOUT MYELOPATHY OR RADICULOPATHY - M47.817 (PRIMARY) TREATMENT SPONDYLOSIS OF LUMBOSACRAL REGION WITHOUT MYELOPATHY OR RADICULOPATHY CLINICAL NOTES: 63 YEAR OLD FEMALE IN FOR POST FACET BLOCK FOLLOW UP. GIVEN PRESENTING SYMPTOMS AND RESULTS OF PHYSICAL EXAMINATION RECOMMEND FOLLOW UP IN 2 MONTHS. PATIENT HAS EXPRESSED UNDERSTANDING OF AND WAS IN AGREEMENT WITH TX PLAN. GIVEN TIME TO ASK QUESTIONS AND EXPRESS CONCERNS. . PROCEDURE CODES FA211 ESTABILISHED PATIENT [facility] CHARGE DISPOSITION & COMMUNICATION FOLLOW UP 2 MONTHS (REASON: BACK PAIN ) ELECTRONICALLY SIGNED BY MARIA TERESA GARCIA ON 10/07/2019 AT 07:56 AM EDT DISCLAIMER : THIS IS A VISIT SUMMARY EXTRACTED FROM THE [employer] CHART. IT IS NOT A COPY OF THE [employer] PROGRESS NOTE. BARBARA
== END ==
LOC: M PAIN 09:00
PROVIDERS: ATTEND Family Medicine
DX: M47.817 Spondylosis without myelopathy or radiculopathy, lumbosacral region (principal)

== ENCOUNTER → 2019-10-07 | Outpatient (REF) | payer MEDICARE, OTHER ==
[2019-10-07 12:03] LABS: HEMATOCRIT 43.7 % (36.0-47.0); HEMOGLOBIN 14.2 g/dl (12.0-15.5); MEAN CORPUSCULAR HEMOGLOBIN 31.1 pg (27.0-33.0); MEAN CORPUSCULAR HGB CONC 32.5 g/dl (32.0-36.5); MEAN CORPUSCULAR VOLUME 95.6 fl (80.0-96.0); PLATELET COUNT, AUTOMATED 301 10^3/uL (150-450); RED BLOOD COUNT 4.57 10^6/uL (4.00-5.40); WHITE BLOOD COUNT 8.1 10^3/uL (4.0-10.0)
[2019-10-07 12:25] LABS: TOTAL 25(OH) VITAMIN D 55.7 NG/ML (30.0-100.0)
[2019-10-07 12:36] LABS: ALT/SGPT 26 U/L (12-78); BILIRUBIN,TOTAL 0.4 MG/DL (0.2-1.0); BLOOD UREA NITROGEN 17 MG/DL (7-18); CARBON DIOXIDE LEVEL 28 MEQ/L (21-32); CHLORIDE LEVEL 107 MEQ/L (98-107); CHOLESTEROL LEVEL 184 MG/DL (<200); CREATININE FOR GFR 0.76 MG/DL (0.55-1.30); FREE T4 0.88 NG/DL (0.76-1.46); GLOMERULAR FILTRATION RATE > 60.0 (>45); GLUCOSE, FASTING 95 MG/DL (70-100); HDL CHOLESTEROL 50 MG/DL (>40); LDL CHOLESTEROL 116 MG/DL (<100); NON-HDL-C 134 MG/DL; POTASSIUM SERUM 4.2 MEQ/L (3.5-5.1); SODIUM LEVEL 140 MEQ/L (136-145); TOTAL PROTEIN 7.1 GM/DL (6.4-8.2); TRIGLYCERIDES LEVEL 91 MG/DL (<150)
[2019-10-07 12:38] LABS: MALB URINE SIEMENS 17.8 MG/L; MAU/CREAT RATIO 10.5 MCG/MG (0.0-30.0)
== END ==
LOC: M PLALAB 08:38
PROVIDERS: ATTEND Nurse Practitioner Family
DX: R53.82 Chronic fatigue, unspecified (principal); I10 Essential (primary) hypertension; E78.5 Hyperlipidemia, unspecified; E55.9 Vitamin D deficiency, unspecified

== ENCOUNTER → 2019-12-22 | Outpatient (CLI) | payer MEDICARE, OTHER | LOC: M LABSMTC 12:17 | PROVIDERS: ATTEND Colon & Rectal Surgery | DX: Z20.828 Contact with and (suspected) exposure to other viral communicable diseases (principal) | CPT/HCPCS: C9803; U0003 ==

== ENCOUNTER → 2019-12-31 | Outpatient (CLI) | payer MEDICARE, OTHER | LOC: M PAIN 09:33 | PROVIDERS: ATTEND Family Medicine | DX: M47.817 Spondylosis without myelopathy or radiculopathy, lumbosacral region (principal) ==

== ENCOUNTER → 2020-03-20 | Outpatient (CLI) | payer MEDICARE, OTHER ==
--- NOTE | 2020-03-21 23:45 | ECWPNPC ---
PATIENT NAME: RENÉE SOARES : 1955 GENDER: FEMALE VISIT DATE: 03/20/2020 DISCHARGE DATE: 03/20/20 1022 VISIT LOCKED DATE TIME: PHYSICIAN: ISHA BENNETT PHYSICIAN PAGER NO: ACTIVE RESOURCE: ISHA BENNETT REASON FOR APPOINTMENT 1. MED MGMT HISTORY OF PRESENT ILLNESS FALL RISK SCREENING: SCREENING :NO FALLS REPORTED IN THE LAST YEAR 64-YEAR-OLD FEMALE IN FOR CHRONIC PAIN FOLLOW-UP. SHE RATES HER PAIN CURRENTLY AT A 3 OUT OF 10 AND DESCRIBES IT ACHING AND BURNING. SHE FEELS THE MEDICATIONS ARE HELPFUL AND DENIES MED SIDE EFFECTS AT THIS TIME. PAIN SCREENING: PATIENT HAS A COMPLAINT OF ACUTE OR CHRONIC PAIN :YES LOCATION OF PAIN: NECK, BILATERAL SHOULDERS R>L, LOW BACK INTENSITY OF PAIN (SCALE OF 1 TO 10):3 WHAT DOES YOUR PAIN FEEL LIKE:ACHING, BURNING DURATION:CONSTANT, AWAKENS FROM SLEEP PAIN IS INCREASED BY:ACTIVITIES PAIN IS DECREASED BY:USE OF PAIN MEDICATIONS TREATMENT/MEDICATIONS USED TO MANAGE PAIN:OTC PAIN RELIEVERS, NSAIDS, PHYSICAL THERAPY PAIN HAS INTERFERED WITH THE FOLLOWING:HOUSEWORK PLAN/GOALS/TREATMENT/INTERVENTION/FOLLOW UP:SEE PLAN PAIN CENTER INTAKE QUESTIONS: DO YOU HAVE A HISTORY OF MRSA? :NO DO YOU TAKE A BLOOD THINNERS? :NO DO YOU HAVE ANY BLEEDING DISORDERS? :NO ANY NEW NUMBNESS OR WEAKNESS IN YOUR LEGS OR ARMS? :NO ANY PACEMAKER,DEFIBRILLATOR, OR DORSAL COLUMN STIMULATOR? :NO DO YOU HAVE ANY RASHES OR OPEN SORES? :NO ARE YOU ALLERGIC TO IV DYE? :NO ARE YOU DIABETIC? :NO ANY NEW PROBLEMS WITH YOUR MEDICATIONS? :NO HAVE YOU RECEIVED A VACCINE IN THE PAST 30 DAYS? :NO DO YOU PLAN TO RECEIVE A VACCINE IN THE NEXT 21 DAYS? :NO DO YOU NEED ANY PRESCRIPTION? :NO DO YOU TAKE ANY IMMUNOSUPPRESSIVE MEDICATIONS? :NO ANY HISTORY OF SEIZURES? :NO ANY HISTORY OF CARDIAC ISSUES OR EVENTS? :NO DO YOU HAVE SLEEP APNEA? :NO ANY RECENT HEAD INJURY? :NO IS THERE A CHANCE YOU COULD BE ? :NO ARE YOU BREAST FEEDING? :NO CURRENT MEDICATIONS TAKING MELATONIN ER 10 MG TABLET EXTENDED RELEASE DIRECTED ORALLY TAKING FIBER - TABLET DIRECTED ORALLY TAKING VITAMIN B12 500 MCG TABLET DIRECTED ORALLY DAILY TAKING IBUPROFEN 800 MG TABLET 1 TABLET WITH FOOD OR MILK NEEDED ORALLY THREE TIMES A DAY, NOTES: PRN TAKING CYMBALTA 30 MG CAPSULE DELAYED RELEASE PARTICLES 1 CAPSULE ORALLY ONCE A DAY TAKING DULOXETINE HCL 60 MG CAPSULE DELAYED RELEASE PARTICLES 1 CAPSULE ORALLY ONCE A DAY TDD=90 MG TAKING DIPHENOXYLATE-ATROPINE 2.5-0.025 MG TABLET 1 TABLET NEEDED ORALLY 2 PILLS EVERY 6 HOURS TAKING GABAPENTIN 300 MG CAPSULE 1 CAPSULE ORAL TID NOT-TAKING VITAMIN D (CHOLECALCIFEROL) 1000 UNIT CAPSULE 1 CAPSULE ORALLY ONCE A DAY NOT-TAKING CHOLESTYRAMINE 4 GM PACKET 1 PACKET MIXED WITH WATER OR NON-CARBONATED DRINK ORALLY TWICE A DAY NOT-TAKING LOMOTIL 2.5-0.025 MG TABLET 1 TABLET NEEDED ORALLY FOUR TIMES A DAY MEDICATION LIST REVIEWED AND RECONCILED WITH THE PATIENT PAST MEDICAL HISTORY C DIFF COLITIS- DR MEIER (NO LONGER FOLLOWS WITH DR. 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 S/P RESECTION DR CARUSO. CHEMOTHERAPY DR COWAN- COMPLETED 5 TREATMENTS. RAD RX PER DR ROMANO; FOLLOWS WITH [facility] ONC CHRONIC COUGH- DR HUNT 01/17 DONAVAN 02/02/13 NML( FEV1 2.51 (90%)/FVC2.94(82%). PFTS/METHACHOLINE CHALLENGE UNREMARKABLE- NO PULM EXPLANATION FOR COUGH 09/18. COUGH RESOLVED WITH ADVAIR PER VANESA 01/18. PANCREATIC MASS 2.5 CM/PRIOR FNA ATYPICAL CELLS/SUBSEQUENT EUS MASS SMALLER/LAST CT WITH CONTRAST MASS NOT DETECTED- FOLLOWED BY DR MAYORGA- GASTRO SYR. FNA 11/18NEG PER PT CT A&P WITH CONTRAST NO ACUTE PATHOLOGY 05/21 BONE SCAN- OA/FIBROMYALGIA WITH CHRONIC PAIN-[place]- PER [facility] SYR- DR SAINI 07/19 DEPRESSION/ANXIETY- USED TO FOLLOW WITH DR. ECHOLS LDL 95 04/20 PNEUMOVAX- 2013- [facility] PER PT. CT MAXILLOFACIAL 03/19-MILD MUCOSAL THICKENING MAXILLARY SINUSES CTD/CHRONIC PAIN- RHEUM SYR (NO LONGER FOLLOWS) ETT 04/21 [facility]- NEG ISCHEMIA KIDNEY STONE 2015 GALL STONES 2016 NEUROLOGY: DR. Milton BEE SMALL VESSEL ISCHEMIC DISEASE MILD ASTHMA- FOLLOWS WITH DR. ALEXIS CERVIAL DISC DISPLACEMENT , CERVICAL RADICULOPATHY LYMPHYDEMA AND DVT LEFT ARM POUCH ENDOSCOPY: 2017 DR. SALINAS-Q 2 YEARS; BIOPSY NEGATIVE DYSTHYMIA OTHER AND UNSPECIFIED HYPERLIPIDEMIA ULCERATIVE (CHRONIC) PROCTITIS CHRONIC PAIN CHRONIC COUGH UNSPECIFIED DIFFUSE CONNECTIVE TISSUE DISEASE QUIT SMOKING IN 1983 ASCVD RISK 5.1% IN 10/2019 ALLERGIES SULFA (FOR ALLERGY USE ONLY): FLU LIKE SX'S - ALLERGY AMOXICILLIN: CAUSES C-DIFF - ALLERGY SURGICAL HISTORY TUBAL LIGATION HYSTERECTOMY WITH BILATERAL OOPHORECTOMY BREAST BIOPSY-LEFT SALPINGECTOMY FOR TUBAL COLONOSCOPY EGD DR MUKESH RODRIGUEZ [address] SALINAS [place] 04/18 ILEOSTOMY, 3 DIFFERENT OPERATIONS- 06/04/11 REANASTOMOSIS OF SMALL BOWEL. 01/[address] CARUSO 10/2012 LYMPH NODE REMOVAL FROM LEFT BREAST DR CARUSO 11/2012 ILEAL POUCH [id number] 01/26/15 RIGHT ESWL 06/08/15 POUCH ENDOSCOPY-DR. SALINAS, REPEAT 2 YEARS 01/2018 PRECANCEROUS LESION REMOVED FROM NOSE 08/2018 FAMILY HISTORY FATHER: 66 YRS, [place], HYPERTENSION, IDDM, KIDNEY STONES MOTHER: 86 YRS, MELANOMA, OF COLON CANCER 70'S SIBLINGS: 2 SISTERS-LUNG AND PANCREAS 70'S 5 BROTHER(S) , 3 SISTER(S) . 1 SON(S) , 1 DAUGHTER(S) - HEALTHY. BROTHER MVA, BROTHER OR @ LATE 40'S, TOBACCO USE. DENIES FAMILY HX OF BREAST OR OVARIAN CANCER.DENIES FAMILY HX OF MELANOMA. SISTER HAD PANCREATIC CANCER. SOCIAL HISTORY GENERAL: TOBACCO USE ARE YOU A:FORMER SMOKER HOW LONG HAS IT BEEN SINCE YOU LAST SMOKED?> 10 YEARS LATEX QUESTIONNAIRE LATEX ALLERGY : HAVE YOU EVER DEVELOPED ANY TYPE OF REACTION AFTER HANDLING LATEX PRODUCTS SUCH RUBBER GLOVES, CONDOMS, DIAPHRAGMS, BALLOONS, SOCKS, OR UNDERWEAR?NO LATEX ALLERGY : HAVE YOU EVER DEVELOPED ANY TYPE OF REACTION DURING OR AFTER DENTAL APPOINTMENT, VAGINAL/RECTAL EXAMINATION, SURGICAL PROCEDURE, OR ANY OTHER EXPOSURE?NO LATEX RISK : HAVE YOU EVER HAD ANY DIFFICULTY BREATHING OR HIVES AFTER EATING OR HANDLING ANY FRUITS, OR VEGETABLES; SUCH KIWI, BANANAS, STONE FRUITS, OR CHESTNUTSNO LATEX RISK : DO YOU HAVE A PREVIOUS PERSONAL HISTORY OF MORE THAN NINE SURGERIES, SPINA BIFIDA, OR REPEATED CATHERIZATIONS? NO LATEX RISK : ARE YOU FREQUENTLY EXPOSED TO LATEX PRODUCTS IN YOUR OCCUPATION?NO DATE ASKED : 03/20/2020 ALCOHOL SCREENING DID YOU HAVE A DRINK CONTAINING ALCOHOL IN THE PAST YEAR?YES HOW OFTEN DID YOU HAVE SIX OR MORE DRINKS ON ONE OCCASION IN THE PAST YEAR?NEVER (0 POINTS) HOW MANY DRINKS DID YOU HAVE ON A TYPICAL DAY WHEN YOU WERE DRINKING IN THE PAST YEAR?3 OR 4 (1 POINT) HOW OFTEN DID YOU HAVE A DRINK CONTAINING ALCOHOL IN THE PAST YEAR?MONTHLY OR LESS (1 POINT) POINTS2 INTERPRETATIONNEGATIVE RECREATIONAL DRUG USE DRUG USE?NO CAFFEINE CAFFEINE USE?NO SEXUAL HX HAD SEX IN THE LAST 12 MONTHS (VAGINAL, ORAL, OR ANAL)?NO LMP:N/A HAVE YOU EVER HAD AN STD?YES OTHER?NO HERPES?YES SYPHILIS?NO GC?NO CHLAMYDIA?NO HIV / HEP-C SCREENING HIV TEST OFFERED TO PATIENT:YES DATE OFFERED:08/28/2016 TEST ACCEPTED:NO HEP-C TEST OFFERED TO PATIENT:YES DATE OFFERED:08/28/2016 REASON:PATIENT DECLINED TEST ACCEPTED:NO REASON:PATIENT DECLINED SCIENTOLOGY [id number] PRESYBETERIAN LANGUAGE LANGUAGES SPOKEN:CROATIAN EDUCATION LEVEL OF EDUCATION:NOT FINISHED COLLEGE LEARNING BARRIERS / SPECIAL NEEDS CHANGE FROM LAST VISIT?NO 09/16/19 BARRIERS TO LEARNING?NO HEARING IMPAIRED?YES HAS NOTICED SOME HEARING LOSS VISION IMPAIRED?YES GLASSES FOR READING COGNITIVELY IMPAIRED?NO READINESS TO LEARN?YES LEARNING PREFERENCES?NO LEARNING CAPABILITIES PRESENT?YES EMOTIONAL BARRIERS?NO SPECIAL DEVICES?NO APPLIED RESEARCH DIRECTOR NEEDED?NO DOMESTIC VIOLENCE DO YOU FEEL SAFE IN YOUR ENVIRONMENT?YES OCCUPATION: RETIRED. DIET: REGULAR. EXERCISE: YOGA. MARITAL STATUS: . 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 TODAY'S VISIT 08/16/19, PATIENT DESCRIBES PAIN : ACHING, HAVE IT ALL THE TIME, FROM 0-10, WHAT LEVEL IS YOUR PAIN TODAY? 7, PRECIPITATING FACTORS STANDING, ALLEVIATING FACTORS LAYING DOWN RESTING, IMPACT ON FUNCTION YES. PAIN CLINIC PFS, CLERGY, PUBLIC HEALTH REFERRALS PFS REFERRAL NEEDED?NO CLERGY REFERRAL NEEDED?NO PUBLIC HEALTH REFERRAL NEEDED?NO WAS THE PROVIDER NOTIFIED OF ANY PERTINENT INFO?YES N/A HAS THE PATIENT BEEN EDUCATED REGARDING HIS/HER PLAN OF CARE?YES HAS THE PATIENT BEEN EDUCATED REGARDING PAIN, THE RISK FOR PAIN, THE IMPORTANCE OF EFFECTIVE PAIN MANAGEMENT, AND THE PAIN ASSESSMENT PROCESS?YES ADVANCE DIRECTIVE ADVANCE DIRECTIVE DISCUSSED WITH PATIENT:YES PT. HAS HCP--, BRIGID [phone] HOSPITALIZATION/MAJOR DIAGNOSTIC PROCEDURE RELATED TO SURGERIES LEUKOPENIA 01/17 REVIEW OF SYSTEMS CONSTITUTIONAL: ANY RECENT FEVER NO . CHILLS NO . WEIGHT CHANGE OF UNKNOWN REASONS NO . GASTROENTEROLOGY: NEW UNEXPLAINABLE CHANGES IN BOWEL CONTROL NO . CONSTIPATION NO . GENITOURINARY: ANY NEW CHANGE IN BLADDER CONTROL? NO . NEUROLOGY: NEW ONSET DIZZINESS OR NEUROLOGICAL CHANGES NOT MENTIONED NO . NEW NUMBNESS OR PAIN PATTERNS NOT MENTIONED AND PERTINENT TO TODAY'S VISIT NO . CARDIOLOGY: NEW CHEST PRESSURE NO . NEW CHEST PAIN NO . RESPIRATORY: UNEXPLAINABLE COUGH NO . NEW SHORTNESS OF BREATH NO . VITAL SIGNS WT 156.8 LBS, HT 65.5 IN, BMI 25.69 INDEX, BP 124/62 MM HG, HR 86 /MIN, RR 18 /MIN, TEMP 96.0 F, OXYGEN SAT % 92%, SAFE IN ENV? (Y/N) YES, NA INITIALS AW 0944, REVIEWED BY: SHANNAN SAPP TIMBER INSPECTOR. EXAMINATION GENERAL EXAMINATION: GENERALNO ACUTE DISTRESS, WELL NOURISHED AND HYDRATED. PSYCHAPPROPRIATE MOOD AND AFFECT . LUNGS:CLEAR TO AUSCULTATION BILATERALLY, NO WHEEZES, RHONCHI, RALES. HEART:NO MURMURS, REGULAR RATE AND RHYTHM. ASSESSMENTS SPONDYLOSIS OF CERVICAL REGION WITHOUT MYELOPATHY OR RADICULOPATHY - M47.812 (PRIMARY) TREATMENT SPONDYLOSIS OF CERVICAL REGION WITHOUT MYELOPATHY OR RADICULOPATHY NOTES: 64 YEAR OLD FEMALE IN FOR CHRONIC PAIN FOLLOW-UP. GIVEN PRESENTING SYMPTOMS RECOMMEND FOLLOW-UP IN 3 MONTHS. PATIENT HAS EXPRESSED UNDERSTANDING OF AND WAS IN AGREEMENT WITH TREATMENT PLAN. GIVEN TIME TO ASK QUESTIONS AND EXPRESS CONCERNS. PROCEDURE CODES FA211 ESTABILISHED PATIENT [facility] CHARGE DISPOSITION & COMMUNICATION ELECTRONICALLY SIGNED BY MARIA TERESA GARCIA ON 03/21/2020 AT 08:40 AM EST DISCLAIMER : THIS IS A VISIT SUMMARY EXTRACTED FROM THE [employer] CHART. IT IS NOT A COPY OF THE [employer] PROGRESS NOTE. BARBARA
== END ==
LOC: M PAIN 09:45
PROVIDERS: ATTEND Family Medicine
DX: M47.812 Spondylosis without myelopathy or radiculopathy, cervical region (principal); G89.29 Other chronic pain; J45.909 Unspecified asthma, uncomplicated; Z86.59 Personal history of other mental and behavioral disorders; Z87.891 Personal history of nicotine dependence; Z88.1 Allergy status to other antibiotic agents; Z88.2 Allergy status to sulfonamides; Z79.899 Other long term (current) drug therapy

== ENCOUNTER → 2020-06-19 | Outpatient (CLI) | payer MEDICARE, OTHER ==
[~2020-06-19] MED LIST changes: +GABA-282 PO; -GABA-843 PO; +LISI10TA22 PO; -LISI10TA4 PO
--- NOTE | 2020-06-21 07:12 | ECWPNPC ---
PATIENT NAME: RENÉE SOARES : 1955 GENDER: FEMALE VISIT DATE: 06/19/2020 DISCHARGE DATE: 06/19/20932 VISIT LOCKED DATE TIME: PHYSICIAN: ISHA BENNETT PHYSICIAN PAGER NO: ACTIVE RESOURCE: ISHA BENNETT REASON FOR APPOINTMENT 1. MED MGMT HISTORY OF PRESENT ILLNESS GENERAL: - 64-YEAR-OLD FEMALE IN FOR CHRONIC PAIN FOLLOW-UP. PATIENT RATES HER PAIN AT A 3 OUT OF 10 AND DESCRIBES IT ACHING, CONTINUOUS, AND DULL. PATIENT HAS COMPLAINTS OF INCREASED NECK PAIN WHICH WE WILL DISCUSS TODAY. FALL RISK SCREENING: SCREENING : NO FALLS REPORTED IN THE LAST YEAR. PAIN SCREENING: PATIENT HAS A COMPLAINT OF ACUTE OR CHRONIC PAIN :YES LOCATION OF PAIN:NECK, UPPER BACK, MID BACK, LOW BACK INTENSITY OF PAIN (SCALE OF 1 TO 10):3 WHAT DOES YOUR PAIN FEEL LIKE:ACHING, CONTINOUS DULL DURATION:CONTINOUS, CONSTANT, STEADY, AWAKENS FROM SLEEP PAIN IS INCREASED BY:ACTIVITIES, PROLONGED STANDING PAIN IS DECREASED BY:USE OF PAIN MEDICATIONS, SITTING, OTHERS HEAT NURSING NOTE: -. PAIN CENTER INTAKE QUESTIONS: DO YOU HAVE A HISTORY OF MRSA? :NO DO YOU TAKE A BLOOD THINNERS? :NO DO YOU HAVE ANY BLEEDING DISORDERS? :NO ANY NEW NUMBNESS OR WEAKNESS IN YOUR LEGS OR ARMS? :YES PATIENT HAS NUMBNESS IN BOTH HANDS ANY PACEMAKER,DEFIBRILLATOR, OR DORSAL COLUMN STIMULATOR? :NO DO YOU HAVE ANY RASHES OR OPEN SORES? :NO ARE YOU ALLERGIC TO IV DYE? :NO ARE YOU DIABETIC? :NO ANY NEW PROBLEMS WITH YOUR MEDICATIONS? :NO HAVE YOU RECEIVED A VACCINE IN THE PAST 30 DAYS? :YES IF SO WHAT VACCINE AND WHEN? HAS HAS LAST COVID VACCINATION 05/26/20 DO YOU PLAN TO RECEIVE A VACCINE IN THE NEXT 21 DAYS? :NO DO YOU NEED ANY PRESCRIPTION? :NO DO YOU TAKE ANY IMMUNOSUPPRESSIVE MEDICATIONS? :NO DO YOU HAVE ANY KIDNEY OR LIVER DISEASE? :NO IS THERE A CHANCE YOU COULD BE ? :NO ARE YOU BREAST FEEDING? :NO CURRENT MEDICATIONS TAKING MELATONIN ER 10 MG TABLET EXTENDED RELEASE DIRECTED ORALLY TAKING FIBER - TABLET DIRECTED ORALLY TAKING VITAMIN B12 500 MCG TABLET DIRECTED ORALLY DAILY TAKING IBUPROFEN 800 MG TABLET 1 TABLET WITH FOOD OR MILK NEEDED ORALLY THREE TIMES A DAY, NOTES: PRN TAKING DIPHENOXYLATE-ATROPINE 2.5-0.025 MG TABLET 1 TABLET NEEDED ORALLY 2 PILLS EVERY 6 HOURS TAKING DULOXETINE HCL 60 MG CAPSULE DELAYED RELEASE PARTICLES 1 CAPSULE ORALLY ONCE A DAY TDD=90 MG TAKING CYMBALTA 30 MG CAPSULE DELAYED RELEASE PARTICLES 1 CAPSULE ORALLY ONCE A DAY TAKING GABAPENTIN 300 MG CAPSULE 1 CAPSULE ORAL TID TAKING CALCIUM GUMMIES 250-100-500 MG-UNIT TABLET CHEWABLE DIRECTED ORALLY TAKING VITAMIN D (CHOLECALCIFEROL) 1000 UNIT CAPSULE 1 CAPSULE ORALLY ONCE A DAY NOT-TAKING VITAMIN D 50 MCG (2000 UT) TABLET 1 TABLET ORALLY ONCE A DAY UNKNOWN CHOLESTYRAMINE 4 GM PACKET 1 PACKET MIXED WITH WATER OR NON-CARBONATED DRINK ORALLY TWICE A DAY UNKNOWN LOMOTIL 2.5-0.025 MG TABLET 1 TABLET NEEDED ORALLY FOUR TIMES A DAY MEDICATION LIST REVIEWED AND RECONCILED WITH THE PATIENT PAST MEDICAL HISTORY C DIFF COLITIS- DR MEIER (NO LONGER FOLLOWS WITH DR. 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 S/P RESECTION DR CARUSO. CHEMOTHERAPY DR COWAN- COMPLETED 5/6 TREATMENTS. RAD RX PER DR ROMANO; FOLLOWS WITH [facility] ONC CHRONIC COUGH- DR HUNT 01/17 DONAVAN 02/02/13 NML( FEV1 2.51 (90%)/FVC2.94(82%). PFTS/METHACHOLINE CHALLENGE UNREMARKABLE- NO PULM EXPLANATION FOR COUGH 09/18. COUGH RESOLVED WITH ADVAIR PER VANESA 01/18. PANCREATIC MASS 2.5 CM/PRIOR FNA ATYPICAL CELLS/SUBSEQUENT EUS MASS SMALLER/LAST CT WITH CONTRAST MASS NOT DETECTED- FOLLOWED BY DR MAYORGA- GASTRO SYR. FNA 11/18NEG PER PT CT A&P WITH CONTRAST NO ACUTE PATHOLOGY 05/21 BONE SCAN- OA/FIBROMYALGIA WITH CHRONIC PAIN-[place]- PER [facility] SYR- DR SAINI 07/19 DEPRESSION/ANXIETY- USED TO FOLLOW WITH DR. ECHOLS LDL 95 04/20 PNEUMOVAX- 2012- [facility] PER PT. CT MAXILLOFACIAL 03/19-MILD MUCOSAL THICKENING MAXILLARY SINUSES CTD/CHRONIC PAIN- RHEUM SYR (NO LONGER FOLLOWS) ETT 04/21 [facility]- NEG ISCHEMIA KIDNEY STONE 2015 GALL STONES 2016 NEUROLOGY: DR. Milton BEE SMALL VESSEL ISCHEMIC DISEASE MILD ASTHMA- FOLLOWS WITH DR. ALEXIS CERVIAL DISC DISPLACEMENT , CERVICAL RADICULOPATHY LYMPHYDEMA AND DVT LEFT ARM POUCH ENDOSCOPY: 2018 DR. GOMES 2 YEARS; BIOPSY NEGATIVE DYSTHYMIA OTHER AND UNSPECIFIED HYPERLIPIDEMIA ULCERATIVE (CHRONIC) PROCTITIS CHRONIC PAIN CHRONIC COUGH UNSPECIFIED DIFFUSE CONNECTIVE TISSUE DISEASE QUIT SMOKING IN 1983 ASCVD RISK 5.1% IN 10/2019 ALLERGIES SULFA (FOR ALLERGY USE ONLY): FLU LIKE SX'S - ALLERGY AMOXICILLIN: CAUSES C-DIFF - ALLERGY SOCIAL HISTORY GENERAL: TOBACCO USE ARE YOU A:FORMER SMOKER HOW LONG HAS IT BEEN SINCE YOU LAST SMOKED?> 10 YEARS LATEX QUESTIONNAIRE LATEX ALLERGY : HAVE YOU EVER DEVELOPED ANY TYPE OF REACTION AFTER HANDLING LATEX PRODUCTS SUCH RUBBER GLOVES, CONDOMS, DIAPHRAGMS, BALLOONS, SOCKS, OR UNDERWEAR?NO LATEX ALLERGY : HAVE YOU EVER DEVELOPED ANY TYPE OF REACTION DURING OR AFTER DENTAL APPOINTMENT, VAGINAL/RECTAL EXAMINATION, SURGICAL PROCEDURE, OR ANY OTHER EXPOSURE?NO LATEX RISK : HAVE YOU EVER HAD ANY DIFFICULTY BREATHING OR HIVES AFTER EATING OR HANDLING ANY FRUITS, OR VEGETABLES; SUCH KIWI, BANANAS, STONE FRUITS, OR CHESTNUTSNO LATEX RISK : DO YOU HAVE A PREVIOUS PERSONAL HISTORY OF MORE THAN NINE SURGERIES, SPINA BIFIDA, OR REPEATED CATHERIZATIONS? NO LATEX RISK : ARE YOU FREQUENTLY EXPOSED TO LATEX PRODUCTS IN YOUR OCCUPATION?NO DATE ASKED : 06/19/2020 ALCOHOL USE: NO. ALCOHOL SCREENING DID YOU HAVE A DRINK CONTAINING ALCOHOL IN THE PAST YEAR?YES HOW OFTEN DID YOU HAVE SIX OR MORE DRINKS ON ONE OCCASION IN THE PAST YEAR?NEVER (0 POINTS) HOW MANY DRINKS DID YOU HAVE ON A TYPICAL DAY WHEN YOU WERE DRINKING IN THE PAST YEAR?3 OR 4 (1 POINT) HOW OFTEN DID YOU HAVE A DRINK CONTAINING ALCOHOL IN THE PAST YEAR?MONTHLY OR LESS (1 POINT) POINTS2 INTERPRETATIONNEGATIVE RECREATIONAL DRUG USE DRUG USE?NO CAFFEINE CAFFEINE USE?NO SEXUAL HX HAD SEX IN THE LAST 12 MONTHS (VAGINAL, ORAL, OR ANAL)?NO LMP:N/A HAVE YOU EVER HAD AN STD?YES OTHER?NO HERPES?YES SYPHILIS?NO GC?NO CHLAMYDIA?NO HIV / HEP-C SCREENING HIV TEST OFFERED TO PATIENT:YES DATE OFFERED:08/28/2016 TEST ACCEPTED:NO HEP-C TEST OFFERED TO PATIENT:YES DATE OFFERED:08/28/2016 REASON:PATIENT DECLINED TEST ACCEPTED:NO REASON:PATIENT DECLINED RASTAFARI [id number] RELIGION LANGUAGE LANGUAGES SPOKEN:NEPALESE EDUCATION LEVEL OF EDUCATION:NOT FINISHED COLLEGE LEARNING BARRIERS / SPECIAL NEEDS CHANGE FROM LAST VISIT?NO BARRIERS TO LEARNING?NO HEARING IMPAIRED?YES HAS NOTICED SOME HEARING LOSS VISION IMPAIRED?YES GLASSES FOR READING COGNITIVELY IMPAIRED?NO READINESS TO LEARN?YES LEARNING PREFERENCES?NO LEARNING CAPABILITIES PRESENT?YES EMOTIONAL BARRIERS?NO SPECIAL DEVICES?NO SLIP CASTER NEEDED?NO DOMESTIC VIOLENCE DO YOU FEEL SAFE IN YOUR ENVIRONMENT?YES OCCUPATION: RETIRED. DIET: REGULAR. EXERCISE: YOGA. MARITAL STATUS: . 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 TODAY'S VISIT 08/16/19, PATIENT DESCRIBES PAIN : ACHING, HAVE IT ALL THE TIME, FROM 0-10, WHAT LEVEL IS YOUR PAIN TODAY? 7, PRECIPITATING FACTORS STANDING, ALLEVIATING FACTORS LAYING DOWN RESTING, IMPACT ON FUNCTION YES. - PFS REFERRAL NEEDED?NO CLERGY REFERRAL NEEDED?NO PUBLIC HEALTH REFERRAL NEEDED?NO WAS THE PROVIDER NOTIFIED OF ANY PERTINENT INFO?YES N/A HAS THE PATIENT BEEN EDUCATED REGARDING HIS/HER PLAN OF CARE?YES HAS THE PATIENT BEEN EDUCATED REGARDING PAIN, THE RISK FOR PAIN, THE IMPORTANCE OF EFFECTIVE PAIN MANAGEMENT, AND THE PAIN ASSESSMENT PROCESS?YES ADVANCE DIRECTIVE ADVANCE DIRECTIVE DISCUSSED WITH PATIENT:YES PT. HAS HCP--, BRIGID [phone] REVIEW OF SYSTEMS CONSTITUTIONAL: ANY RECENT FEVER NO . CHILLS NO . WEIGHT CHANGE OF UNKNOWN REASONS NO . GASTROENTEROLOGY: NEW UNEXPLAINABLE CHANGES IN BOWEL CONTROL NO . CONSTIPATION NO . GENITOURINARY: ANY NEW CHANGE IN BLADDER CONTROL? NO . NEUROLOGY: NEW ONSET DIZZINESS OR NEUROLOGICAL CHANGES NOT MENTIONED NO . NEW NUMBNESS OR PAIN PATTERNS NOT MENTIONED AND PERTINENT TO TODAY'S VISIT NO . CARDIOLOGY: NEW CHEST PRESSURE NO . PATIENT DENIES NO . RESPIRATORY: UNEXPLAINABLE COUGH NO . NEW SHORTNESS OF BREATH NO . VITAL SIGNS WT 161.4 LBS, HT 65.5 IN, BMI 26.45 INDEX, BP 146/67 MM HG, HR 79 /MIN, RR 18 /MIN, TEMP 96.9 F, OXYGEN SAT % 96%, SAFE IN ENV? (Y/N) YES, NA INITIALS AL 09:05, REVIEWED BY: IJEOMA CRUZ MA. EXAMINATION GENERAL EXAMINATION: GENERALNO ACUTE DISTRESS, WELL NOURISHED AND HYDRATED. PSYCHAPPROPRIATE MOOD AND AFFECT . LUNGS:CLEAR TO AUSCULTATION BILATERALLY, NO WHEEZES, RHONCHI, RALES. HEART:NO MURMURS, REGULAR RATE AND RHYTHM. ASSESSMENTS SPONDYLOSIS OF CERVICAL REGION WITHOUT MYELOPATHY OR RADICULOPATHY - M47.812 (PRIMARY), RISK: (NULL) TREATMENT SPONDYLOSIS OF CERVICAL REGION WITHOUT MYELOPATHY OR RADICULOPATHY [facility] MRI SPINE, CERVICAL WITHOUT [id number] NOTES: 64-YEAR-OLD FEMALE IN FOR CHRONIC PAIN FOLLOW-UP. GIVEN PRESENTING SYMPTOMS RECOMMEND GETTING AN UPDATED CERVICAL MRI WITH FOLLOW-UP POST IMAGING. PATIENT HAS EXPRESSED UNDERSTANDING OF AND WAS IN AGREEMENT WITH TREATMENT PLAN. GIVEN TIME TO ASK QUESTIONS AND EXPRESS CONCERNS. PROCEDURE CODES FA211 ESTABILISHED PATIENT [facility] CHARGE DISPOSITION & COMMUNICATION FOLLOW UP POST IMAGING (REASON: MRI CERVICAL SPINE WITHOUT CONTRAST ) ELECTRONICALLY SIGNED BY MARIA TERESA GARCIA ON 06/20/2020 AT 08:44 AM EDT DISCLAIMER : THIS IS A VISIT SUMMARY EXTRACTED FROM THE [employer] CHART. IT IS NOT A COPY OF THE [employer] PROGRESS NOTE. BARBARA
== END ==
LOC: M PAIN 09:00
PROVIDERS: ATTEND Family Medicine
DX: M47.812 Spondylosis without myelopathy or radiculopathy, cervical region (principal); G89.29 Other chronic pain; J45.909 Unspecified asthma, uncomplicated; Z86.59 Personal history of other mental and behavioral disorders; Z87.891 Personal history of nicotine dependence; Z88.1 Allergy status to other antibiotic agents; Z88.2 Allergy status to sulfonamides; Z79.899 Other long term (current) drug therapy

== ENCOUNTER → 2020-07-19 | Outpatient (CLI) | payer MEDICARE, OTHER ==
--- NOTE | 2020-07-19 10:56 | REP ---
INDICATION: SPONDYLOSIS CERVICAL REGION. COMPARISON: None. TECHNIQUE: Sagittal T1, T2, STIR, axial T1 and T2 weighted images of the cervical spine obtained. FINDINGS: There is lykp-cg-wlxuibee multilevel degenerative disc disease with loss of disc height and disc desiccation seen diffusely throughout the cervical spine. Vertebral heights are overall preserved. No arsen malalignments. There is straightening of the cervical spine and absence of normal cervical lordosis. Craniovertebral junction is unremarkable. On the sagittal T2 weighted images, the canal appears congenitally narrow, now with superimposed degenerative disc disease with further canal stenosis that is notable C3-4 through C6-7 levels. On the review of axial images, At C2-3: No significant canal or foraminal narrowing. At C3-4: Disc-osteophyte complex and congenitally narrow spinal canal with moderate canal stenosis and mwrc-cp-qkfhcmxm bilateral foraminal narrowing, greater on the right. At C4-5: Disc-osteophyte complex and congenitally narrow spinal canal with mild canal stenosis and wmtr-wv-kakhzxwb bilateral foraminal narrowing. At C5-6: Disc-osteophyte complex and congenitally narrow spinal canal with kqwwztry-cz-ygjioo canal stenosis and ynpztdag-sp-hskatt left and moderate right foraminal narrowing. There is cord impingement and mild cord compression but no definite abnormal cord signal at this level. At C6-7: Disc-osteophyte complex with moderate canal narrowing, and moderate bilateral foraminal narrowing. There is mild cord impingement but no compression or abnormal cord signal. At C7-T1: No significant canal or foraminal narrowing. IMPRESSION: 1. Congenitally narrow spinal canal now with superimposed degenerative disc disease resulting in further canal stenosis. 2. There is canal stenosis with cord impingement and cord compression at the C5-6 and C6-7 levels. At C3-4, moderate canal stenosis. 3. Multilevel foraminal narrowing, sswrogog-re-bdxouf on the left at C5-6, moderate bilaterally at C6-7. <Electronically signed by Brayan Ortega > 07/19/20 1055
== END ==
LOC: M RAD 09:21
PROVIDERS: ATTEND Family Medicine
DX: M47.812 Spondylosis without myelopathy or radiculopathy, cervical region (principal)

== ENCOUNTER → 2020-08-15 | Outpatient (CLI) | payer MEDICARE, OTHER ==
--- NOTE | 2020-08-17 02:21 | ECWPNPC ---
PATIENT NAME: RENÉE SOARES : 1955 GENDER: FEMALE VISIT DATE: 08/15/2020 DISCHARGE DATE: 08/15/20 1041 VISIT LOCKED DATE TIME: PHYSICIAN: ISHA BENNETT PHYSICIAN PAGER NO: ACTIVE RESOURCE: ISHA BENNETT REASON FOR APPOINTMENT 1. REVIEW MRI HISTORY OF PRESENT ILLNESS DEPRESSION SCREENING: PHQ-2 (2015 EDITION) LITTLE INTEREST OR PLEASURE IN DOING THINGS?NOT AT ALL FEELING DOWN, DEPRESSED, OR HOPELESS?NOT AT ALL TOTAL SCORE0 GENERAL: HPI 64-YEAR-OLD FEMALE IN FOR CHRONIC PAIN FOLLOW-UP. PATIENT HAD MRI PERFORMED RECENTLY WHICH WILL BE REVIEWED WITH PATIENT TODAY. SHE RATES HER PAIN CURRENTLY AT A 3 OUT OF 10 AND DESCRIBES IT ACHING AND CONTINUOUS.. -. FALL RISK SCREENING: SCREENING : NO FALLS REPORTED IN THE LAST YEAR. PAIN SCREENING: PATIENT HAS A COMPLAINT OF ACUTE OR CHRONIC PAIN :YES LOCATION OF PAIN:NECK, LOW BACK INTENSITY OF PAIN (SCALE OF 1 TO 10):3 WHAT DOES YOUR PAIN FEEL LIKE:ACHING, CONTINOUS DURATION:CONTINOUS, AWAKENS FROM SLEEP PAIN IS INCREASED BY:ACTIVITIES, PROLONGED STANDING PAIN IS DECREASED BY:USE OF PAIN MEDICATIONS, SITTING, OTHERS HEAT NURSING NOTE: -. PAIN CENTER INTAKE QUESTIONS: DO YOU HAVE A HISTORY OF MRSA? :NO DO YOU TAKE A BLOOD THINNERS? :NO DO YOU HAVE ANY BLEEDING DISORDERS? :NO ANY NEW NUMBNESS OR WEAKNESS IN YOUR LEGS OR ARMS? :NO ANY PACEMAKER,DEFIBRILLATOR, OR DORSAL COLUMN STIMULATOR? :NO DO YOU HAVE ANY RASHES OR OPEN SORES? :NO ARE YOU ALLERGIC TO IV DYE? :NO ARE YOU DIABETIC? :NO ANY NEW PROBLEMS WITH YOUR MEDICATIONS? :NO HAVE YOU RECEIVED A VACCINE IN THE PAST 30 DAYS? :NO DO YOU PLAN TO RECEIVE A VACCINE IN THE NEXT 21 DAYS? :NO DO YOU NEED ANY PRESCRIPTION? :NO DO YOU TAKE ANY IMMUNOSUPPRESSIVE MEDICATIONS? :NO DO YOU HAVE ANY KIDNEY OR LIVER DISEASE? :NO IS THERE A CHANCE YOU COULD BE ? :NO ARE YOU BREAST FEEDING? :NO CURRENT MEDICATIONS TAKING MELATONIN ER 10 MG TABLET EXTENDED RELEASE DIRECTED ORALLY TAKING FIBER - TABLET DIRECTED ORALLY TAKING VITAMIN B12 500 MCG TABLET DIRECTED ORALLY DAILY TAKING IBUPROFEN 800 MG TABLET 1 TABLET WITH FOOD OR MILK NEEDED ORALLY THREE TIMES A DAY, NOTES: PRN TAKING DIPHENOXYLATE-ATROPINE 2.5-0.025 MG TABLET 1 TABLET NEEDED ORALLY 2 PILLS EVERY 6 HOURS TAKING DULOXETINE HCL 60 MG CAPSULE DELAYED RELEASE PARTICLES 1 CAPSULE ORALLY ONCE A DAY TDD=90 MG TAKING CYMBALTA 30 MG CAPSULE DELAYED RELEASE PARTICLES 1 CAPSULE ORALLY ONCE A DAY TAKING GABAPENTIN 300 MG CAPSULE 1 CAPSULE ORAL TID TAKING CALCIUM GUMMIES 250-100-500 MG-UNIT TABLET CHEWABLE DIRECTED ORALLY TAKING VITAMIN D (CHOLECALCIFEROL) 1000 UNIT CAPSULE 1 CAPSULE ORALLY ONCE A DAY TAKING THR[employer] WOMENS - TABLET 2 DIRECTED ORALLY ONCE DAILY IN THE MORNING NOT-TAKING VITAMIN D 50 MCG (2000 UT) TABLET 1 TABLET ORALLY ONCE A DAY UNKNOWN CHOLESTYRAMINE 4 GM PACKET 1 PACKET MIXED WITH WATER OR NON-CARBONATED DRINK ORALLY TWICE A DAY UNKNOWN LOMOTIL 2.5-0.025 MG TABLET 1 TABLET NEEDED ORALLY FOUR TIMES A DAY MEDICATION LIST REVIEWED AND RECONCILED WITH THE PATIENT PAST MEDICAL HISTORY C DIFF COLITIS- DR MEIER (NO LONGER FOLLOWS WITH DR. MEIER) ULCERATIVE COLITIS/INFLAM BOWEL DISEASE/ S/P COLECTOMY- DR BATISTA IN [place] ANEMIA BREAST CANCER LEFT SIDE 10/17. S/P RESECTION DR CARUSO. CHEMOTHERAPY DR COWAN- COMPLETED 5 TREATMENTS. RAD RX PER DR ROMANO; FOLLOWS WITH [facility] ONC CHRONIC COUGH- DR HUNT 01/17 DONAVAN 02/02/13 NML( FEV1 2.51 (90%)/FVC2.94(82%). PFTS/METHACHOLINE CHALLENGE UNREMARKABLE- NO PULM EXPLANATION FOR COUGH 09/18. COUGH RESOLVED WITH ADVAIR PER IHSANOSTOWSKI 01/18. PANCREATIC MASS 2.5 CM/PRIOR FNA ATYPICAL CELLS/SUBSEQUENT EUS MASS SMALLER/LAST CT WITH CONTRAST MASS NOT DETECTED- FOLLOWED BY DR MAYORGA- GASTRO SYR. FNA 11/18NEG PER PT CT A&P WITH CONTRAST NO ACUTE PATHOLOGY 05/21 BONE SCAN- OA/FIBROMYALGIA WITH CHRONIC PAIN-[place]- PER [facility]- DR SAINI 07/19 DEPRESSION/ANXIETY- USED TO FOLLOW WITH DR. ECHOLS LDL 95 04/20 PNEUMOVAX- 2012- [facility] PER PT. CT MAXILLOFACIAL 03/19-MILD MUCOSAL THICKENING MAXILLARY SINUSES CTD/CHRONIC PAIN- RHEUM SYR (NO LONGER FOLLOWS) ETT 04/21 [facility]- NEG ISCHEMIA KIDNEY STONE 2015 GALL STONES 2016 NEUROLOGY: DR. Milton BEE SMALL VESSEL ISCHEMIC DISEASE MILD ASTHMA- FOLLOWS WITH DR. ALEXIS CERVIAL DISC DISPLACEMENT , CERVICAL RADICULOPATHY LYMPHYDEMA AND DVT LEFT ARM POUCH ENDOSCOPY: 2018 DR. SALINAS-Q 2 YEARS; BIOPSY NEGATIVE DYSTHYMIA OTHER AND UNSPECIFIED HYPERLIPIDEMIA ULCERATIVE (CHRONIC) PROCTITIS CHRONIC PAIN CHRONIC COUGH UNSPECIFIED DIFFUSE CONNECTIVE TISSUE DISEASE QUIT SMOKING IN 1983 ASCVD RISK 5.1% IN 10/2019 ALLERGIES SULFA (FOR ALLERGY USE ONLY): FLU LIKE SX'S - ALLERGY AMOXICILLIN: CAUSES C-DIFF - ALLERGY SOCIAL HISTORY GENERAL: TOBACCO USE ARE YOU A:FORMER SMOKER HOW LONG HAS IT BEEN SINCE YOU LAST SMOKED?> 10 YEARS LATEX QUESTIONNAIRE LATEX ALLERGY : HAVE YOU EVER DEVELOPED ANY TYPE OF REACTION AFTER HANDLING LATEX PRODUCTS SUCH RUBBER GLOVES, CONDOMS, DIAPHRAGMS, BALLOONS, SOCKS, OR UNDERWEAR?NO LATEX ALLERGY : HAVE YOU EVER DEVELOPED ANY TYPE OF REACTION DURING OR AFTER DENTAL APPOINTMENT, VAGINAL/RECTAL EXAMINATION, SURGICAL PROCEDURE, OR ANY OTHER EXPOSURE?NO LATEX RISK : HAVE YOU EVER HAD ANY DIFFICULTY BREATHING OR HIVES AFTER EATING OR HANDLING ANY FRUITS, OR VEGETABLES; SUCH KIWI, BANANAS, STONE FRUITS, OR CHESTNUTSNO LATEX RISK : DO YOU HAVE A PREVIOUS PERSONAL HISTORY OF MORE THAN NINE SURGERIES, SPINA BIFIDA, OR REPEATED CATHERIZATIONS? NO LATEX RISK : ARE YOU FREQUENTLY EXPOSED TO LATEX PRODUCTS IN YOUR OCCUPATION?NO DATE ASKED : 08/15/2020 ALCOHOL USE: NO. ALCOHOL SCREENING DID YOU HAVE A DRINK CONTAINING ALCOHOL IN THE PAST YEAR?YES HOW OFTEN DID YOU HAVE SIX OR MORE DRINKS ON ONE OCCASION IN THE PAST YEAR?NEVER (0 POINTS) HOW MANY DRINKS DID YOU HAVE ON A TYPICAL DAY WHEN YOU WERE DRINKING IN THE PAST YEAR?3 OR 4 (1 POINT) HOW OFTEN DID YOU HAVE A DRINK CONTAINING ALCOHOL IN THE PAST YEAR?MONTHLY OR LESS (1 POINT) POINTS2 INTERPRETATIONNEGATIVE RECREATIONAL DRUG USE DRUG USE?NO CAFFEINE CAFFEINE USE?NO SEXUAL HX HAD SEX IN THE LAST 12 MONTHS (VAGINAL, ORAL, OR ANAL)?NO LMP:N/A HAVE YOU EVER HAD AN STD?YES OTHER?NO HERPES?YES SYPHILIS?NO GC?NO CHLAMYDIA?NO HIV / HEP-C SCREENING HIV TEST OFFERED TO PATIENT:YES DATE OFFERED:08/28/2016 TEST ACCEPTED:NO HEP-C TEST OFFERED TO PATIENT:YES DATE OFFERED:08/28/2016 REASON:PATIENT DECLINED TEST ACCEPTED:NO REASON:PATIENT DECLINED BUDDHIST [id number] MOSQUE LANGUAGE LANGUAGES SPOKEN:CZECH EDUCATION LEVEL OF EDUCATION:NOT FINISHED COLLEGE LEARNING BARRIERS / SPECIAL NEEDS CHANGE FROM LAST VISIT?NO BARRIERS TO LEARNING?NO HEARING IMPAIRED?YES HAS NOTICED SOME HEARING LOSS VISION IMPAIRED?YES GLASSES FOR READING COGNITIVELY IMPAIRED?NO READINESS TO LEARN?YES LEARNING PREFERENCES?NO LEARNING CAPABILITIES PRESENT?YES EMOTIONAL BARRIERS?NO SPECIAL DEVICES?NO AOC AIRSPACE CONTROL OFFICER NEEDED?NO DOMESTIC VIOLENCE DO YOU FEEL SAFE IN YOUR ENVIRONMENT?YES OCCUPATION: RETIRED. DIET: REGULAR. EXERCISE: YOGA. MARITAL STATUS: . 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 TODAY'S VISIT 08/16/19, PATIENT DESCRIBES PAIN : ACHING, HAVE IT ALL THE TIME, FROM 0-10, WHAT LEVEL IS YOUR PAIN TODAY? 7, PRECIPITATING FACTORS STANDING, ALLEVIATING FACTORS LAYING DOWN RESTING, IMPACT ON FUNCTION YES. - PFS REFERRAL NEEDED?NO CLERGY REFERRAL NEEDED?NO PUBLIC HEALTH REFERRAL NEEDED?NO WAS THE PROVIDER NOTIFIED OF ANY PERTINENT INFO?YES N/A HAS THE PATIENT BEEN EDUCATED REGARDING HIS/HER PLAN OF CARE?YES HAS THE PATIENT BEEN EDUCATED REGARDING PAIN, THE RISK FOR PAIN, THE IMPORTANCE OF EFFECTIVE PAIN MANAGEMENT, AND THE PAIN ASSESSMENT PROCESS?YES ADVANCE DIRECTIVE ADVANCE DIRECTIVE DISCUSSED WITH PATIENT:YES PT. HAS HCP--, BRIGID [phone] REVIEW OF SYSTEMS CONSTITUTIONAL: ANY RECENT FEVER NO . CHILLS NO . WEIGHT CHANGE OF UNKNOWN REASONS NO . GASTROENTEROLOGY: NEW UNEXPLAINABLE CHANGES IN BOWEL CONTROL NO . CONSTIPATION NO . GENITOURINARY: ANY NEW CHANGE IN BLADDER CONTROL? NO . NEUROLOGY: NEW ONSET DIZZINESS OR NEUROLOGICAL CHANGES NOT MENTIONED NO . NEW NUMBNESS OR PAIN PATTERNS NOT MENTIONED AND PERTINENT TO TODAY'S VISIT NO . CARDIOLOGY: NEW CHEST PRESSURE NO . PATIENT DENIES NO . RESPIRATORY: UNEXPLAINABLE COUGH NO . NEW SHORTNESS OF BREATH NO . VITAL SIGNS WT 153.6 LBS, HT 65.5 IN, BMI 25.17 INDEX, BP 138/66 MM HG, HR 80 /MIN, RR 18 /MIN, TEMP 96.0 F, OXYGEN SAT % 99%, NA INITIALS AW 0957. EXAMINATION GENERAL EXAMINATION: GENERALNO ACUTE DISTRESS, WELL NOURISHED AND HYDRATED. PSYCHAPPROPRIATE MOOD AND AFFECT . NECK:DENIES POINT TENDERNESS ALONG CERVICAL SPINE, SURROUNDING SKIN SHOWS NO ERYTHEMA, ECCHYMOSIS, INCREASED WARMTH, AND/OR SKIN ERUPTIONS NOTED.. LUNGS:CLEAR TO AUSCULTATION BILATERALLY, NO WHEEZES, RHONCHI, RALES. HEART:NO MURMURS, REGULAR RATE AND RHYTHM. ASSESSMENTS CERVICAL RADICULOPATHY DUE TO INTERVERTEBRAL DISC DISORDER - M50.10 (PRIMARY) TREATMENT CERVICAL RADICULOPATHY DUE TO INTERVERTEBRAL DISC DISORDER MEDICATION: VALIUM TAB 10MG ORALLY (DIAZEPAM) (ORDERED FOR 08/23/2020) MEDICATION: OXYCODONE HCL TAB 10MG ORALLY (ORDERED FOR 08/23/2020) NOTES: 64-YEAR-OLD FEMALE IN FOR CHRONIC PAIN FOLLOW-UP. GIVEN PATIENT'S NECK PAIN AND RADICULAR SYMPTOMS RECOMMEND CERVICAL EPIDURAL STEROID INJECTION WITH POST PROCEDURAL FOLLOW-UP. PATIENT HAS EXPRESSED UNDERSTANDING OF AND WAS IN AGREEMENT WITH TREATMENT PLAN. GIVEN TIME TO ASK QUESTIONS AND EXPRESS CONCERNS. CLINICAL NOTES: PREPROCEDURE AND PROCEDURE INFORMATION PRINTED AND PROVIDED TO PATIENT. PATIENT VERBALIZED AN UNDERSTANDING. NICK CRUZ MA. PROCEDURE CODES FA211 ESTABILISHED PATIENT [facility] CHARGE DISPOSITION & COMMUNICATION FOLLOW UP POST PROCEDURE (REASON: CERVICAL EPIDURAL STEROID INJECTION ) ELECTRONICALLY SIGNED BY MARIA TERESA GARCIA ON 08/16/2020 AT 08:50 AM EDT DISCLAIMER : THIS IS A VISIT SUMMARY EXTRACTED FROM THE [employer] CHART. IT IS NOT A COPY OF THE [employer] PROGRESS NOTE. BARBARA
== END ==
LOC: M PAIN 09:30
PROVIDERS: ATTEND Family Medicine
DX: M50.10 Cervical disc disorder with radiculopathy, unspecified cervical region (principal); G89.29 Other chronic pain; J45.909 Unspecified asthma, uncomplicated; Z86.59 Personal history of other mental and behavioral disorders; Z85.3 Personal history of malignant neoplasm of breast; Z87.891 Personal history of nicotine dependence; Z88.1 Allergy status to other antibiotic agents; Z88.2 Allergy status to sulfonamides; Z79.899 Other long term (current) drug therapy

== ENCOUNTER → 2020-08-18 | Outpatient (CLI) | payer MEDICARE, OTHER | LOC: M LABSMTC 12:33 | PROVIDERS: ATTEND Anesthesiology | DX: Z01.812 Encounter for preprocedural laboratory examination (principal); Z20.822 Contact with and (suspected) exposure to COVID-19 ==

== ENCOUNTER → 2020-08-21 | Outpatient (REF) | payer MEDICARE, OTHER ==
[2020-08-21 13:51] LABS: ALBUMIN 4.3 GM/DL (3.2-5.2); ALT/SGPT 23 U/L (12-78); BILIRUBIN,TOTAL 0.5 MG/DL (0.2-1.0); BLOOD UREA NITROGEN 16 MG/DL (7-18); CALCIUM LEVEL 9.2 MG/DL (8.8-10.2); CARBON DIOXIDE LEVEL 29 MEQ/L (21-32); CHLORIDE LEVEL 104 MEQ/L (98-107); CHOLESTEROL LEVEL 192 MG/DL (<200); CREATININE FOR GFR 0.68 MG/DL (0.55-1.30); GLOMERULAR FILTRATION RATE > 60.0 (>45); GLUCOSE, FASTING 88 MG/DL (70-100); HDL CHOLESTEROL 55 MG/DL (>40); LDL CHOLESTEROL 98 MG/DL (<100); NON-HDL-C 137 MG/DL; POTASSIUM SERUM 4.3 MEQ/L (3.5-5.1); SODIUM LEVEL 140 MEQ/L (136-145); TOTAL 25(OH) VITAMIN D 28.6 NG/ML (30.0-100.0); TOTAL PROTEIN 7.4 GM/DL (6.4-8.2); TRIGLYCERIDES LEVEL 195 MG/DL (<150)
== END ==
LOC: M PLALAB 11:41
PROVIDERS: ATTEND Nurse Practitioner Family
DX: I10 Essential (primary) hypertension (principal); E55.9 Vitamin D deficiency, unspecified; Z79.899 Other long term (current) drug therapy

== ENCOUNTER → 2020-08-23 | Outpatient (CLI) | payer MEDICARE, OTHER ==
[~2020-08-23] MED LIST changes: +ISOVUE-M 300 61% 15ML VIAL As Ordered ONE; +LIDOCAINE 1% SDV 30ML VIAL As Ordered ONE; +diazePAM 5MG TABLET As Ordered ONE; +methylPREDNISolone SUSP 40MG/ML 1ML VIAL (DEPO MEDROL) As Ordered ONE; +oxyCODONE 5MG TAB As Ordered ONE
--- NOTE | 2020-08-23 10:17 | REP ---
INDICATION: CERVICAL EPIDURAL STEROID INJECTION. COMPARISON: None. TECHNIQUE: Two C-arm views cervical spine. FINDINGS: A needle is seen at the cervicothoracic junction. A small amount of contrast is injected. IMPRESSION: 14 seconds fluoroscopy time utilized. <Electronically signed by Luis Felipe Pena > 08/23/20 1011
--- NOTE | 2020-08-24 00:41 | ECWPNPC ---
PATIENT NAME: RENÉE SOARES : 1955 GENDER: FEMALE VISIT DATE: 08/23/2020 DISCHARGE DATE: 08/23/20 1025 VISIT LOCKED DATE TIME: PHYSICIAN: REINA REED MD PHYSICIAN PAGER NO: ACTIVE RESOURCE: REINA REED MD REASON FOR APPOINTMENT 1. CERVICAL EPIDURAL STEROID INJECTION HISTORY OF PRESENT ILLNESS GENERAL: -. FALL RISK SCREENING: SCREENING : NO FALLS REPORTED IN THE LAST YEAR. PAIN SCREENING: PATIENT HAS A COMPLAINT OF ACUTE OR CHRONIC PAIN :YES LOCATION OF PAIN:NECK INTENSITY OF PAIN (SCALE OF 1 TO 10):6 WHAT DOES YOUR PAIN FEEL LIKE:ACHING, CONTINOUS, STABBING DURATION:CONTINOUS, CONSTANT PAIN IS INCREASED BY:ACTIVITIES, PROLONGED STANDING PAIN IS DECREASED BY:USE OF PAIN MEDICATIONS, OTHERS REST, HEAT, ICE NURSING NOTE: -. PAIN CENTER INTAKE QUESTIONS: DO YOU HAVE A HISTORY OF MRSA? :NO DO YOU TAKE A BLOOD THINNERS? :NO DO YOU HAVE ANY BLEEDING DISORDERS? :NO ANY NEW NUMBNESS OR WEAKNESS IN YOUR LEGS OR ARMS? :NO ANY PACEMAKER,DEFIBRILLATOR, OR DORSAL COLUMN STIMULATOR? :NO DO YOU HAVE ANY RASHES OR OPEN SORES? :NO ARE YOU ALLERGIC TO IV DYE? :NO ARE YOU DIABETIC? :NO ANY NEW PROBLEMS WITH YOUR MEDICATIONS? :NO HAVE YOU RECEIVED A VACCINE IN THE PAST 30 DAYS? :NO DO YOU PLAN TO RECEIVE A VACCINE IN THE NEXT 21 DAYS? :NO DO YOU TAKE ANY IMMUNOSUPPRESSIVE MEDICATIONS? :NO ANY HISTORY OF SEIZURES? :NO ANY HISTORY OF CARDIAC ISSUES OR EVENTS? :NO DO YOU HAVE ANY KIDNEY OR LIVER DISEASE? :NO DO YOU HAVE SLEEP APNEA? :NO ANY RECENT HEAD INJURY? :NO DO YOU HAVE ANY NEW INFECTIONS? :NO IS THERE A CHANCE YOU COULD BE ? :NO ARE YOU BREAST FEEDING? :NO WHEN DID YOU LAST EAT? : 08/22/2020 WHEN DID YOU LAST DRINK? : 08/23/2020 0600 WHAT DID YOU LAST DRINK? : WATER NAME OF PERSON DRIVING YOU HOME? : -BRIGID -SPOUSE DO YOU HAVE ANY OTHER QUESTIONS OR CONCERNS? : - CURRENT MEDICATIONS TAKING MELATONIN ER 10 MG TABLET EXTENDED RELEASE DIRECTED ORALLY TAKING FIBER - TABLET DIRECTED ORALLY TAKING VITAMIN B12 500 MCG TABLET DIRECTED ORALLY DAILY TAKING IBUPROFEN 800 MG TABLET 1 TABLET WITH FOOD OR MILK NEEDED ORALLY THREE TIMES A DAY, NOTES: PRN TAKING DIPHENOXYLATE-ATROPINE 2.5-0.025 MG TABLET 1 TABLET NEEDED ORALLY 2 PILLS EVERY 6 HOURS, NOTES: 08/23/2020 0600 TAKING DULOXETINE HCL 60 MG CAPSULE DELAYED RELEASE PARTICLES 1 CAPSULE ORALLY ONCE A DAY TDD=90 MG TAKING CYMBALTA 30 MG CAPSULE DELAYED RELEASE PARTICLES 1 CAPSULE ORALLY ONCE A DAY TAKING GABAPENTIN 300 MG CAPSULE 1 CAPSULE ORAL TID TAKING CALCIUM GUMMIES 250-100-500 MG-UNIT TABLET CHEWABLE DIRECTED ORALLY TAKING VITAMIN D (CHOLECALCIFEROL) 1000 UNIT CAPSULE 1 CAPSULE ORALLY ONCE A DAY TAKING THRIVE FOR LIFE WOMENS - TABLET 2 DIRECTED ORALLY ONCE DAILY IN THE MORNING NOT-TAKING VITAMIN D 50 MCG (2000 UT) TABLET 1 TABLET ORALLY ONCE A DAY NOT-TAKING CHOLESTYRAMINE 4 GM PACKET 1 PACKET MIXED WITH WATER OR NON-CARBONATED DRINK ORALLY TWICE A DAY NOT-TAKING LOMOTIL 2.5-0.025 MG TABLET 1 TABLET NEEDED ORALLY FOUR TIMES A DAY MEDICATION LIST REVIEWED AND RECONCILED WITH THE PATIENT PAST MEDICAL HISTORY C DIFF COLITIS- DR MEIER (NO LONGER FOLLOWS WITH DR. 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 S/P RESECTION DR CARUSO. CHEMOTHERAPY DR COWAN- COMPLETED 5/6 TREATMENTS. RAD RX PER DR ROMANO; FOLLOWS WITH [facility] ONC CHRONIC COUGH- DR HUNT 01/17 DONAVAN 02/02/13 NML( FEV1 2.51 (90%)/FVC2.94(82%). PFTS/METHACHOLINE CHALLENGE UNREMARKABLE- NO PULM EXPLANATION FOR COUGH 09/18. COUGH RESOLVED WITH ADVAIR PER [facility] 01/18. PANCREATIC MASS 2.5 CM/PRIOR FNA ATYPICAL CELLS/SUBSEQUENT EUS MASS SMALLER/LAST CT WITH CONTRAST MASS NOT DETECTED- FOLLOWED BY DR MAYORGA- GASTRO SYR. FNA 11/18NEG PER PT CT A&P WITH CONTRAST NO ACUTE PATHOLOGY 05/21 BONE SCAN- OA/FIBROMYALGIA WITH CHRONIC PAIN-LYRICA- PER [facility] SYR- DR SAINI 07/19 DEPRESSION/ANXIETY- USED TO FOLLOW WITH DR. ECHOLS LDL 95 04/20 PNEUMOVAX- 2013- [facility] PER PT. CT MAXILLOFACIAL 03/19-MILD MUCOSAL THICKENING MAXILLARY SINUSES CTD/CHRONIC PAIN- RHEUM SYR (NO LONGER FOLLOWS) ETT 04/21 [facility]- NEG ISCHEMIA KIDNEY STONE 2016 GALL STONES 2017 NEUROLOGY: DR. Milton BEE SMALL VESSEL ISCHEMIC DISEASE MILD ASTHMA- FOLLOWS WITH DR. ALEXIS CERVIAL DISC DISPLACEMENT , CERVICAL RADICULOPATHY LYMPHYDEMA AND DVT LEFT ARM POUCH ENDOSCOPY: 2018 DR. SALINAS-Q 2 YEARS; BIOPSY NEGATIVE DYSTHYMIA OTHER AND UNSPECIFIED HYPERLIPIDEMIA ULCERATIVE (CHRONIC) PROCTITIS CHRONIC PAIN CHRONIC COUGH UNSPECIFIED DIFFUSE CONNECTIVE TISSUE DISEASE QUIT SMOKING IN 1983 ASCVD RISK 5.1% IN 10/2019 ALLERGIES SULFA (FOR ALLERGY USE ONLY): FLU LIKE SX'S - ALLERGY AMOXICILLIN: CAUSES C-DIFF - ALLERGY SURGICAL HISTORY TUBAL LIGATION HYSTERECTOMY WITH BILATERAL OOPHORECTOMY BREAST BIOPSY-LEFT SALPINGECTOMY FOR TUBAL COLONOSCOPY EGD DR MUKESH RODRIGUEZ [address] SALINAS [place] 04/18 ILEOSTOMY, 3 DIFFERENT OPERATIONS- 06/04/11 REANASTOMOSIS OF SMALL BOWEL. 01/[address] CARUSO 10/2012 LYMPH NODE REMOVAL FROM LEFT BREAST DR CARUSO 11/2012 ILEAL POUCH LHVZONVMQ-BZHE-EANTZESDP 01/26/15 RIGHT ESWL 06/08/15 POUCH ENDOSCOPY-DR. SALINAS, REPEAT 2 YEARS 01/2018 PRECANCEROUS LESION REMOVED FROM NOSE 08/2018 FAMILY HISTORY FATHER: 66 YRS, NV, HYPERTENSION, IDDM, KIDNEY STONES MOTHER: 86 YRS, MELANOMA, OF COLON CANCER 70'S SIBLINGS: 2 SISTERS-LUNG AND PANCREAS 70'S 5 BROTHER(S) , 3 SISTER(S) . 1 SON(S) , 1 DAUGHTER(S) - HEALTHY. BROTHER MVA, BROTHER NV @ LATE 40'S, TOBACCO USE. DENIES FAMILY HX OF BREAST OR OVARIAN CANCER.DENIES FAMILY HX OF MELANOMA. SISTER HAD PANCREATIC CANCER. SOCIAL HISTORY GENERAL: TOBACCO USE ARE YOU A:FORMER SMOKER HOW LONG HAS IT BEEN SINCE YOU LAST SMOKED?> 10 YEARS LATEX QUESTIONNAIRE LATEX ALLERGY : HAVE YOU EVER DEVELOPED ANY TYPE OF REACTION AFTER HANDLING LATEX PRODUCTS SUCH RUBBER GLOVES, CONDOMS, DIAPHRAGMS, BALLOONS, SOCKS, OR UNDERWEAR?NO LATEX ALLERGY : HAVE YOU EVER DEVELOPED ANY TYPE OF REACTION DURING OR AFTER DENTAL APPOINTMENT, VAGINAL/RECTAL EXAMINATION, SURGICAL PROCEDURE, OR ANY OTHER EXPOSURE?NO LATEX RISK : HAVE YOU EVER HAD ANY DIFFICULTY BREATHING OR HIVES AFTER EATING OR HANDLING ANY FRUITS, OR VEGETABLES; SUCH KIWI, BANANAS, STONE FRUITS, OR CHESTNUTSNO LATEX RISK : DO YOU HAVE A PREVIOUS PERSONAL HISTORY OF MORE THAN NINE SURGERIES, SPINA BIFIDA, OR REPEATED CATHERIZATIONS? NO LATEX RISK : ARE YOU FREQUENTLY EXPOSED TO LATEX PRODUCTS IN YOUR OCCUPATION?NO DATE ASKED : 08/22/2020 ALCOHOL USE: NO. ALCOHOL SCREENING DID YOU HAVE A DRINK CONTAINING ALCOHOL IN THE PAST YEAR?YES HOW OFTEN DID YOU HAVE SIX OR MORE DRINKS ON ONE OCCASION IN THE PAST YEAR?NEVER (0 POINTS) HOW MANY DRINKS DID YOU HAVE ON A TYPICAL DAY WHEN YOU WERE DRINKING IN THE PAST YEAR?3 OR 4 (1 POINT) HOW OFTEN DID YOU HAVE A DRINK CONTAINING ALCOHOL IN THE PAST YEAR?MONTHLY OR LESS (1 POINT) POINTS2 INTERPRETATIONNEGATIVE RECREATIONAL DRUG USE DRUG USE?NO CAFFEINE CAFFEINE USE?NO SEXUAL HX HAD SEX IN THE LAST 12 MONTHS (VAGINAL, ORAL, OR ANAL)?NO LMP:N/A HAVE YOU EVER HAD AN STD?YES OTHER?NO HERPES?YES SYPHILIS?NO GC?NO CHLAMYDIA?NO HIV / HEP-C SCREENING HIV TEST OFFERED TO PATIENT:YES DATE OFFERED:08/28/2016 TEST ACCEPTED:NO HEP-C TEST OFFERED TO PATIENT:YES DATE OFFERED:08/28/2016 REASON:PATIENT DECLINED TEST ACCEPTED:NO REASON:PATIENT DECLINED CATHOLIC [id number] MORMON LANGUAGE LANGUAGES SPOKEN:ALBANIAN EDUCATION LEVEL OF EDUCATION:NOT FINISHED COLLEGE LEARNING BARRIERS / SPECIAL NEEDS CHANGE FROM LAST VISIT?NO BARRIERS TO LEARNING?NO HEARING IMPAIRED?YES HAS NOTICED SOME HEARING LOSS VISION IMPAIRED?YES GLASSES FOR READING COGNITIVELY IMPAIRED?NO READINESS TO LEARN?YES LEARNING PREFERENCES?NO LEARNING CAPABILITIES PRESENT?YES EMOTIONAL BARRIERS?NO SPECIAL DEVICES?NO REWRITE EDITOR NEEDED?NO DOMESTIC VIOLENCE DO YOU FEEL SAFE IN YOUR ENVIRONMENT?YES OCCUPATION: RETIRED. DIET: REGULAR. EXERCISE: YOGA. MARITAL STATUS: . 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 TODAY'S VISIT 08/16/19, PATIENT DESCRIBES PAIN : ACHING, HAVE IT ALL THE TIME, FROM 0-10, WHAT LEVEL IS YOUR PAIN TODAY? 7, PRECIPITATING FACTORS STANDING, ALLEVIATING FACTORS LAYING DOWN RESTING, IMPACT ON FUNCTION YES. - PFS REFERRAL NEEDED?NO CLERGY REFERRAL NEEDED?NO PUBLIC HEALTH REFERRAL NEEDED?NO WAS THE PROVIDER NOTIFIED OF ANY PERTINENT INFO?YES N/A HAS THE PATIENT BEEN EDUCATED REGARDING HIS/HER PLAN OF CARE?YES HAS THE PATIENT BEEN EDUCATED REGARDING PAIN, THE RISK FOR PAIN, THE IMPORTANCE OF EFFECTIVE PAIN MANAGEMENT, AND THE PAIN ASSESSMENT PROCESS?YES ADVANCE DIRECTIVE ADVANCE DIRECTIVE DISCUSSED WITH PATIENT:YES PT. HAS HCP--, BRIGID [phone] HOSPITALIZATION/MAJOR DIAGNOSTIC PROCEDURE RELATED TO SURGERIES LEUKOPENIA 01/17 VITAL SIGNS WT 155.4 LBS, HT 65.5 IN, BMI 25.46 INDEX, BP 130/60 MM HG, HR 79 /MIN, RR 18 /MIN, TEMP 97.7 F, OXYGEN SAT % 98%, SAFE IN ENV? (Y/N) YES, NA INITIALS SC 08:45, REVIEWED BY: Jose Ramon LOPEZ RN. EXAMINATION GENERAL: A HISTORY AND PHYSICAL EXAM ON THE PATIENT WAS DONE ON 08/15/2020 (DATE OF ORIGINAL ASSESSMENT) IN PREPARATION OF SURGERY/PROCEDURE. I HAVE NOW REASSESSED THIS PATIENT'S HEALTH STATUS AND PERFORMED AN UPDATED EXAM TODAY. ALL CHANGES IN THE PATIENT'S HISTORY, PHYSICAL EXAM, PRE-EXISTING CONDITONS, AND INDICATIONS/CONTRAINDICATIONS TO THE PLANNED PROCEDURE AND ANESTHESIA ARE DOCUMENTED AND EVALUATED BELOW. I ATTEST TO THE ADEQUACY AND APPROPRIATENESS OF MY ASSESSMENT, AND CONFIRM THE NECESSITY FOR THE PLANNED PROCEDURE. THE PATIENT IS ALERT, ORIENTED TIMES THREE AND COOPERATIVE. LUNGS ARE CLEAR TO AUSCULTATION. HEART SHOWS REGULAR RHYTHM, NO MURMURS AND NO GALLOPS. ASSESSMENTS CERVICAL RADICULOPATHY DUE TO INTERVERTEBRAL DISC DISORDER - M50.10 (PRIMARY) TREATMENT CERVICAL RADICULOPATHY DUE TO INTERVERTEBRAL DISC DISORDER [facility] FLUORO GUIDE SPINE INJECTION (PAIN)[id number] SALINE MYRANDA ESPINOZA 08/23/2020 9:07:26 AM > #22 SL STARTED BY Price GREER X 2 ND ATTEMPT IN RIGHT HAND. SITE ASYMPTOMATIC, FLUSHES WELL. PATIENT TOLERATED WELL. COMPLETION OF PROCEDURAL VISIT WHEN MEETS CRITERIAMYRANDA MORATAYA 08/23/2020 10:15:30 AM > 1014 CRITERIA MET MEDICATION: VALIUM TAB 10MG ORALLY (DIAZEPAM)ROBBIN GREER 08/23/2020 8:46:39 AM > VERIFIED MYRANDA MORATAYA 08/23/2020 8:56:40 AM > ADMINISTERED MEDICATION: OXYCODONE HCL TAB 10MG ORALLYROBBIN GREER 08/23/2020 8:46:57 AM > VERIFIED MYRANDA MORATAYA 08/23/2020 8:56:59 AM > ADMINISTERED OTHERS NOTES: PAT COMPLETED 08/22/20 M AIDEE COONEY . PROCEDURES PAIN NURSING RECORD PROCEDURE IN ROOM 0929, PHYSICIAN IN ROOM 0941, START 0946, FINISH 0953, PHYSICIAN OUT OF ROOM 0954, OUT OF ROOM 1002, ECG NORMAL SINUS, PATIENT SHIELDED YES, SAFETY STRAP YES, PREP BETADINE Jaun LOPEZ RN, DRESSING TEGADERM DR. REED LOC: MYRANDA MORATAYA 08/23/2020 9:41:52 AM > , 1. ALERT, ORIENTED RESP: MYRANDA MORATAYA 08/23/2020 9:42:20 AM > , 1. REGULAR, NO DYSPNEA COLOR: MYRANDA MORATAYA 08/23/2020 9:42:24 AM > , 1. PINK SKIN: MYRANDA MORATAYA 08/23/2020 9:42:27 AM > , 1. WARM, DRY POSITION: MYRANDA MORATAYA 08/23/2020 9:42:31 AM > , 1. PRONE VITALS: ALYSON DUMONT 08/23/2020 9:13:58 AM > HR 78 02 98% BP 122/68 , MYRANDA MORATAYA 08/23/2020 9:42:37 AM > 148/49-85-36-100% 08/23/2020 1011 145/82-84-18-96% NOTES Jaun LOPEZ RN COMPLETION OF PROCEDURE APPOINTMENT: POST PAIN 2 POSTERIOR NECK, DRESSING SITE DRY AND INTACT POSTERIOR NECK, IV DISCONTINUED, SITE CLEAR, CATHETER INTACT, GAIT STEADY, TEACHING COMPLETED, PATIENT ACKNOWLEDGES UNDERSTANDING YES PATIENT VERBALIZES UNDERSTANDING OF POST PROCEDURE INSTRUCTIONS REVIEWED, PROCEDURE APPOINTMENT COMPLETED AT 1017 BY: Jaun LOPEZ RN PN CERVICAL EPIDURAL PRE PROCEDURE DIAGNOSIS CERVICAL DISC DISORDER WITH RADICULOPATHY POST PROCEDURE DIAGNOSIS CERVICAL DISC DISORDER WITH RADICULOPATHY PROCEDURE CERVICAL EPIDURAL STEROID INJECTION UNDER FLUOROSCOPIC GUIDANCE SURGEON DR. REINA REED LIVESTOCK TRUCKER NONE ANESTHESIA LOCAL PRE PROCEDURE NOTE THE PATIENT HAS A HISTORY OF CHRONIC CERVICAL PAIN. I EVALUATED THE PATIENT AND REVIEWED THE CHART. I WENT OVER THE RISKS, ALTERNATIVES, AND BENEFITS ASSOCIATED WITH THIS PROCEDURE. THE PATIENT WOULD LIKE TO PROCEED AND GIVE CONSENT TO PERFORMED THE PROCEDURE. THE PATIENT DENIES UNEXPLAINABLE WEIGHT LOSS, FEVER, CHILLS, OR NEW CHANGES IN URINARY OR BOWEL CONTROL. THE PATIENT IS COVID-19 NEGATIVE DESCRIPTION OF PROCEDURE THE PATIENT WAS BROUGHT TO THE PROCEDURE ROOM AND PLACED IN THE PRONE POSITION. THE CERVICOTHORACIC AREA WAS CLEANED WITH BETADINE SOLUTION AND DRAPED ASEPTICALLY. THE PROCEDURE WAS DONE UNDER STERILE CONDITIONS. A TIMEOUT WAS PERFORMED WHERE THE CONSENTED SITE WAS VERIFIED WITH EVERYONE IN THE ROOM. UNDER FLUOROSCOPIC GUIDANCE, THE TARGET WAS SELECTED AT THE INTERLAMINAR LEVEL OF C7-T1. I CONFIRMED AGAIN THE SITE OF TARGET. LIDOCAINE WAS USED TO NUMB THE SKIN AND THE SUBCUTANEOUS TISSUE BELOW IT. EPIDURAL TUOHY NEEDLE, 17-GAUGE, WAS ADVANCED UNDER FLUOROSCOPIC GUIDANCE AND FOLLOWING PATIENT FEEDBACK UNTIL THE EPIDURAL SPACE WAS REACHED 6 CM DEEP INTO THE SKIN BY THE LOSS OF RESISTANCE TECHNIQUE. ISOVUE-M DYE 30%, 0.25 ML, WAS INJECTED SHOWING ADEQUATE SPREAD OF THE DYE. THEN, A SOLUTION OF 3 ML OF NORMAL SALINE WITH DEPO-MEDROL 40MG WAS INJECTED SLOWLY FOLLOWING PATIENT FEEDBACK. THE MEDICATIONS WERE VERIFIED WITH THE NURSE. THERE WAS NO EVIDENCE OF BLOOD, PARESTHESIA OR CEREBROSPINAL FLUID DURING THE PROCEDURE. ESTIMATED BLOOD LOSS WAS LESS THAN 5 ML. THE PATIENT WAS SENT TO THE RECOVERY ROOM. THE PATIENT WAS MOVING THE EXTREMITIES AND DOING WELL. THERE WERE NO COMPLICATIONS DURING THE PROCEDURE. FLUOROSCOPY TIME WAS 14 SECONDS POST PROCEDURE NOTE DEPENDING ON THE RESULTS, CONSIDER WORKING WITH THE FACETS AND CONSIDER A NEW MRI THE LAST ONE WAS DONE MORE THAN 2 YEARS AGO. THE PATIENT WILL BE SEEN IN A FOLLOW UP IN THE NEXT FEW WEEKS. I AM LOOKING FOR LONG LASTING RELIEF FOR THE PATIENT WITH THIS INTERVENTION. INSTRUCTIONS WERE GIVEN, QUESTIONS WERE ANSWERED, AND THE PATIENT EXPRESSED UNDERSTANDING AND AGREES WITH THE PLAN. I, BLANCHE CARO, DOCUMENTED THE ABOVE INFORMATION ACTING A SCRIBE FOR DR. REED. I HAVE REVIEWED THE ABOVE DOCUMENT, WRITTEN BY BLANCHE CARO, BOOKMAKER'S CLERK, AND I VERIFY THAT IT IS ACCURATE PROCEDURE CODES 65662 CERVICAL/THORACIC W/ IMAGING DISPOSITION & COMMUNICATION FOLLOW UP FOLLOW UP WITH ELECTRICIAN THIRD (REASON: POST CERVICAL EPIDURAL STEROID INJECTION) ELECTRONICALLY SIGNED BY REINA REED MD, MD ON 08/23/2020 AT 05:18 PM EDT DISCLAIMER : THIS IS A VISIT SUMMARY EXTRACTED FROM THE [employer] CHART. IT IS NOT A COPY OF THE [employer] PROGRESS NOTE. BARBARA
== END ==
LOC: M PAIN 08:30
PROVIDERS: ATTEND Anesthesiology
DX: M50.10 Cervical disc disorder with radiculopathy, unspecified cervical region (principal); J45.909 Unspecified asthma, uncomplicated; Z86.59 Personal history of other mental and behavioral disorders; Z87.891 Personal history of nicotine dependence; Z88.1 Allergy status to other antibiotic agents; Z88.2 Allergy status to sulfonamides; Z79.899 Other long term (current) drug therapy
CPT/HCPCS: 62321; J1030; Q9967

== ENCOUNTER → 2020-09-06 | Outpatient (CLI) | payer MEDICARE, OTHER ==
[~2020-09-06] MED LIST changes: -ISOVUE-M 300 61% 15ML VIAL As Ordered ONE; -LIDOCAINE 1% SDV 30ML VIAL As Ordered ONE; -diazePAM 5MG TABLET As Ordered ONE; -methylPREDNISolone SUSP 40MG/ML 1ML VIAL (DEPO MEDROL) As Ordered ONE; -oxyCODONE 5MG TAB As Ordered ONE
--- NOTE | 2020-09-08 01:13 | ECWPNPC ---
PATIENT NAME: RENÉE SOARES : 1955 GENDER: FEMALE VISIT DATE: 09/06/2020 DISCHARGE DATE: 09/06/20928 VISIT LOCKED DATE TIME: PHYSICIAN: ISHA BENNETT PHYSICIAN PAGER NO: ACTIVE RESOURCE: ISHA BENNETT REASON FOR APPOINTMENT 1. POST CERVICAL EPIDURAL STEROID INJECTION HISTORY OF PRESENT ILLNESS GENERAL: HPI 64-YEAR-OLD FEMALE IN FOR POST CERVICAL EPIDURAL FOLLOW-UP. PATIENT FEELS THE PROCEDURE WAS SUCCESSFUL OVERALL RATING HER PAIN PREPROCEDURE AT A 6 OUT OF 10 AND POSTPROCEDURE AT A 0 OUT OF 10. SHE FURTHER STATES THE PROCEDURE CONTINUES TO HELP HER TODAY RATING HER PAIN CURRENTLY AT A 0 OUT OF 10.. -. FALL RISK SCREENING: SCREENING ONE FALL REPORTED IN THE LAST YEAR WITH INJURY. PATIENT STATES SHE HAS "NOT RECEIVED MEDICAL TREATMENT.". PAIN SCREENING: PATIENT HAS A COMPLAINT OF ACUTE OR CHRONIC PAIN :NO PATIENT DENIES PAIN. NURSING NOTE: -. PAIN CENTER INTAKE QUESTIONS: DO YOU HAVE A HISTORY OF MRSA? :NO DO YOU TAKE A BLOOD THINNERS? :NO DO YOU HAVE ANY BLEEDING DISORDERS? :NO ANY NEW NUMBNESS OR WEAKNESS IN YOUR LEGS OR ARMS? :NO ANY PACEMAKER,DEFIBRILLATOR, OR DORSAL COLUMN STIMULATOR? :NO DO YOU HAVE ANY RASHES OR OPEN SORES? :NO ARE YOU ALLERGIC TO IV DYE? :NO ARE YOU DIABETIC? :NO ANY NEW PROBLEMS WITH YOUR MEDICATIONS? :NO HAVE YOU RECEIVED A VACCINE IN THE PAST 30 DAYS? :NO DO YOU PLAN TO RECEIVE A VACCINE IN THE NEXT 21 DAYS? :NO DO YOU NEED ANY PRESCRIPTION? :YES DULOXETINE HCL 30MG AND DULOXETINE 60MG DO YOU TAKE ANY IMMUNOSUPPRESSIVE MEDICATIONS? :NO DO YOU HAVE ANY KIDNEY OR LIVER DISEASE? :NO IS THERE A CHANCE YOU COULD BE ? :NO ARE YOU BREAST FEEDING? :NO CURRENT MEDICATIONS TAKING MELATONIN ER 10 MG TABLET EXTENDED RELEASE DIRECTED ORALLY TAKING FIBER - TABLET DIRECTED ORALLY TAKING VITAMIN B12 500 MCG TABLET DIRECTED ORALLY DAILY TAKING DIPHENOXYLATE-ATROPINE 2.5-0.025 MG TABLET 1 TABLET NEEDED ORALLY 2 PILLS EVERY 6 HOURS, NOTES: 08/23/2020 0600 TAKING GABAPENTIN 300 MG CAPSULE 1 CAPSULE ORAL TID TAKING CALCIUM GUMMIES 250-100-500 MG-UNIT TABLET CHEWABLE DIRECTED ORALLY TAKING THRIVE FOR [employer] WOMENS - TABLET 2 DIRECTED ORALLY ONCE DAILY IN THE MORNING TAKING VITAMIN D 50 MCG (2000 UT) TABLET 1 TABLET ORALLY ONCE A DAY TAKING DULOXETINE HCL 60 MG CAPSULE DELAYED RELEASE PARTICLES 1 CAPSULE ORALLY ONCE A DAY TDD=90 MG TAKING CYMBALTA 30 MG CAPSULE DELAYED RELEASE PARTICLES 1 CAPSULE ORALLY ONCE A DAY NOT-TAKING IBUPROFEN 800 MG TABLET 1 TABLET WITH FOOD OR MILK NEEDED ORALLY THREE TIMES A DAY, NOTES: PRN NOT-TAKING CHOLESTYRAMINE 4 GM PACKET 1 PACKET MIXED WITH WATER OR NON-CARBONATED DRINK ORALLY TWICE A DAY NOT-TAKING LOMOTIL 2.5-0.025 MG TABLET 1 TABLET NEEDED ORALLY FOUR TIMES A DAY MEDICATION LIST REVIEWED AND RECONCILED WITH THE PATIENT PAST MEDICAL HISTORY C DIFF COLITIS- DR MEIER (NO LONGER FOLLOWS WITH DR. 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 S/P RESECTION DR CARUSO. CHEMOTHERAPY DR COWAN- COMPLETED 5 TREATMENTS. RAD RX PER DR ROMANO; FOLLOWS WITH [facility] ONC CHRONIC COUGH- DR HUNT 01/17 [place] 02/02/13 NML( FEV1 2.51 (90%)/FVC2.94(82%). PFTS/METHACHOLINE CHALLENGE UNREMARKABLE- NO PULM EXPLANATION FOR COUGH 09/18. COUGH RESOLVED WITH ADVAIR PER VANESA 01/18. PANCREATIC MASS 2.5 CM/PRIOR FNA ATYPICAL CELLS/SUBSEQUENT EUS MASS SMALLER/LAST CT WITH CONTRAST MASS NOT DETECTED- FOLLOWED BY DR MAYORGA- GASTRO SYR. FNA 11/18NEG PER PT CT A&P WITH CONTRAST NO ACUTE PATHOLOGY 05/21 BONE SCAN- OA/FIBROMYALGIA WITH CHRONIC PAIN-[place]- PER [facility] SYR- DR SAINI 07/19 DEPRESSION/ANXIETY- USED TO FOLLOW WITH DR. ECHOLS LDL 95 04/20 PNEUMOVAX- 2013- [facility] PER PT. CT MAXILLOFACIAL 03/19-MILD MUCOSAL THICKENING MAXILLARY SINUSES CTD/CHRONIC PAIN- RHEUM SYR (NO LONGER FOLLOWS) ETT 04/21 [facility]- NEG ISCHEMIA KIDNEY STONE 2016 GALL STONES 2016 NEUROLOGY: DR. Milton BEE SMALL VESSEL ISCHEMIC DISEASE MILD ASTHMA- FOLLOWS WITH DR. ALEXIS CERVIAL DISC DISPLACEMENT , CERVICAL RADICULOPATHY LYMPHYDEMA AND DVT LEFT ARM POUCH ENDOSCOPY: 2018 DR. SALINAS-Q 2 YEARS; BIOPSY NEGATIVE DYSTHYMIA OTHER AND UNSPECIFIED HYPERLIPIDEMIA ULCERATIVE (CHRONIC) PROCTITIS CHRONIC PAIN CHRONIC COUGH UNSPECIFIED DIFFUSE CONNECTIVE TISSUE DISEASE QUIT SMOKING IN 1983 ASCVD RISK 5.1% IN 10/2019 ALLERGIES SULFA (FOR ALLERGY USE ONLY): FLU LIKE SX'S - ALLERGY AMOXICILLIN: CAUSES C-DIFF - ALLERGY SOCIAL HISTORY GENERAL: TOBACCO USE ARE YOU A:FORMER SMOKER HOW LONG HAS IT BEEN SINCE YOU LAST SMOKED?> 10 YEARS LATEX QUESTIONNAIRE LATEX ALLERGY : HAVE YOU EVER DEVELOPED ANY TYPE OF REACTION AFTER HANDLING LATEX PRODUCTS SUCH RUBBER GLOVES, CONDOMS, DIAPHRAGMS, BALLOONS, SOCKS, OR UNDERWEAR?NO LATEX ALLERGY : HAVE YOU EVER DEVELOPED ANY TYPE OF REACTION DURING OR AFTER DENTAL APPOINTMENT, VAGINAL/RECTAL EXAMINATION, SURGICAL PROCEDURE, OR ANY OTHER EXPOSURE?NO LATEX RISK : HAVE YOU EVER HAD ANY DIFFICULTY BREATHING OR HIVES AFTER EATING OR HANDLING ANY FRUITS, OR VEGETABLES; SUCH KIWI, BANANAS, STONE FRUITS, OR CHESTNUTSNO LATEX RISK : DO YOU HAVE A PREVIOUS PERSONAL HISTORY OF MORE THAN NINE SURGERIES, SPINA BIFIDA, OR REPEATED CATHERIZATIONS? NO LATEX RISK : ARE YOU FREQUENTLY EXPOSED TO LATEX PRODUCTS IN YOUR OCCUPATION?NO DATE ASKED : 09/06/2020 ALCOHOL USE: NO. ALCOHOL SCREENING DID YOU HAVE A DRINK CONTAINING ALCOHOL IN THE PAST YEAR?YES HOW OFTEN DID YOU HAVE SIX OR MORE DRINKS ON ONE OCCASION IN THE PAST YEAR?NEVER (0 POINTS) HOW MANY DRINKS DID YOU HAVE ON A TYPICAL DAY WHEN YOU WERE DRINKING IN THE PAST YEAR?3 OR 4 (1 POINT) HOW OFTEN DID YOU HAVE A DRINK CONTAINING ALCOHOL IN THE PAST YEAR?MONTHLY OR LESS (1 POINT) POINTS2 INTERPRETATIONNEGATIVE RECREATIONAL DRUG USE DRUG USE?NO CAFFEINE CAFFEINE USE?NO SEXUAL HX HAD SEX IN THE LAST 12 MONTHS (VAGINAL, ORAL, OR ANAL)?NO LMP:N/A HAVE YOU EVER HAD AN STD?YES OTHER?NO HERPES?YES SYPHILIS?NO GC?NO CHLAMYDIA?NO HIV / HEP-C SCREENING HIV TEST OFFERED TO PATIENT:YES DATE OFFERED:08/28/2016 TEST ACCEPTED:NO HEP-C TEST OFFERED TO PATIENT:YES DATE OFFERED:08/28/2016 REASON:PATIENT DECLINED TEST ACCEPTED:NO REASON:PATIENT DECLINED SIKH [id number] NONDENOMINATIONAL LANGUAGE LANGUAGES SPOKEN:MACANESE EDUCATION LEVEL OF EDUCATION:NOT FINISHED COLLEGE LEARNING BARRIERS / SPECIAL NEEDS CHANGE FROM LAST VISIT?NO BARRIERS TO LEARNING?NO HEARING IMPAIRED?YES HAS NOTICED SOME HEARING LOSS VISION IMPAIRED?YES GLASSES FOR READING COGNITIVELY IMPAIRED?NO READINESS TO LEARN?YES LEARNING PREFERENCES?NO LEARNING CAPABILITIES PRESENT?YES EMOTIONAL BARRIERS?NO SPECIAL DEVICES?NO GINNING OPERATOR NEEDED?NO DOMESTIC VIOLENCE DO YOU FEEL SAFE IN YOUR ENVIRONMENT?YES OCCUPATION: RETIRED. DIET: REGULAR. EXERCISE: YOGA. MARITAL STATUS: . 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 TODAY'S VISIT 08/16/19, PATIENT DESCRIBES PAIN : ACHING, HAVE IT ALL THE TIME, FROM 0-10, WHAT LEVEL IS YOUR PAIN TODAY? 7, PRECIPITATING FACTORS STANDING, ALLEVIATING FACTORS LAYING DOWN RESTING, IMPACT ON FUNCTION YES. - PFS REFERRAL NEEDED?NO CLERGY REFERRAL NEEDED?NO PUBLIC HEALTH REFERRAL NEEDED?NO WAS THE PROVIDER NOTIFIED OF ANY PERTINENT INFO?YES N/A HAS THE PATIENT BEEN EDUCATED REGARDING HIS/HER PLAN OF CARE?YES HAS THE PATIENT BEEN EDUCATED REGARDING PAIN, THE RISK FOR PAIN, THE IMPORTANCE OF EFFECTIVE PAIN MANAGEMENT, AND THE PAIN ASSESSMENT PROCESS?YES ADVANCE DIRECTIVE ADVANCE DIRECTIVE DISCUSSED WITH PATIENT:YES PT. HAS HCP--, BRIGID [phone] REVIEW OF SYSTEMS CONSTITUTIONAL: ANY RECENT FEVER NO . CHILLS NO . WEIGHT CHANGE OF UNKNOWN REASONS NO . GASTROENTEROLOGY: NEW UNEXPLAINABLE CHANGES IN BOWEL CONTROL NO . CONSTIPATION NO . GENITOURINARY: ANY NEW CHANGE IN BLADDER CONTROL? NO . NEUROLOGY: NEW ONSET DIZZINESS OR NEUROLOGICAL CHANGES NOT MENTIONED NO . NEW NUMBNESS OR PAIN PATTERNS NOT MENTIONED AND PERTINENT TO TODAY'S VISIT NO . CARDIOLOGY: NEW CHEST PRESSURE NO . PATIENT DENIES NO . RESPIRATORY: UNEXPLAINABLE COUGH NO . NEW SHORTNESS OF BREATH NO . VITAL SIGNS WT 153 LBS, HT 65.5 IN, BMI 25.07 INDEX, BP 140/65 MM HG, HR 82 /MIN, RR 18 /MIN, TEMP 98.1 F, OXYGEN SAT % 95%, SAFE IN ENV? (Y/N) YES, NA INITIALS MT 09:08, REVIEWED BY: IJEOMA CRUZ MA. EXAMINATION GENERAL EXAMINATION: GENERALNO ACUTE DISTRESS, WELL NOURISHED AND HYDRATED. PSYCHAPPROPRIATE MOOD AND AFFECT . LUNGS:CLEAR TO AUSCULTATION BILATERALLY, NO WHEEZES, RHONCHI, RALES. HEART:NO MURMURS, REGULAR RATE AND RHYTHM. ASSESSMENTS OTHER CHRONIC PAIN - G89.29 (PRIMARY) CERVICAL RADICULOPATHY DUE TO INTERVERTEBRAL DISC DISORDER - M50.10 SPONDYLOSIS OF LUMBOSACRAL REGION WITHOUT MYELOPATHY OR RADICULOPATHY - M47.817 TREATMENT OTHER CHRONIC PAIN PAIN PROCEDURE LOGDATE OF [id number]/19/2021PROCEDURE:CERVICAL EPIDURAL STEROID INJECTIONAMOUNT OF PRE SEDATEVALIUM 10MG; OXYCODONE 10MGRESULT:PRE 6/10 POST 0/10 CONTINUES TO HELP TODAY CERVICAL RADICULOPATHY DUE TO INTERVERTEBRAL DISC DISORDER NOTES: 64-YEAR-OLD FEMALE IN FOR POST CERVICAL EPIDURAL FOLLOW-UP. GIVEN PRESENTING SYMPTOMS AND PATIENT'S COMPLAINTS OF INCREASED BACK PAIN RECOMMENDED GETTING AN UPDATED MRI FOR FURTHER EVALUATION WITH FOLLOW-UP POST IMAGING. PATIENT HAS EXPRESSED UNDERSTANDING OF AND WAS IN AGREEMENT WITH TREATMENT PLAN. GIVEN TIME TO ASK QUESTIONS AND EXPRESS CONCERNS. SPONDYLOSIS OF LUMBOSACRAL REGION WITHOUT MYELOPATHY OR RADICULOPATHY [facility] MRI SPINE, L.S. WITHOUT [id number] PROCEDURE CODES FA211 ESTABILISHED PATIENT [facility] CHARGE DISPOSITION & COMMUNICATION FOLLOW UP POST IMAGING (REASON: MRI OF THE LUMBAR SPINE WITHOUT CONTRAST ) ELECTRONICALLY SIGNED BY MARIA TERESA GARCIA ON 09/07/2020 AT 08:13 AM EDT DISCLAIMER : THIS IS A VISIT SUMMARY EXTRACTED FROM THE [employer] CHART. IT IS NOT A COPY OF THE [employer] PROGRESS NOTE. BARBARA
== END ==
LOC: M PAIN 09:00
PROVIDERS: ATTEND Family Medicine
DX: M50.10 Cervical disc disorder with radiculopathy, unspecified cervical region (principal); M47.817 Spondylosis without myelopathy or radiculopathy, lumbosacral region; G89.29 Other chronic pain; J45.909 Unspecified asthma, uncomplicated; Z86.59 Personal history of other mental and behavioral disorders; Z87.891 Personal history of nicotine dependence; Z88.1 Allergy status to other antibiotic agents; Z88.2 Allergy status to sulfonamides; Z79.899 Other long term (current) drug therapy

== ENCOUNTER → 2020-09-19 | Outpatient (CLI) | payer MEDICARE, OTHER ==
--- NOTE | 2020-09-19 14:18 | REPVR ---
PROCEDURE INFORMATION: Exam: MR Lumbar Spine Without Contrast Exam date and time: 09/19/2020 9:34 AM Age: 64 years old Clinical indication: Condition or disease; Spondylosis, lumbosacral; Lumbar sacral region; Without myelopathy or radiculopathy TECHNIQUE: Imaging protocol: Multiplanar magnetic resonance images of the lumbar spine without intravenous contrast. COMPARISON: [place] FLUORO GUIDE SPINE INJECTION 08/23/2020 9:40 AM FINDINGS: Vertebrae: No acute compression fracture is seen. Bone marrow signal is within normal limits. Spinal cord: The conus medullaris terminates at the L1 level. There is no evidence of arachnoiditis or cauda equina compression. L1-L2: No significant disc disease. No significant spinal stenosis or neural foraminal narrowing. L2-L3: There is moderate diffuse circumferential disc bulging and facet arthropathy. This is causing minimal spinal canal stenosis and minimal right neural foraminal narrowing. L3-L4: There is mild diffuse circumferential disc bulging, thickening of the ligamentum flavum, and facet arthropathy. This is causing minimal spinal canal stenosis. There is no significant neural foraminal narrowing. L4-L5: There is moderate diffuse circumferential disc bulging, facet arthropathy, and thickening of the ligamentum flavum. This is causing mild spinal canal stenosis, mild narrowing of the subarticular recesses, mild left neural foraminal narrowing, and minimal right neural foraminal narrowing. L5-S1: There is moderate diffuse circumferential disc bulging and facet arthropathy. There is no significant spinal canal stenosis. Mild narrowing of the subarticular recesses, mild left neural foraminal narrowing, and minimal right neural foraminal narrowing is present. Soft tissues: Unremarkable. Gallbladder and bile ducts: Numerous tiny stones are present within the gallbladder. IMPRESSION: 1. No acute abnormality. 2. Chronic findings as discussed above. Electronically signed by: Sabino Soto On 09/19/2020 14:18:04 PM
== END ==
LOC: M PLARAD 08:26
PROVIDERS: ATTEND Family Medicine
DX: M47.817 Spondylosis without myelopathy or radiculopathy, lumbosacral region (principal); M51.26 Other intervertebral disc displacement, lumbar region; M51.27 Other intervertebral disc displacement, lumbosacral region

== ENCOUNTER → 2020-10-16 | Outpatient (CLI) | payer MEDICARE, OTHER ==
[~2020-10-16] MED LIST changes: +CYMB1CAP5 PO; +D31000TA2 PO
== END ==
LOC: M PAIN 14:15
PROVIDERS: ATTEND Family Medicine
DX: M51.17 Intervertebral disc disorders with radiculopathy, lumbosacral region (principal); G89.29 Other chronic pain; J45.909 Unspecified asthma, uncomplicated; Z86.59 Personal history of other mental and behavioral disorders; Z87.891 Personal history of nicotine dependence; Z88.1 Allergy status to other antibiotic agents; Z88.2 Allergy status to sulfonamides; Z79.899 Other long term (current) drug therapy

== ENCOUNTER → 2020-11-02 | Outpatient (CLI) | payer MEDICARE, OTHER ==
[~2020-11-02] MED LIST changes: -CYMB1CAP5 PO; -D31000TA2 PO
== END ==
LOC: M LABSMTC 09:56
PROVIDERS: ATTEND Anesthesiology
DX: Z20.822 Contact with and (suspected) exposure to COVID-19 (principal)

== ENCOUNTER → 2020-11-03 | Outpatient (CLI) | payer MEDICARE, OTHER ==
--- NOTE | 2020-11-03 12:32 | REPMRS ---
Patient History The patient states she had a clinical breast exam in 06/2020. Patient is postmenopausal, has history of cancer in the left breast at age 57, had previous chest radiation therapy at age 57, and had previous chemotherapy at age 57. Family history of breast cancer in sister, colorectal cancer in mother. Malignant radio exam breast specimen, November 26, 2012. Malignant localization of breast nodule of the left breast, November 26, 2012. Malignant excisional biopsy of the left breast, November 26, 2012. US Guided Breast Biopsy of the left breast, November 16, 2012. Radiation therapy of the left breast, 2012. Benign core biopsy. Took unspecified hormones for 10 years. Patient states no breast complaints today. Patient has signed MRS History Sheet. Digital Woman Screen Mammo: November 03, 2020 - Exam #: [id number] Bilateral CC and MLO view(s) were taken. Technologist: Sagrario Moore, Technologist Prior study comparison: October 04, 2019, diagnostic bilateral mammo performed at [facility]. October 02, 2018, bilateral digital mammo screening bilat, performed at [facility]. Screening. This patient?s lifetime risk for the development of invasive breast cancer can?t be calculated due to her age (less than 20 or greater than 85 years) or a prior history of in situ or invasive breast cancer. Digital screening (2D) mammography was performed bilaterally. Additionally, breast tomosynthesis (3D mammography) was performed bilaterally in the CC and MLO projections. Today's exam was compared to the prior exam/exams. By history, the patient has no complaints of a palpable breast abnormality or other significant breast complaints. The patient is status post lumpectomy/chemo radiation therapy due to breast carcinoma. The breasts are unchanged in size and shape. There are no gaston-areas of internal architectural distortion. There are no gaston-soft tissue densities or areas of spiculation. There is unchanged post radiation skin thickening.Once again, stable benign appearing calcifications are seen. IMPRESSION: BI-RADS Category 2- Benign Findings. There is no evidence of malignant alteration of the breasts. Routine bilateral screening mammogram recommended at its regularly scheduled annual interval. The Volpara volumetric breast density category is C, the breasts are heterogenously dense which may obscure small masses. This mammogram was read with the assistance of [employer],an FDA approved computer aided detection system for mammography. Negative x-ray reports should not delay surgical consultation if a dominant or clinically suspicious mass is present. Not all breast cancers can be identified by mammography. Therefore, we recommend that you continue to perform regular breast self-examination and physical examination and then promptly contact your physician of any concerns or changes. Adenosis and dense breasts may obscure an underlying neoplasm. Assessment: BI-RADS/ACR category 2 mammogram. Benign Findings. Recommendation Routine screening mammogram of both breasts in 1 year. Electronically Signed By: Osmani Guillaume DO 11/03/20 [id number]
== END ==
LOC: M WHC 10:44
PROVIDERS: ATTEND Internal Medicine Medical Oncology
DX: Z12.31 Encounter for screening mammogram for malignant neoplasm of breast (principal); Z85.3 Personal history of malignant neoplasm of breast; Z92.3 Personal history of irradiation; Z92.21 Personal history of antineoplastic chemotherapy

== ENCOUNTER → 2020-11-07 | Outpatient (CLI) | payer MEDICARE, OTHER ==
[~2020-11-07] MED LIST changes: +ISOVUE-M 300 61% 15ML VIAL As Ordered ONE; +LIDOCAINE 1% SDV 30ML VIAL As Ordered ONE; +diazePAM 5MG TABLET As Ordered ONE; +methylPREDNISolone SUSP 40MG/ML 1ML VIAL (DEPO MEDROL) As Ordered ONE; +oxyCODONE 5MG TAB As Ordered ONE
--- NOTE | 2020-11-07 16:48 | REP ---
INDICATION: LESI. COMPARISON: None. TECHNIQUE: Three C-arm views lower lumbar spine. FINDINGS: A needle is seen at the L5 level. A small amount of contrast is injected. IMPRESSION: 14 seconds of fluoroscopy time was utilized. <Electronically signed by Luis Felipe Pena > 11/07/20 0935
--- NOTE | 2020-11-09 01:56 | ECWPNPC ---
PATIENT NAME: RENÉE SOARES : 1955 GENDER: FEMALE VISIT DATE: 11/07/2020 DISCHARGE DATE: 11/07/201809 VISIT LOCKED DATE TIME: PHYSICIAN: REINA REED MD PHYSICIAN PAGER NO: ACTIVE RESOURCE: REINA REED MD REASON FOR APPOINTMENT 1. LUMBAR EPIDURAL STEROID INJECTION HISTORY OF PRESENT ILLNESS GENERAL: -. FALL RISK SCREENING: SCREENING : NO FALLS REPORTED IN THE LAST YEAR. PAIN SCREENING: PATIENT HAS A COMPLAINT OF ACUTE OR CHRONIC PAIN :YES LOCATION OF PAIN:LOW BACK INTENSITY OF PAIN (SCALE OF 1 TO 10):6 WHAT DOES YOUR PAIN FEEL LIKE:ACHING, CONTINOUS, STABBING DURATION:CONTINOUS, AWAKENS FROM SLEEP PAIN IS INCREASED BY:ACTIVITIES, PROLONGED STANDING PAIN IS DECREASED BY:USE OF PAIN MEDICATIONS PLAN/GOALS/TREATMENT/INTERVENTION/FOLLOW UP:SEE PLAN NURSING NOTE: -. PAIN CENTER INTAKE QUESTIONS: DO YOU HAVE A HISTORY OF MRSA? :NO DO YOU TAKE A BLOOD THINNERS? :NO DO YOU HAVE ANY BLEEDING DISORDERS? :NO ANY NEW NUMBNESS OR WEAKNESS IN YOUR LEGS OR ARMS? :NO ANY PACEMAKER,DEFIBRILLATOR, OR DORSAL COLUMN STIMULATOR? :NO DO YOU HAVE ANY RASHES OR OPEN SORES? :YES PERIANAL, PATIENT HAS BARRIER CREAM ARE YOU ALLERGIC TO IV DYE? :NO ARE YOU DIABETIC? :NO ANY NEW PROBLEMS WITH YOUR MEDICATIONS? :NO HAVE YOU RECEIVED A VACCINE IN THE PAST 30 DAYS? :NO DO YOU PLAN TO RECEIVE A VACCINE IN THE NEXT 21 DAYS? :NO DO YOU TAKE ANY IMMUNOSUPPRESSIVE MEDICATIONS? :NO ANY HISTORY OF SEIZURES? :NO ANY HISTORY OF CARDIAC ISSUES OR EVENTS? :NO DO YOU HAVE ANY KIDNEY OR LIVER DISEASE? :NO DO YOU HAVE SLEEP APNEA? :NO ANY RECENT HEAD INJURY? :NO IS THERE A CHANCE YOU COULD BE ? :NO ARE YOU BREAST FEEDING? :NO WHEN DID YOU LAST EAT? : 0730 WHEN DID YOU LAST DRINK? : 1200 WHAT DID YOU LAST DRINK? : WATER NAME OF PERSON DRIVING YOU HOME? : RAMON DO YOU HAVE ANY OTHER QUESTIONS OR CONCERNS? : NO CURRENT MEDICATIONS TAKING MAY HAVE - - TUMERIC/CUMIN DAILY TAKING MELATONIN ER 10 MG TABLET EXTENDED RELEASE DIRECTED ORALLY TAKING FIBER - TABLET DIRECTED ORALLY TAKING VITAMIN B12 500 MCG TABLET DIRECTED ORALLY DAILY TAKING DIPHENOXYLATE-ATROPINE 2.5-0.025 MG TABLET 1 TABLET NEEDED ORALLY 2 PILLS EVERY 6 HOURS, NOTES: 0600 TAKING GABAPENTIN 300 MG CAPSULE 1 CAPSULE ORAL TID TAKING CALCIUM GUMMIES 250-100-500 MG-UNIT TABLET CHEWABLE DIRECTED ORALLY TAKING [employer] WOMENS - TABLET 2 DIRECTED ORALLY ONCE DAILY IN THE MORNING TAKING VITAMIN D 50 MCG (2000 UT) TABLET 1 TABLET ORALLY ONCE A DAY TAKING DULOXETINE HCL 60 MG CAPSULE DELAYED RELEASE PARTICLES 1 CAPSULE ORALLY ONCE A DAY TDD=90 MG TAKING CYMBALTA 30 MG CAPSULE DELAYED RELEASE PARTICLES 1 CAPSULE ORALLY ONCE A DAY NOT-TAKING IBUPROFEN 800 MG TABLET 1 TABLET WITH FOOD OR MILK NEEDED ORALLY THREE TIMES A DAY, NOTES: PRN NOT-TAKING CHOLESTYRAMINE 4 GM PACKET 1 PACKET MIXED WITH WATER OR NON-CARBONATED DRINK ORALLY TWICE A DAY NOT-TAKING LOMOTIL 2.5-0.025 MG TABLET 1 TABLET NEEDED ORALLY FOUR TIMES A DAY MEDICATION LIST REVIEWED AND RECONCILED WITH THE PATIENT PAST MEDICAL HISTORY C DIFF COLITIS- DR MEIER (NO LONGER FOLLOWS WITH DR. 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 S/P RESECTION DR CARUSO. CHEMOTHERAPY DR COWAN- COMPLETED 5 TREATMENTS. RAD RX PER DR ROMANO; FOLLOWS WITH [facility] ONC CHRONIC COUGH- DR HUNT 01/17 DONAVAN 02/02/13 NML( FEV1 2.51 (90%)/FVC2.94(82%). PFTS/METHACHOLINE CHALLENGE UNREMARKABLE- NO PULM EXPLANATION FOR COUGH 09/18. COUGH RESOLVED WITH ADVAIR PER [facility] 01/18. PANCREATIC MASS 2.5 CM/PRIOR FNA ATYPICAL CELLS/SUBSEQUENT EUS MASS SMALLER/LAST CT WITH CONTRAST MASS NOT DETECTED- FOLLOWED BY DR MAYORGA- GASTRO SYR. FNA 11/18NEG PER PT CT A&P WITH CONTRAST NO ACUTE PATHOLOGY 05/21 [facility]ONE SCAN- OA/FIBROMYALGIA WITH CHRONIC PAIN-[place]RICA- PER [facility] SYR- DR SAINI 07/19 DEPRESSION/ANXIETY- USED TO FOLLOW WITH DR. ECHOLS LDL 95 04/20 PNEUMOVAX- 2012- [facility] PER PT. CT MAXILLOFACIAL 03/19-MILD MUCOSAL THICKENING MAXILLARY SINUSES CTD/CHRONIC PAIN- RHEUM S[facility] (NO LONGER FOLLOWS) ETT 04/21 [facility]- NEG ISCHEMIA KIDNEY STONE 2016 GALL STONES 2017 NEUROLOGY: DR. Milton BEE SMALL VESSEL ISCHEMIC DISEASE MILD ASTHMA- FOLLOWS WITH DR. ALEXIS CERVIAL DISC DISPLACEMENT , CERVICAL RADICULOPATHY LYMPHYDEMA AND DVT LEFT ARM POUCH ENDOSCOPY: 2018 DR. SALINAS-Phuong 2 YEARS; BIOPSY NEGATIVE DYSTHYMIA OTHER AND UNSPECIFIED HYPERLIPIDEMIA ULCERATIVE (CHRONIC) PROCTITIS CHRONIC PAIN CHRONIC COUGH UNSPECIFIED DIFFUSE CONNECTIVE TISSUE DISEASE QUIT SMOKING IN 1983 ASCVD RISK 5.1% IN 10/2019 ALLERGIES SULFA (FOR ALLERGY USE ONLY): FLU LIKE SX'S - ALLERGY AMOXICILLIN: CAUSES C-DIFF - ALLERGY SOCIAL HISTORY GENERAL: TOBACCO USE ARE YOU A:FORMER SMOKER HOW LONG HAS IT BEEN SINCE YOU LAST SMOKED?> 10 YEARS LATEX QUESTIONNAIRE LATEX ALLERGY : HAVE YOU EVER DEVELOPED ANY TYPE OF REACTION AFTER HANDLING LATEX PRODUCTS SUCH RUBBER GLOVES, CONDOMS, DIAPHRAGMS, BALLOONS, SOCKS, OR UNDERWEAR?NO LATEX ALLERGY : HAVE YOU EVER DEVELOPED ANY TYPE OF REACTION DURING OR AFTER DENTAL APPOINTMENT, VAGINAL/RECTAL EXAMINATION, SURGICAL PROCEDURE, OR ANY OTHER EXPOSURE?NO LATEX RISK : HAVE YOU EVER HAD ANY DIFFICULTY BREATHING OR HIVES AFTER EATING OR HANDLING ANY FRUITS, OR VEGETABLES; SUCH KIWI, BANANAS, STONE FRUITS, OR CHESTNUTSNO LATEX RISK : DO YOU HAVE A PREVIOUS PERSONAL HISTORY OF MORE THAN NINE SURGERIES, SPINA BIFIDA, OR REPEATED CATHERIZATIONS? NO LATEX RISK : ARE YOU FREQUENTLY EXPOSED TO LATEX PRODUCTS IN YOUR OCCUPATION?NO DATE ASKED : 10/16/2020 ALCOHOL USE: NO. ALCOHOL SCREENING DID YOU HAVE A DRINK CONTAINING ALCOHOL IN THE PAST YEAR?YES HOW OFTEN DID YOU HAVE A DRINK CONTAINING ALCOHOL IN THE PAST YEAR?MONTHLY OR LESS (1 POINT) HOW MANY DRINKS DID YOU HAVE ON A TYPICAL DAY WHEN YOU WERE DRINKING IN THE PAST YEAR?3 OR 4 (1 POINT) HOW OFTEN DID YOU HAVE SIX OR MORE DRINKS ON ONE OCCASION IN THE PAST YEAR?NEVER (0 POINTS) POINTS2 INTERPRETATIONNEGATIVE RECREATIONAL DRUG USE DRUG USE?NO CAFFEINE CAFFEINE USE?NO SEXUAL HX HAD SEX IN THE LAST 12 MONTHS (VAGINAL, ORAL, OR ANAL)?NO HAVE YOU EVER HAD AN STD?YES CHLAMYDIA?NO GC?NO SYPHILIS?NO HERPES?YES OTHER?NO LMP:N/A HIV / HEP-C SCREENING HIV TEST OFFERED TO PATIENT:YES DATE OFFERED:08/28/2016 TEST ACCEPTED:NO REASON:PATIENT DECLINED HEP-C TEST OFFERED TO PATIENT:YES DATE OFFERED:08/28/2016 TEST ACCEPTED:NO REASON:PATIENT DECLINED JUDAISM [id number] RASTAFARIAN LANGUAGE LANGUAGES SPOKEN:GABONESE EDUCATION LEVEL OF EDUCATION:NOT FINISHED COLLEGE LEARNING BARRIERS / SPECIAL NEEDS CHANGE FROM LAST VISIT?NO BARRIERS TO LEARNING?NO HEARING IMPAIRED?YES HAS NOTICED SOME HEARING LOSS VISION IMPAIRED?YES GLASSES FOR READING COGNITIVELY IMPAIRED?NO READINESS TO LEARN?YES LEARNING PREFERENCES?NO LEARNING CAPABILITIES PRESENT?YES EMOTIONAL BARRIERS?NO SPECIAL DEVICES?NO FOLDING MACHINE SETTER NEEDED?NO DOMESTIC VIOLENCE DO YOU FEEL SAFE IN YOUR ENVIRONMENT?YES OCCUPATION: RETIRED. DIET: REGULAR. EXERCISE: YOGA. MARITAL STATUS: . 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 TODAY'S VISIT 08/16/19, PATIENT DESCRIBES PAIN : ACHING, HAVE IT ALL THE TIME, FROM 0-10, WHAT LEVEL IS YOUR PAIN TODAY? 7, PRECIPITATING FACTORS STANDING, ALLEVIATING FACTORS LAYING DOWN RESTING, IMPACT ON FUNCTION YES. - PFS REFERRAL NEEDED?NO CLERGY REFERRAL NEEDED?NO PUBLIC HEALTH REFERRAL NEEDED?NO WAS THE PROVIDER NOTIFIED OF ANY PERTINENT INFO?YES N/A HAS THE PATIENT BEEN EDUCATED REGARDING HIS/HER PLAN OF CARE?YES HAS THE PATIENT BEEN EDUCATED REGARDING PAIN, THE RISK FOR PAIN, THE IMPORTANCE OF EFFECTIVE PAIN MANAGEMENT, AND THE PAIN ASSESSMENT PROCESS?YES ADVANCE DIRECTIVE ADVANCE DIRECTIVE DISCUSSED WITH PATIENT:YES PT. HAS HCP--, BRIGID [phone] VITAL SIGNS WT 152 LBS, WT-KG 68.95 KG, HT 65.5 IN, BMI 24.91 INDEX, BP 154/78 MM HG, HR 82 /MIN, RR 18 /MIN, TEMP 97.7 F, OXYGEN SAT % 99%, SAFE IN ENV? (Y/N) YES, NA INITIALS SC 14:26, REVIEWED BY: APA. GABY RN. EXAMINATION GENERAL: A HISTORY AND PHYSICAL EXAM ON THE PATIENT WAS DONE ON 10/16/2020(DATE OF ORIGINAL ASSESSMENT) IN PREPARATION OF SURGERY/PROCEDURE. I HAVE NOW REASSESSED THIS PATIENT'S HEALTH STATUS AND PERFORMED AN UPDATED EXAM TODAY. ALL CHANGES IN THE PATIENT'S HISTORY, PHYSICAL EXAM, PRE-EXISTING CONDITONS, AND INDICATIONS/CONTRAINDICATIONS TO THE PLANNED PROCEDURE AND ANESTHESIA ARE DOCUMENTED AND EVALUATED BELOW. I ATTEST TO THE ADEQUACY AND APPROPRIATENESS OF MY ASSESSMENT, AND CONFIRM THE NECESSITY FOR THE PLANNED PROCEDURE. THE PATIENT IS ALERT, ORIENTED TIMES THREE AND COOPERATIVE. LUNGS ARE CLEAR TO AUSCULTATION. HEART SHOWS REGULAR RHYTHM, NO MURMURS AND NO GALLOPS. ASSESSMENTS INTERVERTEBRAL DISC DISORDER WITH RADICULOPATHY OF LUMBOSACRAL REGION - M51.17 (PRIMARY) TREATMENT INTERVERTEBRAL DISC DISORDER WITH RADICULOPATHY OF LUMBOSACRAL REGION [facility] FLUORO GUIDE SPINE INJECTION (PAIN)[id number] COMPLETION OF PROCEDURAL VISIT WHEN MEETS [id number],COCO R 11/07/2020 4:36:28 PM > CRITERIA MET MEDICATION: PAIN VALIUM TAB 10MG ORALLY (DIAZEPAM)[id number],ARMANDO 11/07/2020 3:09:09 PM > VERIFIED PETRAS,COCO R 11/07/2020 3:12:38 PM > ADMINISTERED MEDICATION: PAIN OXYCODONE HCL TAB 10MG [id number],ARMANDO 11/07/2020 3:09:23 PM > VERIFIED. PETRESPERANZA,COCO R 11/07/2020 3:12:51 PM > ADMINISTERED OTHERS NOTES: 11/06/20 1805 PAT COMPLETED. Brody SAPP TAPE STRINGER. PROCEDURES PAIN NURSING RECORD PROCEDURE IN ROOM 1544, PHYSICIAN IN ROOM 1559, START 1604, FINISH 1612, PHYSICIAN OUT OF ROOM 1619, OUT OF ROOM 1621, ECG OTHER SINUS ARRYTHMIA, PATIENT SHIELDED YES, SAFETY STRAP YES, PREP BETADINE Ki GRIFFIN RN, DRESSING TEGADERM DR. REED LOC: PETRESPERANZA,COCO R 11/07/2020 4:05:13 PM > , 1. ALERT, ORIENTED RESP: PETRAS,COCO R 11/07/2020 4:05:16 PM > , 1. REGULAR, NO DYSPNEA COLOR: PETRAS,COCO R 11/07/2020 4:05:19 PM > , 1. PINK SKIN: PETRAS,COCO R 11/07/2020 4:05:22 PM > , 1. WARM, DRY POSITION: PETRAS,COCO R 11/07/2020 4:05:25 PM > , 1. PRONE VITALS: ALYSON DUMONT 11/07/2020 3:31:50 PM > HR 74 02 99% BP 125/60 PETRAS,COCO R 11/07/2020 3:44:36 PM > 135/63, 68, 18, 97% PETRAS,COCO R 11/07/2020 3:52:53 PM > 138/73, 72, 18, 99% PETRAS,COCO R 11/07/2020 4:07:29 PM > 141/76, 75, 18, 99% , PETRAS,COCO R 11/07/2020 4:18:54 PM > 156/84, 78, 18, 98% , PETRAS,COCO R 11/07/2020 4:32:27 PM > 137/78, 78, 18, 98% NOTES DURING PROCEDURE PATIENT NOTED TO HAVE SINUS ARRYTHMIA, SEE ECG TRACING IN PATIENT DOCS. PATIENT ASYMPTOMATIC THROUGHOUT PROCEDURE DENIES ANY CHEST PAIN OR PALPITATIONS. DR REED AWARE AND WOULD LIKE PATIENT TO FOLLOW UP WITH PRIMARY CARE TO ADDRESS THIS. PCP IS LILY JOHNSTON AT [facility]. ATTEMPTED TO CALL PCP HOWEVER OFFICE CLOSED. DR. REED WOULD LIKE NURSE TO CALL PCP IN THE MORNING TO ADD PATIENT TO THEIR SCHEDULE TO F/U AND ADDRESS THIS ISSUE.VITAL SIGNS STABLE AND PATIENT REMAINS ASMYPTOMATIC. PATIENT EDUCATED TO CALL 911 FOR ANY CHEST PAIN, DIZZINESS, OR PALPITATIONS AND TO MAKE APPOINTMENT WITH PCP IF NOBODY CONTACTS HER. PATIENT IN AGREEMENT WITH PLAN. - Ki GRIFFIN RN COMPLETION OF PROCEDURE APPOINTMENT: POST PAIN 1, DRESSING SITE DRY AND INTACT, IV N/A, GAIT STEADY, TEACHING COMPLETED, PATIENT ACKNOWLEDGES UNDERSTANDING YES, PROCEDURE APPOINTMENT COMPLETED AT 1643 BY: Ki GRIFFIN RN PRE PROCEDURE DIAGNOSIS LUMBAR DISC DISORDER WITH RADICULOPATHY POST PROCEDURE DIAGNOSIS LUMBAR DISC DISORDER WITH RADICULOPATHY PROCEDURE LUMBAR EPIDURAL STEROID INJECTION UNDER FLUOROSCOPIC GUIDANCE SURGEON DR. REINA REED NITROCELLULOSE MAKER NONE ANESTHESIA LOCAL PRE PROCEDURE NOTE THE PATIENT HAS A HISTORY OF CHRONIC LOW BACK PAIN. I EVALUATED THE PATIENT AND REVIEWED THE CHART. I WENT OVER THE RISKS, ALTERNATIVES, AND BENEFITS ASSOCIATED WITH THIS PROCEDURE. THE PATIENT WOULD LIKE TO PROCEED AND GIVE CONSENT TO PERFORMED THE PROCEDURE. THE PATIENT DENIES UNEXPLAINABLE WEIGHT LOSS, FEVER, CHILLS, OR NEW CHANGES IN URINARY OR BOWEL CONTROL. THE PATIENT IS COVID-19 NEGATIVE DESCRIPTION OF PROCEDURE THE PATIENT WAS BROUGHT TO THE PROCEDURE ROOM AND PLACED IN THE PRONE POSITION. THE LUMBOSACRAL AREA WAS CLEANED WITH BETADINE SOLUTION AND DRAPED ASEPTICALLY. THE PROCEDURE WAS DONE UNDER STERILE CONDITIONS. A TIMEOUT WAS PERFORMED WHERE THE CONSENTED SITE WAS VERIFIED WITH EVERYONE IN THE ROOM. UNDER FLUOROSCOPIC GUIDANCE, THE TARGET POINT WAS SELECTED AT THE INTERLAMINAR LEVEL OF L5-S1. I CONFIRMED AGAIN THE SITE OF TARGET. LIDOCAINE WAS USED TO NUMB THE SKIN AND THE SUBCUTANEOUS TISSUE BELOW IT. EPIDURAL TUOHY NEEDLE, 17-GAUGE, WAS ADVANCED UNDER FLUOROSCOPIC GUIDANCE AND FOLLOWING PATIENT FEEDBACK UNTIL THE EPIDURAL SPACE WAS REACHED 6 CM DEEP INTO THE SKIN BY THE LOSS OF RESISTANCE TECHNIQUE. ISOVUE-M DYE 30%, 0.25 ML, WAS INJECTED SHOWING ADEQUATE SPREAD OF THE DYE. THEN, A SOLUTION OF 3 ML OF NORMAL SALINE WITH DEPO-MEDROL 40 MG WAS INJECTED SLOWLY FOLLOWING PATIENT FEEDBACK. THE MEDICATIONS WERE VERIFIED WITH THE NURSE. THERE WAS NO EVIDENCE OF BLOOD, PARESTHESIA OR CEREBROSPINAL FLUID DURING THE PROCEDURE. THE PATIENT WAS SENT TO THE RECOVERY ROOM. THE PATIENT WAS MOVING THE EXTREMITIES AND DOING WELL. THERE WERE NO COMPLICATIONS DURING THE PROCEDURE. ESTIMATED BLOOD LOSS WAS LESS THAN 5 ML. FLUOROSCOPY TIME WAS 13 SECONDS POST PROCEDURE NOTE DEPENDING ON THE RESULTS, CONSIDER WORKING WITH HER FACETS. THE PATIENT WILL BE SEEN IN A FOLLOW UP IN THE NEXT FEW WEEKS. I AM LOOKING FOR LONG LASTING RELIEF FOR THE PATIENT WITH THIS INTERVENTION. INSTRUCTIONS WERE GIVEN, QUESTIONS WERE ANSWERED, AND THE PATIENT EXPRESSED UNDERSTANDING AND AGREES WITH THE PLAN. I, BLANCHE CARO, DOCUMENTED THE ABOVE INFORMATION ACTING A SCRIBE FOR DR. REED. I HAVE REVIEWED THE ABOVE DOCUMENT, WRITTEN BY BLANCHE CARO, ENTRY LEVEL PROJECT ENGINEER, AND I VERIFY THAT IT IS ACCURATE PROCEDURE CODES 61265 LUMBAR/SACRAL W/ IMAGING DISPOSITION & COMMUNICATION FOLLOW UP FOLLOW UP WITH GOLF BALL WINDER (REASON: POST LUMBAR EPIDURAL STEROID INJECTION) ELECTRONICALLY SIGNED BY REINA REED MD, MD ON 11/08/2020 AT 11:06 AM EDT DISCLAIMER : THIS IS A VISIT SUMMARY EXTRACTED FROM THE [employer] CHART. IT IS NOT A COPY OF THE [employer] PROGRESS NOTE. BARBARA
== END ==
LOC: M PAIN 14:20
PROVIDERS: ATTEND Anesthesiology
DX: M51.17 Intervertebral disc disorders with radiculopathy, lumbosacral region (principal); J45.909 Unspecified asthma, uncomplicated; Z86.59 Personal history of other mental and behavioral disorders; Z87.891 Personal history of nicotine dependence; Z88.1 Allergy status to other antibiotic agents; Z88.2 Allergy status to sulfonamides; Z79.899 Other long term (current) drug therapy
CPT/HCPCS: 62323; J1030; Q9967

== ENCOUNTER → 2020-11-14 | Outpatient (CLI) | payer MEDICARE, OTHER ==
[~2020-11-14] MED LIST changes: +D31000TA2 PO; -ISOVUE-M 300 61% 15ML VIAL As Ordered ONE; -LIDOCAINE 1% SDV 30ML VIAL As Ordered ONE; -diazePAM 5MG TABLET As Ordered ONE; -methylPREDNISolone SUSP 40MG/ML 1ML VIAL (DEPO MEDROL) As Ordered ONE; -oxyCODONE 5MG TAB As Ordered ONE
[2020-11-14 13:22] LABS: BLOOD UREA NITROGEN 25 MG/DL (7-18); CALCIUM LEVEL 9.4 MG/DL (8.8-10.2); CARBON DIOXIDE LEVEL 31 MEQ/L (21-32); CHLORIDE LEVEL 105 MEQ/L (98-107); CREATININE FOR GFR 0.71 MG/DL (0.55-1.30); GLOMERULAR FILTRATION RATE > 60.0 (>45); GLUCOSE, FASTING 84 MG/DL (70-100); POTASSIUM SERUM 4.2 MEQ/L (3.5-5.1); SODIUM LEVEL 139 MEQ/L (136-145); TROPONIN I < 0.02 NG/ML (< 0.10)
== END ==
LOC: M LAB 11:52
PROVIDERS: ATTEND Nurse Practitioner Family
DX: R07.9 Chest pain, unspecified (principal)
CPT/HCPCS: 36415; 80048; 84484; 93005; G0463

== ENCOUNTER → 2020-11-22 | Outpatient (CLI) | payer MEDICARE, OTHER | LOC: M PAIN 14:15 | PROVIDERS: ATTEND Anesthesiology | DX: M48.061 Spinal stenosis, lumbar region without neurogenic claudication (principal); M51.16 Intervertebral disc disorders with radiculopathy, lumbar region; G89.29 Other chronic pain; J45.909 Unspecified asthma, uncomplicated; Z86.59 Personal history of other mental and behavioral disorders; Z87.891 Personal history of nicotine dependence; Z88.1 Allergy status to other antibiotic agents; Z88.2 Allergy status to sulfonamides; Z79.899 Other long term (current) drug therapy ==

== ENCOUNTER → 2020-12-06 | Outpatient (CLI) | payer MEDICARE, OTHER ==
[2020-12-06 15:43] LABS: BLOOD UREA NITROGEN 21 MG/DL (7-18); CREATININE FOR GFR 0.77 MG/DL (0.55-1.30); GLOMERULAR FILTRATION RATE > 60.0 (>45)
== END ==
LOC: M LAB 14:33
PROVIDERS: ATTEND Internal Medicine Gastroenterology
DX: K51.919 Ulcerative colitis, unspecified with unspecified complications (principal)

== ENCOUNTER → 2020-12-15 | Outpatient (CLI) | payer MEDICARE, OTHER ==
[~2020-12-15] MED LIST changes: +PROHANCE 279.3MG/ML 15ML VIAL ONE
--- NOTE | 2020-12-15 14:20 | REP ---
INDICATION: CYST OF PANCREAS, EPIGASTRIC PAIN. COMPARISON: 09/20/2009. TECHNIQUE: Multiple sequences obtained in the axial coronal planes prior to and following the intravenous administration of 13 cc ProHance. FINDINGS: There is no evidence of pancreatic duct dilatation. No cystic or solid nodule is seen. There is no enhancing nodule identified on postcontrast images. The previously suspected pancreatic head enhancing nodule on the 2010 exam was likely artifactual. The liver is enlarged. The length of the liver is approximately 20 cm. No liver mass is seen. Multiple subcentimeter gallstones are seen in the gallbladder. There is no gallbladder wall edema or evidence of biliary dilatation. The spleen is normal in size with no intrinsic abnormality. The adrenal glands are normal. The kidneys demonstrate no hydronephrosis. There is a cyst of the anterior mid right kidney measuring 9 mm in diameter. There is no abdominal aortic aneurysm. There is no adenopathy. There is no free fluid. IMPRESSION: No evidence of enhancing pancreatic nodule. The previously suspected nodule on the 2010 exam was likely artifactual. Hepatomegaly. Multiple subcentimeter gallstones in the gallbladder. No biliary dilatation. <Electronically signed by Luis Felipe Pena > 12/15/20 [id number]
== END ==
LOC: M PLAIMG 12:24
PROVIDERS: ATTEND Internal Medicine Gastroenterology
DX: R16.0 Hepatomegaly, not elsewhere classified (principal); K80.20 Calculus of gallbladder without cholecystitis without obstruction; R10.13 Epigastric pain
CPT/HCPCS: 74183; A9576

== ENCOUNTER → 2020-12-25 | Outpatient (CLI) | payer MEDICARE, OTHER ==
[~2020-12-25] MED LIST changes: -PROHANCE 279.3MG/ML 15ML VIAL ONE
== END ==
LOC: M PAIN 12:30
PROVIDERS: ATTEND Anesthesiology
DX: M48.061 Spinal stenosis, lumbar region without neurogenic claudication (principal); G89.29 Other chronic pain; J45.909 Unspecified asthma, uncomplicated; Z86.59 Personal history of other mental and behavioral disorders; Z87.891 Personal history of nicotine dependence; Z88.1 Allergy status to other antibiotic agents; Z88.2 Allergy status to sulfonamides; Z79.899 Other long term (current) drug therapy

== ENCOUNTER → 2020-12-27 | Outpatient (CLI) | payer MEDICARE, OTHER | LOC: M LABSMTC 09:22 | PROVIDERS: ATTEND Anesthesiology | DX: Z01.812 Encounter for preprocedural laboratory examination (principal); Z20.822 Contact with and (suspected) exposure to COVID-19 ==

== ENCOUNTER → 2021-01-01 | Outpatient (CLI) | payer MEDICARE, OTHER ==
[~2021-01-01] MED LIST changes: +ISOVUE-M 300 61% 15ML VIAL As Ordered ONE; +LIDOCAINE 1% SDV 30ML VIAL As Ordered ONE; +diazePAM 5MG TABLET As Ordered ONE; +methylPREDNISolone SUSP 40MG/ML 1ML VIAL (DEPO MEDROL) As Ordered ONE; +oxyCODONE 5MG TAB As Ordered ONE
--- NOTE | 2021-01-01 15:31 | REP ---
INDICATION: LESI -L4-L%. COMPARISON: None. TECHNIQUE: Two views. 19.5 seconds of fluoroscopy time is reported. FINDINGS: A sequence of 2 last image hold fluoroscopically obtained spot radiograph(s) of the lumbar spine document(s) needle position(s) and contrast injection associated with injection procedure. IMPRESSION: Procedural imaging. <Electronically signed by Elpidio Spear > 01/01/21 1523
== END ==
LOC: M PAIN 13:20
PROVIDERS: ATTEND Anesthesiology
DX: M48.061 Spinal stenosis, lumbar region without neurogenic claudication (principal); J45.909 Unspecified asthma, uncomplicated; Z87.891 Personal history of nicotine dependence; Z88.1 Allergy status to other antibiotic agents; Z88.2 Allergy status to sulfonamides; Z79.899 Other long term (current) drug therapy
CPT/HCPCS: 62323; J1030; Q9967

== ENCOUNTER → 2021-01-22 | Outpatient (CLI) | payer MEDICARE, OTHER ==
[~2021-01-22] MED LIST changes: -ISOVUE-M 300 61% 15ML VIAL As Ordered ONE; -LIDOCAINE 1% SDV 30ML VIAL As Ordered ONE; -diazePAM 5MG TABLET As Ordered ONE; -methylPREDNISolone SUSP 40MG/ML 1ML VIAL (DEPO MEDROL) As Ordered ONE; -oxyCODONE 5MG TAB As Ordered ONE
[2021-01-22 14:50] LABS: ALBUMIN 3.8 GM/DL (3.2-5.2); ALT/SGPT 23 U/L (12-78); BILIRUBIN,TOTAL 0.3 MG/DL (0.2-1.0); BLOOD UREA NITROGEN 20 MG/DL (7-18); CALCIUM LEVEL 9.5 MG/DL (8.8-10.2); CARBON DIOXIDE LEVEL 30 MEQ/L (21-32); CHLORIDE LEVEL 106 MEQ/L (98-107); CREATININE FOR GFR 0.61 MG/DL (0.55-1.30); GLOMERULAR FILTRATION RATE > 60.0 (>45); GLUCOSE, FASTING 77 MG/DL (70-100); POTASSIUM SERUM 4.6 MEQ/L (3.5-5.1); SODIUM LEVEL 140 MEQ/L (136-145); TOTAL PROTEIN 7.2 GM/DL (6.4-8.2)
[2021-01-22 14:58] LABS: TOTAL 25(OH) VITAMIN D 32.6 NG/ML (30.0-100.0)
== END ==
LOC: M PLALAB 11:28
PROVIDERS: ATTEND Nurse Practitioner Family
DX: E55.9 Vitamin D deficiency, unspecified (principal); I10 Essential (primary) hypertension; Z79.899 Other long term (current) drug therapy

== ENCOUNTER → 2021-02-22 | Outpatient (CLI) | payer MEDICARE, OTHER ==
[~2021-02-22] MED LIST changes: +CYMB1CAP5 PO
== END ==
LOC: M PAIN 11:15
PROVIDERS: ATTEND Anesthesiology
DX: M47.816 Spondylosis without myelopathy or radiculopathy, lumbar region (principal); G89.29 Other chronic pain; J45.909 Unspecified asthma, uncomplicated; Z86.59 Personal history of other mental and behavioral disorders; Z87.891 Personal history of nicotine dependence; Z88.1 Allergy status to other antibiotic agents; Z88.2 Allergy status to sulfonamides; Z79.899 Other long term (current) drug therapy

== ENCOUNTER → 2021-03-03 | Outpatient (CLI) | payer MEDICARE, OTHER | LOC: M LABSMTC 10:14 | PROVIDERS: ATTEND Anesthesiology | DX: Z01.812 Encounter for preprocedural laboratory examination (principal); Z20.822 Contact with and (suspected) exposure to COVID-19 ==

== ENCOUNTER 2021-03-06 10:53 | Day surgery (SDC) | payer MEDICARE, OTHER ==
[~2021-03-06] VITALS: Ht 167.6 cm; Wt 72.1 kg
[~2021-03-06 10:53] MED LIST changes: +NS 1,000 ML IV ONE
[2021-03-06] MEDS ORDERED: propofoL 200 MG/20 ML VIAL As Ordered ONE (11:21)
[2021-03-06] MEDS ORDERED: LIDOCAINE 2% 100MG/5ML SDV (FOR ANES.) As Ordered ONE (11:21)
[2021-03-06] MEDS ORDERED: fentaNYL 100 MCG/2 ML INJECTION As Ordered ONE (12:14)
[2021-03-06 13:09] VITALS: BP 120/62
== END 2021-03-06 13:15 | disposition home or self-care (01) ==
LOC: M OPP 10:53
PROVIDERS: ATTEND Internal Medicine Gastroenterology
DX: K62.4 Stenosis of anus and rectum (principal); K63.89 Other specified diseases of intestine; R19.7 Diarrhea, unspecified; R15.9 Full incontinence of feces; K44.9 Diaphragmatic hernia without obstruction or gangrene; R10.11 Right upper quadrant pain; Z79.899 Other long term (current) drug therapy; Z88.1 Allergy status to other antibiotic agents; Z88.2 Allergy status to sulfonamides; Z88.3 Allergy status to other anti-infective agents; Z85.3 Personal history of malignant neoplasm of breast; Z92.21 Personal history of antineoplastic chemotherapy; Z92.3 Personal history of irradiation
CPT/HCPCS: 43239; 45331; 88305; J3010

== ENCOUNTER → 2021-03-15 | Outpatient (CLI) | payer MEDICARE, OTHER ==
[~2021-03-15] MED LIST changes: -NS 1,000 ML IV ONE
== END ==
LOC: M LABSMTC 13:07
PROVIDERS: ATTEND Anesthesiology
DX: Z20.822 Contact with and (suspected) exposure to COVID-19 (principal)

== ENCOUNTER → 2021-03-20 | Outpatient (CLI) | payer MEDICARE, OTHER ==
[~2021-03-20] MED LIST changes: +BUPIVACAINE HCL 0.25% 30ML VIAL As Ordered ONE; +ISOVUE-M 300 61% 15ML VIAL As Ordered ONE; +LIDOCAINE 1% SDV 30ML VIAL As Ordered ONE
== END ==
LOC: M PAIN 11:20
PROVIDERS: ATTEND Anesthesiology
DX: M47.816 Spondylosis without myelopathy or radiculopathy, lumbar region (principal); Z87.891 Personal history of nicotine dependence; D64.9 Anemia, unspecified; R05.3 Chronic cough; F32.A Depression, unspecified; F41.9 Anxiety disorder, unspecified; Z79.899 Other long term (current) drug therapy

== ENCOUNTER → 2021-05-17 | Outpatient (REF) | payer MEDICARE, OTHER ==
[~2021-05-17] MED LIST changes: -BUPIVACAINE HCL 0.25% 30ML VIAL As Ordered ONE; -ISOVUE-M 300 61% 15ML VIAL As Ordered ONE; -LIDOCAINE 1% SDV 30ML VIAL As Ordered ONE
== END ==
LOC: M LAB REF 10:39
PROVIDERS: ATTEND Internal Medicine Gastroenterology
DX: Z98.0 Intestinal bypass and anastomosis status (principal)

== ENCOUNTER → 2021-05-23 | Outpatient (CLI) | payer MEDICARE, OTHER | LOC: M PAIN 14:15 | PROVIDERS: ATTEND Nurse Practitioner Family | DX: M50.10 Cervical disc disorder with radiculopathy, unspecified cervical region (principal); G89.29 Other chronic pain; J45.909 Unspecified asthma, uncomplicated; Z86.59 Personal history of other mental and behavioral disorders; Z87.891 Personal history of nicotine dependence; Z88.1 Allergy status to other antibiotic agents; Z88.2 Allergy status to sulfonamides; Z79.899 Other long term (current) drug therapy ==

== ENCOUNTER → 2021-06-04 | Outpatient (CLI) | payer MEDICARE, OTHER ==
[~2021-06-04] MED LIST changes: +GLUCAGON INJ 1MG VIAL As Ordered ONE; +ISOVUE-370 76% 100ML VIAL As Ordered ONE; +NEULUMEX 0.1% SUSPENSION 450ML BOTTLE (FORMERLY VOLUMEN) As Ordered ONE
== END ==
LOC: M RAD 14:09
PROVIDERS: ATTEND Internal Medicine Gastroenterology
DX: K51.919 Ulcerative colitis, unspecified with unspecified complications (principal); Z98.0 Intestinal bypass and anastomosis status; Z90.49 Acquired absence of other specified parts of digestive tract
CPT/HCPCS: 74177; J1610; Q9967

== ENCOUNTER → 2021-06-06 | Outpatient (CLI) | payer MEDICARE, OTHER ==
[~2021-06-06] MED LIST changes: -D31000TA2 PO; -GLUCAGON INJ 1MG VIAL As Ordered ONE; -ISOVUE-370 76% 100ML VIAL As Ordered ONE; -NEULUMEX 0.1% SUSPENSION 450ML BOTTLE (FORMERLY VOLUMEN) As Ordered ONE; +VITA100093 PO
== END ==
LOC: M PAIN 14:30
PROVIDERS: ATTEND Nurse Practitioner Family
DX: M47.816 Spondylosis without myelopathy or radiculopathy, lumbar region (principal); M47.817 Spondylosis without myelopathy or radiculopathy, lumbosacral region; G89.29 Other chronic pain; J45.909 Unspecified asthma, uncomplicated; Z86.59 Personal history of other mental and behavioral disorders; Z87.891 Personal history of nicotine dependence; Z88.1 Allergy status to other antibiotic agents; Z88.2 Allergy status to sulfonamides; Z79.899 Other long term (current) drug therapy

== ENCOUNTER → 2021-06-22 | Outpatient (CLI) | payer MEDICARE, OTHER | LOC: M PLARAD 12:09 | PROVIDERS: ATTEND Nurse Practitioner Family | DX: M50.10 Cervical disc disorder with radiculopathy, unspecified cervical region (principal) ==

== ENCOUNTER → 2021-06-22 | Outpatient (CLI) | payer MEDICARE, OTHER ==
[2021-06-22 15:10] LABS: BASO # 0.1 10^3/uL (0.0-0.2); BASO % 0.5 % (0.0-1.0); EOS # 0.2 10^3/uL (0.0-0.5); EOS % 1.7 % (0.0-3.0); HEMOGLOBIN 13.8 g/dl (12.0-15.5); LYMPH % 41.3 % (24.0-44.0); MEAN CORPUSCULAR HEMOGLOBIN 30.4 pg (27.0-33.0); MEAN CORPUSCULAR HGB CONC 32.9 g/dl (32.0-36.5); MEAN CORPUSCULAR VOLUME 92.5 fl (80.0-96.0); MONO # 0.7 10^3/uL (0.0-0.8); MONO % 7.3 % (2.0-8.0); NEUTROPHILS # 4.8 10^3/uL (1.5-8.5); NEUTROPHILS % 48.8 % (36.0-66.0); PLATELET COUNT, AUTOMATED 299 10^3/uL (150-450); RED BLOOD COUNT 4.54 10^6/uL (4.00-5.40); WHITE BLOOD COUNT 9.7 10^3/uL (4.0-10.0)
[2021-06-22 15:37] LABS: ALBUMIN 4.1 GM/DL (3.2-5.2); ALT/SGPT 23 U/L (12-78); BILIRUBIN,TOTAL 0.5 MG/DL (0.2-1.0); BLOOD UREA NITROGEN 21 MG/DL (7-18); CALCIUM LEVEL 8.9 MG/DL (8.8-10.2); CARBON DIOXIDE LEVEL 30 MEQ/L (21-32); CHLORIDE LEVEL 107 MEQ/L (98-107); CHOLESTEROL LEVEL 168 MG/DL (<200); CHOLESTEROL RISK RATIO 3.294 (<5); CREATININE FOR GFR 0.72 MG/DL (0.55-1.30); GLOMERULAR FILTRATION RATE > 60.0 (>45); GLUCOSE, FASTING 84 MG/DL (70-100); HDL CHOLESTEROL 51 MG/DL (>40); LDL CHOLESTEROL 88 MG/DL (<100); NON-HDL-C 117 MG/DL; POTASSIUM SERUM 4.2 MEQ/L (3.5-5.1); SODIUM LEVEL 141 MEQ/L (136-145); TOTAL PROTEIN 6.8 GM/DL (6.4-8.2); TRIGLYCERIDES LEVEL 143 MG/DL (<150)
[2021-06-22 15:44] LABS: TOTAL 25(OH) VITAMIN D 39.3 NG/ML (30.0-100.0)
[2021-06-22 15:45] LABS: PTH INTACT 51.5 PG/ML (18.5-88.0)
== END ==
LOC: M PLAIMG 13:20
PROVIDERS: ATTEND Family Medicine
DX: M54.9 Dorsalgia, unspecified (principal); F32.9 Major depressive disorder, single episode, unspecified; E55.9 Vitamin D deficiency, unspecified; I10 Essential (primary) hypertension; E78.5 Hyperlipidemia, unspecified

== ENCOUNTER → 2021-09-16 | Outpatient (CLI) | payer MEDICARE, OTHER ==
[~2021-09-16] MED LIST changes: +CALC500C16 PO; +LOPE1CAP5 PO; +MELA10CA PO; +NAPR-849 PO; +QC F0.52 PO; +VITA500T40 PO; +VITMTA PO
== END ==
LOC: M LABSMTC 10:57
PROVIDERS: ATTEND Anesthesiology
DX: Z20.822 Contact with and (suspected) exposure to COVID-19 (principal)

== ENCOUNTER → 2021-09-18 | Outpatient (CLI) | payer MEDICARE, OTHER ==
[~2021-09-18] MED LIST changes: +BUPIVACAINE HCL 0.25% 30ML VIAL As Ordered ONE; +ISOVUE-M 300 61% 15ML VIAL As Ordered ONE; +LIDOCAINE 1% SDV 30ML VIAL As Ordered ONE
[2021-09-18 09:50] VITALS: BP 139/70
== END ==
LOC: M IRPRO 08:42
PROVIDERS: ATTEND Anesthesiology
DX: M47.816 Spondylosis without myelopathy or radiculopathy, lumbar region (principal); G89.29 Other chronic pain; M19.90 Unspecified osteoarthritis, unspecified site; Z88.1 Allergy status to other antibiotic agents; Z88.2 Allergy status to sulfonamides; Z88.8 Allergy status to other drugs, medicaments and biological substances; Z86.59 Personal history of other mental and behavioral disorders
CPT/HCPCS: 64493; 64494; Q9967

== ENCOUNTER → 2021-11-05 | Outpatient (CLI) | payer MEDICARE, OTHER ==
[~2021-11-05] MED LIST changes: -BUPIVACAINE HCL 0.25% 30ML VIAL As Ordered ONE; -ISOVUE-M 300 61% 15ML VIAL As Ordered ONE; -LIDOCAINE 1% SDV 30ML VIAL As Ordered ONE
== END ==
LOC: M WHC 09:08
PROVIDERS: ATTEND Internal Medicine Medical Oncology
DX: Z12.31 Encounter for screening mammogram for malignant neoplasm of breast (principal); Z85.3 Personal history of malignant neoplasm of breast; R25.2 Cramp and spasm

== ENCOUNTER → 2021-11-05 | Outpatient (CLI) | payer MEDICARE, OTHER ==
[2021-11-05 13:13] LABS: ALBUMIN 3.8 GM/DL (3.2-5.2); ALT/SGPT 26 U/L (12-78); BILIRUBIN,TOTAL 0.5 MG/DL (0.2-1.0); BLOOD UREA NITROGEN 17 MG/DL (7-18); CALCIUM LEVEL 9.2 MG/DL (8.8-10.2); CARBON DIOXIDE LEVEL 30 MEQ/L (21-32); CHLORIDE LEVEL 107 MEQ/L (98-107); GLOMERULAR FILTRATION RATE > 60.0 (>45); GLUCOSE, FASTING 89 MG/DL (70-100); MAGNESIUM LEVEL 2.2 MG/DL (1.8-2.4); POTASSIUM SERUM 4.1 MEQ/L (3.5-5.1); SODIUM LEVEL 141 MEQ/L (136-145); TOTAL PROTEIN 7.4 GM/DL (6.4-8.2)
== END ==
LOC: M PLALAB 09:10
PROVIDERS: ATTEND Physician Assistant Medical
DX: R25.2 Cramp and spasm (principal)

== ENCOUNTER → 2021-11-14 | Outpatient (CLI) | payer MEDICARE, OTHER | LOC: M PAIN 08:45 | PROVIDERS: ATTEND Anesthesiology | DX: M47.816 Spondylosis without myelopathy or radiculopathy, lumbar region (principal); G89.29 Other chronic pain; Z86.59 Personal history of other mental and behavioral disorders; J45.909 Unspecified asthma, uncomplicated; Z87.891 Personal history of nicotine dependence; Z88.1 Allergy status to other antibiotic agents; Z88.2 Allergy status to sulfonamides; Z79.899 Other long term (current) drug therapy ==

== ENCOUNTER → 2021-11-27 | Outpatient (CLI) | payer MEDICARE, OTHER ==
[~2021-11-27] MED LIST changes: +GABA-283 PO; +TIZA10TA
[2021-11-27 11:20] LABS: BLOOD UREA NITROGEN 18 MG/DL (7-18); CREATININE FOR GFR 0.67 MG/DL (0.55-1.30); GLOMERULAR FILTRATION RATE > 60.0 (>45)
== END ==
LOC: M PLALAB 09:40
PROVIDERS: ATTEND Orthopaedic Surgery
DX: M54.16 Radiculopathy, lumbar region (principal)

== ENCOUNTER → 2021-12-04 | Outpatient (REF) | payer MEDICARE, OTHER ==
[2021-12-04 17:25] LABS: APPEARANCE, URINE MANUAL CLOUDY (CLEAR); COLOR, URINE MANUAL YELLOW (YELLOW)
[2021-12-04 17:29] LABS: BILIRUBIN, URINE MANUAL NEGATIVE (NEGATIVE); BLOOD URINE MANUAL POSITIVE (NEGATIVE); GLUCOSE, URINE (UA) MANUAL NEGATIVE (NEGATIVE); KETONE, URINE MANUAL NEGATIVE (NEGATIVE); LEUKOCYTE ESTERASE, URINE MAN NEGATIVE (NEGATIVE); NITRITE, URINE MANUAL NEGATIVE (NEGATIVE); PROTEIN, URINE MANUAL NEGATIVE (NEGATIVE); UROBILINOGEN, URINE MANUAL NORMAL (NORMAL)
[2021-12-04 18:02] LABS: AMORPHOUS SEDIMENT, URINE MOD AMOUNT (NEGATIVE); BACTERIA, URINE NONE SEEN; HYALINE CAST, URINE NONE SEEN /lpf (0-1); RBC, URINE NONE SEEN /hpf (0-3); SQUAMOUS EPITHELIAL CELL URINE NONE SEEN /hpf (SMALL AMT); WBC, URINE NONE SEEN /hpf (0-3)
== END ==
LOC: M SMT 16:57
PROVIDERS: ATTEND Urology
DX: N39.41 Urge incontinence (principal)

== ENCOUNTER → 2021-12-23 | Outpatient (CLI) | payer MEDICARE, OTHER | LOC: M LABSMTC 10:50 | PROVIDERS: ATTEND Anesthesiology | DX: Z01.812 Encounter for preprocedural laboratory examination (principal); Z20.822 Contact with and (suspected) exposure to COVID-19 ==

== ENCOUNTER → 2021-12-25 | Outpatient (CLI) | payer MEDICARE, OTHER ==
[~2021-12-25] MED LIST changes: +BUPIVACAINE HCL 0.25% 30ML VIAL As Ordered ONE; +ISOVUE-M 300 61% 15ML VIAL As Ordered ONE; +LIDOCAINE 1% SDV 30ML VIAL As Ordered ONE
== END ==
LOC: M PAIN 08:30
PROVIDERS: ATTEND Anesthesiology
DX: M47.816 Spondylosis without myelopathy or radiculopathy, lumbar region (principal); M47.817 Spondylosis without myelopathy or radiculopathy, lumbosacral region; G89.29 Other chronic pain; J45.909 Unspecified asthma, uncomplicated; Z86.59 Personal history of other mental and behavioral disorders; Z87.891 Personal history of nicotine dependence; Z88.1 Allergy status to other antibiotic agents; Z88.2 Allergy status to sulfonamides; Z79.899 Other long term (current) drug therapy
CPT/HCPCS: 64493; 64494; Q9967

== ENCOUNTER → 2022-01-03 | Outpatient (REF) | payer MEDICARE, OTHER ==
[~2022-01-03] MED LIST changes: -BUPIVACAINE HCL 0.25% 30ML VIAL As Ordered ONE; -ISOVUE-M 300 61% 15ML VIAL As Ordered ONE; -LIDOCAINE 1% SDV 30ML VIAL As Ordered ONE
[2022-01-03 15:31] LABS: APPEARANCE, URINE MANUAL CLEAR (CLEAR); COLOR, URINE MANUAL YELLOW (YELLOW)
[2022-01-03 15:32] LABS: BILIRUBIN, URINE MANUAL NEGATIVE (NEGATIVE); BLOOD URINE MANUAL TRACE (NEGATIVE); GLUCOSE, URINE (UA) MANUAL NEGATIVE (NEGATIVE); KETONE, URINE MANUAL NEGATIVE (NEGATIVE); LEUKOCYTE ESTERASE, URINE MAN NEGATIVE (NEGATIVE); NITRITE, URINE MANUAL NEGATIVE (NEGATIVE); PROTEIN, URINE MANUAL NEGATIVE (NEGATIVE); UROBILINOGEN, URINE MANUAL NORMAL (NORMAL)
[2022-01-03 15:47] LABS: SQUAMOUS EPITHELIAL CELL URINE SMALL AMOUNT /hpf (SMALL AMT)
[2022-01-03 15:48] LABS: BACTERIA, URINE SMALL AMOUNT; CALCIUM OXALATE CRYSTALS,URINE MOD AMOUNT /hpf
== END ==
LOC: M SMT 15:14
PROVIDERS: ATTEND Urology
DX: R31.29 Other microscopic hematuria (principal)

== ENCOUNTER → 2022-01-08 | Outpatient (CLI) | payer MEDICARE, OTHER ==
[2022-01-08 16:10] LABS: BLOOD UREA NITROGEN 24 MG/DL (7-18); CALCIUM LEVEL 9.4 MG/DL (8.8-10.2); CARBON DIOXIDE LEVEL 28 MEQ/L (21-32); CHLORIDE LEVEL 107 MEQ/L (98-107); CREATININE FOR GFR 0.68 MG/DL (0.55-1.30); GLOMERULAR FILTRATION RATE > 60.0 (>45); GLUCOSE, FASTING 96 MG/DL (70-100); POTASSIUM SERUM 4.2 MEQ/L (3.5-5.1); SODIUM LEVEL 140 MEQ/L (136-145)
== END ==
LOC: M PLALAB 13:25
PROVIDERS: ATTEND Urology
DX: R31.29 Other microscopic hematuria (principal)

== ENCOUNTER → 2022-01-16 | Outpatient (CLI) | payer MEDICARE, OTHER ==
[~2022-01-16] MED LIST changes: +ISOVUE-370 76% 100ML VIAL As Ordered ONE
== END ==
LOC: M RAD 16:05
PROVIDERS: ATTEND Urology
DX: R31.29 Other microscopic hematuria (principal)
CPT/HCPCS: 74176; Q9967

== ENCOUNTER → 2022-01-17 | Outpatient (REF) | payer MEDICARE, OTHER ==
[~2022-01-17] MED LIST changes: -ISOVUE-370 76% 100ML VIAL As Ordered ONE
== END ==
LOC: M SFHCPLAZ 17:09
PROVIDERS: ATTEND Physician Assistant
DX: J06.9 Acute upper respiratory infection, unspecified (principal)

== ENCOUNTER → 2022-01-21 | Outpatient (CLI) | payer MEDICARE, OTHER | LOC: M PAIN 10:15 | PROVIDERS: ATTEND Nurse Practitioner Family | DX: M47.816 Spondylosis without myelopathy or radiculopathy, lumbar region (principal); G89.29 Other chronic pain; M47.817 Spondylosis without myelopathy or radiculopathy, lumbosacral region; J45.909 Unspecified asthma, uncomplicated; Z86.59 Personal history of other mental and behavioral disorders; Z87.891 Personal history of nicotine dependence; Z88.1 Allergy status to other antibiotic agents; Z88.2 Allergy status to sulfonamides; Z79.899 Other long term (current) drug therapy ==

== ENCOUNTER → 2022-02-08 | Outpatient (CLI) | payer MEDICARE, OTHER | LOC: M PAIN 14:00 | PROVIDERS: ATTEND Nurse Practitioner Family | DX: M54.2 Cervicalgia (principal); G89.29 Other chronic pain; J45.909 Unspecified asthma, uncomplicated; Z86.59 Personal history of other mental and behavioral disorders; Z87.891 Personal history of nicotine dependence; Z88.1 Allergy status to other antibiotic agents; Z88.2 Allergy status to sulfonamides; Z79.899 Other long term (current) drug therapy ==

== ENCOUNTER → 2022-02-15 | Outpatient (CLI) | payer MEDICARE, OTHER ==
[~2022-02-15] MED LIST changes: +MECL-136 PO; +MYRB25TA PO
== END ==
LOC: M PAIN 15:00
PROVIDERS: ATTEND Nurse Practitioner Family
DX: M54.2 Cervicalgia (principal); G89.29 Other chronic pain; G62.9 Polyneuropathy, unspecified; J45.909 Unspecified asthma, uncomplicated; Z85.3 Personal history of malignant neoplasm of breast; Z86.59 Personal history of other mental and behavioral disorders; Z87.891 Personal history of nicotine dependence; Z88.1 Allergy status to other antibiotic agents; Z88.2 Allergy status to sulfonamides; Z79.899 Other long term (current) drug therapy

== ENCOUNTER → 2022-03-12 | Outpatient (CLI) | payer MEDICARE, OTHER | LOC: M LABSMTC 09:08 | PROVIDERS: ATTEND Anesthesiology | DX: Z01.812 Encounter for preprocedural laboratory examination (principal); Z11.52 Encounter for screening for COVID-19 ==

== ENCOUNTER 2022-03-15 06:57 | Day surgery (SDC) | payer MEDICARE, OTHER ==
[~2022-03-15] VITALS: Ht 167.6 cm; Wt 65.3 kg
[~2022-03-15 06:57] MED LIST changes: +NS 1,000 ML IV ONE; +SIMETHICONE 40MG/0.6ML DROPS 30ML As Ordered ONE
[2022-03-15] MEDS ORDERED: LIDOCAINE 2% 100MG/5ML SDV (FOR ANES.) As Ordered ONE (07:22)
[2022-03-15] MEDS ORDERED: propofoL 200 MG/20 ML VIAL As Ordered ONE (07:22)
[2022-03-15 08:15] VITALS: BP 118/55
== END 2022-03-15 08:27 | disposition home or self-care (01) ==
LOC: M OPP 06:57
PROVIDERS: ATTEND Internal Medicine Gastroenterology
DX: K51.90 Ulcerative colitis, unspecified, without complications (principal); K91.850 Pouchitis; K64.4 Residual hemorrhoidal skin tags; K92.1 Melena; Z87.19 Personal history of other diseases of the digestive system; Z09 Encounter for follow-up examination after completed treatment for conditions other than malignant neoplasm; K62.89 Other specified diseases of anus and rectum; Z79.899 Other long term (current) drug therapy; Z88.1 Allergy status to other antibiotic agents; Z88.2 Allergy status to sulfonamides; Z90.49 Acquired absence of other specified parts of digestive tract; Z80.3 Family history of malignant neoplasm of breast; Z92.3 Personal history of irradiation; Z92.21 Personal history of antineoplastic chemotherapy; Z87.891 Personal history of nicotine dependence; F32.9 Major depressive disorder, single episode, unspecified; F41.9 Anxiety disorder, unspecified

== ENCOUNTER → 2022-04-14 | Outpatient (CLI) | payer MEDICARE, OTHER ==
[~2022-04-14] MED LIST changes: -NS 1,000 ML IV ONE; -SIMETHICONE 40MG/0.6ML DROPS 30ML As Ordered ONE
== END ==
LOC: M LABSMTC 10:25
PROVIDERS: ATTEND Anesthesiology
DX: Z01.812 Encounter for preprocedural laboratory examination (principal); Z20.822 Contact with and (suspected) exposure to COVID-19

== ENCOUNTER → 2022-04-15 | Outpatient (CLI) | payer MEDICARE, OTHER ==
[~2022-04-15] MED LIST changes: +BUPIVACAINE HCL 0.25% 30ML VIAL As Ordered ONE; +LIDOCAINE 1% SDV 30ML VIAL As Ordered ONE; +diazePAM 5MG TABLET As Ordered ONE; +oxyCODONE 5MG TAB As Ordered ONE
== END ==
LOC: M PAIN 14:00
PROVIDERS: ATTEND Anesthesiology
DX: M47.816 Spondylosis without myelopathy or radiculopathy, lumbar region (principal); G89.29 Other chronic pain; M79.7 Fibromyalgia; J45.909 Unspecified asthma, uncomplicated; Z86.59 Personal history of other mental and behavioral disorders; Z87.891 Personal history of nicotine dependence; Z88.1 Allergy status to other antibiotic agents; Z88.2 Allergy status to sulfonamides; Z79.899 Other long term (current) drug therapy
CPT/HCPCS: 64635; 64636; J1100

== ENCOUNTER 2022-04-23 10:14 | Emergency (ER) | payer MEDICARE, OTHER ==
[~2022-04-23] VITALS: Ht 167.6 cm; Wt 65.5 kg
[~2022-04-23 10:14] MED LIST changes: -BUPIVACAINE HCL 0.25% 30ML VIAL As Ordered ONE; -LIDOCAINE 1% SDV 30ML VIAL As Ordered ONE; -diazePAM 5MG TABLET As Ordered ONE; -oxyCODONE 5MG TAB As Ordered ONE
[2022-04-23] MEDS ORDERED: GABA-283 PO (10:39)
[2022-04-23] MEDS ORDERED: AMIT-253 PO (10:56)
[2022-04-23 11:38] LABS: BASO % 0.2 % (0.0-1.0); EOS % 0.3 % (0.0-3.0); HEMATOCRIT 47.3 % (36.0-47.0); HEMOGLOBIN 16.1 g/dl (12.0-15.5); LYMPH # 1.8 10^3/uL (1.5-5.0); LYMPH % 16.3 % (24.0-44.0); MEAN CORPUSCULAR HEMOGLOBIN 30.6 pg (27.0-33.0); MEAN CORPUSCULAR VOLUME 89.8 fl (80.0-96.0); MONO # 1.1 10^3/uL (0.0-0.8); MONO % 9.4 % (2.0-8.0); NEUTROPHILS # 8.3 10^3/uL (1.5-8.5); NEUTROPHILS % 73.4 % (36.0-66.0); PLATELET COUNT, AUTOMATED 261 10^3/uL (150-450); RED BLOOD COUNT 5.27 10^6/uL (4.00-5.40); WHITE BLOOD COUNT 11.3 10^3/uL (4.0-10.0)
[2022-04-23] MEDS ORDERED: NS 1,000 ML IV ONE (11:40)
[2022-04-23] MEDS ORDERED: ACETAMINOPHEN 325 MG TAB PO ONE (12:05)
[2022-04-23 13:38] LABS: CK-MB VALUE MASS < 1.0 NG/ML (<3.6); LIPASE 24 U/L (12-53); MAGNESIUM LEVEL 1.6 MG/DL (1.8-2.4)
[2022-04-23 13:40] LABS: BILIRUBIN,DIRECT 0.1 MG/DL (<0.4)
[2022-04-23 13:41] LABS: THYROID STIMULATING HORMONE 1.145 uIU/ML (0.55-4.78)
[2022-04-23 13:42] LABS: FREE T4 1.07 NG/DL (0.89-1.76)
[2022-04-23 14:20] LABS: CPK CREATINE PHOSPHOKINASE 50 U/L (34-145)
[2022-04-23 14:37] LABS: ALBUMIN 3.8 G/DL (3.2-5.2); ALKALINE PHOSPHATASE 71 U/L (46-116); ALT/SGPT 22 U/L (7.0-40); AST/SGOT 25 U/L (<34); BILIRUBIN,TOTAL 0.6 MG/DL (0.3-1.2); BLOOD UREA NITROGEN 16 MG/DL (9-23); CALCIUM LEVEL 8.3 MG/DL (8.3-10.6); CARBON DIOXIDE LEVEL 21 MMOL/L (20-31); CHLORIDE LEVEL 104 MMOL/L (98-107); CREATININE FOR GFR 0.64 MG/DL (0.55-1.30); GLOMERULAR FILTRATION RATE > 60.0 (>45); GLUCOSE, FASTING 79 MG/DL (74-106); POTASSIUM SERUM 3.9 MMOL/L (3.5-5.1); SODIUM LEVEL 139 MMOL/L (136-145); TOTAL PROTEIN 6.7 G/DL (5.7-8.2)
[2022-04-23] MEDS ORDERED: ISOVUE-370 76% 100ML VIAL As Ordered ONE (14:53)
[2022-04-23 16:30] VITALS: BP 164/83
== END 2022-04-23 16:45 | disposition home or self-care (01) ==
LOC: M ED 10:14
DX: R55 Syncope and collapse (principal); S02.2XXA Fracture of nasal bones, initial encounter for closed fracture; C50.919 Malignant neoplasm of unspecified site of unspecified female breast; J44.9 Chronic obstructive pulmonary disease, unspecified; F41.9 Anxiety disorder, unspecified; M54.50 Low back pain, unspecified; Z86.718 Personal history of other venous thrombosis and embolism; Z87.442 Personal history of urinary calculi; Z88.1 Allergy status to other antibiotic agents; Z88.2 Allergy status to sulfonamides; Z79.891 Long term (current) use of opiate analgesic; Z79.899 Other long term (current) drug therapy
CPT/HCPCS: 70450; 70486; 71046; 71275; 72125; 80053; 82248; 82550; 82553; 83605; 83690; 83735; 84439; 84443; 84484; 85025; 93005; 96360; 99284; Q9967

== ENCOUNTER → 2022-05-10 | Outpatient (CLI) | payer MEDICARE, OTHER ==
[~2022-05-10] MED LIST changes: +AMIT-253 PO
[2022-05-10 13:34] LABS: BASO % 0.4 % (0.0-1.0); EOS # 0.1 10^3/uL (0.0-0.5); EOS % 1.4 % (0.0-3.0); HEMATOCRIT 44.1 % (36.0-47.0); HEMOGLOBIN 13.8 g/dl (12.0-15.5); LYMPH # 3.9 10^3/uL (1.5-5.0); LYMPH % 38.9 % (24.0-44.0); MEAN CORPUSCULAR HEMOGLOBIN 29.9 pg (27.0-33.0); MEAN CORPUSCULAR HGB CONC 31.3 g/dl (32.0-36.5); MEAN CORPUSCULAR VOLUME 95.7 fl (80.0-96.0); MONO # 0.9 10^3/uL (0.0-0.8); NEUTROPHILS % 50.1 % (36.0-66.0); PLATELET COUNT, AUTOMATED 288 10^3/uL (150-450); RED BLOOD COUNT 4.61 10^6/uL (4.00-5.40); WHITE BLOOD COUNT 9.9 10^3/uL (4.0-10.0)
[2022-05-10 13:57] LABS: ALKALINE PHOSPHATASE 89 U/L (46-116); ALT/SGPT 20 U/L (7.0-40); AST/SGOT 20 U/L (<34); BILIRUBIN,TOTAL 0.5 MG/DL (0.3-1.2); BLOOD UREA NITROGEN 22 MG/DL (9-23); CALCIUM LEVEL 9.4 MG/DL (8.3-10.6); CARBON DIOXIDE LEVEL 30 MMOL/L (20-31); CHLORIDE LEVEL 103 MMOL/L (98-107); CHOLESTEROL LEVEL 216 MG/DL (<200); CHOLESTEROL RISK RATIO 3.08 (<5); CREATININE FOR GFR 0.67 MG/DL (0.55-1.30); GLOMERULAR FILTRATION RATE > 60.0 (>45); GLUCOSE, FASTING 81 MG/DL (74-106); HDL CHOLESTEROL 70.1 MG/DL (>40); LDL CHOLESTEROL 124.1 MG/DL (<100); NON-HDL-C 146 MG/DL; POTASSIUM SERUM 4.3 MMOL/L (3.5-5.1); SODIUM LEVEL 139 MMOL/L (136-145); TOTAL PROTEIN 7.4 G/DL (5.7-8.2); TRIGLYCERIDES LEVEL 109 MG/DL (<150)
[2022-05-10 14:04] LABS: FREE T4 1.07 NG/DL (0.89-1.76); THYROID STIMULATING HORMONE 2.607 uIU/ML (0.55-4.78)
[2022-05-10 14:05] LABS: TOTAL 25(OH) VITAMIN D 41.3 NG/ML (20.0-100.0)
[2022-05-10 15:07] LABS: PTH INTACT 51.8 PG/ML (18.5-88.0)
== END ==
LOC: M PLALAB 09:59
PROVIDERS: ATTEND Physician Assistant Medical
DX: R06.02 Shortness of breath (principal); Z90.12 Acquired absence of left breast and nipple; E78.5 Hyperlipidemia, unspecified; E55.9 Vitamin D deficiency, unspecified; I10 Essential (primary) hypertension; F32.9 Major depressive disorder, single episode, unspecified

== ENCOUNTER → 2022-05-13 | Outpatient (CLI) | payer MEDICARE, OTHER ==
[2022-05-15 17:10] LABS: GASTRIN < 10 pg/mL (0-115)
== END ==
LOC: M PLALAB 09:01
PROVIDERS: ATTEND Internal Medicine Gastroenterology
DX: R19.7 Diarrhea, unspecified (principal); R63.4 Abnormal weight loss

== ENCOUNTER → 2022-05-15 | Outpatient (CLI) | payer MEDICARE, OTHER | LOC: M PAIN 15:30 | PROVIDERS: ATTEND Anesthesiology | DX: M79.18 Myalgia, other site (principal); G89.29 Other chronic pain; M79.7 Fibromyalgia; Z86.59 Personal history of other mental and behavioral disorders; Z87.891 Personal history of nicotine dependence; Z88.1 Allergy status to other antibiotic agents; Z88.2 Allergy status to sulfonamides; Z79.899 Other long term (current) drug therapy ==

== ENCOUNTER → 2022-05-28 | Outpatient (REF) | payer MEDICARE, OTHER ==
[2022-05-28 13:28] LABS: APPEARANCE, URINE HAZY (CLEAR); BACTERIA, URINE AUTO NEGATIVE (NEGATIVE); BILIRUBIN, URINE AUTO NEGATIVE (NEGATIVE); BLOOD, URINE BLOOD NEGATIVE (NEGATIVE); COLOR, URINE YELLOW (YELLOW); GLUCOSE, URINE (UA) AUTO NEGATIVE (NEGATIVE); KETONE, URINE AUTO NEGATIVE (NEGATIVE); LEUKOCYTE ESTERASE, URINE AUTO NEGATIVE (NEGATIVE); NITRITE, URINE AUTO NEGATIVE (NEGATIVE); PROTEIN, URINE AUTO NEGATIVE (NEGATIVE); RBC, URINE AUTO 1 /HPF (0-3); SPECIFIC GRAVITY URINE AUTO 1.012 (1.002-1.035); SQUAMOUS EPITHELIAL CELL UR AU 1 /HPF (0-6); UROBILINOGEN, URINE AUTO 0.2 mg/dL (0.0-2.0); WBC, URINE AUTO 1 /HPF (0-3)
== END ==
LOC: M SFHCPLAZ 12:49
PROVIDERS: ATTEND Physician Assistant Medical
DX: R31.29 Other microscopic hematuria (principal)

== ENCOUNTER → 2022-07-03 | Outpatient (REF) | payer MEDICARE, OTHER ==
[2022-07-03 18:04] LABS: APPEARANCE, URINE CLEAR (CLEAR); BACTERIA, URINE AUTO NEGATIVE (NEGATIVE); BILIRUBIN, URINE AUTO NEGATIVE (NEGATIVE); BLOOD, URINE BLOOD 1+ (NEGATIVE); COLOR, URINE YELLOW (YELLOW); GLUCOSE, URINE (UA) AUTO NEGATIVE (NEGATIVE); KETONE, URINE AUTO NEGATIVE (NEGATIVE); LEUKOCYTE ESTERASE, URINE AUTO NEGATIVE (NEGATIVE); NITRITE, URINE AUTO NEGATIVE (NEGATIVE); PROTEIN, URINE AUTO NEGATIVE (NEGATIVE); RBC, URINE AUTO 2 /HPF (0-3); SQUAMOUS EPITHELIAL CELL UR AU 0 /HPF (0-6); UROBILINOGEN, URINE AUTO 0.2 mg/dL (0.0-2.0); WBC, URINE AUTO 2 /HPF (0-3)
== END ==
LOC: M SMT 16:50
PROVIDERS: ATTEND Urology
DX: R31.29 Other microscopic hematuria (principal)

== ENCOUNTER → 2022-08-28 | Outpatient (REF) | payer MEDICARE, OTHER | LOC: M SFHCPLAZ 09:46 | PROVIDERS: ATTEND Physician Assistant Medical | DX: K51.20 Ulcerative (chronic) proctitis without complications (principal) ==

== ENCOUNTER → 2022-09-03 | Outpatient (CLI) | payer MEDICARE, OTHER | LOC: M PLAIMG 09:46 | PROVIDERS: ATTEND Physician Assistant Medical | DX: R06.02 Shortness of breath (principal) ==

== ENCOUNTER → 2022-09-24 | Outpatient (REF) | payer MEDICARE, OTHER | LOC: M SFHCPLAZ 10:20 | PROVIDERS: ATTEND Physician Assistant Medical | DX: K51.20 Ulcerative (chronic) proctitis without complications (principal) ==

== ENCOUNTER → 2022-11-06 | Outpatient (CLI) | payer MEDICARE, OTHER ==
[~2022-11-06] MED LIST changes: -GABA-283 PO; +GABA-284 PO
== END ==
LOC: M WHC 14:27
PROVIDERS: ATTEND Physician Assistant Medical
DX: Z12.31 Encounter for screening mammogram for malignant neoplasm of breast (principal); M81.0 Age-related osteoporosis without current pathological fracture; Z85.3 Personal history of malignant neoplasm of breast; M85.89 Other specified disorders of bone density and structure, multiple sites
CPT/HCPCS: 77066; 77080; G0279

== ENCOUNTER → 2023-07-07 | Outpatient (CLI) | payer MEDICARE, OTHER ==
[~2023-07-07] MED LIST changes: +DIPH1TAB81 PO; -DIPH2.5T15 PO; +DULO1CAP4; -EFFE37.5 PO; +EFFE37.52 PO
[2023-07-07 15:34] LABS: BASO # 0.1 10^3/uL (0.0-0.2); BASO % 0.5 % (0.0-1.0); EOS # 0.1 10^3/uL (0.0-0.5); EOS % 1.3 % (0.0-3.0); HEMATOCRIT 45.7 % (36.0-47.0); HEMOGLOBIN 14.9 g/dl (12.0-15.5); LYMPH # 3.1 10^3/uL (1.5-5.0); LYMPH % 32.3 % (24.0-44.0); MEAN CORPUSCULAR HEMOGLOBIN 31.2 pg (27.0-33.0); MEAN CORPUSCULAR HGB CONC 32.6 g/dl (32.0-36.5); MEAN CORPUSCULAR VOLUME 95.8 fl (80.0-96.0); MONO % 10.4 % (2.0-8.0); NEUTROPHILS # 5.2 10^3/uL (1.5-8.5); NEUTROPHILS % 55.3 % (36.0-66.0); PLATELET COUNT, AUTOMATED 291 10^3/uL (150-450); RED BLOOD COUNT 4.77 10^6/uL (4.00-5.40); WHITE BLOOD COUNT 9.5 10^3/uL (4.0-10.0)
[2023-07-07 15:41] LABS: C REACTIVE PROTEIN QUANTITATIV < 0.40 MG/DL (<1.0); LIPASE 36 U/L (12-53)
[2023-07-07 15:43] LABS: ALBUMIN 4.3 G/DL (3.2-5.2); ALKALINE PHOSPHATASE 74 U/L (46-116); ALT/SGPT 21 U/L (7.0-40); AST/SGOT 13 U/L (<34); BILIRUBIN,TOTAL 0.5 MG/DL (0.3-1.2); BLOOD UREA NITROGEN 26 MG/DL (9-23); CALCIUM LEVEL 9.8 MG/DL (8.3-10.6); CARBON DIOXIDE LEVEL 28 MMOL/L (20-31); CHLORIDE LEVEL 104 MMOL/L (98-107); CREATININE FOR GFR 0.63 MG/DL (0.55-1.30); GLOMERULAR FILTRATION RATE > 60.0 (>45); GLUCOSE, FASTING 90 MG/DL (74-106); POTASSIUM SERUM 4.2 MMOL/L (3.5-5.1); SODIUM LEVEL 141 MMOL/L (136-145); TOTAL PROTEIN 7.2 G/DL (5.7-8.2)
[2023-07-07 15:54] LABS: ERYTHROCYTE SEDIMENTATION RATE 9 mm/hr (0-30)
== END ==
LOC: M PLALAB 12:29
PROVIDERS: ATTEND Physician Assistant Medical
DX: R19.7 Diarrhea, unspecified (principal)

== ENCOUNTER → 2023-07-07 | Outpatient (REF) | payer MEDICARE, OTHER ==
[~2023-07-07] MED LIST changes: -DIPH1TAB81 PO; +DIPH2.5T15 PO
== END ==
LOC: M SFHCPLAZ 12:22
PROVIDERS: ATTEND Physician Assistant Medical
DX: R19.7 Diarrhea, unspecified (principal)

== ENCOUNTER → 2023-07-29 | Outpatient (REF) | payer MEDICARE, OTHER ==
[~2023-07-29] MED LIST changes: +DIPH1TAB81 PO; -DIPH2.5T15 PO
[2023-07-29 17:56] LABS: APPEARANCE, URINE HAZY (CLEAR); BACTERIA, URINE AUTO NEGATIVE (NEGATIVE); BILIRUBIN, URINE AUTO NEGATIVE (NEGATIVE); BLOOD, URINE BLOOD NEGATIVE (NEGATIVE); COLOR, URINE AMBER (YELLOW); GLUCOSE, URINE (UA) AUTO NEGATIVE (NEGATIVE); KETONE, URINE AUTO NEGATIVE (NEGATIVE); LEUKOCYTE ESTERASE, URINE AUTO TRACE (NEGATIVE); NITRITE, URINE AUTO NEGATIVE (NEGATIVE); PROTEIN, URINE AUTO NEGATIVE (NEGATIVE); RBC, URINE AUTO 4 /HPF (0-3); SQUAMOUS EPITHELIAL CELL UR AU 0 /HPF (0-6); UROBILINOGEN, URINE AUTO 0.2 mg/dL (0.0-2.0); WBC, URINE AUTO 8 /HPF (0-3)
== END ==
LOC: M SMT 17:07
PROVIDERS: ATTEND Urology
DX: R39.15 Urgency of urination (principal)

== ENCOUNTER → 2023-09-15 | Outpatient (CLI) | payer MEDICARE, OTHER ==
[2023-09-15 15:33] LABS: BASO # 0.1 10^3/uL (0.0-0.2); BASO % 0.5 % (0.0-1.0); EOS # 0.2 10^3/uL (0.0-0.5); HEMATOCRIT 43.3 % (36.0-47.0); HEMOGLOBIN 14.2 g/dl (12.0-15.5); LYMPH # 3.9 10^3/uL (1.5-5.0); LYMPH % 40.4 % (24.0-44.0); MEAN CORPUSCULAR HEMOGLOBIN 31.8 pg (27.0-33.0); MEAN CORPUSCULAR HGB CONC 32.8 g/dl (32.0-36.5); MEAN CORPUSCULAR VOLUME 97.1 fl (80.0-96.0); MONO # 0.6 10^3/uL (0.0-0.8); MONO % 6.1 % (2.0-8.0); NEUTROPHILS # 4.9 10^3/uL (1.5-8.5); NEUTROPHILS % 50.8 % (36.0-66.0); PLATELET COUNT, AUTOMATED 298 10^3/uL (150-450); RED BLOOD COUNT 4.46 10^6/uL (4.00-5.40); WHITE BLOOD COUNT 9.6 10^3/uL (4.0-10.0)
[2023-09-15 15:41] LABS: ALBUMIN 4.1 G/DL (3.2-5.2); ALKALINE PHOSPHATASE 91 U/L (46-116); ALT/SGPT 22 U/L (7.0-40); AST/SGOT 10 U/L (<34); BILIRUBIN,TOTAL 0.4 MG/DL (0.3-1.2); BLOOD UREA NITROGEN 23 MG/DL (9-23); CALCIUM LEVEL 9.8 MG/DL (8.3-10.6); CARBON DIOXIDE LEVEL 30 MMOL/L (20-31); CHLORIDE LEVEL 104 MMOL/L (98-107); CHOLESTEROL LEVEL 196 MG/DL (<200); CHOLESTEROL RISK RATIO 2.78 (<5); CREATININE FOR GFR 0.58 MG/DL (0.55-1.30); GLOMERULAR FILTRATION RATE > 60.0 (>45); GLUCOSE, FASTING 91 MG/DL (74-106); HDL CHOLESTEROL 70.4 MG/DL (>40); LDL CHOLESTEROL 95.4 MG/DL (<100); NON-HDL-C 125.6 MG/DL; POTASSIUM SERUM 4.6 MMOL/L (3.5-5.1); SODIUM LEVEL 140 MMOL/L (136-145); TOTAL PROTEIN 7.1 G/DL (5.7-8.2); TRIGLYCERIDES LEVEL 151 MG/DL (<150)
[2023-09-15 15:42] LABS: PTH INTACT 50.2 PG/ML (18.5-88.0)
[2023-09-15 15:43] LABS: TOTAL 25(OH) VITAMIN D 40.1 NG/ML (20.0-100.0)
[2023-09-15 15:46] LABS: CPK CREATINE PHOSPHOKINASE 77 U/L (34-145)
== END ==
LOC: M PLALAB 12:14
PROVIDERS: ATTEND Physician Assistant Medical
DX: E78.5 Hyperlipidemia, unspecified (principal); I10 Essential (primary) hypertension; E55.9 Vitamin D deficiency, unspecified

== ENCOUNTER → 2023-11-10 | Outpatient (CLI) | payer MEDICARE, OTHER | LOC: M WHC 10:20 | PROVIDERS: ATTEND Internal Medicine Medical Oncology | DX: Z12.31 Encounter for screening mammogram for malignant neoplasm of breast (principal) ==

== ENCOUNTER → 2024-02-19 | Outpatient (CLI) | payer MEDICARE, OTHER ==
[~2024-02-19] MED LIST changes: +AMLO2.5T3; +GABA-1172 PO; -GABA-282 PO; +ISOVUE-370 76% 100ML VIAL As Ordered ONE
== END ==
LOC: M RAD 13:57
PROVIDERS: ATTEND Internal Medicine Medical Oncology
DX: K80.20 Calculus of gallbladder without cholecystitis without obstruction (principal); R10.9 Unspecified abdominal pain
CPT/HCPCS: 74177; Q9967

== ENCOUNTER → 2024-11-10 | Outpatient (CLI) | payer MEDICARE, OTHER ==
[~2024-11-10] MED LIST changes: -ISOVUE-370 76% 100ML VIAL As Ordered ONE
== END ==
LOC: M WHC 12:34
PROVIDERS: ATTEND Internal Medicine Medical Oncology
DX: Z12.31 Encounter for screening mammogram for malignant neoplasm of breast (principal); R92.333 Mammographic heterogeneous density, bilateral breasts; Z85.3 Personal history of malignant neoplasm of breast; Z90.12 Acquired absence of left breast and nipple

== ENCOUNTER → 2024-11-10 | Outpatient (CLI) | payer MEDICARE, OTHER | LOC: M WHC 12:35 | PROVIDERS: ATTEND Physician Assistant Medical | DX: M85.851 Other specified disorders of bone density and structure, right thigh (principal); M85.852 Other specified disorders of bone density and structure, left thigh; Z12.31 Encounter for screening mammogram for malignant neoplasm of breast; R92.333 Mammographic heterogeneous density, bilateral breasts; Z85.3 Personal history of malignant neoplasm of breast; Z90.12 Acquired absence of left breast and nipple ==

== ENCOUNTER 2025-01-03 11:06 | Day surgery (SDC) | payer MEDICARE, OTHER ==
[~2025-01-03] VITALS: Ht 165.1 cm; Wt 65.8 kg
[~2025-01-03 11:06] MED LIST changes: -AMLO2.5T3; +AMLO2.5T3 PO; +CALC600C3 PO; -DULO1CAP4; +DULO1CAP4 PO; +ESTR0.1C5; -TIZA10TA; +TIZA10TA PO; +TYLE650T38 PO; +VIBE75TA PO; -ZOLP5TAB PO; +ZOLP5TAB9 PO; +[UNRECOGNIZED DRUG - OTHER]
[2025-01-03 12:48] VITALS: TEMP 97
[2025-01-03 13:11] VITALS: BP 174/85; O2SAT 99
== END 2025-01-03 13:19 | disposition home or self-care (01) ==
LOC: M OPP 11:06
PROVIDERS: ATTEND Internal Medicine Gastroenterology
DX: K62.4 Stenosis of anus and rectum (principal); K64.4 Residual hemorrhoidal skin tags; K51.90 Ulcerative colitis, unspecified, without complications; Z90.49 Acquired absence of other specified parts of digestive tract; Z93.4 Other artificial openings of gastrointestinal tract status; Z98.0 Intestinal bypass and anastomosis status; Z88.1 Allergy status to other antibiotic agents; Z88.2 Allergy status to sulfonamides; Z88.8 Allergy status to other drugs, medicaments and biological substances; Z79.899 Other long term (current) drug therapy